=== PATIENT | female | born 1950 | race Caucasian/White ===

== ENCOUNTER 2017-01-13 04:53 | Inpatient (IN) | payer MEDICARE ==
[~2017-01-13] VITALS: Ht 175.3 cm; Wt 103.3 kg
[2017-01-13] VITALS (15 sets, daily range): BP systolic 105–184; BP diastolic 55–85; PULSE 77–156; RESP 18–31; TEMP 98–102; O2SAT 96–100
[~2017-01-13 04:53] MED LIST: ATEN1TAB74 PO; ATOR10 PO; CELL500T PO; COUM4TAB7 PO; DAPS100 PO; FURO1TAB93 PO; LORT5TAB PO; NOVONP2 SQ; NOVORP2 SQ; PRED10 PO; PROG1CAP PO; TELM40 PO; TRIME100 PO
[2017-01-13] MEDS ORDERED: VANCOMYCIN INJ 1,000 MG in SODIUM CHLOR 0.9% 250 ML INJ 250 ML IV STA (05:03)
[2017-01-13] MEDS ORDERED: CEFEPIME INJ 2,000 MG in SODIUM CHLORIDE 0.9% INJ 100 ML IV STA (05:03)
--- NOTE | 2017-01-13 05:08 | PD ---
HPI Chief Complaint: Fever Time Seen by Provider: 05:03 Travel History International Travel<30 days: No Contact w/Intl Traveler<30days: No Traveled to known affect area: No History of Present Illness HPI 66-year-old female patient with history of COPD, chronic leg edema, currently in rehabilitation Center for UTI and sepsis, presents to the ER today for general weakness, fevers, and increased shortness of breath over last day. She denies any vomiting, diarrhea, or any other symptoms. Modifying Factors: None Associated Signs & Symptoms: Fevers, weakness, shortness of breath Risk Factors: Recent history of urosepsis PFSH Past Medical History Arthritis: Yes Asthma: No Autoimmune Disease: No Blood Disorders: No Heart Rhythm Problems: Yes Cancer: No Cardiovascular Problems: Yes Chemotherapy: No Chest Pain: Yes COPD: No Endocrine: No Hypertension: Yes Musculoskeletal: Yes Neurologic: No Psychiatric: No Reproductive: Yes (endometrial bx) Respiratory: No Radiation Therapy: No Renal Failure: Yes Sleep Apnea: No Past Surgical History Abdominal Surgery: Yes (BILATERAL NEPHRECTOMY 01/31/05 WITH KIDNEY TRANSPLANT) Cardiac Surgery: No Ear Surgery: No Endocrine Surgery: No Eye Surgery: No Genitourinary Surgery: Yes (BLADDER REPAIR) Gynecologic Surgery: No Oral Surgery: No Thoracic Surgery: No Other Surgery: Yes (MULTIPLE AV GRAFT PLACEMENTS) Social History Alcohol Use: No Tobacco Use: No Substance Use: No Allergies-Medications (Allergen,Severity, Reaction): Coded Allergies: Sulfa (Sulfonamide Antibiotics) (Unverified Allergy, Severe, 01/13/17) diatrizoate meglumine (Unverified Allergy, Severe, 01/13/17) gadobenic acid (Unverified Allergy, Severe, 01/13/17) gadodiamide (Unverified Allergy, Severe, 01/13/17) gadoteridol (Unverified Allergy, Severe, 01/13/17) iodixanol (Unverified Allergy, Severe, 01/13/17) iohexol (Unverified Allergy, Severe, PT NEEDS TO BE PREMEDICATED, 01/13/17) penicillin G (Unverified Allergy, Severe, 01/13/17) Reported Meds & Prescriptions Reported Meds & Active Scripts Active Review of Systems Except as stated in HPI: all other systems reviewed are Neg Physical Exam Narrative GENERAL: Well-developed obese elderly white female patient currently in mild distress. Awake and oriented 3. SKIN: Focused skin assessment warm/dry. HEAD: Atraumatic. Normocephalic. EYES: Pupils equal and round. No scleral icterus. No injection or drainage. ENT: No nasal bleeding or discharge. Mucous membranes pink and moist. NECK: Trachea midline. No JVD. CARDIOVASCULAR: Regular rate and rhythm. No murmur appreciated. RESPIRATORY: Mild accessory muscle use. Clear to auscultation. Breath sounds equal bilaterally. GASTROINTESTINAL: Abdomen soft, mild lower abdominal tenderness without guarding or rebound, nondistended. Hepatic and splenic margins not palpable. MUSCULOSKELETAL: No obvious deformities. No clubbing. No cyanosis. Bilateral chronic venous stasis with bilateral pitting edema the legs and lower leg erythema bilaterally, mildly tender palpation. NEUROLOGICAL: Awake and alert. No obvious cranial nerve deficits. Motor grossly within normal limits. Normal speech. PSYCHIATRIC: Appropriate mood and affect; insight and judgment normal. Data Data Last Documented VS Vital Signs Date Time Temp Pulse Resp B/P (MAP) Pulse Ox O2 Delivery O2 Flow Rate FiO2 01/13/17 05:08 22 01/13/17 05:08 100 Nasal Cannula 2.00 01/13/17 05:06 131 01/13/17 05:02 98.6 Orders Orders Complete Blood Count With Diff (01/13/17 05:03) Comprehensive Metabolic Panel (01/13/17 05:03) Lactic Acid Sepsis Protocol (01/13/17 05:03) Urinalysis - C+S If Indicated (01/13/17 05:03) Blood Culture (01/13/17 05:03) Chest, Single Ap (01/13/17 05:03) Blood Glucose (01/13/17 05:03) Ecg Monitoring (01/13/17 05:03) Iv Access Insert/Monitor (01/13/17 05:03) Oximetry (01/13/17 05:03) Oxygen Administration (01/13/17 05:03) Vancomycin Inj (Vancomycin Inj) (01/13/17 05:03) Cefepime Inj (Maxipime Inj) (01/13/17 05:03) Urine Culture (01/13/17 05:30) Labs Laboratory Tests Test 01/13/17 05:15 01/13/17 05:30 White Blood Count 9.0 TH/MM3 Red Blood Count 3.71 MIL/MM3 Hemoglobin 11.3 GM/DL Hematocrit 34.4 % Mean Corpuscular Volume 92.8 FL Mean Corpuscular Hemoglobin 30.6 PG Mean Corpuscular Hemoglobin Concent 33.0 % Red Cell Distribution Width 15.1 % Platelet Count 145 TH/MM3 Mean Platelet Volume 9.3 FL Neutrophils (%) (Auto) 82.3 % Lymphocytes (%) (Auto) 4.8 % Monocytes (%) (Auto) 11.7 % Eosinophils (%) (Auto) 0.8 % Basophils (%) (Auto) 0.4 % Neutrophils # (Auto) 7.4 TH/MM3 Lymphocytes # (Auto) 0.4 TH/MM3 Monocytes # (Auto) 1.1 TH/MM3 Eosinophils # (Auto) 0.1 TH/MM3 Basophils # (Auto) 0.0 TH/MM3 CBC Comment DIFF FINAL Differential Comment Blood Urea Nitrogen 31 MG/DL Creatinine 1.58 MG/DL Random Glucose 155 MG/DL Total Protein 5.6 GM/DL Albumin 2.3 GM/DL Calcium Level 7.9 MG/DL Alkaline Phosphatase 84 U/L Aspartate Amino Transf (AST/SGOT) 12 U/L Alanine Aminotransferase (ALT/SGPT) 12 U/L Total Bilirubin 0.5 MG/DL Sodium Level 137 MEQ/L Potassium Level 3.7 MEQ/L Chloride Level 95 MEQ/L Carbon Dioxide Level 33.4 MEQ/L Anion Gap 9 MEQ/L Estimat Glomerular Filtration Rate 33 ML/MIN Lactic Acid Level 1.4 mmol/L Urine Color YELLOW Urine Turbidity CLOUDY Urine pH 6.0 Urine Specific [place] 1.021 Urine Protein 100 mg/dL Urine Glucose (UA) NEG mg/dL Urine Ketones TRACE mg/dL Urine Occult Blood MOD Urine Nitrite NEG Urine Bilirubin NEG Urine Urobilinogen LESS THAN 2.0 MG/DL Urine Leukocyte Esterase LARGE Urine RBC 39 /hpf Urine WBC /hpf Urine WBC Clumps MANY Urine Squamous Epithelial Cells 2 /hpf Urine Bacteria MANY /hpf Microscopic Urinalysis Comment CATH-CULTURE IND MDM Medical Decision Making Medical Screen Exam Complete: Yes Emergency Medical Condition: Yes Medical Record Reviewed: Yes Interpretation(s) Last 24 hours Impressions Chest X-Ray 01/13/17 0503 Signed Impressions: Service Date/Time: Friday, January 13, 2017 05:26 - CONCLUSION: Mild linear opacity in the left lower lobe with the appearance favoring subsegmental atelectasis. Otherwise, no acute finding is identified. Jas Cruz MD Laboratory Tests Test 01/13/17 05:15 01/13/17 05:30 Red Blood Count 3.71 MIL/MM3 (4.00-5.30) Hemoglobin 11.3 GM/DL (11.6-15.3) Hematocrit 34.4 % (35.0-46.0) Platelet Count 145 TH/MM3 (150-450) Neutrophils (%) (Auto) 82.3 % (16.0-70.0) Lymphocytes (%) (Auto) 4.8 % (9.0-44.0) Monocytes (%) (Auto) 11.7 % (0.0-8.0) Lymphocytes # (Auto) 0.4 TH/MM3 (1.0-4.8) Monocytes # (Auto) 1.1 TH/MM3 (0-0.9) Blood Urea Nitrogen 31 MG/DL (7-18) Creatinine 1.58 MG/DL (0.50-1.00) Random Glucose 155 MG/DL (74-106) Total Protein 5.6 GM/DL (6.4-8.2) Albumin 2.3 GM/DL (3.4-5.0) Calcium Level 7.9 MG/DL (8.5-10.1) Aspartate Amino Transf (AST/SGOT) 12 U/L (15-37) Chloride Level 95 MEQ/L (98-107) Carbon Dioxide Level 33.4 MEQ/L (21.0-32.0) Estimat Glomerular Filtration Rate 33 ML/MIN (>89) Urine Turbidity CLOUDY (CLEAR) Urine Protein 100 mg/dL (NEG-TRACE) Urine Ketones TRACE mg/dL (NEG) Urine Occult Blood MOD (NEG) Urine Leukocyte Esterase LARGE (NEG) Urine RBC 39 /hpf (0-3) Urine WBC Clumps MANY (NONE) Urine Bacteria MANY /hpf (NONE) Differential Diagnosis Fevers, shortness of breath, general weakness: Sepsis versus dehydration versus COPD exacerbation versus pneumonia versus UTI Narrative Course Chest x-ray did not show obvious lobar pneumonia but this shows some left lower lobe atelectasis. Lab work shows significant UTI with elevated BUN/creatinine creatinine. There is concern for underlying dehydration as well as sepsis in this case considering the fever 101. IV antibiotics were initiated after cultures were drawn. My plan would be to admit her for further treatment. Case was discussed with Dr. clark for admission. Sepsis Criteria SIRS Criteria (2 or more): Temp > 100.9 or < 96.8, Heart rate over 90, RR > 20 or PaCO2 < 32 Diagnosis Primary Impression: Sepsis Additional Impression: UTI (urinary tract infection) Admitting Information Admitting Physician Requests: Admit Lewis Flores MD Jan 13, 2017 05:08
[2017-01-13 05:32] LABS: AUTOMATED NEUTROPHIL # 7.4 TH/MM3 (1.8-7.7); BASOPHIL % 0.4 % (0.0-2.0); EOSINOPHIL # 0.1 TH/MM3 (0-0.4); EOSINOPHIL % 0.8 % (0.0-4.0); HEMATOCRIT 34.4 % (35.0-46.0); HEMO FLAGS DIFF FINAL; LYMPH % 4.8 % (9.0-44.0); LYMPHOCYTE # 0.4 TH/MM3 (1.0-4.8); MEAN CELL VOLUME 92.8 FL (80.0-100.0); MEAN CORPUSCULAR HEMOGLOBIN 30.6 PG (27.0-34.0); MONO % 11.7 % (0.0-8.0); NEUT % 82.3 % (16.0-70.0); PLATELET COUNT 145 TH/MM3 (150-450); RED BLOOD COUNT 3.71 MIL/MM3 (4.00-5.30); RED CELL DISTRIBUTION WIDTH 15.1 % (11.6-17.2)
[2017-01-13 05:55] LABS: BACTERIA, URINE MANY /hpf; BLOOD, URINE MOD (NEG); COMMENT (UR) CATH-CULTURE IND; CULTURE IF INDICATED CATH CULTURE IND; GLUCOSE,URINE NEG (NEG); KETONE, URINE TRACE mg/dL (NEG); NITRITE,URINE NEG (NEG); SQUAMOUS EPITHELIAL CELL URINE 2 /hpf (0-5); URINE COLOR YELLOW (YELLW/STRAW)
--- NOTE | 2017-01-13 05:59 | RADRPT ---
EXAM DATE/TIME: 01/13/2017 05:26 [facility] COMPARISON: No previous studies available for comparison. INDICATIONS : Fever. MEDICAL HISTORY : Hypertension. Diabetes mellitus type II. Renal failure, chronic. SURGICAL HISTORY : Nephrectomy, left. Nephrectomy, right. Kidney transplant, Bowel resection ENCOUNTER: Initial ACUITY: 1 day PAIN SCORE: 0/10 LOCATION: Bilateral chest FINDINGS: Portable AP view of the chest demonstrates a normal-sized cardiac silhouette with calcification of th e aorta. There is mild linear opacity in the left lower lobe. No effusion, consolidation, or pneumoth orax is identified. The bones and soft tissues demonstrate no acute finding. Multiple clips overlie t he upper abdomen. CONCLUSION: Mild linear opacity in the left lower lobe with the appearance favoring subsegmental atelectasis. Oth erwise, no acute finding is identified. Jas Cruz MD on January 13, 2017 at 5:57 Board Certified Radiologist. This report was verified electronically.
[2017-01-13 06:18] LABS: ALT (GPT) 12 U/L (10-53); ANION GAP 9 MEQ/L (5-15); AST (GOT) 12 U/L (15-37); BICARBONATE 33.4 MEQ/L (21.0-32.0); BLOOD UREA NITROGEN 31 MG/DL (7-18); CHLORIDE 95 MEQ/L (98-107); GLOMERULAR FILTRATION RATE 33 ML/MIN (>89); POTASSIUM 3.7 MEQ/L (3.5-5.1); SODIUM (NA) 137 MEQ/L (136-145)
[2017-01-13 06:20] LABS: ALKALINE PHOSPHATASE 84 U/L (45-117); TOTAL BILIRUBIN ADULT 0.5 MG/DL (0.2-1.0)
[2017-01-13] MEDS ORDERED: SODIUM CHLOR 0.9% 1000 ML INJ 1,000 ML IV SCH (06:45)
[2017-01-13] MEDS ORDERED: Vancomycin Consult Pharmacy 1 EA OTHER SCH (06:45)
[2017-01-13] MEDS ORDERED: TACR1 PO (08:45)
[2017-01-13] MEDS ORDERED: FURO1TAB60 PO (08:45)
[2017-01-13] MEDS ORDERED: LANTUS2P SQ (08:45)
[2017-01-13] MEDS ORDERED: SODI325T PO (08:45)
[2017-01-13] MEDS ORDERED: TIMO0.5S30 EACH EYE (08:45)
[2017-01-13] MEDS ORDERED: IPRASOL INH (08:45)
[2017-01-13] MEDS ORDERED: HUMALOG SQ (08:45)
[2017-01-13] MEDS ORDERED: TYLE325T PO (08:45)
[2017-01-13] MEDS ORDERED: FAMO20TA2 PO (08:45)
[2017-01-13] MEDS ORDERED: APIX5TAB PO (08:45)
[2017-01-13] MEDS ORDERED: METO25TA6 PO (08:45)
[2017-01-13] MEDS ORDERED: PRED10 PO (08:45)
[2017-01-13] MEDS ORDERED: MYCO250 PO (08:45)
[2017-01-13] MEDS ORDERED: LEVO25TA4 PO (08:45)
[2017-01-13] MEDS ORDERED: METOPROLOL SUCCINATE 25 MG EXTENDED RELEASE TAB PO SCH (09:00)
[2017-01-13] MEDS ORDERED: DEXTROSE 50% IN WATER 50 ML VIAL(D50) IV PUSH PRN (10:00)
[2017-01-13] MEDS ORDERED: GLUCAGON 1 MG/ML VIAL OTHER PRN (10:00)
[2017-01-13] MEDS ORDERED: RESP: ALBUTEROL 2.5 MG/IPRATROPIUM 0.5 MG NEB (PRN) NEB (10:00)
[2017-01-13] MEDS: predniSONE 10 MG TAB PO SCH (10:13)
--- NOTE | 2017-01-13 10:13 | HHI.HP ---
HPI Service [facility] Primary Care Physician Selina Francis MD Admission Diagnosis sepsis/UTI Chief Complaint: Fever/chills, weakness Travel History International Travel<30 Days: No Contact w/Intl Traveler <30 Da: No Traveled to Known Affected Are: No History of Present Illness Ms. Rahman is a 66 y/o WF with chronic atrial fibrillation, diabetes mellitus, hx of renal failure secondary to polycystic kidney disease previously on HD for 6 years, then had bilateral nephrectomies and renal transplant on chronic immunosuppression. She was recently hospitalized at [facility] from 12/18/16 to for sepsis, E. coli bacteremia, acute pyelonephritis, and C. diff colitis. Pt was treated initially for sepsis and acute renal failure with IVF and antibiotics and did have initial clinical improvement and due to concern for developed volume overload due to her hx of CHF and valvular disease the IVF were stopped. She then had some worsening renal function felt to be related to septic acute tubular necrosis but this did improve with gentle IVF. She did develop diarrhea during this admission and was found to be positive for C. diff. Her initial blood and urine cultures were positive for E. coli, ESBL negative. She was also noted to emilio n A. fib RVR during that admission which improved with Cardizem gtt and she was converted to her oral metoprolol. Pt was discharged to [facility] on Cefdinir 300mg daily x 12 days ( completed on 01/06) and Flagyl 250mg QID x 14 days, completed on 01/09/17. Pt reports that on Friday (01/11/17), she started having fevers and shaking chills. She states that her fevers then were around 99 degrees. She denies any dysuria, urinary frequency, diarrhea, abdominal pain, cough or congestion. She states that she has had some nausea but denies any vomiting. Pt has had a poor appetite for several weeks. She does not feel that her abdomen is more distended than normal. She is passing gas and states that she had a small BM yesterday. She was [place] [facility] [place] for increased generalized weakness, fevers and some SOB. The pt does not feel that she is SOB. She is requiring 2L of supplemental O2 in [facility] ED. She is noted to be in A. fib RVR with HR in the 130-140's. CXR in the ED noted mild linear opacity in the left lower lobe with the appearance favoring subsegmental atelectasis, otherwise, no acute finding is identified. She denies any chest pain, palpitations, or dizziness. Pt was given IV Vancomycin and cefepime in the ED. Review of Systems Constitutional: COMPLAINS OF: Fever, Chills Eyes: DENIES: Vision loss Ears, nose, mouth, throat: DENIES: Hearing loss Respiratory: COMPLAINS OF: Shortness of breath, DENIES: Cough, Sputum production Cardiovascular: COMPLAINS OF: Lower Extremity Edema (chronic), DENIES: Chest pain, Palpitations Gastrointestinal: COMPLAINS OF: Nausea, Anorexia, DENIES: Abdominal pain, Constipation, Diarrhea, Vomiting Genitourinary: DENIES: Urinary frequency, Urgency, Dysuria Musculoskeletal: DENIES: Back pain, Neck pain Integumentary: DENIES: Rash Neurologic: DENIES: Headache, Localized weakness Psychiatric: DENIES: Confusion Past Family Social History Past Medical History Recent hx of sepsis/E. coli bacteremia/acute pyelonephritis/C. diff colitis in early 12/2016 Hx of renal transplant in 2004 secondary to polycystic kidney disease previously on HD for 6 years, then had bilateral nephrectomies and renal transplant on chronic immunosuppression CKD Anemia of chronic disease Chronic atrial fibrillation CHF Chronic edema of the LE Diabetes mellitus, type 2, complicated by neuropathy, nephropathy, retinopathy and peripheral angiopathy Moderate to severe tricuspid regurgitation Moderate to severe pulmonary HTN Glaucoma GERD HTN Hyperlipidemia Hypothyroidism RA 2D echo (12/19/16) - Estimated EF 55-60% - LA mildly dilated - RV mildly dilated - Mild mitral regurgitation - Moderate to severe tricuspid regurgitation - RVSP 73mmHg - Mild pulmonic regurg Past Surgical History Bilateral nephrectomies in 1999 AVF in multiple locations donor renal transplant in 2004 Cholecystectomy Colon surgery Exploratory Laparotomy for DAVID Ankle surgery Bladder surgery Urethrotomy Reported Medications Per the patient discharge summary from [facility] on 12/31/16 Timolol Opth Drops 0.5 % Soln 1 Drop EACH EYE BID Prograf (Tacrolimus) 1 Mg Cap 1 Mg PO DIRECTED 2mg in the AM 1mg in the PM Prednisone 10 Mg Tab 10 Mg PO DAILY Cellcept (Mycophenolate Mofetil) 250 Mg Cap 750 Mg PO BID Levothyroxine (Levothyroxine Sodium) 25 Mcg Tab 25 Mcg PO DAILY Lasix (Furosemide) 40 Mg Tab 40 Mg PO BID Eliquis (Apixaban) 5 Mg Tab 5 Mg PO BID Tylenol (Acetaminophen) 325 Mg Tab 325 Mg PO BID Sodium Bicarbonate 325 Mg Tab 325 Mg PO TIDPC Metoprolol Succinate ER 24 HR (Metoprolol Succinate) 25 Mg Tab 25 Mg PO BID Humalog Inj (Insulin Human Lispro) 1,000 Unit/10 Ml Vial 2-12 Units SQ ACHS Max dose at bedtime:( )units; sugars < 70,(0)units; sugars 150-199,(2)units; sugars 200-249,(4)units; sugars 250-299,(7)units; sugars 300-349,(10)units; sugars more than 349,(12)units. Lantus Inj (Insulin Glargine) 1,000 Unit/10 Ml Vial 15 Units SQ DAILY Famotidine 20 Mg Tab 20 Mg PO DAILY Duoneb (Ipratropium-Albuterol Neb) 0.5-2.5 Mg/3 Ml Neb 1 Nebule INH Q8HR NEB PRN Allergies: Coded Allergies: Sulfa (Sulfonamide Antibiotics) (Unverified Allergy, Severe, 01/13/17) diatrizoate meglumine (Unverified Allergy, Severe, 01/13/17) gadobenic acid (Unverified Allergy, Severe, 01/13/17) gadodiamide (Unverified Allergy, Severe, 01/13/17) gadoteridol (Unverified Allergy, Severe, 01/13/17) iodixanol (Unverified Allergy, Severe, 01/13/17) iohexol (Unverified Allergy, Severe, PT NEEDS TO BE PREMEDICATED, 01/13/17) penicillin G (Unverified Allergy, Severe, 01/13/17) Family History Father at age 76 from CVA Mother is 92 y/o with HTN and mitral valve disorder Social History Denies any alcohol, tobacco or illicit drug use She is , no children Her brother is her medical surrogate Physical Exam Vital Signs Vital Signs Date Time Temp Pulse Resp B/P (MAP) Pulse Ox O2 Delivery O2 Flow Rate FiO2 01/13/17 08:09 126 18 154/66 (95) 96 Nasal Cannula 2.00 01/13/17 05:08 22 01/13/17 05:08 100 Nasal Cannula 2.00 01/13/17 05:06 131 22 112/57 (75) 100 Nasal Cannula 2.00 01/13/17 05:02 98.6 131 22 98 Physical Exam GENERAL: This is a well-nourished, well-developed patient, in no apparent distress. HEENT: Atraumatic. Normocephalic. No temporal or scalp tenderness. No scleral icterus. Airway patent. NECK: Trachea midline, supple, nontender. CARDIO: Irregular, tachycardic RESP: CTA bilaterally. Appears dyspneic. No wheezes, rales, or rhonchi. ABD: +BS, semi-firm, non-tender, mildly distended. Ventral hernia, non- incarcerated EXT: Bilateral LE edema, venous stasis skin changes NEURO: Awake and alert. Motor and sensory grossly within normal limits. Normal speech. Laboratory Laboratory Tests Test 01/13/17 05:15 01/13/17 05:30 White Blood Count 9.0 Red Blood Count 3.71 Hemoglobin 11.3 Hematocrit 34.4 Mean Corpuscular Volume 92.8 Mean Corpuscular Hemoglobin 30.6 Mean Corpuscular Hemoglobin Concent 33.0 Red Cell Distribution Width 15.1 Platelet Count 145 Mean Platelet Volume 9.3 Neutrophils (%) (Auto) 82.3 Lymphocytes (%) (Auto) 4.8 Monocytes (%) (Auto) 11.7 Eosinophils (%) (Auto) 0.8 Basophils (%) (Auto) 0.4 Neutrophils # (Auto) 7.4 Lymphocytes # (Auto) 0.4 Monocytes # (Auto) 1.1 Eosinophils # (Auto) 0.1 Basophils # (Auto) 0.0 CBC Comment DIFF FINAL Differential Comment Blood Urea Nitrogen 31 Creatinine 1.58 Random Glucose 155 Total Protein 5.6 Albumin 2.3 Calcium Level 7.9 Alkaline Phosphatase 84 Aspartate Amino Transf (AST/SGOT) 12 Alanine Aminotransferase (ALT/SGPT) 12 Total Bilirubin 0.5 Sodium Level 137 Potassium Level 3.7 Chloride Level 95 Carbon Dioxide Level 33.4 Anion Gap 9 Estimat Glomerular Filtration Rate 33 Lactic Acid Level 1.4 Urine Color YELLOW Urine Turbidity CLOUDY Urine pH 6.0 Urine Specific [place] 1.021 Urine Protein 100 Urine Glucose (UA) NEG Urine Ketones TRACE Urine Occult Blood MOD Urine Nitrite NEG Urine Bilirubin NEG Urine Urobilinogen LESS THAN 2.0 Urine Leukocyte Esterase LARGE Urine RBC 39 Urine WBC Urine WBC Clumps MANY Urine Squamous Epithelial Cells 2 Urine Bacteria MANY Microscopic Urinalysis Comment CATH-CULTURE IND Date/Time Source Procedure Growth Status 01/13/17 05:15 Blood Peripheral Aerobic Blood Culture Pending Received 01/13/17 05:15 Blood Peripheral Anaerobic Blood Culture Pending Received 01/13/17 05:30 Urine Catheterized Urine Urine Culture Pending Received Result Diagram: 01/13/17 0515 01/13/17 0515 Imaging Last Impressions Chest X-Ray 01/13/17 0503 Signed Impressions: Service Date/Time: Friday, January 13, 2017 05:26 - CONCLUSION: Mild linear opacity in the left lower lobe with the appearance favoring subsegmental atelectasis. Otherwise, no acute finding is identified. Jas Cruz MD Septic Shock Reassessment Heart: Irregular Lungs: Clear Skin: Cold Caprini VTE Risk Assessment Caprini VTE Risk Assessment: Mod/High Risk (score >= 2) Caprini Risk Assessment Model Point Value = 1 Point Value = 2 Point Value = 3 Point Value = 5 Age 41-60 Minor surgery BMI > 25 kg/m2 Swollen legs Varicose veins or History of unexplained or recurrent spontaneous Oral contraceptives or hormone replacement Sepsis (< 1 month) Serious lung disease, including pneumonia (< 1 month) Abnormal pulmonary function Acute myocardial infarction Congestive heart failure (< 1 month) History of inflammatory bowel disease Medical patient at bed rest Age 61-74 Arthroscopic surgery Major open surgery (> 45 min) Laparoscopic surgery (> 45 min) Malignancy Confined to bed (> 72 hours) Immobilizing plaster cast Central venous access Age >= 75 History of VTE Family history of VTE Factor V Leiden Prothrombin [id number] Lupus anticoagulant Anticardiolipin antibodies Elevated serum homocysteine Heparin-induced thrombocytopenia Other congenital or acquired thrombophilia Stroke (< 1 month) Elective arthroplasty Hip, pelvis, or leg fracture Acute spinal cord injury (< 1 month) Prophylaxis Regimen Total Risk Factor Score Risk Level Prophylaxis Regimen 0-1 Low Early ambulation 2 Moderate Order ONE of the following: *Sequential Compression Device (SCD) *Heparin 5000 units SQ BID 3-4 Higher Order ONE of the following medications: *Heparin 5000 units SQ TID *Enoxaparin/Lovenox 40 mg SQ daily (WT < 150 kg, CrCl > 30 mL/min) *Enoxaparin/Lovenox 30 mg SQ daily (WT < 150 kg, CrCl > 10-29 mL/min) *Enoxaparin/Lovenox 30 mg SQ BID (WT < 150 kg, CrCl > 30 mL/min) AND/OR *Sequential Compression Device (SCD) 5 or more Highest Order ONE of the following medications: *Heparin 5000 units SQ TID (Preferred with Epidurals) *Enoxaparin/Lovenox 40 mg SQ daily (WT < 150 kg, CrCl > 30 mL/min) *Enoxaparin/Lovenox 30 mg SQ daily (WT < 150 kg, CrCl > 10-29 mL/min) *Enoxaparin/Lovenox 30 mg SQ BID (WT < 150 kg, CrCl > 30 mL/min) AND *Sequential Compression Device (SCD) Assessment and Plan Problem List: (1) Sepsis ICD Codes: A41.9 - Sepsis, unspecified organism Status: Acute Plan: - Pt is a 66 y/o female with chronic atrial fibrillation, diabetes mellitus, hx of renal failure secondary to polycystic kidney disease previously on HD for 6 years, then had bilateral nephrectomies and renal transplant on chronic immunosuppression. - She was recently hospitalized at [facility] from 12/18/16 to 12/31/16 for sepsis, E. coli bacteremia, acute pyelonephritis, and C. diff colitis. Pt was discharged to [facility] on Cefdinir 300mg daily x 12 days (completed on 01/06) and Flagyl 250mg QID x 14 days, completed on 01/09/17. - Pt presented [place] [facility] [place] for increased generalized weakness, fevers and some SOB. She states that on Friday (01/11/17), she started having fevers and shaking chills. She states that her fevers then were around 99 degrees but this reportedly increased to fever of 101 per the ED documentation. - She is requiring 2L of supplemental O2 in the ED. CXR in the ED noted mild linear opacity in the left lower lobe with the appearance favoring subsegmental atelectasis, otherwise, no acute finding is identified. - She is noted to be in A. fib RVR with HR in the 130-140's. - Blood and urine cultures taken in the ED - Pt was given IV Vancomycin and cefepime and one liter of NS in the ED, and will be continue the antibiotics and will monitor renal function closely to determine about continuing IVF. - Her renal function is noted to be Cr 1.58/BUN 31, GFR 33. In review of discharge summary from [facility] on the day of discharge her Cr was 1.7, BUN 68. - Monitor UOP and clinical status closely for any signs of volume overload. - Pt will be started on Cardizem gtt for the A. fib RVR - No reported diarrhea but if she develops any check stools for C. diff. - Check Profrag levels - She typically follow with Dr. Hector for nephrology but she states that while she was at rehab his office called and said they "don't want her to go back to the hospital" - Monitor labs - PT evaluation - Consult ID - [id number] - CXR in AM - IS - Duonebs PRN - Supportive care (2) UTI (urinary tract infection) ICD Codes: N39.0 - Urinary tract infection, site not specified Status: Acute Plan: - See above. - Pt recently treated for E. coli UTI and bacteremia - Await urine culture - Cont. Vanc and cefepime for now (3) Chronic atrial fibrillation with RVR ICD Codes: I48.2 - Chronic atrial fibrillation Status: Acute Plan: - Pt noted to be in A. fib RVR with HR in the 130-140's consistently - Start Cardizem gtt - When HR better controlled, will convert to oral Metoprolol - Telemetry (4) Acute on chronic renal insufficiency ICD Codes: N28.9 - Disorder of kidney and ureter, unspecified; N18.9 - Chronic kidney disease, unspecified Status: Acute Plan: - Her renal function is noted to be Cr 1.58/BUN 31, GFR 33 at admission. - In review of discharge summary from [facility] on the day of discharge her Cr was 1.7, BUN 68. 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 fib more controlled will convert back to Metoprolol - Clonidine PRN - Vasotec PRN (7) Hypothyroidism ICD Codes: E03.9 - Hypothyroidism, unspecified Plan: - Home med continued (8) Hx of kidney transplant ICD Codes: Z94.0 - Kidney transplant status Plan: - Pt with hx of renal failure secondary to polycystic kidney disease previously on HD for 6 years, then had bilateral nephrectomies and renal transplant on chronic immunosuppression. - Cont. home doses of Prograf, Cellcept and Prednisone - Check Prograf level (9) Hyperlipidemia ICD Codes: E78.5 - Hyperlipidemia, unspecified Plan: - Home meds continued Assessment and Plan Patient examined. Assessment and plan formulated with [facility] REAGAN I agree with the above. Recent prolong hospitalization at d/t sepsis, Ecoli bacteremia, pyelonephritis, CDif, and CHF. Pt readmitted with probable sepsis. Continue cefepime and vancomcyin Pt started on cardizem drip for Afib RVR HR currently 110 to 120 on telemery Physician Certification 2 Midnight Certification Type: Admission for Inpatient Services Order for Inpatient Services The services are ordered in accordance with Medicare regulations or non- Medicare payer requirements, as applicable. In the case of services not specified as inpatient-only, they are appropriately provided as inpatient services in accordance with the 2-midnight benchmark. Estimated LOS (days): 3 3 days is the estimated time the patient will need to remain in the hospital, assuming treatment plan goals are met and no additional complications. Post-Hospital Plan: Not yet determined Aurora Li Jan 13, 2017 10:13 Dharmesh Troy DO Jan 13, 2017 12:35
[2017-01-13] MEDS: ACETAMINOPHEN 325 MG TAB PO PRN (10:14)
[2017-01-13] MEDS: DILTIAZEM INJ 125 MG in SODIUM CHLORIDE 0.9% INJ 100 ML IV PRN ×2 (10:31→21:33)
[2017-01-13] MEDS: SODIUM CHLOR 0.9% 1000 ML INJ 1,000 ML IV SCH ×2 (10:59→21:33)
[2017-01-13] MEDS: SODIUM BICARBONATE 325 MG TAB PO SCH ×3 (10:59→17:20)
[2017-01-13] MEDS: TIMOLOL MALEATE 0.5% OPHT SOLN 5 ML BTL EACH EYE SCH ×2 (11:00→21:00)
[2017-01-13] MEDS: FAMOTIDINE 20 MG TAB PO SCH (11:35)
[2017-01-13] MEDS: APIXABAN 5 MG TABLET PO SCH ×2 (11:35→21:30)
[2017-01-13] MEDS: INSULIN ASPART SUPPLEMENTAL SCALE SQ SCH ×3 (11:36→21:00)
[2017-01-13] MEDS: DOCUSATE SODIUM 100 MG CAP PO SCH ×2 (13:00→21:29)
--- NOTE | 2017-01-13 13:18 | RADRPT ---
EXAM DATE/TIME: 01/13/2017 10:56 [facility] COMPARISON: No previous studies available for comparison. EXTERNAL COMPARISON : INDICATIONS : Distention and vomting. MEDICAL HISTORY : Hypertension. Diabetes mellitus type II. Renal failure, chronic. SURGICAL HISTORY : Nephrectomy, left. Nephrectomy, right. Kidney transplant, Bowel resection ENCOUNTER: Initial ACUITY: 1 day PAIN SCORE: 0/10 LOCATION: Bilateral abdomen. FINDINGS: Bowel gas pattern is unremarkable. Multiple surgical clips are seen in the abdomen. There is no shabbir e air. Portion most of the visualized unremarkable. CONCLUSION: History of multiple bowel surgeries, negative for free air or obstruction. Davin Gabriel MD FACR on January 13, 2017 at 13:15 Board Certified Radiologist. This report was verified electronically.
[2017-01-13] MEDS: MYCOPHENOLATE MOFETIL 250 MG CAP PO SCH ×2 (14:04→17:20)
[2017-01-13] MEDS: TACROLIMUS 1 MG CAP PO SCH ×2 (14:05→17:40)
[2017-01-13] MEDS: LEVOTHYROXINE SODIUM 25 MCG TAB PO SCH (14:05)
[2017-01-13] MEDS ORDERED: MISCELLANEOUS PHARMACY INFORMATION XX PRN (15:00)
[2017-01-13] MEDS ORDERED: ASP: Other exception documentation: ( ) PRN (15:00)
--- NOTE | 2017-01-13 15:07 | PD.CONS ---
History of Present Illness Service Infectious disease Consult Requested By Dr Mario Troy Reason for Consult Evaluate patient with possible sepsis Primary Care Physician Selina Francis MD Diagnoses: History of Present Illness Patient seen and examined. Records reviewed. Patient is a 66-year-old female, who is status post renal transplant, presented to the hospital complaining of an acute onset of fevers and chills. She was recently hospitalized at [facility], were she was diagnosed to have Escherichia coli ESBL UTI, and her hospitalization was complicated by development of C. difficile colitis. She also had worsening of her renal function which improved after treatment of the UTI, sepsis and fluid hydration. She was discharged to a rehabilitation facility, and reportedly finish her antibiotics on January 06, and the Flagyl on January 09. She developed an acute onset of fever and chills. She says she is voiding okay. She had some vomiting. Her diarrhea has improved. Denies any abdominal pain or any back pain. She denies any shortness of breath or any congestion or respiratory complaints. Since admission she has been febrile. She was in A. fib RVR on admission and the rate has improved. Her WBC is normal. Her urinalysis showed pyuria. Chest x-ray showed some atelectasis. Infectious disease consultation has been requested to evaluate the patient. Review of Systems Constitutional: COMPLAINS OF: Fever, Chills Eyes: DENIES: Eye pain Ears, nose, mouth, throat: DENIES: Oral lesions, Throat pain, Ear Pain, Sinus Pain, Odynophagia Respiratory: DENIES: Cough, Shortness of breath Cardiovascular: DENIES: Chest pain, Palpitations, Syncope Gastrointestinal: COMPLAINS OF: Nausea, Vomiting, DENIES: Abdominal pain, Diarrhea Genitourinary: DENIES: Urinary frequency, Dysuria Musculoskeletal: DENIES: Muscle aches Integumentary: DENIES: Rash Neurologic: DENIES: Headache Psychiatric: DENIES: Hallucinations Past Family Social History Allergies: Coded Allergies: Sulfa (Sulfonamide Antibiotics) (Unverified Allergy, Severe, 01/13/17) diatrizoate meglumine (Unverified Allergy, Severe, 01/13/17) gadobenic acid (Unverified Allergy, Severe, 01/13/17) gadodiamide (Unverified Allergy, Severe, 01/13/17) gadoteridol (Unverified Allergy, Severe, 01/13/17) iodixanol (Unverified Allergy, Severe, 01/13/17) iohexol (Unverified Allergy, Severe, PT NEEDS TO BE PREMEDICATED, 01/13/17) penicillin G (Unverified Allergy, Severe, 01/13/17) Past Medical History Recent hx of sepsis/E. coli bacteremia/acute pyelonephritis/C. diff colitis in early 12/2016 Hx of renal transplant in 2004 secondary to polycystic kidney disease previously on HD for 6 years, then had bilateral nephrectomies and renal transplant on chronic immunosuppression CKD Anemia of chronic disease Chronic atrial fibrillation CHF Chronic edema of the LE Diabetes mellitus, type 2, complicated by neuropathy, nephropathy, retinopathy and peripheral angiopathy Moderate to severe tricuspid regurgitation Moderate to severe pulmonary HTN Glaucoma GERD HTN Hyperlipidemia Hypothyroidism RA Past Surgical History Bilateral nephrectomies in 1999 AVF in multiple locations donor renal transplant in 2004 Cholecystectomy Colon surgery Exploratory Laparotomy for DAVID Ankle surgery Bladder surgery Urethrotomy Active Ordered Medications Tylenol Albuterol Eliquis Cefepime Cardizem Colace Pepcid Insulin Synthroid MOM CellCept Zofran Prednisone Sodium bicarbonate Prograf Vancomycin Family History Father at age 76 from CVA Mother is 92 y/o with HTN and mitral valve disorder Social History Denies any alcohol, tobacco or illicit drug use She is , no children Came from rehab facility Physical Exam Vital Signs Vital Signs Date Time Temp Pulse Resp B/P (MAP) Pulse Ox O2 Delivery O2 Flow Rate FiO2 01/13/17 14:00 80 01/13/17 12:01 154 18 168/64 (98) 98 Nasal Cannula 2.00 01/13/17 12:00 149 01/13/17 12:00 100.0 147 30 119/58 (78) 100 01/13/17 11:00 18 01/13/17 10:55 149 20 132/60 (84) 100 Nasal Cannula 3.00 01/13/17 10:31 155 175/72 01/13/17 10:00 102.0 156 18 184/85 (118) 97 Nasal Cannula 3.00 01/13/17 08:09 126 18 154/66 (95) 96 Nasal Cannula 2.00 01/13/17 05:08 22 01/13/17 05:08 100 Nasal Cannula 2.00 01/13/17 05:06 131 22 112/57 (75) 100 Nasal Cannula 2.00 01/13/17 05:02 98.6 131 22 98 Physical Exam GENERAL: Patient is a well-nourished, well-developed female, awake and alert , looks tachypneic, but denies SOB SKIN: Warm and dry. No generalized rash, no ecchymoses and no evidence of embolic lesions. HEAD: Atraumatic. Normocephalic. No temporal wasting, or tenderness. EYES: [place] conjunctiva. No petechia or hemorrhage. Pupils equal, round and reactive to light. Extraocular movements full and intact. No scleral icterus. No injection or drainage. EARS, NOSE AND THROAT: Nose without bleeding or purulent nasal discharge. No sinus tenderness. Mucous membranes pink and moist. No oral lesions noted. No exudate. No oral thrush. NECK: Trachea midline. Supple and not tender, no meningeal signs CARDIOVASCULAR: Regular rate and rhythm. No murmurs, rubs or gallops heard RESPIRATORY: Clear to auscultation. Breath sounds equal bilaterally. No rales , wheezing or rhonchi. Decreased BS at bases ABDOMEN: Soft, globular, non-tender, nondistended. Bowel sounds present and normoactive. No guarding. No rebound. Has an area of ecchymoses anterior abdominal wall. Healed incision C/W surgery EXTREMITIES: No clubbing, cyanosis. Has chronic indurated leathery texture skin changes in both LE c/w lymphedema. No calf tenderness. Well perfused and warm. NEUROLOGICAL: Awake and alert. Cranial nerves grossly intact. Motor grossly within normal limits. PSYCHIATRIC: Normal affect, calm and cooperative. LINE: No evidence of infection Laboratory Laboratory Tests Test 01/13/17 05:15 01/13/17 05:30 White Blood Count 9.0 Red Blood Count 3.71 Hemoglobin 11.3 Hematocrit 34.4 Mean Corpuscular Volume 92.8 Mean Corpuscular Hemoglobin 30.6 Mean Corpuscular Hemoglobin Concent 33.0 Red Cell Distribution Width 15.1 Platelet Count 145 Mean Platelet Volume 9.3 Neutrophils (%) (Auto) 82.3 Lymphocytes (%) (Auto) 4.8 Monocytes (%) (Auto) 11.7 Eosinophils (%) (Auto) 0.8 Basophils (%) (Auto) 0.4 Neutrophils # (Auto) 7.4 Lymphocytes # (Auto) 0.4 Monocytes # (Auto) 1.1 Eosinophils # (Auto) 0.1 Basophils # (Auto) 0.0 CBC Comment DIFF FINAL Differential Comment Blood Urea Nitrogen 31 Creatinine 1.58 Random Glucose 155 Total Protein 5.6 Albumin 2.3 Calcium Level 7.9 Alkaline Phosphatase 84 Aspartate Amino Transf (AST/SGOT) 12 Alanine Aminotransferase (ALT/SGPT) 12 Total Bilirubin 0.5 Sodium Level 137 Potassium Level 3.7 Chloride Level 95 Carbon Dioxide Level 33.4 Anion Gap 9 Estimat Glomerular Filtration Rate 33 Lactic Acid Level 1.4 Tacrolimus (Prograf) Level 4.5 Urine Color YELLOW Urine Turbidity CLOUDY Urine pH 6.0 Urine Specific Lindsay 1.021 Urine Protein 100 Urine Glucose (UA) NEG Urine Ketones TRACE Urine Occult Blood MOD Urine Nitrite NEG Urine Bilirubin NEG Urine Urobilinogen LESS THAN 2.0 Urine Leukocyte Esterase LARGE Urine RBC 39 Urine WBC Urine WBC Clumps MANY Urine Squamous Epithelial Cells 2 Urine Bacteria MANY Microscopic Urinalysis Comment CATH-CULTURE IND Date/Time Source Procedure Growth Status 01/13/17 05:15 Blood Peripheral Aerobic Blood Culture Pending Received 01/13/17 05:15 Blood Peripheral Anaerobic Blood Culture Pending Received 01/13/17 05:30 Urine Catheterized Urine Urine Culture Pending Received Result Diagram: 01/13/17 0515 01/13/17 0515 Imaging RADIOLOGY STUDIES/FILMS REVIEWED Chest X-Ray 01/13/17 0503 Signed Impressions: Service Date/Time: Friday, January 13, 2017 05:26 - CONCLUSION: Mild linear opacity in the left lower lobe with the appearance favoring subsegmental atelectasis. Otherwise, no acute finding is identified. Jas Cruz MD Abdomen X-Ray 01/13/17 0000 Signed Impressions: Service Date/Time: Friday, January 13, 2017 10:56 - CONCLUSION: History of multiple bowel surgeries, negative for free air or obstruction. Davin Gabriel MD FACR Assessment and Plan Assessment and Plan IMPRESSION Sepsis due to recurrent UTI Recent episode of UTI with E coli ESBL (+) Episode of C diff, seems stable, diarrhea has imrpoved - potential for recurrent audi since she will be getting systemic Abx S/P renal transplant - has renal insufficiency RECOMMENDATION Use Merem until C/S available Continue Vanco for now US of transplant kidney Follow C/S and adjust Abx Follow temps Monitor progress Will determine course of Abx once work-up is completer I will follow along with you Thank you for this consultation Discussed Condition With Explained plan to the patient Belem Gray MD Jan 13, 2017 15:07
--- NOTE | 2017-01-13 15:56 | EKG ---
Date Performed: 01/13/2017 Time Performed: 10:03:59 PTAGE: 66 years EKG: ATRIAL FIBRILLATION WITH RAPID VENTRICULAR RESPONSE ST DEVIATION AND MODERATE T-WAVE ABNORM ALITY, CONSIDER ANTEROLATERAL ISCHEMIA ST DEVIATION AND MODERATE T-WAVE ABNORMALITY, CONSIDER INFERIO R ISCHEMIA ABNORMAL ECG Compared to PREVIOUS TRACING , ventricular response to atrial fibrillation/flutter is faster. Early d iffused ST changes are new, consider ischemia. PREVIOUS TRACING 11/09/2007 07.41.14 DOCTOR: Eddie Amaral Interpretating Date/Time 01/13/2017 15:56:05
[2017-01-13] MEDS ORDERED: CHLORHEXIDINE GLUCONATE 2 % 1 PACK (2 CLOTHS)(extra cloths) TOPICAL PRN (16:15)
[2017-01-13] MEDS: CEFEPIME INJ 1,000 MG in SODIUM CHLORIDE 0.9% INJ 100 ML IV SCH (17:19)
[2017-01-13] MEDS: LACTOBACILLUS ACIDOPHILUS TAB PO SCH (17:20)
[2017-01-13] MEDS: MEROPENEM INJ 500 MG in SODIUM CHLORIDE 0.9% INJ 100 ML IV SCH (17:40)
--- NOTE | 2017-01-13 19:31 | RADRPT ---
EXAM DATE/TIME: 01/13/2017 16:01 [facility] COMPARISON: No previous studies available for comparison. INDICATIONS : Recurrent UTIs. MEDICAL HISTORY : Hypothyroidism. Gastroesophageal reflux disease. Hypertension. Numbness. Emphysema. Renal failure. Ar thritis. Diabetes. SURGICAL HISTORY : Cholecystectomy. Bilateral nephrectomy. Endometrial biopsy. Left ankle replacement. Multiple AV f istula surgeries. Left renal transplant. Bladder repair. ENCOUNTER: Initial ACUITY: 1 day PAIN SCORE: 7/10 LOCATION: Left lower quadrant MEASUREMENTS: TRANSPLANT KIDNEY: 14.2 x 6.5 x 8.8 cm LOCATION: Left lower quadrant. ARCUATE ARTERIES RESISTIVE INDEX: Upper - 0.7 Mid - 1.0 Lower - 1.0 MAIN RENAL ARTERY VELOCITY: (cm/sec): 71.7 MAIN RENAL VEIN: Patent EXTERNAL ILIAC ARTERY VELOCITY (cm/sec): 40.5 * NORMAL DOPPLER FINDINGS Arcuate arteries - RI = 0.6 - 0.8 Renal artery = under 200 cm/sec Renal vein = May be monophasic with continuous flow or demonstrate some pulsatility with cardiac cycl e FINDINGS: TRANSPLANT KIDNEY: Normal cortical thickness and echotexture. No hydronephrosis, stone, or mass. No peritransplant flu id collection. URINARY BLADDER: Within normal limits given the degree of distension. CONCLUSION: There are elevated resistive indices seen in the mid and lower transplanted kidney concerning medical renal disease or rejection. No hydronephrosis is seen. aJs Pace MD on January 13, 2017 at 19:27 Board Certified Radiologist. This report was verified electronically.
[2017-01-13] MEDS: VANCOMYCIN INJ 1,500 MG in SODIUM CHLORID 0.9% 500 ML INJ 500 ML IV SCH (21:32)
[2017-01-14] VITALS (12 sets, daily range): BP systolic 109–154; BP diastolic 53–70; PULSE 76–97; RESP 21–38; TEMP 96.4–98.8; O2SAT 93–100
[2017-01-14] MEDS: CHLORHEXIDINE GLUCONATE 2 % 1 PACK (2 CLOTHS)(taper/protocol) TOPICAL SCH (03:30)
[2017-01-14] MEDS: MEROPENEM INJ 500 MG in SODIUM CHLORIDE 0.9% INJ 100 ML IV SCH ×3 (04:29→23:13)
[2017-01-14] MEDS: CEFEPIME INJ 1,000 MG in SODIUM CHLORIDE 0.9% INJ 100 ML IV SCH (06:00)
[2017-01-14] MEDS: LEVOTHYROXINE SODIUM 25 MCG TAB PO SCH (06:00)
[2017-01-14] MEDS: ONDANSETRON HCL 4 MG/2 ML VIAL IV PRN (06:58)
[2017-01-14] MEDS: INSULIN ASPART SUPPLEMENTAL SCALE SQ SCH ×4 (06:58→23:24)
[2017-01-14 07:00] LABS: AUTOMATED NEUTROPHIL # 5.1 TH/MM3 (1.8-7.7); BASOPHIL % 0.1 % (0.0-2.0); EOSINOPHIL # 0.1 TH/MM3 (0-0.4); EOSINOPHIL % 1.3 % (0.0-4.0); HEMATOCRIT 29.1 % (35.0-46.0); HEMO FLAGS DIFF FINAL; LYMPH % 5.6 % (9.0-44.0); LYMPHOCYTE # 0.3 TH/MM3 (1.0-4.8); MEAN CELL VOLUME 92.9 FL (80.0-100.0); MEAN CORPUSCULAR HEMOGLOBIN 29.6 PG (27.0-34.0); MEAN CORPUSCULAR HGB CONC 31.9 % (32.0-36.0); MONO % 11.1 % (0.0-8.0); NEUT % 81.9 % (16.0-70.0); PLATELET COUNT 116 TH/MM3 (150-450); RED BLOOD COUNT 3.14 MIL/MM3 (4.00-5.30); WHITE BLOOD COUNT 6.2 TH/MM3 (4.0-11.0)
[2017-01-14 07:41] LABS: BICARBONATE 29.3 MEQ/L (21.0-32.0)
[2017-01-14 07:53] LABS: MAGNESIUM 1.5 MG/DL (1.5-2.5); POTASSIUM 3.6 MEQ/L (3.5-5.1)
--- NOTE | 2017-01-14 08:55 | RADRPT ---
EXAM DATE/TIME: 01/14/2017 08:30 [facility] COMPARISON: CHEST SINGLE AP, January 13, 2017, 5:26. INDICATIONS : Dyspnea. MEDICAL HISTORY : Congestive heart failure. Diabetes mellitus type II. Hypertension. A-Fib. SURGICAL HISTORY : Left kidney transplant. ENCOUNTER: Subsequent ACUITY: 2 days PAIN SCORE: 0/10 LOCATION: chest FINDINGS: A single view of the chest demonstrates the lungs to be symmetrically aerated without evidence of mas s, infiltrate or effusion. The cardiomediastinal contours are unremarkable. Osseous structures are intact. Mild oblique linear density in the left base retrocardiac region is consistent with subsegmen milena atelectasis.No significant change has occurred. No significant change has occurred. CONCLUSION: Stable chest. Kyree Johnston MD on January 14, 2017 at 8:52 Board Certified Radiologist. This report was verified electronically.
[2017-01-14] MEDS: APIXABAN 5 MG TABLET PO SCH ×2 (08:58→23:13)
[2017-01-14] MEDS: DOCUSATE SODIUM 100 MG CAP PO SCH ×2 (08:58→23:11)
[2017-01-14] MEDS: TACROLIMUS 1 MG CAP PO SCH ×2 (08:58→16:35)
[2017-01-14] MEDS: MYCOPHENOLATE MOFETIL 250 MG CAP PO SCH ×2 (08:58→23:12)
[2017-01-14] MEDS: predniSONE 10 MG TAB PO SCH (08:58)
[2017-01-14] MEDS: LACTOBACILLUS ACIDOPHILUS TAB PO SCH ×3 (08:58→16:35)
[2017-01-14] MEDS: TIMOLOL MALEATE 0.5% OPHT SOLN 5 ML BTL EACH EYE SCH ×2 (08:58→23:14)
[2017-01-14] MEDS: FAMOTIDINE 20 MG TAB PO SCH (08:58)
[2017-01-14] MEDS: SODIUM BICARBONATE 325 MG TAB PO SCH ×3 (09:03→18:24)
[2017-01-14] MEDS: DILTIAZEM HCL 30 MG TAB PO SCH ×3 (09:03→23:11)
--- NOTE | 2017-01-14 10:21 | HHI.IDPN ---
Subjective Subjective Remarks Patient is a 66-year-old female, who is status post renal transplant, presented to the hospital complaining of an acute onset of fevers and chills. She was recently hospitalized at [facility], were she was diagnosed to have Escherichia coli ESBL UTI, and her hospitalization was complicated by development of C. difficile colitis. She also had worsening of her renal function which improved after treatment of the UTI, sepsis and fluid hydration. She was discharged to a rehabilitation facility, and reportedly finish her antibiotics on January 06, and the Flagyl on January 09. She developed an acute onset of fever and chills. She says she is voiding okay. She had some vomiting. Her diarrhea has improved. Denies any abdominal pain or any back pain. She denies any shortness of breath or any congestion or respiratory complaints. Since admission she has been febrile. She was in A. fib RVR on admission and the rate has improved. Her WBC is normal. Her urinalysis showed pyuria. Chest x-ray showed some atelectasis. Notes reviewed Temps better BP good Monitor shows atrial flutter US no hydronephrosis BC with GNR UC pending Creatinine better Antibiotics Merem Vancomycin Lines PIV Past Medical History Recent hx of sepsis/E. coli bacteremia/acute pyelonephritis/C. diff colitis in early 12/2016 Hx of renal transplant in 2004 secondary to polycystic kidney disease previously on HD for 6 years, then had bilateral nephrectomies and renal transplant on chronic immunosuppression CKD Anemia of chronic disease Chronic atrial fibrillation CHF Chronic edema of the LE Diabetes mellitus, type 2, complicated by neuropathy, nephropathy, retinopathy and peripheral angiopathy Moderate to severe tricuspid regurgitation Moderate to severe pulmonary HTN Glaucoma GERD HTN Hyperlipidemia Hypothyroidism RA Past Surgical History Bilateral nephrectomies in 1999 AVF in multiple locations donor renal transplant in 2004 Cholecystectomy Colon surgery Exploratory Laparotomy for DAVID Ankle surgery Bladder surgery Urethrotomy Allergies: Coded Allergies: Sulfa (Sulfonamide Antibiotics) (Unverified Allergy, Severe, 01/13/17) diatrizoate meglumine (Unverified Allergy, Severe, 01/13/17) gadobenic acid (Unverified Allergy, Severe, 01/13/17) gadodiamide (Unverified Allergy, Severe, 01/13/17) gadoteridol (Unverified Allergy, Severe, 01/13/17) iodixanol (Unverified Allergy, Severe, 01/13/17) iohexol (Unverified Allergy, Severe, PT NEEDS TO BE PREMEDICATED, 01/13/17) penicillin G (Unverified Allergy, Severe, 01/13/17) Objective . Vital Signs Date Time Temp Pulse Resp B/P (MAP) Pulse Ox O2 Delivery O2 Flow Rate FiO2 01/14/17 06:00 79 01/14/17 04:00 98.1 78 21 132/62 (85) 100 01/14/17 04:00 78 01/14/17 02:00 77 01/14/17 00:00 76 01/14/17 00:00 98.1 76 28 109/53 (71) 100 01/13/17 22:00 79 01/13/17 21:33 78 123/69 01/13/17 20:00 98.0 79 31 115/60 (78) 100 01/13/17 20:00 79 01/13/17 19:24 100 Nasal Cannula 2.00 01/13/17 18:00 77 01/13/17 16:15 98 Nasal Cannula 2.00 01/13/17 16:00 98.5 80 24 105/55 (72) 100 01/13/17 16:00 80 01/13/17 14:00 80 01/13/17 12:01 154 18 168/64 (98) 98 Nasal Cannula 2.00 01/13/17 12:00 149 01/13/17 12:00 100.0 147 30 119/58 (78) 100 01/13/17 11:00 18 01/13/17 10:55 149 20 132/60 (84) 100 Nasal Cannula 3.00 01/13/17 10:31 155 175/72 . Laboratory Tests Test 01/13/17 05:15 01/14/17 05:15 White Blood Count 9.0 TH/MM3 6.2 TH/MM3 Red Blood Count 3.71 MIL/MM3 3.14 MIL/MM3 Hemoglobin 11.3 GM/DL 9.3 GM/DL Hematocrit 34.4 % 29.1 % Mean Corpuscular Volume 92.8 FL 92.9 FL Mean Corpuscular Hemoglobin 30.6 PG 29.6 PG Mean Corpuscular Hemoglobin Concent 33.0 % 31.9 % Red Cell Distribution Width 15.1 % 15.0 % Platelet Count 145 TH/MM3 116 TH/MM3 Mean Platelet Volume 9.3 FL 9.0 FL Neutrophils (%) (Auto) 82.3 % 81.9 % Lymphocytes (%) (Auto) 4.8 % 5.6 % Monocytes (%) (Auto) 11.7 % 11.1 % Eosinophils (%) (Auto) 0.8 % 1.3 % Basophils (%) (Auto) 0.4 % 0.1 % Neutrophils # (Auto) 7.4 TH/MM3 5.1 TH/MM3 Lymphocytes # (Auto) 0.4 TH/MM3 0.3 TH/MM3 Monocytes # (Auto) 1.1 TH/MM3 0.7 TH/MM3 Eosinophils # (Auto) 0.1 TH/MM3 0.1 TH/MM3 Basophils # (Auto) 0.0 TH/MM3 0.0 TH/MM3 CBC Comment DIFF FINAL DIFF FINAL Differential Comment Laboratory Tests Test 01/13/17 05:15 01/14/17 05:15 Blood Urea Nitrogen 31 MG/DL 38 MG/DL Creatinine 1.58 MG/DL 1.29 MG/DL Random Glucose 155 MG/DL 201 MG/DL Total Protein 5.6 GM/DL Albumin 2.3 GM/DL Calcium Level 7.9 MG/DL 7.5 MG/DL Alkaline Phosphatase 84 U/L Aspartate Amino Transf (AST/SGOT) 12 U/L Alanine Aminotransferase (ALT/SGPT) 12 U/L Total Bilirubin 0.5 MG/DL Sodium Level 137 MEQ/L 139 MEQ/L Potassium Level 3.7 MEQ/L 3.6 MEQ/L Chloride Level 95 MEQ/L 96 MEQ/L Carbon Dioxide Level 33.4 MEQ/L 29.3 MEQ/L Anion Gap 9 MEQ/L 14 MEQ/L Estimat Glomerular Filtration Rate 33 ML/MIN 41 ML/MIN Lactic Acid Level 1.4 mmol/L Magnesium Level 1.5 MG/DL Microbiology Date/Time Source Procedure Growth Status 01/13/17 05:15 Blood Peripheral Aerobic Blood Culture - Preliminary Gram Negative Nelson Resulted 01/13/17 05:15 Anaerobic Blood Culture - Preliminary Gram Negative Nelson Resulted 01/13/17 05:00 Blood Peripheral Aerobic Blood Culture - Preliminary Gram Negative Nelson Resulted 01/13/17 05:00 Anaerobic Blood Culture - Preliminary Gram Negative Nelson Resulted 01/13/17 05:30 Urine Catheterized Urine Urine Culture Pending Received Imaging Chest X-Ray 01/14/17 0000 Signed Impressions: Service Date/Time: Saturday, January 14, 2017 08:30 - CONCLUSION: Stable chest. Kyree Johnston MD Renal Ultrasound 01/13/17 0000 Signed Impressions: Service Date/Time: Friday, January 13, 2017 16:01 - CONCLUSION: There are elevated resistive indices seen in the mid and lower transplanted kidney concerning medical renal disease or rejection. No hydronephrosis is seen. Jas Pace MD Abdomen X-Ray 01/13/17 0000 Signed Impressions: Service Date/Time: Friday, January 13, 2017 10:56 - CONCLUSION: History of multiple bowel surgeries, negative for free air or obstruction. Davin Gabriel MD FACR Physical Exam GENERAL: awake and alert, looks comfortable SKIN: Warm and dry. No generalized rash, no ecchymoses and no evidence of embolic lesions. HEAD: Atraumatic. Normocephalic. No temporal wasting, or tenderness. EYES: [place] conjunctiva. No petechia or hemorrhage. Pupils equal, round and reactive to light. Extraocular movements full and intact. No scleral icterus. No injection or drainage. EARS, NOSE AND THROAT: Nose without bleeding or purulent nasal discharge. No sinus tenderness. Mucous membranes pink and moist. No oral lesions noted. NECK: Trachea midline. Supple and not tender, no meningeal signs CARDIOVASCULAR: Regular rate and rhythm. No murmurs, rubs or gallops heard RESPIRATORY: Clear to auscultation. Breath sounds equal bilaterally. No rales , wheezing or rhonchi. Decreased BS at bases ABDOMEN: Soft, globular, non-tender, nondistended. Bowel sounds present and normoactive. No guarding. No rebound. Has an area of ecchymoses anterior abdominal wall. Healed incision C/W surgery EXTREMITIES: No clubbing, cyanosis. Indurated leathery texture skin changes in both LE, (+) edema. No calf tenderness. Well perfused and warm. NEUROLOGICAL: Awake and alert. Cranial nerves grossly intact. Motor grossly within normal limits. PSYCHIATRIC: Normal affect, calm and cooperative. LINE: No evidence of infection Assessment & Plan Remarks IMPRESSION Gram Negative Sepsis due to recurrent UTI - S/P renal transplant - no hydro on US Recent episode of UTI with E coli ESBL (+) Episode of C diff, seems stable, diarrhea has imrpoved - potential for recurrent audi since she will be getting systemic Abx S/P renal transplant - has renal insufficiency, better RECOMMENDATION Continue Merem Stop Vanco Repeat 2 BC today Follow C/S and adjust Abx Follow temps Monitor progress Explained plan to the patient D/W Belem Hooker MD Jan 14, 2017 10:21
--- NOTE | 2017-01-14 17:42 | HHI.PR ---
Subjective Remarks Pt reports that the shaking chills have stopped No fevers so far today No BM today +Flatus Pt not eating or drinking much. She reports some oral sores and requesting nystatin s/s Objective Vitals Vital Signs Date Time Temp Pulse Resp B/P (MAP) Pulse Ox O2 Delivery O2 Flow Rate FiO2 01/14/17 14:53 99 Nasal Cannula 2.00 01/14/17 10:00 79 01/14/17 08:00 79 01/14/17 08:00 98.3 79 30 129/60 (83) 99 01/14/17 06:00 79 01/14/17 04:00 98.1 78 21 132/62 (85) 100 01/14/17 04:00 78 01/14/17 02:00 77 01/14/17 00:00 76 01/14/17 00:00 98.1 76 28 109/53 (71) 100 01/13/17 22:00 79 01/13/17 21:33 78 123/69 01/13/17 20:00 98.0 79 31 115/60 (78) 100 01/13/17 20:00 79 01/13/17 19:24 100 Nasal Cannula 2.00 01/13/17 18:00 77 01/14/17 01/14/17 01/15/17 15:00 23:00 07:00 Intake Total 27 ml Balance 27 ml IV Total 27 ml Result Diagram: 01/14/1715 01/14/1715 Other Results Laboratory Tests Test 01/13/17 05:15 01/13/17 05:30 01/13/17 12:00 01/14/17 05:15 White Blood Count 9.0 TH/MM3 6.2 TH/MM3 Red Blood Count 3.71 MIL/MM3 3.14 MIL/MM3 Hemoglobin 11.3 GM/DL 9.3 GM/DL Hematocrit 34.4 % 29.1 % Mean Corpuscular Volume 92.8 FL 92.9 FL Mean Corpuscular Hemoglobin 30.6 PG 29.6 PG Mean Corpuscular Hemoglobin Concent 33.0 % 31.9 % Red Cell Distribution Width 15.1 % 15.0 % Platelet Count 145 TH/MM3 116 TH/MM3 Mean Platelet Volume 9.3 FL 9.0 FL Neutrophils (%) (Auto) 82.3 % 81.9 % Lymphocytes (%) (Auto) 4.8 % 5.6 % Monocytes (%) (Auto) 11.7 % 11.1 % Eosinophils (%) (Auto) 0.8 % 1.3 % Basophils (%) (Auto) 0.4 % 0.1 % Neutrophils # (Auto) 7.4 TH/MM3 5.1 TH/MM3 Lymphocytes # (Auto) 0.4 TH/MM3 0.3 TH/MM3 Monocytes # (Auto) 1.1 TH/MM3 0.7 TH/MM3 Eosinophils # (Auto) 0.1 TH/MM3 0.1 TH/MM3 Basophils # (Auto) 0.0 TH/MM3 0.0 TH/MM3 CBC Comment DIFF FINAL DIFF FINAL Differential Comment Blood Urea Nitrogen 31 MG/DL 38 MG/DL Creatinine 1.58 MG/DL 1.29 MG/DL Random Glucose 155 MG/DL 201 MG/DL Total Protein 5.6 GM/DL Albumin 2.3 GM/DL Calcium Level 7.9 MG/DL 7.5 MG/DL Alkaline Phosphatase 84 U/L Aspartate Amino Transf (AST/SGOT) 12 U/L Alanine Aminotransferase (ALT/SGPT) 12 U/L Total Bilirubin 0.5 MG/DL Sodium Level 137 MEQ/L 139 MEQ/L Potassium Level 3.7 MEQ/L 3.6 MEQ/L Chloride Level 95 MEQ/L 96 MEQ/L Carbon Dioxide Level 33.4 MEQ/L 29.3 MEQ/L Anion Gap 9 MEQ/L 14 MEQ/L Estimat Glomerular Filtration Rate 33 ML/MIN 41 ML/MIN Lactic Acid Level 1.4 mmol/L Tacrolimus (Prograf) Level 4.5 NG/ML Urine Color YELLOW Urine Turbidity CLOUDY Urine pH 6.0 Urine Specific [place] 1.021 Urine Protein 100 mg/dL Urine Glucose (UA) NEG mg/dL Urine Ketones TRACE mg/dL Urine Occult Blood MOD Urine Nitrite NEG Urine Bilirubin NEG Urine Urobilinogen LESS THAN 2.0 MG/DL Urine Leukocyte Esterase LARGE Urine RBC 39 /hpf Urine WBC /hpf Urine WBC Clumps MANY Urine Squamous Epithelial Cells 2 /hpf Urine Bacteria MANY /hpf Microscopic Urinalysis Comment CATH-CULTURE IND Nasal Screen MRSA (PCR) MRSA NOT DETECTED Magnesium Level 1.5 MG/DL Imaging Last Impressions Chest X-Ray 01/14/17 0000 Signed Impressions: Service Date/Time: Saturday, January 14, 2017 08:30 - CONCLUSION: Stable chest. Kyree Johnston MD Renal Ultrasound 01/13/17 0000 Signed Impressions: Service Date/Time: Friday, January 13, 2017 16:01 - CONCLUSION: There are elevated resistive indices seen in the mid and lower transplanted kidney concerning medical renal disease or rejection. No hydronephrosis is seen. Jas Pace MD Abdomen X-Ray 01/13/17 0000 Signed Impressions: Service Date/Time: Friday, January 13, 2017 10:56 - CONCLUSION: History of multiple bowel surgeries, negative for free air or obstruction. Davin Gabriel MD FACR Last Impressions Chest X-Ray 01/13/17 0503 Signed Impressions: Service Date/Time: Friday, January 13, 2017 05:26 - CONCLUSION: Mild linear opacity in the left lower lobe with the appearance favoring subsegmental atelectasis. Otherwise, no acute finding is identified. Jas Cruz MD Objective Remarks General: NAD, AAOx3 Chest: CTA Cardiac: Irregular, rate controlled Abd: +BS, soft, mildly distended, nontender Ext: Bilateral LE edema with chronic leathery skin changes or bilateral LE A/P Problem List: (1) Sepsis ICD Codes: A41.9 - Sepsis, unspecified organism Status: Acute Plan: - Pt is a 66 y/o female with chronic atrial fibrillation, diabetes mellitus, hx of renal failure secondary to polycystic kidney disease previously on HD for 6 years, then had bilateral nephrectomies and renal transplant on chronic immunosuppression. - She was recently hospitalized at [facility] from 12/18/16 to 12/31/16 for sepsis, E. coli bacteremia, acute pyelonephritis, and C. diff colitis. Pt was discharged to [facility] on Cefdinir 300mg daily x 12 days (completed on 01/06) and Flagyl 250mg QID x 14 days, completed on 01/09/17. - Pt presented to the ED at [facility] on 01/13/17 for increased generalized weakness, fevers and some SOB. She states that on Friday (01/11/17), she started having fevers and shaking chills. She states that her fevers then were around 99 degrees but this reportedly increased to fever of 101 per the ED documentation. - She is requiring 2L of supplemental O2 in the ED. CXR in the ED noted mild linear opacity in the left lower lobe with the appearance favoring subsegmental atelectasis, otherwise, no acute finding is identified. - She is noted to be in A. fib RVR with HR in the 130-140's. - Blood (01/13) growing 4/4 gram negative braxton - Urine culture (01/13) with gram negative braxton - Pt was given IV Vancomycin and cefepime and one liter of NS in the ED, and these were continued - ID consulted - Antibiotics changed to Meropenem on 01/14 - Her renal function is noted to be Cr 1.58/BUN 31, GFR 33. In review of discharge summary from [facility] on the day of discharge her Cr was 1.7, BUN 68. Renal function improved to Cr 1.29 on 01/14 - Monitor UOP and clinical status closely for any signs of volume overload. - Pt was on Cardizem gtt for the A. fib RVR and became rate controlled and was converted to oral Cardizem. The patients home dose of metoprolol will be resumed and the oral Cardizem stopped this evening. - No reported diarrhea but if she develops any check stools for C. diff. - KUB was negative for free air or obstruction but did note some stool throughout the colon. Colace BID, MOM PRN - Lactinex - Monitor labs - PT evaluation - IS - Duonebs PRN - Supportive care - Pt stable for transfer out of ICU (2) UTI (urinary tract infection) ICD Codes: N39.0 - Urinary tract infection, site not specified Status: Acute Plan: - See above. - Pt recently treated for E. coli UTI and bacteremia (3) Chronic atrial fibrillation with RVR ICD Codes: I48.2 - Chronic atrial fibrillation Status: Acute Plan: - Pt noted to be in A. fib RVR with HR in the 130-140's consistently at admission - Improved with Cardizem gtt, rate controlled - Resume Metoprolol - Telemetry (4) Acute on chronic renal insufficiency ICD Codes: N28.9 - Disorder of kidney and ureter, unspecified; N18.9 - Chronic kidney disease, unspecified Status: Acute Plan: - Her renal function is noted to be Cr 1.58/BUN 31, GFR 33 at admission. - In review of discharge summary from [facility] on the day of discharge her Cr was 1.7, BUN 68. - Pt was given 1L of NS in the ED - Repeat labs on 01/14 with continued improvement in Cr to 1.29 - Renal US (01/13) --> There are elevated resistive indices seen in the mid and lower transplanted kidney concerning medical renal disease or rejection. No hydronephrosis is seen. (5) Diabetes mellitus type 2, insulin dependent ICD Codes: E11.9 - Type 2 diabetes mellitus without complications; Z79.4 - skilled nursing (current) use of insulin Plan: - NovoLog SSI - Accu checks (6) HTN (hypertension) ICD Codes: I10 - Essential (primary) hypertension Plan: - Resume metoprolol - Clonidine PRN - Vasotec PRN (7) Hypothyroidism ICD Codes: E03.9 - Hypothyroidism, unspecified Plan: - Home med continued (8) Hx of kidney transplant ICD Codes: Z94.0 - Kidney transplant status Plan: - Pt with hx of renal failure secondary to polycystic kidney disease previously on HD for 6 years, then had bilateral nephrectomies and renal transplant on chronic immunosuppression. - Cont. home doses of Prograf, Cellcept and Prednisone - Check Prograf level (9) Hyperlipidemia ICD Codes: E78.5 - Hyperlipidemia, unspecified Plan: - Home meds continued Assessment and Plan Patient examined. Assessment and plan formulated with Aurora Li PA-C. I agree with the above. Pt weaned off IV Cardizem & changed to PO cardizem Will change back to outpt PO metoprolol and stop PO cardizem. Aurora Li Jan 14, 2017 17:42 Dharmesh Troy DO Jan 15, 2017 13:50
[2017-01-14] MEDS: NYSTATIN SUSP 500,000 U/5 ML CUP SWISH-SWAL SCH ×2 (18:24→23:10)
[2017-01-14] MEDS: MAGNESIUM HYDROXIDE SUSP 30 ML CUP PO PRN (18:24)
[2017-01-14] MEDS: METOPROLOL TARTRATE 25 MG TAB PO SCH (23:10)
[2017-01-15] VITALS (7 sets, daily range): BP systolic 135–162; BP diastolic 63–87; PULSE 75–92; RESP 17–20; TEMP 95.4–97.3; O2SAT 96–100
[2017-01-15] MEDS: VANCOMYCIN INJ 1,500 MG in SODIUM CHLORID 0.9% 500 ML INJ 500 ML IV SCH (01:48)
[2017-01-15] MEDS: CHLORHEXIDINE GLUCONATE 2 % 1 PACK (2 CLOTHS)(taper/protocol) TOPICAL SCH (04:00)
[2017-01-15] MEDS: MEROPENEM INJ 500 MG in SODIUM CHLORIDE 0.9% INJ 100 ML IV SCH ×3 (05:02→20:43)
[2017-01-15] MEDS: LEVOTHYROXINE SODIUM 25 MCG TAB PO SCH (05:02)
[2017-01-15] MEDS: INSULIN ASPART SUPPLEMENTAL SCALE SQ SCH ×4 (05:13→20:33)
[2017-01-15 05:49] LABS: AUTOMATED NEUTROPHIL # 5.5 TH/MM3 (1.8-7.7); BASOPHIL % 0.1 % (0.0-2.0); EOSINOPHIL # 0.1 TH/MM3 (0-0.4); EOSINOPHIL % 1.9 % (0.0-4.0); HEMATOCRIT 31.2 % (35.0-46.0); HEMO FLAGS DIFF FINAL; LYMPH % 6.5 % (9.0-44.0); LYMPHOCYTE # 0.5 TH/MM3 (1.0-4.8); MEAN CELL VOLUME 92.9 FL (80.0-100.0); MEAN CORPUSCULAR HGB CONC 32.3 % (32.0-36.0); MONO % 11.9 % (0.0-8.0); NEUT % 79.6 % (16.0-70.0); PLATELET COUNT 132 TH/MM3 (150-450); RED BLOOD COUNT 3.36 MIL/MM3 (4.00-5.30); WHITE BLOOD COUNT 6.9 TH/MM3 (4.0-11.0)
[2017-01-15 06:16] LABS: BICARBONATE 30.4 MEQ/L (21.0-32.0); MAGNESIUM 1.8 MG/DL (1.5-2.5); POTASSIUM 3.6 MEQ/L (3.5-5.1)
[2017-01-15] MEDS: NYSTATIN SUSP 500,000 U/5 ML CUP SWISH-SWAL SCH ×4 (09:02→20:32)
[2017-01-15] MEDS: MYCOPHENOLATE MOFETIL 250 MG CAP PO SCH ×2 (09:03→20:32)
[2017-01-15] MEDS: DOCUSATE SODIUM 100 MG CAP PO SCH ×2 (09:04→20:32)
[2017-01-15] MEDS: METOPROLOL TARTRATE 25 MG TAB PO SCH ×2 (09:04→20:43)
[2017-01-15] MEDS: FAMOTIDINE 20 MG TAB PO SCH (09:05)
[2017-01-15] MEDS: SODIUM BICARBONATE 325 MG TAB PO SCH ×3 (09:05→17:25)
[2017-01-15] MEDS: predniSONE 10 MG TAB PO SCH (09:05)
[2017-01-15] MEDS: LACTOBACILLUS ACIDOPHILUS TAB PO SCH ×3 (09:05→23:09)
[2017-01-15] MEDS: APIXABAN 5 MG TABLET PO SCH ×2 (09:05→20:32)
[2017-01-15] MEDS: TACROLIMUS 1 MG CAP PO SCH ×2 (09:05→17:25)
[2017-01-15] MEDS: TIMOLOL MALEATE 0.5% OPHT SOLN 5 ML BTL EACH EYE SCH ×2 (09:06→20:42)
[2017-01-15] MEDS: MAGNESIUM HYDROXIDE SUSP 30 ML CUP PO PRN (09:26)
--- NOTE | 2017-01-15 13:13 | HHI.IDPN ---
Subjective Subjective Remarks Patient is a 66-year-old female, who is status post renal transplant, presented to the hospital complaining of an acute onset of fevers and chills. She was recently hospitalized at [facility], were she was diagnosed to have Escherichia coli ESBL UTI, and her hospitalization was complicated by development of C. difficile colitis. She also had worsening of her renal function which improved after treatment of the UTI, sepsis and fluid hydration. She was discharged to a rehabilitation facility, and reportedly finish her antibiotics on January 06, and the Flagyl on January 09. She developed an acute onset of fever and chills. She says she is voiding okay. She had some vomiting. Her diarrhea has improved. Denies any abdominal pain or any back pain. She denies any shortness of breath or any congestion or respiratory complaints. Since admission she has been febrile. She was in A. fib RVR on admission and the rate has improved. Her WBC is normal. Her urinalysis showed pyuria. Chest x-ray showed some atelectasis. Notes reviewed Temps better BP good US no hydronephrosis BC with E coli, no sensitivity yet UC with E coli, not ESBL+ Creatinine better Antibiotics Merem Vancomycin Lines PIV Past Medical History Recent hx of sepsis/E. coli bacteremia/acute pyelonephritis/C. diff colitis in early 12/2016 Hx of renal transplant in 2004 secondary to polycystic kidney disease previously on HD for 6 years, then had bilateral nephrectomies and renal transplant on chronic immunosuppression CKD Anemia of chronic disease Chronic atrial fibrillation CHF Chronic edema of the LE Diabetes mellitus, type 2, complicated by neuropathy, nephropathy, retinopathy and peripheral angiopathy Moderate to severe tricuspid regurgitation Moderate to severe pulmonary HTN Glaucoma GERD HTN Hyperlipidemia Hypothyroidism RA Past Surgical History Bilateral nephrectomies in 1999 AVF in multiple locations donor renal transplant in 2004 Cholecystectomy Colon surgery Exploratory Laparotomy for DAVID Ankle surgery Bladder surgery Urethrotomy Allergies: Coded Allergies: Sulfa (Sulfonamide Antibiotics) (Unverified Allergy, Severe, 01/13/17) diatrizoate meglumine (Unverified Allergy, Severe, 01/13/17) gadobenic acid (Unverified Allergy, Severe, 01/13/17) gadodiamide (Unverified Allergy, Severe, 01/13/17) gadoteridol (Unverified Allergy, Severe, 01/13/17) iodixanol (Unverified Allergy, Severe, 01/13/17) iohexol (Unverified Allergy, Severe, PT NEEDS TO BE PREMEDICATED, 01/13/17) penicillin G (Unverified Allergy, Severe, 01/13/17) Objective . Vital Signs Date Time Temp Pulse Resp B/P (MAP) Pulse Ox O2 Delivery O2 Flow Rate FiO2 01/15/17 08:00 97.3 77 17 140/64 (89) 100 01/15/17 04:00 97.3 79 20 135/63 (87) 100 01/15/17 00:00 97.2 76 20 138/85 (102) 100 01/14/17 20:00 96.4 97 21 154/70 (98) 93 01/14/17 19:34 Nasal Cannula 2.00 01/14/17 18:00 78 01/14/17 16:00 76 01/14/17 16:00 98.8 76 38 128/62 (84) 100 01/14/17 14:53 99 Nasal Cannula 2.00 01/14/17 14:00 80 . Laboratory Tests Test 01/14/17 05:15 01/15/17 04:32 White Blood Count 6.2 TH/MM3 6.9 TH/MM3 Red Blood Count 3.14 MIL/MM3 3.36 MIL/MM3 Hemoglobin 9.3 GM/DL 10.1 GM/DL Hematocrit 29.1 % 31.2 % Mean Corpuscular Volume 92.9 FL 92.9 FL Mean Corpuscular Hemoglobin 29.6 PG 30.0 PG Mean Corpuscular Hemoglobin Concent 31.9 % 32.3 % Red Cell Distribution Width 15.0 % 15.0 % Platelet Count 116 TH/MM3 132 TH/MM3 Mean Platelet Volume 9.0 FL 9.4 FL Neutrophils (%) (Auto) 81.9 % 79.6 % Lymphocytes (%) (Auto) 5.6 % 6.5 % Monocytes (%) (Auto) 11.1 % 11.9 % Eosinophils (%) (Auto) 1.3 % 1.9 % Basophils (%) (Auto) 0.1 % 0.1 % Neutrophils # (Auto) 5.1 TH/MM3 5.5 TH/MM3 Lymphocytes # (Auto) 0.3 TH/MM3 0.5 TH/MM3 Monocytes # (Auto) 0.7 TH/MM3 0.8 TH/MM3 Eosinophils # (Auto) 0.1 TH/MM3 0.1 TH/MM3 Basophils # (Auto) 0.0 TH/MM3 0.0 TH/MM3 CBC Comment DIFF FINAL DIFF FINAL Differential Comment Laboratory Tests Test 01/14/17 05:15 01/15/17 04:32 Blood Urea Nitrogen 38 MG/DL 42 MG/DL Creatinine 1.29 MG/DL 1.26 MG/DL Random Glucose 201 MG/DL 153 MG/DL Calcium Level 7.5 MG/DL 8.2 MG/DL Magnesium Level 1.5 MG/DL 1.8 MG/DL Sodium Level 139 MEQ/L 139 MEQ/L Potassium Level 3.6 MEQ/L 3.6 MEQ/L Chloride Level 96 MEQ/L 99 MEQ/L Carbon Dioxide Level 29.3 MEQ/L 30.4 MEQ/L Anion Gap 14 MEQ/L 10 MEQ/L Estimat Glomerular Filtration Rate 41 ML/MIN 42 ML/MIN Microbiology Date/Time Source Procedure Growth Status 01/14/17 14:45 Blood Peripheral Aerobic Blood Culture - Preliminary NO GROWTH IN 1 DAY Resulted 01/14/17 14:45 Blood Peripheral Anaerobic Blood Culture - Preliminary NO GROWTH IN 1 DAY Resulted 01/14/17 14:41 Blood Peripheral Aerobic Blood Culture - Preliminary NO GROWTH IN 1 DAY Resulted 01/14/17 14:41 Blood Peripheral Anaerobic Blood Culture - Preliminary NO GROWTH IN 1 DAY Resulted 01/13/17 05:15 Blood Peripheral Aerobic Blood Culture - Preliminary Gram Negative Nelson Resulted 01/13/17 05:15 Anaerobic Blood Culture - Preliminary Escherichia Coli Resulted 01/13/17 05:00 Blood Peripheral Aerobic Blood Culture - Preliminary Gram Negative Nelson Resulted 01/13/17 05:00 Anaerobic Blood Culture - Preliminary Escherichia Coli Resulted 01/13/17 05:30 Urine Catheterized Urine Urine Culture - Final Escherichia Coli Complete Imaging Chest X-Ray 01/14/17 0000 Signed Impressions: Service Date/Time: Saturday, January 14, 2017 08:30 - CONCLUSION: Stable chest. Kyree Johnston MD Renal Ultrasound 01/13/17 0000 Signed Impressions: Service Date/Time: Friday, January 13, 2017 16:01 - CONCLUSION: There are elevated resistive indices seen in the mid and lower transplanted kidney concerning medical renal disease or rejection. No hydronephrosis is seen. Jas Pace MD Abdomen X-Ray 01/13/17 0000 Signed Impressions: Service Date/Time: Friday, January 13, 2017 10:56 - CONCLUSION: History of multiple bowel surgeries, negative for free air or obstruction. Davin Gabriel MD FACR Physical Exam GENERAL: awake and alert, looks comfortable SKIN: Warm and dry. No generalized rash, no ecchymoses and no evidence of embolic lesions. HEAD: Atraumatic. Normocephalic. No temporal wasting, or tenderness. EYES: [place] conjunctiva. No petechia or hemorrhage. Pupils equal, round and reactive to light. Extraocular movements full and intact. No scleral icterus. No injection or drainage. EARS, NOSE AND THROAT: Nose without bleeding or purulent nasal discharge. No sinus tenderness. Mucous membranes pink and moist. No oral lesions noted. NECK: Trachea midline. Supple and not tender, no meningeal signs CARDIOVASCULAR: Regular rate and rhythm. No murmurs, rubs or gallops heard RESPIRATORY: Clear to auscultation. Breath sounds equal bilaterally. No rales , wheezing or rhonchi. Decreased BS at bases ABDOMEN: Soft, globular, non-tender, nondistended. Bowel sounds present and normoactive. No guarding. No rebound. Has an area of ecchymoses anterior abdominal wall. Healed incision C/W surgery EXTREMITIES: No clubbing, cyanosis. Indurated leathery texture skin changes in both LE, (+) edema. No calf tenderness. Well perfused and warm. NEUROLOGICAL: Awake and alert. Cranial nerves grossly intact. Motor grossly within normal limits. PSYCHIATRIC: Normal affect, calm and cooperative. LINE: No evidence of infection Assessment & Plan Remarks IMPRESSION E coli Sepsis due to recurrent UTI - S/P renal transplant - no hydro on US Recent episode of UTI with E coli ESBL (+) Episode of C diff, seems stable, diarrhea has imrpoved - potential for recurrent audi since she will be getting systemic Abx S/P renal transplant - has renal insufficiency, better RECOMMENDATION Continue Merem Stop Vanco Repeat UA and C/S Follow C/S and adjust Abx - prob D/C merem tomorrow and change to cefepime once sensitivity testing in availabl Monitor progress Belem Gray MD Jan 15, 2017 13:13
--- NOTE | 2017-01-15 14:03 | HHI.PR ---
Subjective Remarks No new complaints. Objective Vitals Vital Signs Date Time Temp Pulse Resp B/P (MAP) Pulse Ox O2 Delivery O2 Flow Rate FiO2 01/15/17 08:00 97.3 77 17 140/64 (89) 100 01/15/17 04:00 97.3 79 20 135/63 (87) 100 01/15/17 00:00 97.2 76 20 138/85 (102) 100 01/14/17 20:00 96.4 97 21 154/70 (98) 93 01/14/17 19:34 Nasal Cannula 2.00 01/14/17 18:00 78 01/14/17 16:00 76 01/14/17 16:00 98.8 76 38 128/62 (84) 100 01/14/17 14:53 99 Nasal Cannula 2.00 01/14/17 14:00 80 Result Diagram: 01/15/17 0432 01/15/17 0432 Imaging Last Impressions Chest X-Ray 01/14/17 0000 Signed Impressions: Service Date/Time: Saturday, January 14, 2017 08:30 - CONCLUSION: Stable chest. Kyree Johnston MD Renal Ultrasound 01/13/17 0000 Signed Impressions: Service Date/Time: Friday, January 13, 2017 16:01 - CONCLUSION: There are elevated resistive indices seen in the mid and lower transplanted kidney concerning medical renal disease or rejection. No hydronephrosis is seen. Jas Pace MD Abdomen X-Ray 01/13/17 0000 Signed Impressions: Service Date/Time: Friday, January 13, 2017 10:56 - CONCLUSION: History of multiple bowel surgeries, negative for free air or obstruction. Davin Gabriel MD FACR Last Impressions Chest X-Ray 01/13/17 0503 Signed Impressions: Service Date/Time: Friday, January 13, 2017 05:26 - CONCLUSION: Mild linear opacity in the left lower lobe with the appearance favoring subsegmental atelectasis. Otherwise, no acute finding is identified. Jas Cruz MD Objective Remarks General: NAD, AAOx3 Chest: CTA Cardiac: Irregular, rate controlled Abd: +BS, soft, mildly distended, nontender Ext: Bilateral LE edema with chronic leathery skin changes or bilateral LE A/P Problem List: (1) Sepsis ICD Codes: A41.9 - Sepsis, unspecified organism Status: Acute Plan: - comgmt with ID - Pt is a 66 y/o female with chronic atrial fibrillation, diabetes mellitus, hx of renal failure secondary to polycystic kidney disease previously on HD for 6 years, then had bilateral nephrectomies and renal transplant on chronic immunosuppression. - She was recently hospitalized at [facility] from 12/18/16 to 12/31/16 for sepsis, E. coli bacteremia, acute pyelonephritis, and C. diff colitis. Pt was discharged to [facility] on Cefdinir 300mg daily x 12 days (completed on 01/06) and Flagyl 250mg QID x 14 days, completed on 01/09/17. - Pt presented to the ED at [facility] on 01/13/17 for increased generalized weakness, fevers and some SOB. She states that on Friday (01/11/17), she started having fevers and shaking chills. She states that her fevers then were around 99 degrees but this reportedly increased to fever of 101 per the ED documentation. - upon admission, pt required 2L of supplemental O2 in the ED. CXR in the ED noted mild linear opacity in the left lower lobe with the appearance favoring subsegmental atelectasis, otherwise, no acute finding is identified. - Pt had A. fib RVR with HR in the 130-140's. - Blood (01/13) growing gram negative braxton, E Coli - Urine culture (01/13) E Coli - Repeat UA (01/15) pending - Pt was given IV Vancomycin and cefepime and one liter of NS in the ED, and these were continued - Meropenem (01/14 - present) - per ID, prob D/C meropenem tomorrow and change to cefepime once sensitivity testing in [place] availabl - No reported diarrhea but if she develops any check stools for C. diff. - KUB was negative for free air or obstruction but did note some stool throughout the colon. Colace BID, MOM PRN - Lactinex - Monitor labs - PT evaluation - IS - Duonebs PRN - Supportive care (2) UTI (urinary tract infection) ICD Codes: N39.0 - Urinary tract infection, site not specified Status: Acute Plan: - See above. - Pt recently treated for E. coli UTI and bacteremia (3) Chronic atrial fibrillation with RVR ICD Codes: I48.2 - Chronic atrial fibrillation Status: Acute Plan: - Pt noted to be in A. fib RVR with HR in the 130-140's consistently at admission - Improved with Cardizem gtt, rate controlled - Resumed Metoprolol - Telemetry (4) Acute on chronic renal insufficiency ICD Codes: N28.9 - Disorder of kidney and ureter, unspecified; N18.9 - Chronic kidney disease, unspecified Status: Acute Plan: - Her renal function is noted to be Cr 1.58/BUN 31, GFR 33 at admission. - In review of discharge summary from [facility] on the day of discharge her Cr was 1.7, BUN 68. - Pt was given 1L of NS in the ED - Repeat labs on 01/14 with continued improvement in Cr to 1.29 - Renal US (01/13) --> There are elevated resistive indices seen in the mid and lower transplanted kidney concerning medical renal disease or rejection. No hydronephrosis is seen. (5) Diabetes mellitus type 2, insulin dependent ICD Codes: E11.9 - Type 2 diabetes mellitus without complications; Z79.4 - custodial (current) use of insulin Plan: - NovoLog SSI - Accu checks (6) HTN (hypertension) ICD Codes: I10 - Essential (primary) hypertension Plan: - Resume metoprolol - Clonidine PRN - Vasotec PRN (7) Hypothyroidism ICD Codes: E03.9 - Hypothyroidism, unspecified Plan: - Home med continued (8) Hx of kidney transplant ICD Codes: Z94.0 - Kidney transplant status Plan: - Pt with hx of renal failure secondary to polycystic kidney disease previously on HD for 6 years, then had bilateral nephrectomies and renal transplant on chronic immunosuppression. - Cont. home doses of Prograf, Cellcept and Prednisone - Check Prograf level (9) Hyperlipidemia ICD Codes: E78.5 - Hyperlipidemia, unspecified Plan: - Home meds continued (10) Constipation ICD Codes: K59.00 - Constipation, unspecified Plan: - start colace - no response to MOM - trial of fleet enema Dharmesh Troy DO Jan 15, 2017 14:03
[2017-01-15] MEDS ORDERED: SOD PHOSPHATE/SOD BIPHOSPHATE (ADULT) ENEMA 133ML RECTAL PRN (14:30)
[2017-01-15] MEDS ORDERED: DOCUSATE SODIUM 100 MG CAP PO SCH (14:30)
[2017-01-15] MEDS ORDERED: PHARMACY ORDERED LAB ONE (22:45)
[2017-01-16] VITALS: BP 133/65; PULSE 72; RESP 18; TEMP 97.8; O2SAT 100
[2017-01-16] MEDS: CHLORHEXIDINE GLUCONATE 2 % 1 PACK (2 CLOTHS)(taper/protocol) TOPICAL SCH (03:25)
[2017-01-16 04:00] VITALS: BP 154/71; PULSE 74; RESP 18; O2SAT 100
[2017-01-16] MEDS: MEROPENEM INJ 500 MG in SODIUM CHLORIDE 0.9% INJ 100 ML IV SCH (04:57)
[2017-01-16] MEDS: LEVOTHYROXINE SODIUM 25 MCG TAB PO SCH (04:57)
[2017-01-16] MEDS: INSULIN ASPART SUPPLEMENTAL SCALE SQ SCH ×4 (06:07→21:45)
[2017-01-16] MEDS: ACETAMINOPHEN 325 MG TAB PO PRN ×2 (07:09→16:42)
[2017-01-16 08:00] VITALS: BP 146/67; PULSE 75; RESP 17; TEMP 96.2; O2SAT 92
[2017-01-16] MEDS: DOCUSATE SODIUM 100 MG CAP PO SCH ×2 (08:20→20:08)
[2017-01-16] MEDS: NYSTATIN SUSP 500,000 U/5 ML CUP SWISH-SWAL SCH ×4 (08:20→20:09)
[2017-01-16] MEDS: predniSONE 10 MG TAB PO SCH (08:20)
[2017-01-16] MEDS: TIMOLOL MALEATE 0.5% OPHT SOLN 5 ML BTL EACH EYE SCH ×2 (08:20→20:06)
[2017-01-16] MEDS: LACTOBACILLUS ACIDOPHILUS TAB PO SCH ×3 (08:21→16:34)
[2017-01-16] MEDS: METOPROLOL TARTRATE 25 MG TAB PO SCH ×2 (08:21→20:09)
[2017-01-16] MEDS: TACROLIMUS 1 MG CAP PO SCH ×2 (08:21→16:34)
[2017-01-16] MEDS: FAMOTIDINE 20 MG TAB PO SCH (08:21)
[2017-01-16] MEDS: SODIUM BICARBONATE 325 MG TAB PO SCH ×3 (08:21→16:41)
[2017-01-16] MEDS: APIXABAN 5 MG TABLET PO SCH ×2 (08:21→20:08)
[2017-01-16] MEDS: MYCOPHENOLATE MOFETIL 250 MG CAP PO SCH ×2 (08:22→20:07)
--- NOTE | 2017-01-16 10:04 | HHI.PR ---
Subjective Remarks Pt overall feeling better today. She is feeling like she is retaining some fluid Legs are weeping clear fluid from both legs Objective Vitals Vital Signs Date Time Temp Pulse Resp B/P (MAP) Pulse Ox O2 Delivery O2 Flow Rate FiO2 01/16/17 08:00 96.2 75 17 146/67 (93) 92 01/16/17 04:00 74 18 154/71 (98) 100 01/16/17 00:00 97.8 72 18 133/65 (87) 100 01/15/17 22:00 92 01/15/17 20:00 96.5 84 18 140/76 (97) 96 01/15/17 16:00 95.4 80 17 158/87 (110) 100 01/15/17 12:00 96.3 75 18 162/68 (99) 100 Result Diagram: 01/15/17 0432 01/15/17 0432 Other Results Laboratory Tests Test 01/15/17 04:32 White Blood Count 6.9 TH/MM3 Red Blood Count 3.36 MIL/MM3 Hemoglobin 10.1 GM/DL Hematocrit 31.2 % Mean Corpuscular Volume 92.9 FL Mean Corpuscular Hemoglobin 30.0 PG Mean Corpuscular Hemoglobin Concent 32.3 % Red Cell Distribution Width 15.0 % Platelet Count 132 TH/MM3 Mean Platelet Volume 9.4 FL Neutrophils (%) (Auto) 79.6 % Lymphocytes (%) (Auto) 6.5 % Monocytes (%) (Auto) 11.9 % Eosinophils (%) (Auto) 1.9 % Basophils (%) (Auto) 0.1 % Neutrophils # (Auto) 5.5 TH/MM3 Lymphocytes # (Auto) 0.5 TH/MM3 Monocytes # (Auto) 0.8 TH/MM3 Eosinophils # (Auto) 0.1 TH/MM3 Basophils # (Auto) 0.0 TH/MM3 CBC Comment DIFF FINAL Differential Comment Blood Urea Nitrogen 42 MG/DL Creatinine 1.26 MG/DL Random Glucose 153 MG/DL Calcium Level 8.2 MG/DL Magnesium Level 1.8 MG/DL Sodium Level 139 MEQ/L Potassium Level 3.6 MEQ/L Chloride Level 99 MEQ/L Carbon Dioxide Level 30.4 MEQ/L Anion Gap 10 MEQ/L Estimat Glomerular Filtration Rate 42 ML/MIN Imaging Last Impressions Chest X-Ray 01/14/17 0000 Signed Impressions: Service Date/Time: Saturday, January 14, 2017 08:30 - CONCLUSION: Stable chest. Kyree Johnston MD Renal Ultrasound 01/13/17 0000 Signed Impressions: Service Date/Time: Friday, January 13, 2017 16:01 - CONCLUSION: There are elevated resistive indices seen in the mid and lower transplanted kidney concerning medical renal disease or rejection. No hydronephrosis is seen. Jas Pace MD Abdomen X-Ray 01/13/17 0000 Signed Impressions: Service Date/Time: Friday, January 13, 2017 10:56 - CONCLUSION: History of multiple bowel surgeries, negative for free air or obstruction. Davin Gabriel MD FACR Last Impressions Chest X-Ray 01/13/17 0503 Signed Impressions: Service Date/Time: Friday, January 13, 2017 05:26 - CONCLUSION: Mild linear opacity in the left lower lobe with the appearance favoring subsegmental atelectasis. Otherwise, no acute finding is identified. Jas Cruz MD Objective Remarks General: NAD, AAOx3 Chest: CTA Cardiac: Irregular, rate controlled Abd: +BS, soft, mildly distended, nontender Ext: Bilateral LE edema with chronic leathery skin changes or bilateral LE, weeping from both legs A/P Problem List: (1) Sepsis ICD Codes: A41.9 - Sepsis, unspecified organism Status: Acute Plan: - comgmt with ID - Pt is a 66 y/o female with chronic atrial fibrillation, diabetes mellitus, hx of renal failure secondary to polycystic kidney disease previously on HD for 6 years, then had bilateral nephrectomies and renal transplant on chronic immunosuppression. - She was recently hospitalized at [facility] from 12/18/16 to 12/31/16 for sepsis, E. coli bacteremia, acute pyelonephritis, and C. diff colitis. Pt was discharged to [facility] on Cefdinir 300mg daily x 12 days (completed on 01/06) and Flagyl 250mg QID x 14 days, completed on 01/09/17. - Pt presented to the ED at [facility] on 01/13/17 for increased generalized weakness, fevers and some SOB. She states that on Friday (01/11/17), she started having fevers and shaking chills. She states that her fevers then were around 99 degrees but this reportedly increased to fever of 101 per the ED documentation. - upon admission, pt required 2L of supplemental O2 in the ED. CXR in the ED noted mild linear opacity in the left lower lobe with the appearance favoring subsegmental atelectasis, otherwise, no acute finding is identified. - Pt had A. fib RVR with HR in the 130-140's. - Blood (01/13) growing gram negative braxton, E Coli - Urine culture (01/13) E Coli - Repeat UA (01/15) pending - Pt was given IV Vancomycin and cefepime and one liter of NS in the ED, and these were continued - Meropenem (01/14 - present) - Await ID recommendations for continued antibiotics - KUB was negative for free air or obstruction but did note some stool throughout the colon. Colace BID, MOM PRN - Lactinex - Monitor labs - PT evaluation - IS - Duonebs PRN - Consult wound care nurse to evaluate bilateral LE - Supportive care (2) UTI (urinary tract infection) ICD Codes: N39.0 - Urinary tract infection, site not specified Status: Acute Plan: - See above. - Pt recently treated for E. coli UTI and bacteremia (3) Chronic atrial fibrillation with RVR ICD Codes: I48.2 - Chronic atrial fibrillation Status: Acute Plan: - Pt noted to be in A. fib RVR with HR in the 130-140's consistently at admission - Improved with Cardizem gtt, rate controlled - Resumed Metoprolol - Telemetry (4) Acute on chronic renal insufficiency ICD Codes: N28.9 - Disorder of kidney and ureter, unspecified; N18.9 - Chronic kidney disease, unspecified Status: Acute Plan: - Her renal function is noted to be Cr 1.58/BUN 31, GFR 33 at admission. - In review of discharge summary from [facility] on the day of discharge her Cr was 1.7, BUN 68. - Pt was given 1L of NS in the ED - Repeat labs on 01/14 with continued improvement in Cr to 1.26 - Renal US (01/13) --> There are elevated resistive indices seen in the mid and lower transplanted kidney concerning medical renal disease or rejection. No hydronephrosis is seen. 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 - Cont. home doses of Prograf, Cellcept and Prednisone - Check Prograf level (9) Hyperlipidemia ICD Codes: E78.5 - Hyperlipidemia, unspecified Plan: - Home meds continued (10) Constipation ICD Codes: K59.00 - Constipation, unspecified Plan: - start colace - no response to MOM - trial of fleet enema Assessment and Plan Patient examined. Assessment and plan formulated with Aurora Li PA-C. I agree with the above. pt with b/l LE and skin changes of venous stasis. Will resume lasix 40mg PO daily. Wound care nursing consulted. Will discuss KATLYN with ID and possible abx change to cefipime. Aurora Li Jan 16, 2017 10:04 Dharmesh Troy DO Jan 16, 2017 11:33
[2017-01-16] MEDS: POTASSIUM CHLORIDE 20 MEQ CONTROLLED RELEASE TAB PO SCH (11:43)
[2017-01-16] MEDS: FUROSEMIDE 40 MG TAB PO SCH (11:43)
[2017-01-16 12:00] VITALS: BP 145/66; PULSE 73; RESP 18; TEMP 95.7; O2SAT 97
[2017-01-16] MEDS ORDERED: CEFEPIME INJ 1,000 MG in SODIUM CHLORIDE 0.9% INJ 100 ML IV SCH (12:00)
--- NOTE | 2017-01-16 12:14 | HHI.IDPN ---
Subjective Subjective Remarks Patient is a 66-year-old female, who is status post renal transplant, presented to the hospital complaining of an acute onset of fevers and chills. She was recently hospitalized at [facility], were she was diagnosed to have Escherichia coli ESBL UTI, and her hospitalization was complicated by development of C. difficile colitis. She also had worsening of her renal function which improved after treatment of the UTI, sepsis and fluid hydration. She was discharged to a rehabilitation facility, and reportedly finish her antibiotics on January 06, and the Flagyl on January 09. She developed an acute onset of fever and chills. She says she is voiding okay. She had some vomiting. Her diarrhea has improved. Denies any abdominal pain or any back pain. She denies any shortness of breath or any congestion or respiratory complaints. Since admission she has been febrile. She was in A. fib RVR on admission and the rate has improved. Her WBC is normal. Her urinalysis showed pyuria. Chest x-ray showed some atelectasis. Notes reviewed Temps ok BP good No new complaint Voiding ok Having BM now, was constipated before Repeat UA not done yet C/S reviewed - different sensitivity in BC and UCm both with E coli US no hydronephrosis Creatinine better Antibiotics Merem Lines PIV Past Medical History Reviewed Allergies: Coded Allergies: Sulfa (Sulfonamide Antibiotics) (Unverified Allergy, Severe, 01/13/17) diatrizoate meglumine (Unverified Allergy, Severe, 01/13/17) gadobenic acid (Unverified Allergy, Severe, 01/13/17) gadodiamide (Unverified Allergy, Severe, 01/13/17) gadoteridol (Unverified Allergy, Severe, 01/13/17) iodixanol (Unverified Allergy, Severe, 01/13/17) iohexol (Unverified Allergy, Severe, PT NEEDS TO BE PREMEDICATED, 01/13/17) penicillin G (Unverified Allergy, Severe, 01/13/17) Objective . Vital Signs Date Time Temp Pulse Resp B/P (MAP) Pulse Ox O2 Delivery O2 Flow Rate FiO2 01/16/17 08:00 96.2 75 17 146/67 (93) 92 01/16/17 04:00 74 18 154/71 (98) 100 01/16/17 00:00 97.8 72 18 133/65 (87) 100 01/15/17 22:00 92 01/15/17 20:00 96.5 84 18 140/76 (97) 96 01/15/17 16:00 95.4 80 17 158/87 (110) 100 . Laboratory Tests Test 01/15/17 04:32 White Blood Count 6.9 TH/MM3 Red Blood Count 3.36 MIL/MM3 Hemoglobin 10.1 GM/DL Hematocrit 31.2 % Mean Corpuscular Volume 92.9 FL Mean Corpuscular Hemoglobin 30.0 PG Mean Corpuscular Hemoglobin Concent 32.3 % Red Cell Distribution Width 15.0 % Platelet Count 132 TH/MM3 Mean Platelet Volume 9.4 FL Neutrophils (%) (Auto) 79.6 % Lymphocytes (%) (Auto) 6.5 % Monocytes (%) (Auto) 11.9 % Eosinophils (%) (Auto) 1.9 % Basophils (%) (Auto) 0.1 % Neutrophils # (Auto) 5.5 TH/MM3 Lymphocytes # (Auto) 0.5 TH/MM3 Monocytes # (Auto) 0.8 TH/MM3 Eosinophils # (Auto) 0.1 TH/MM3 Basophils # (Auto) 0.0 TH/MM3 CBC Comment DIFF FINAL Differential Comment Laboratory Tests Test 01/15/17 04:32 Blood Urea Nitrogen 42 MG/DL Creatinine 1.26 MG/DL Random Glucose 153 MG/DL Calcium Level 8.2 MG/DL Magnesium Level 1.8 MG/DL Sodium Level 139 MEQ/L Potassium Level 3.6 MEQ/L Chloride Level 99 MEQ/L Carbon Dioxide Level 30.4 MEQ/L Anion Gap 10 MEQ/L Estimat Glomerular Filtration Rate 42 ML/MIN Microbiology Date/Time Source Procedure Growth Status 01/14/17 14:45 Blood Peripheral Aerobic Blood Culture - Preliminary NO GROWTH IN 2 DAYS Resulted 01/14/17 14:45 Blood Peripheral Anaerobic Blood Culture - Preliminary NO GROWTH IN 2 DAYS Resulted 01/14/17 14:41 Blood Peripheral Aerobic Blood Culture - Preliminary NO GROWTH IN 2 DAYS Resulted 01/14/17 14:41 Blood Peripheral Anaerobic Blood Culture - Preliminary NO GROWTH IN 2 DAYS Resulted Imaging Chest X-Ray 01/14/17 0000 Signed Impressions: Service Date/Time: Saturday, January 14, 2017 08:30 - CONCLUSION: Stable chest. Kyree Johnston MD Renal Ultrasound 01/13/17 0000 Signed Impressions: Service Date/Time: Friday, January 13, 2017 16:01 - CONCLUSION: There are elevated resistive indices seen in the mid and lower transplanted kidney concerning medical renal disease or rejection. No hydronephrosis is seen. Jas Pace MD Abdomen X-Ray 01/13/17 0000 Signed Impressions: Service Date/Time: Friday, January 13, 2017 10:56 - CONCLUSION: History of multiple bowel surgeries, negative for free air or obstruction. Davin Gabriel MD FACR Physical Exam GENERAL: awake and alert, NAD SKIN: Warm and dry. No generalized rash HEAD: Atraumatic. Normocephalic. No temporal wasting, or tenderness. EYES: Souris conjunctiva. No petechia or hemorrhage. No scleral icterus. No injection or drainage. EARS, NOSE AND THROAT: Nose without bleeding or purulent nasal discharge. No sinus tenderness. Mucous membranes pink and moist. No oral lesions noted. NECK: Trachea midline. Supple and not tender, no meningeal signs CARDIOVASCULAR: Regular rate and rhythm. No murmurs, rubs or gallops heard RESPIRATORY: Clear to auscultation. Breath sounds equal bilaterally. No rales , wheezing or rhonchi. Decreased BS at bases ABDOMEN: Soft, globular, non-tender, nondistended. Bowel sounds present and normoactive. No guarding. No rebound. Healed incision C/W surgery EXTREMITIES: No clubbing, cyanosis. Indurated leathery texture skin changes in both LE, (+) edema. No calf tenderness. Well perfused and warm. NEUROLOGICAL: Awake and alert. Cranial nerves grossly intact. Motor grossly within normal limits. PSYCHIATRIC: Normal affect, calm and cooperative. LINE: No evidence of infection Assessment & Plan Remarks IMPRESSION E coli Sepsis due to recurrent UTI - S/P renal transplant - no hydro on US Recent episode of UTI with E coli ESBL (+) Episode of C diff, seems stable, diarrhea has imrpoved - potential for recurrent audi since she will be getting systemic Abx S/P renal transplant - has renal insufficiency, better RECOMMENDATION Start Cipro Await repeat UA and C/S - will likely decide to Rx longer since she has had recurrent episodes (Prob 28 days) Repeat UA and C/S Follow C/S and adjust Abx Explained plan to patient D/W Dr Troy eBlem Gray MD Jan 16, 2017 12:14
[2017-01-16] MEDS: CIPROFLOXACIN 500 MG TAB PO SCH (13:20)
[2017-01-16 16:00] VITALS: BP 122/58; PULSE 74; RESP 16; TEMP 96.6; O2SAT 99
--- NOTE | 2017-01-16 16:47 | PD.WCN.NOT ---
Wound Consult Description: Received consult for wound management to bilateral LE from Aurora KUMAR Communicated with: STUART Hogan and Spoke with Ct KUMAR for Doctor Sydni Recommendation: 1.Please leave BLE open to air and place ultrasorb pad under BLE for drainage and change as needed. Elevate BLE to reduced edema. Apply shaving cream to bilateral legs and let sit for 10 minutes, rinse off daily. Apply Lac hydrin lotion BID 2.Please cleanse L thigh partial thickness wound with normal saline and apply single layer Xeroform gauze just over wound bed and cover with bordered gauze dressing. Apply skin prep to periwound before applying adhesives to skin. 3.Cleanse wound to L upper buttock with normal saline and apply single layer Xeroform gauze just over wound bed and cover with bordered gauze. Please apply skin prep to periwound before applying adhesives to the skin. Additional Information: Patient seen on for evaluation of bilateral LE. Patient BLE are open to air and on ultrasorb pads. Legs are weeping minimal clear fluid. No open wounds are noted to bilateral lower legs. BLE has hard non pitting edema with a cobblestone like appearance and dry peeling skin to anterior bilateral shins. Removed bordered gauze dressing in place to reveal L upper anterior thigh partial thickness wound that measures 4cm x 6cm x~<0.1cm. Patient states,"I had some tape holding my catheter and in place and it caused me to get a blister "Turned patient to R side to reveal small shallow wound to L upper buttock. Patient states,"The rehab I was at left me on a bedpan for an hour and I got a sore"Wound bed to L upper buttock is noted with ~50% pink tissue and ~50% pale yellow adipose tissue.Wound has scant sanguinous drainage that is without odor.Wound margins are well defined.Periwound presents with mild erythema. Wound measures ~1cm x ~1cm x ~0.2cm.Cleansed both L upper thigh and L upper buttock wound with normal saline and applied single layer Xeroform just over wound beds, and applied skin prep to periwound before applying bordered gauze Hafsa Prabhakar [facility] Jan 16, 2017 16:47
[2017-01-16 19:08] LABS: BACTERIA, URINE OCC /hpf; BLOOD, URINE NEG (NEG); COMMENT (UR) CULTURE INDICATED; CULTURE IF INDICATED CULTURE INDICATED; GLUCOSE,URINE TRACE mg/dL (NEG); GRANULAR CAST, URINE 1 /lpf; HYALINE CAST, URINE 3 /lpf (RARE); KETONE, URINE 10 mg/dL (NEG); NITRITE,URINE NEG (NEG); PH, URINE 5.5 (5.0-8.5); SQUAMOUS EPITHELIAL CELL URINE 2 /hpf (0-5); URINE COLOR YELLOW (YELLW/STRAW)
[2017-01-16 20:00] VITALS: BP 129/73; PULSE 104; RESP 17; TEMP 97.8; O2SAT 99
[2017-01-16] MEDS: LACTIC ACID (AMMONIUM LACTATE) 12% LOTION 225 GM BTL TOPICAL SCH (21:45)
[2017-01-17] VITALS: BP 121/70; PULSE 86; RESP 17; TEMP 97; O2SAT 99
[2017-01-17] MEDS: CIPROFLOXACIN 500 MG TAB PO SCH ×2 (02:02→14:17)
[2017-01-17] MEDS: CHLORHEXIDINE GLUCONATE 2 % 1 PACK (2 CLOTHS)(taper/protocol) TOPICAL SCH (02:02)
[2017-01-17] MEDS: LEVOTHYROXINE SODIUM 25 MCG TAB PO SCH (05:36)
[2017-01-17 05:37] LABS: AUTOMATED NEUTROPHIL # 5.6 TH/MM3 (1.8-7.7); BASOPHIL % 0.3 % (0.0-2.0); EOSINOPHIL # 0.2 TH/MM3 (0-0.4); EOSINOPHIL % 2.7 % (0.0-4.0); HEMATOCRIT 31.6 % (35.0-46.0); HEMO FLAGS DIFF FINAL; LYMPH % 7.5 % (9.0-44.0); LYMPHOCYTE # 0.5 TH/MM3 (1.0-4.8); MEAN CELL VOLUME 92.1 FL (80.0-100.0); MEAN CORPUSCULAR HGB CONC 32.5 % (32.0-36.0); MONO % 8.1 % (0.0-8.0); NEUT % 81.4 % (16.0-70.0); PLATELET COUNT 186 TH/MM3 (150-450); RED BLOOD COUNT 3.43 MIL/MM3 (4.00-5.30); RED CELL DISTRIBUTION WIDTH 14.8 % (11.6-17.2); WHITE BLOOD COUNT 6.8 TH/MM3 (4.0-11.0)
[2017-01-17] MEDS: ACETAMINOPHEN 325 MG TAB PO PRN (05:37)
[2017-01-17 05:45] LABS: BICARBONATE 27.6 MEQ/L (21.0-32.0)
[2017-01-17 06:02] LABS: POTASSIUM 4.9 MEQ/L (3.5-5.1)
[2017-01-17] MEDS: INSULIN ASPART SUPPLEMENTAL SCALE SQ SCH ×4 (06:07→21:22)
[2017-01-17 08:00] VITALS: BP 138/67; PULSE 74; RESP 16; TEMP 96.3; O2SAT 100
[2017-01-17] MEDS: TIMOLOL MALEATE 0.5% OPHT SOLN 5 ML BTL EACH EYE SCH ×2 (08:31→21:26)
[2017-01-17] MEDS: LACTIC ACID (AMMONIUM LACTATE) 12% LOTION 225 GM BTL TOPICAL SCH ×2 (08:31→21:26)
[2017-01-17] MEDS: MYCOPHENOLATE MOFETIL 250 MG CAP PO SCH ×2 (08:32→21:24)
[2017-01-17] MEDS: LACTOBACILLUS ACIDOPHILUS TAB PO SCH ×3 (08:32→16:58)
[2017-01-17] MEDS: NYSTATIN SUSP 500,000 U/5 ML CUP SWISH-SWAL SCH ×4 (08:32→21:25)
[2017-01-17] MEDS: FUROSEMIDE 40 MG TAB PO SCH (08:33)
[2017-01-17] MEDS: POTASSIUM CHLORIDE 20 MEQ CONTROLLED RELEASE TAB PO SCH (08:33)
[2017-01-17] MEDS: FAMOTIDINE 20 MG TAB PO SCH (08:33)
[2017-01-17] MEDS: SODIUM BICARBONATE 325 MG TAB PO SCH ×3 (08:33→16:59)
[2017-01-17] MEDS: predniSONE 10 MG TAB PO SCH (08:33)
[2017-01-17] MEDS: APIXABAN 5 MG TABLET PO SCH ×2 (08:33→21:25)
[2017-01-17] MEDS: METOPROLOL TARTRATE 25 MG TAB PO SCH ×2 (08:34→21:24)
[2017-01-17] MEDS: DOCUSATE SODIUM 100 MG CAP PO SCH ×2 (08:35→21:25)
[2017-01-17] MEDS: TACROLIMUS 1 MG CAP PO SCH ×2 (08:37→16:59)
[2017-01-17 12:00] VITALS: BP 149/66; PULSE 75; RESP 16; TEMP 95.8; O2SAT 99
--- NOTE | 2017-01-17 15:56 | HHI.PR ---
Subjective Remarks Patient concerned with elevation in creatinine today 1.92 from 1.26 yesterday Denies SOB or cough offers no other complaints at this time Objective Vitals Vital Signs Date Time Temp Pulse Resp B/P (MAP) Pulse Ox O2 Delivery O2 Flow Rate FiO2 01/17/17 12:00 95.8 75 16 149/66 (93) 99 01/17/17 08:00 96.3 74 16 138/67 (90) 100 01/17/17 00:00 97.0 86 17 121/70 (87) 99 01/16/17 20:00 97.8 104 17 129/73 (91) 99 01/16/17 16:00 96.6 74 16 122/58 (79) 99 Result Diagram: 01/17/17 0444 01/17/17 0444 Other Results Laboratory Tests Test 01/15/17 04:32 01/16/17 17:00 01/17/17 04:44 White Blood Count 6.9 TH/MM3 6.8 TH/MM3 Red Blood Count 3.36 MIL/MM3 3.43 MIL/MM3 Hemoglobin 10.1 GM/DL 10.3 GM/DL Hematocrit 31.2 % 31.6 % Mean Corpuscular Volume 92.9 FL 92.1 FL Mean Corpuscular Hemoglobin 30.0 PG 30.0 PG Mean Corpuscular Hemoglobin Concent 32.3 % 32.5 % Red Cell Distribution Width 15.0 % 14.8 % Platelet Count 132 TH/MM3 186 TH/MM3 Mean Platelet Volume 9.4 FL 8.8 FL Neutrophils (%) (Auto) 79.6 % 81.4 % Lymphocytes (%) (Auto) 6.5 % 7.5 % Monocytes (%) (Auto) 11.9 % 8.1 % Eosinophils (%) (Auto) 1.9 % 2.7 % Basophils (%) (Auto) 0.1 % 0.3 % Neutrophils # (Auto) 5.5 TH/MM3 5.6 TH/MM3 Lymphocytes # (Auto) 0.5 TH/MM3 0.5 TH/MM3 Monocytes # (Auto) 0.8 TH/MM3 0.6 TH/MM3 Eosinophils # (Auto) 0.1 TH/MM3 0.2 TH/MM3 Basophils # (Auto) 0.0 TH/MM3 0.0 TH/MM3 CBC Comment DIFF FINAL DIFF FINAL Differential Comment Blood Urea Nitrogen 42 MG/DL 49 MG/DL Creatinine 1.26 MG/DL 1.92 MG/DL Random Glucose 153 MG/DL 197 MG/DL Calcium Level 8.2 MG/DL 8.5 MG/DL Magnesium Level 1.8 MG/DL 2.0 MG/DL Sodium Level 139 MEQ/L 132 MEQ/L Potassium Level 3.6 MEQ/L 4.9 MEQ/L Chloride Level 99 MEQ/L 96 MEQ/L Carbon Dioxide Level 30.4 MEQ/L 27.6 MEQ/L Anion Gap 10 MEQ/L 8 MEQ/L Estimat Glomerular Filtration Rate 42 ML/MIN 26 ML/MIN Urine Color YELLOW Urine Turbidity HAZY Urine pH 5.5 Urine Specific [place] 1.017 Urine Protein TRACE mg/dL Urine Glucose (UA) TRACE mg/dL Urine Ketones 10 mg/dL Urine Occult Blood NEG Urine Nitrite NEG Urine Bilirubin NEG Urine Urobilinogen LESS THAN 2.0 MG/DL Urine Leukocyte Esterase MOD Urine RBC 1 /hpf Urine WBC 26 /hpf Urine Squamous Epithelial Cells 2 /hpf Urine Bacteria OCC /hpf Urine Hyaline Casts 3 /lpf Urine Granular Casts 1 /lpf Microscopic Urinalysis Comment CULTURE INDICATED Imaging Last Impressions Chest X-Ray 01/14/17 0000 Signed Impressions: Service Date/Time: Saturday, January 14, 2017 08:30 - CONCLUSION: Stable chest. Kyree Johnston MD Renal Ultrasound 01/13/17 0000 Signed Impressions: Service Date/Time: Friday, January 13, 2017 16:01 - CONCLUSION: There are elevated resistive indices seen in the mid and lower transplanted kidney concerning medical renal disease or rejection. No hydronephrosis is seen. Jas Pace MD Abdomen X-Ray 01/13/17 0000 Signed Impressions: Service Date/Time: Friday, January 13, 2017 10:56 - CONCLUSION: History of multiple bowel surgeries, negative for free air or obstruction. Davin Gabriel MD FACR Last Impressions Chest X-Ray 01/13/17 0503 Signed Impressions: Service Date/Time: Friday, January 13, 2017 05:26 - CONCLUSION: Mild linear opacity in the left lower lobe with the appearance favoring subsegmental atelectasis. Otherwise, no acute finding is identified. Jas Cruz MD Objective Remarks General: NAD, AAOx3 Chest: faint crackles left base Cardiac: Irregular, rate controlled Abd: +BS, soft, mildly distended, nontender Ext: Bilateral LE edema with chronic leathery skin changes or bilateral LE, weeping from both legs A/P Problem List: (1) Sepsis ICD Codes: A41.9 - Sepsis, unspecified organism Status: Acute Plan: - Pt is a 66 y/o female with chronic atrial fibrillation, diabetes mellitus, hx of renal failure secondary to polycystic kidney disease previously on HD for 6 years, then had bilateral nephrectomies and renal transplant on chronic immunosuppression. - She was recently hospitalized at [facility] from 12/18/16 to 12/31/16 for sepsis, E. coli bacteremia, acute pyelonephritis, and C. diff colitis. Pt was discharged to [facility] on Cefdinir 300mg daily x 12 days (completed on 01/06) and Flagyl 250mg QID x 14 days, completed on 01/09/17. - Pt presented to the ED at [facility] on 01/13/17 for increased generalized weakness, fevers and some SOB. She states that on Friday (01/11/17), she started having fevers and shaking chills. She states that her fevers then were around 99 degrees but this reportedly increased to fever of 101 per the ED documentation. - upon admission, pt required 2L of supplemental O2 in the ED. CXR in the ED noted mild linear opacity in the left lower lobe with the appearance favoring subsegmental atelectasis, otherwise, no acute finding is identified. - Pt had A. fib RVR with HR in the 130-140's. - Blood (01/13) growing gram negative braxton, E Coli - Urine culture (01/13) E Coli - Repeat UA (01/15) pending - Pt was given IV Vancomycin and cefepime and one liter of NS in the ED, and these were continued - Meropenem (01/14 - 01/16) - ID managing antibiotics started ciprofloxacin 500 mg Q12H IV 01/16/17 - KUB was negative for free air or obstruction but did note some stool throughout the colon. Colace BID, MOM PRN - Lactinex - Monitor labs - PT evaluation - IS - Duonebs PRN - Consult wound care nurse to evaluate bilateral LE - Supportive care (2) UTI (urinary tract infection) ICD Codes: N39.0 - Urinary tract infection, site not specified Status: Acute Plan: - See above. - Pt recently treated for E. coli UTI and bacteremia (3) Chronic atrial fibrillation with RVR ICD Codes: I48.2 - Chronic atrial fibrillation Status: Acute Plan: - Pt noted to be in A. fib RVR with HR in the 130-140's consistently at admission - Improved with Cardizem gtt, now rate controlled - continue Metoprolol - Telemetry (4) Acute on chronic renal insufficiency ICD Codes: N28.9 - Disorder of kidney and ureter, unspecified; N18.9 - Chronic kidney disease, unspecified Status: Acute Plan: - Her renal function is noted to be Cr 1.58/BUN 31, GFR 33 at admission. - In review of discharge summary from [facility] on the day of discharge her Cr was 1.7, BUN 68. - Pt was given 1L of NS in the ED - Repeat labs on 01/14 with continued improvement in Cr to 1.26 - Renal US (01/13) --> There are elevated resistive indices seen in the mid and lower transplanted kidney concerning medical renal disease or rejection. No hydronephrosis is seen. 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 Plan: - blood sugars running high 187- 250 in the past 24 hours - continue NovoLog medium dose SSI - Accu checks - add Levemir 7 Units BID (6) HTN (hypertension) ICD Codes: I10 - Essential (primary) hypertension Plan: - Resume metoprolol - Clonidine PRN - Vasotec PRN (7) Hypothyroidism ICD Codes: E03.9 - Hypothyroidism, unspecified Plan: - Home med continued (8) Hx of kidney transplant ICD Codes: Z94.0 - Kidney transplant status Plan: - Pt with hx of renal failure secondary to polycystic kidney disease previously on HD for 6 years, then had bilateral nephrectomies and renal transplant on chronic immunosuppression. - Cont. home doses of Prograf, Cellcept and Prednisone - Prograf level 4.5 - Renal US (01/13) --> There are elevated resistive indices seen in the mid and lower transplanted kidney concerning medical renal disease or rejection. No hydronephrosis is seen. - Lasix 40mg po daily today and potassium 20meq po daily started 01/16- placed on hold today - 01/17 creatinine increased to 1.92 - recheck labs in AM- monitor renal function closely (9) Hyperlipidemia ICD Codes: E78.5 - Hyperlipidemia, unspecified Plan: - Home meds continued (10) Constipation ICD Codes: K59.00 - Constipation, unspecified Status: Resolved Plan: - continue colace - no response to MOM - trial of fleet enema Assessment and Plan Patient examined. Assessment and plan formulated with Alyssa Arshad PA-C. I agree with the above. Pt's diuretic held d/t increasing creatinine, but pt had already received diuretic for today Repeat BMP in AM. May need to give IVFs. Pt started on BID levemir 7 units. Observe Alyssa Arshad Jan 17, 2017 15:56 Dharmesh Troy DO Jan 18, 2017 01:00
[2017-01-17 16:00] VITALS: BP 126/88; PULSE 72; RESP 18; TEMP 97.8; O2SAT 99
[2017-01-17 20:00] VITALS: BP 174/89; PULSE 74; RESP 19; TEMP 95.4; O2SAT 100
[2017-01-17] MEDS: INSULIN DETEMIR 100 UNITS/ML VIAL SQ SCH (21:24)
[2017-01-18] VITALS: BP 138/80; PULSE 71; RESP 17; TEMP 96.8; O2SAT 100
[2017-01-18] MEDS: CHLORHEXIDINE GLUCONATE 2 % 1 PACK (2 CLOTHS)(taper/protocol) TOPICAL SCH (00:34)
[2017-01-18] MEDS: CIPROFLOXACIN 500 MG TAB PO SCH ×2 (01:03→13:28)
[2017-01-18] MEDS: LEVOTHYROXINE SODIUM 25 MCG TAB PO SCH (05:52)
[2017-01-18] MEDS: ACETAMINOPHEN 325 MG TAB PO PRN (05:52)
[2017-01-18] MEDS: INSULIN ASPART SUPPLEMENTAL SCALE SQ SCH ×4 (05:53→22:43)
[2017-01-18 06:54] LABS: AUTOMATED NEUTROPHIL # 6.9 TH/MM3 (1.8-7.7); BASOPHIL % 0.2 % (0.0-2.0); EOSINOPHIL # 0.2 TH/MM3 (0-0.4); EOSINOPHIL % 2.4 % (0.0-4.0); HEMATOCRIT 33.2 % (35.0-46.0); LYMPH % 7.7 % (9.0-44.0); LYMPHOCYTE # 0.6 TH/MM3 (1.0-4.8); MEAN CELL VOLUME 92.6 FL (80.0-100.0); MEAN CORPUSCULAR HEMOGLOBIN 29.1 PG (27.0-34.0); MEAN CORPUSCULAR HGB CONC 31.5 % (32.0-36.0); MONO % 7.8 % (0.0-8.0); NEUT % 81.9 % (16.0-70.0); PLATELET COUNT 247 TH/MM3 (150-450); RED BLOOD COUNT 3.58 MIL/MM3 (4.00-5.30); RED CELL DISTRIBUTION WIDTH 14.7 % (11.6-17.2); WHITE BLOOD COUNT 8.4 TH/MM3 (4.0-11.0)
[2017-01-18 07:07] LABS: HEMO FLAGS AUTO DIFF
[2017-01-18 07:34] LABS: BICARBONATE 30.2 MEQ/L (21.0-32.0); MAGNESIUM 1.9 MG/DL (1.5-2.5); POTASSIUM 4.1 MEQ/L (3.5-5.1)
[2017-01-18 07:55] LABS: EOSINOPHILS 2 % (0-4); METAMYELOCYTES 1 % (0-1); MYELOCYTES 3 % (0-0); NEUTROPHIL # MANUAL DIFF 7.1 TH/MM3 (1.8-7.7); PLATELET ESTIMATE SMEAR NORMAL (NORMAL); PLATELET MORPHOLOGY NORMAL (NORMAL); POLYS (SEG NEUTROPHILS) 81 % (16-70); SCAN/DIFF FINAL DIFF MANUAL; WBC DIFF SAMPLE 100
[2017-01-18 08:00] VITALS: BP 101/53; PULSE 75; RESP 19; TEMP 95.4; O2SAT 95
[2017-01-18] MEDS: MYCOPHENOLATE MOFETIL 250 MG CAP PO SCH ×2 (09:05→22:41)
[2017-01-18] MEDS: SODIUM BICARBONATE 325 MG TAB PO SCH ×3 (09:05→18:39)
[2017-01-18] MEDS: METOPROLOL TARTRATE 25 MG TAB PO SCH ×2 (09:05→22:41)
[2017-01-18] MEDS: FAMOTIDINE 20 MG TAB PO SCH (09:06)
[2017-01-18] MEDS: TACROLIMUS 1 MG CAP PO SCH ×2 (09:06→18:39)
[2017-01-18] MEDS: NYSTATIN SUSP 500,000 U/5 ML CUP SWISH-SWAL SCH ×4 (09:06→22:41)
[2017-01-18] MEDS: APIXABAN 5 MG TABLET PO SCH ×2 (09:06→22:41)
[2017-01-18] MEDS: DOCUSATE SODIUM 100 MG CAP PO SCH ×2 (09:06→22:41)
[2017-01-18] MEDS: LACTOBACILLUS ACIDOPHILUS TAB PO SCH ×3 (09:06→18:39)
[2017-01-18] MEDS: predniSONE 10 MG TAB PO SCH (09:06)
[2017-01-18] MEDS: INSULIN DETEMIR 100 UNITS/ML VIAL SQ SCH ×2 (09:13→21:00)
[2017-01-18] MEDS ORDERED: SODIUM CHLORID 0.9% 500 ML INJ 500 ML IV SCH (11:15)
--- NOTE | 2017-01-18 11:38 | HHI.PR ---
Subjective Remarks Patient reports feeling slightly more SOB than yesterday- patient laying flat at time of interview oxygen saturation between 95-100% on 1 L oxygen via NC Denies cough offers no other complaints at this time Objective Vitals Vital Signs Date Time Temp Pulse Resp B/P (MAP) Pulse Ox O2 Delivery O2 Flow Rate FiO2 01/18/17 08:00 95.4 75 19 101/53 (69) 95 01/18/17 00:00 96.8 71 17 138/80 (99) 100 01/17/17 20:00 95.4 74 19 174/89 (117) 100 01/17/17 16:00 97.8 72 18 126/88 (101) 99 01/17/17 12:00 95.8 75 16 149/66 (93) 99 Result Diagram: 01/18/17 0525 01/18/17 0525 Other Results Laboratory Tests Test 01/16/17 17:00 01/17/17 04:44 01/18/17 05:25 Urine Color YELLOW Urine Turbidity HAZY Urine pH 5.5 Urine Specific [place] 1.017 Urine Protein TRACE mg/dL Urine Glucose (UA) TRACE mg/dL Urine Ketones 10 mg/dL Urine Occult Blood NEG Urine Nitrite NEG Urine Bilirubin NEG Urine Urobilinogen LESS THAN 2.0 MG/DL Urine Leukocyte Esterase MOD Urine RBC 1 /hpf Urine WBC 26 /hpf Urine Squamous Epithelial Cells 2 /hpf Urine Bacteria OCC /hpf Urine Hyaline Casts 3 /lpf Urine Granular Casts 1 /lpf Microscopic Urinalysis Comment CULTURE INDICATED White Blood Count 6.8 TH/MM3 8.4 TH/MM3 Red Blood Count 3.43 MIL/MM3 3.58 MIL/MM3 Hemoglobin 10.3 GM/DL 10.4 GM/DL Hematocrit 31.6 % 33.2 % Mean Corpuscular Volume 92.1 FL 92.6 FL Mean Corpuscular Hemoglobin 30.0 PG 29.1 PG Mean Corpuscular Hemoglobin Concent 32.5 % 31.5 % Red Cell Distribution Width 14.8 % 14.7 % Platelet Count 186 TH/MM3 247 TH/MM3 Mean Platelet Volume 8.8 FL 8.1 FL Neutrophils (%) (Auto) 81.4 % 81.9 % Lymphocytes (%) (Auto) 7.5 % 7.7 % Monocytes (%) (Auto) 8.1 % 7.8 % Eosinophils (%) (Auto) 2.7 % 2.4 % Basophils (%) (Auto) 0.3 % 0.2 % Neutrophils # (Auto) 5.6 TH/MM3 6.9 TH/MM3 Lymphocytes # (Auto) 0.5 TH/MM3 0.6 TH/MM3 Monocytes # (Auto) 0.6 TH/MM3 0.7 TH/MM3 Eosinophils # (Auto) 0.2 TH/MM3 0.2 TH/MM3 Basophils # (Auto) 0.0 TH/MM3 0.0 TH/MM3 CBC Comment DIFF FINAL AUTO DIFF Differential Comment FINAL DIFF MANUAL Blood Urea Nitrogen 49 MG/DL 53 MG/DL Creatinine 1.92 MG/DL 2.00 MG/DL Random Glucose 197 MG/DL 173 MG/DL Calcium Level 8.5 MG/DL 8.8 MG/DL Magnesium Level 2.0 MG/DL 1.9 MG/DL Sodium Level 132 MEQ/L 135 MEQ/L Potassium Level 4.9 MEQ/L 4.1 MEQ/L Chloride Level 96 MEQ/L 95 MEQ/L Carbon Dioxide Level 27.6 MEQ/L 30.2 MEQ/L Anion Gap 8 MEQ/L 10 MEQ/L Estimat Glomerular Filtration Rate 26 ML/MIN 25 ML/MIN Differential Total Cells Counted 100 Neutrophils % (Manual) 81 % Lymphocytes % 6 % Monocytes % 7 % Eosinophils % 2 % Neutrophils # (Manual) 7.1 TH/MM3 Metamyelocytes 1 % Myelocytes 3 % Platelet Estimate NORMAL Platelet Morphology Comment NORMAL Red Cell Morphology Comment NORMAL Imaging Last Impressions Chest X-Ray 01/14/17 0000 Signed Impressions: Service Date/Time: Saturday, January 14, 2017 08:30 - CONCLUSION: Stable chest. Kyree Johnston MD Renal Ultrasound 01/13/17 0000 Signed Impressions: Service Date/Time: Friday, January 13, 2017 16:01 - CONCLUSION: There are elevated resistive indices seen in the mid and lower transplanted kidney concerning medical renal disease or rejection. No hydronephrosis is seen. Jas Pace MD Abdomen X-Ray 01/13/17 0000 Signed Impressions: Service Date/Time: Friday, January 13, 2017 10:56 - CONCLUSION: History of multiple bowel surgeries, negative for free air or obstruction. Davin Gabriel MD FACR Last Impressions Chest X-Ray 01/13/17 0503 Signed Impressions: Service Date/Time: Friday, January 13, 2017 05:26 - CONCLUSION: Mild linear opacity in the left lower lobe with the appearance favoring subsegmental atelectasis. Otherwise, no acute finding is identified. Jas rCuz MD Objective Remarks General: NAD, AAOx3 Chest: CTA Cardiac: Irregular, rate controlled Abd: +BS, soft, mildly distended, nontender Ext: Bilateral LE edema with chronic leathery skin changes or bilateral LE, weeping from both legs A/P Problem List: (1) Sepsis ICD Codes: A41.9 - Sepsis, unspecified organism Status: Acute Plan: - Pt is a 66 y/o female with chronic atrial fibrillation, diabetes mellitus, hx of renal failure secondary to polycystic kidney disease previously on HD for 6 years, then had bilateral nephrectomies and renal transplant on chronic immunosuppression. - She was recently hospitalized at [facility] from 12/18/16 to 12/31/16 for sepsis, E. coli bacteremia, acute pyelonephritis, and C. diff colitis. Pt was discharged to [facility] on Cefdinir 300mg daily x 12 days (completed on 01/06) and Flagyl 250mg QID x 14 days, completed on 01/09/17. - [place] [facility] [place] for increased generalized weakness, fevers and some SOB. She states that on Friday (01/11/17), she started having fevers and shaking chills. She states that her fevers then were around 99 degrees but this reportedly increased to fever of 101 per the ED documentation. - upon admission, pt required 2L of supplemental O2 in the ED. CXR in the ED noted mild linear opacity in the left lower lobe with the appearance favoring subsegmental atelectasis, otherwise, no acute finding is identified. - Pt had A. fib RVR with HR in the 130-140's. - Blood (01/13) growing gram negative braxton, E Coli - Urine culture (01/13) E Coli - Repeat UA (01/15) pending - Pt was given IV Vancomycin and cefepime and one liter of NS in the ED, and these were continued - Meropenem (01/14 - 01/16) - ID managing antibiotics started ciprofloxacin 500 mg Q12H IV 01/16/17 - KUB was negative for free air or obstruction but did note some stool throughout the colon. Colace BID, MOM PRN - Lactinex - Monitor labs - PT evaluation - IS - Duonebs PRN - wound care bilateral LE and buttock - Supportive care (2) UTI (urinary tract infection) ICD Codes: N39.0 - Urinary tract infection, site not specified Status: Acute Plan: - See above. - Pt recently treated for E. coli UTI and bacteremia (3) Chronic atrial fibrillation with RVR ICD Codes: I48.2 - Chronic atrial fibrillation Status: Acute Plan: - Pt noted to be in A. fib RVR with HR in the 130-140's consistently at admission - Improved with Cardizem gtt, now rate controlled - continue Metoprolol - DC Telemetry (4) Acute on chronic renal insufficiency ICD Codes: N28.9 - Disorder of kidney and ureter, unspecified; N18.9 - Chronic kidney disease, unspecified Status: Acute Plan: - Her renal function is noted to be Cr 1.58/BUN 31, GFR 33 at admission. - In review of discharge summary from [facility] on the day of discharge her Cr was 1.7, BUN 68. - Pt was given 1L of NS in the ED - Repeat labs on 01/14 with continued improvement in Cr to 1.26 - Renal US (01/13) --> There are elevated resistive indices seen in the mid and lower transplanted kidney concerning medical renal disease or rejection. No hydronephrosis is seen. - Lasix 40mg po daily today and potassium 20meq po daily started 01/16- placed on hold today - 01/17 creatinine increased to 1.92 - 01/18 BUN 53 creatinine 2.00 estimated GFR 25 - accurate I&O ordered- 1200ml urine output through the night - start NS 100ml/H for a total of 500ml - recheck labs in AM- monitor renal function closely (5) Diabetes mellitus type 2, insulin dependent ICD Codes: E11.9 - Type 2 diabetes mellitus without complications; Z79.4 - shelter (current) use of insulin Plan: - blood sugars running high 202-279 in the past 24 hours - continue NovoLog medium dose SSI - Accu checks - increase Levemir to 10 Units BID (6) HTN (hypertension) ICD Codes: I10 - Essential (primary) hypertension Plan: - Resume metoprolol - Clonidine PRN - Vasotec PRN (7) Hypothyroidism ICD Codes: E03.9 - Hypothyroidism, unspecified Plan: - Home med continued (8) Hx of kidney transplant ICD Codes: Z94.0 - Kidney transplant status Plan: - Pt with hx of renal failure secondary to polycystic kidney disease previously on HD for 6 years, then had bilateral nephrectomies and renal transplant on chronic immunosuppression. - Cont. home doses of Prograf, Cellcept and Prednisone - Prograf level 4.5 - Renal US (01/13) --> There are elevated resistive indices seen in the mid and lower transplanted kidney concerning medical renal disease or rejection. No hydronephrosis is seen. - see above (9) Hyperlipidemia ICD Codes: E78.5 - Hyperlipidemia, unspecified Plan: - Home meds continued (10) Constipation ICD Codes: K59.00 - Constipation, unspecified Status: Resolved Plan: - continue colace - no response to MOM - trial of fleet enema (11) SOB (shortness of breath) ICD Codes: R06.02 - Shortness of breath Plan: Patient reports feeling slightly more SOB than yesterday oxygen saturation between 95-100% on 1 L oxygen via NC Denies cough CXR ordered Duonebs as needed Assessment and Plan Patient examined. Assessment and plan formulated with Aurora Li PA-C. I agree with the above. worsening renal fxn renal US --> no hydronephrosis Maribell hayden repeat BMP in AM Alyssa Arshad Jan 18, 2017 11:38 Dharmesh Troy DO Jan 18, 2017 22:07
[2017-01-18 12:00] VITALS: BP 134/85; PULSE 73; RESP 17; TEMP 95.7; O2SAT 98
--- NOTE | 2017-01-18 12:02 | HHI.IDPN ---
Subjective Subjective Remarks Patient is a 66-year-old female, who is status post renal transplant, presented to the hospital complaining of an acute onset of fevers and chills. She was recently hospitalized at [facility], were she was diagnosed to have Escherichia coli ESBL UTI, and her hospitalization was complicated by development of C. difficile colitis. She also had worsening of her renal function which improved after treatment of the UTI, sepsis and fluid hydration. She was discharged to a rehabilitation facility, and reportedly finish her antibiotics on January 06, and the Flagyl on January 09. She developed an acute onset of fever and chills. She says she is voiding okay. She had some vomiting. Her diarrhea has improved. Denies any abdominal pain or any back pain. She denies any shortness of breath or any congestion or respiratory complaints. Since admission she has been febrile. She was in A. fib RVR on admission and the rate has improved. Her WBC is normal. Her urinalysis showed pyuria. Chest x-ray showed some atelectasis. Notes reviewed Temps ok BP good Noted she is not voiding much Also has had SOB She sais she had bladder scan done several days ago - could not find results Repeat UA better, UC bnegative Creatinine has been increasing Antibiotics Cipro Lines PIV Past Medical History Reviewed Allergies: Coded Allergies: Sulfa (Sulfonamide Antibiotics) (Unverified Allergy, Severe, 01/13/17) diatrizoate meglumine (Unverified Allergy, Severe, 01/13/17) gadobenic acid (Unverified Allergy, Severe, 01/13/17) gadodiamide (Unverified Allergy, Severe, 01/13/17) gadoteridol (Unverified Allergy, Severe, 01/13/17) iodixanol (Unverified Allergy, Severe, 01/13/17) iohexol (Unverified Allergy, Severe, PT NEEDS TO BE PREMEDICATED, 01/13/17) penicillin G (Unverified Allergy, Severe, 01/13/17) Objective . Vital Signs Date Time Temp Pulse Resp B/P (MAP) Pulse Ox O2 Delivery O2 Flow Rate FiO2 01/18/17 08:00 95.4 75 19 101/53 (69) 95 01/18/17 00:00 96.8 71 17 138/80 (99) 100 01/17/17 20:00 95.4 74 19 174/89 (117) 100 01/17/17 16:00 97.8 72 18 126/88 (101) 99 01/17/17 12:00 95.8 75 16 149/66 (93) 99 . Laboratory Tests Test 01/17/17 04:44 01/18/17 05:25 White Blood Count 6.8 TH/MM3 8.4 TH/MM3 Red Blood Count 3.43 MIL/MM3 3.58 MIL/MM3 Hemoglobin 10.3 GM/DL 10.4 GM/DL Hematocrit 31.6 % 33.2 % Mean Corpuscular Volume 92.1 FL 92.6 FL Mean Corpuscular Hemoglobin 30.0 PG 29.1 PG Mean Corpuscular Hemoglobin Concent 32.5 % 31.5 % Red Cell Distribution Width 14.8 % 14.7 % Platelet Count 186 TH/MM3 247 TH/MM3 Mean Platelet Volume 8.8 FL 8.1 FL Neutrophils (%) (Auto) 81.4 % 81.9 % Lymphocytes (%) (Auto) 7.5 % 7.7 % Monocytes (%) (Auto) 8.1 % 7.8 % Eosinophils (%) (Auto) 2.7 % 2.4 % Basophils (%) (Auto) 0.3 % 0.2 % Neutrophils # (Auto) 5.6 TH/MM3 6.9 TH/MM3 Lymphocytes # (Auto) 0.5 TH/MM3 0.6 TH/MM3 Monocytes # (Auto) 0.6 TH/MM3 0.7 TH/MM3 Eosinophils # (Auto) 0.2 TH/MM3 0.2 TH/MM3 Basophils # (Auto) 0.0 TH/MM3 0.0 TH/MM3 CBC Comment DIFF FINAL AUTO DIFF Differential Comment FINAL DIFF MANUAL Differential Total Cells Counted 100 Neutrophils % (Manual) 81 % Lymphocytes % 6 % Monocytes % 7 % Eosinophils % 2 % Neutrophils # (Manual) 7.1 TH/MM3 Metamyelocytes 1 % Myelocytes 3 % Platelet Estimate NORMAL Platelet Morphology Comment NORMAL Red Cell Morphology Comment NORMAL Laboratory Tests Test 01/17/17 04:44 01/18/17 05:25 Blood Urea Nitrogen 49 MG/DL 53 MG/DL Creatinine 1.92 MG/DL 2.00 MG/DL Random Glucose 197 MG/DL 173 MG/DL Calcium Level 8.5 MG/DL 8.8 MG/DL Magnesium Level 2.0 MG/DL 1.9 MG/DL Sodium Level 132 MEQ/L 135 MEQ/L Potassium Level 4.9 MEQ/L 4.1 MEQ/L Chloride Level 96 MEQ/L 95 MEQ/L Carbon Dioxide Level 27.6 MEQ/L 30.2 MEQ/L Anion Gap 8 MEQ/L 10 MEQ/L Estimat Glomerular Filtration Rate 26 ML/MIN 25 ML/MIN Microbiology Date/Time Source Procedure Growth Status 01/16/17 17:00 Urine Clean Catch Urine Culture - Final NO GROWTH IN 48 HOURS. Complete Imaging Chest X-Ray 01/14/17 0000 Signed Impressions: Service Date/Time: Saturday, January 14, 2017 08:30 - CONCLUSION: Stable chest. Kyree Johnston MD Renal Ultrasound 01/13/17 0000 Signed Impressions: Service Date/Time: Friday, January 13, 2017 16:01 - CONCLUSION: There are elevated resistive indices seen in the mid and lower transplanted kidney concerning medical renal disease or rejection. No hydronephrosis is seen. Jas Pace MD Abdomen X-Ray 01/13/17 0000 Signed Impressions: Service Date/Time: Friday, January 13, 2017 10:56 - CONCLUSION: History of multiple bowel surgeries, negative for free air or obstruction. Davin Gabriel MD FACR Physical Exam GENERAL: awake and alert, NAD SKIN: Warm and dry. No generalized rash HEAD: Atraumatic. Normocephalic. No temporal wasting, or tenderness. EYES: [place] conjunctiva. No petechia or hemorrhage. No scleral icterus. No injection or drainage. EARS, NOSE AND THROAT: Nose without bleeding or purulent nasal discharge. No sinus tenderness. Mucous membranes pink and moist. No oral lesions noted. NECK: Trachea midline. Supple and not tender, no meningeal signs CARDIOVASCULAR: Regular rate and rhythm. No murmurs, rubs or gallops heard RESPIRATORY: Clear to auscultation. Breath sounds equal bilaterally. No rales , wheezing or rhonchi. Decreased BS at bases ABDOMEN: Soft, globular, non-tender, nondistended. Bowel sounds present and normoactive. No guarding. No rebound. Healed incision C/W surgery, No palpable bladder EXTREMITIES: No clubbing, cyanosis. Indurated leathery texture skin changes in both LE, (+) edema. No calf tenderness. NEUROLOGICAL: Awake and alert. Cranial nerves grossly intact. Motor grossly within normal limits. PSYCHIATRIC: Normal affect, calm and cooperative. LINE: No evidence of infection Assessment & Plan Remarks IMPRESSION E coli Sepsis due to recurrent UTI - S/P renal transplant - no hydro on US - repeat UA better Recent episode of UTI with E coli ESBL (+) Episode of C diff, seems stable, diarrhea has imrpoved - potential for recurrent audi since she will be getting systemic Abx S/P renal transplant Renal insufficiency, worsening again RECOMMENDATION Continue Cipro, adjust dose (For E coli) UA Bladder scan Repeat renal US Follow creatinine Explained plan to patient Belem Gray MD Jan 18, 2017 12:02
--- NOTE | 2017-01-18 13:10 | RADRPT ---
EXAM DATE/TIME: 01/18/2017 12:28 [facility] COMPARISON: CHEST SINGLE AP, January 14, 2017, 8:30. INDICATIONS : Short of breath. MEDICAL HISTORY : Hypothyroidism. Gastroesophageal reflux disease. Hypertension. Numbness. SURGICAL HISTORY : Cholecystectomy. Bilateral nephrectomy. Endometrial biopsy. Left ankle ENCOUNTER: Initial ACUITY: 1 day PAIN SCORE: 0/10 LOCATION: Bilateral upper chest TECH NOTE: TRACEE RUSH MR#[id number] :50 Exam date/desc:January 18, 2017CHEST SINGLE AP FINDINGS: Mild interstitial changes with cardiomegaly. Minimal probable changes left base. The portion of the bony skeleton visualized is unremarkable. CONCLUSION: Minimal increase in parenchymal opacity left base. Interstitial changes are stable. Davin Gabriel MD FACR on January 18, 2017 at 13:08 Board Certified Radiologist. This report was verified electronically.
[2017-01-18] MEDS: LACTIC ACID (AMMONIUM LACTATE) 12% LOTION 225 GM BTL TOPICAL SCH ×2 (13:30→21:00)
[2017-01-18] MEDS: TIMOLOL MALEATE 0.5% OPHT SOLN 5 ML BTL EACH EYE SCH ×2 (13:30→22:42)
[2017-01-18 16:00] VITALS: BP 153/103; PULSE 84; RESP 16; TEMP 95.4; O2SAT 94
--- NOTE | 2017-01-18 16:55 | RADRPT ---
EXAM DATE/TIME: 01/18/2017 15:28 [facility] COMPARISON: US KIDNEY / TRANSPLANT, January 13, 2017, 16:01. INDICATIONS : Increased BUN/Creatnine. MEDICAL HISTORY : Hypertension. Gastroesophageal reflux disease. Hypothyroidism. Neck pain. Gla sses. Numbness. Chest pain. Irregular heartbeat. Emphysema. Renal disease. Urinary tract infection. A rthritis. Diabetes. SURGICAL HISTORY : Cholecystectomy. Bilateral nephrectomy. Bladder repair. Kidney transplant. Left ankle replacement. Graft placements. ENCOUNTER: Subsequent ACUITY: 4-6 days PAIN SCORE: 6/10 LOCATION: Left lower quadrant MEASUREMENTS: TRANSPLANT KIDNEY: 14.6 x x 6.8 cm LOCATION: Left lower quadrant. ARCUATE ARTERIES RESISTIVE INDEX: Upper - 0.8 Mid - 0.7 Lower - 0.8 MAIN RENAL ARTERY VELOCITY: (cm/sec): 83.1 MAIN RENAL VEIN: Patent EXTERNAL ILIAC ARTERY VELOCITY (cm/sec): 91.1 * NORMAL DOPPLER FINDINGS Arcuate arteries - RI = 0.6 - 0.8 Renal artery = under 200 cm/sec Renal vein = May be monophasic with continuous flow or demonstrate some pulsatility with cardiac cycl e FINDINGS: TRANSPLANT KIDNEY: Normal cortical thickness and echotexture. No hydronephrosis, stone, or mass. No peritransplant fluid collection. URINARY BLADDER: Within normal limits given the degree of distension. CONCLUSION: There is no hydronephrosis and solitary evidence for rejection. Davin Gabriel MD FACR on January 18, 2017 at 16:52 Board Certified Radiologist. This report was verified electronically.
[2017-01-18 20:00] VITALS: BP 109/74; PULSE 75; RESP 20; TEMP 97.9; O2SAT 98
[2017-01-19] VITALS: BP 125/75; PULSE 76; RESP 20; TEMP 96.4; O2SAT 96
[2017-01-19] MEDS: CIPROFLOXACIN 500 MG TAB PO SCH ×2 (02:47→12:39)
[2017-01-19 05:35] LABS: BACTERIA, URINE RARE /hpf; BLOOD, URINE NEG (NEG); GLUCOSE,URINE NEG (NEG); KETONE, URINE NEG (NEG); NITRITE,URINE NEG (NEG); PH, URINE 5.5 (5.0-8.5); SQUAMOUS EPITHELIAL CELL URINE 1 /hpf (0-5); URINE COLOR YELLOW (YELLW/STRAW)
[2017-01-19] MEDS: LEVOTHYROXINE SODIUM 25 MCG TAB PO SCH (05:38)
[2017-01-19] MEDS: ACETAMINOPHEN 325 MG TAB PO PRN (05:39)
[2017-01-19] MEDS: INSULIN ASPART SUPPLEMENTAL SCALE SQ SCH ×4 (05:39→22:56)
[2017-01-19] MEDS: TIMOLOL MALEATE 0.5% OPHT SOLN 5 ML BTL EACH EYE SCH ×2 (07:55→22:54)
[2017-01-19] MEDS: MYCOPHENOLATE MOFETIL 250 MG CAP PO SCH ×2 (07:56→22:47)
[2017-01-19] MEDS: METOPROLOL TARTRATE 25 MG TAB PO SCH ×2 (07:57→22:47)
[2017-01-19] MEDS: FAMOTIDINE 20 MG TAB PO SCH (07:57)
[2017-01-19] MEDS: LACTOBACILLUS ACIDOPHILUS TAB PO SCH ×3 (07:57→16:55)
[2017-01-19] MEDS: TACROLIMUS 1 MG CAP PO SCH ×2 (07:58→16:55)
[2017-01-19] MEDS: DOCUSATE SODIUM 100 MG CAP PO SCH ×2 (07:58→21:00)
[2017-01-19] MEDS: APIXABAN 5 MG TABLET PO SCH ×2 (07:58→22:47)
[2017-01-19] MEDS: NYSTATIN SUSP 500,000 U/5 ML CUP SWISH-SWAL SCH ×4 (07:59→22:48)
[2017-01-19 08:00] VITALS: BP 148/110; PULSE 79; RESP 16; TEMP 96; O2SAT 97
[2017-01-19] MEDS: INSULIN DETEMIR 100 UNITS/ML VIAL SQ SCH ×2 (08:04→22:57)
[2017-01-19] MEDS: LACTIC ACID (AMMONIUM LACTATE) 12% LOTION 225 GM BTL TOPICAL SCH ×2 (08:05→22:54)
[2017-01-19] MEDS: predniSONE 10 MG TAB PO SCH (08:17)
[2017-01-19] MEDS: SODIUM BICARBONATE 325 MG TAB PO SCH ×3 (08:17→16:54)
[2017-01-19 08:44] LABS: BICARBONATE 28.6 MEQ/L (21.0-32.0); POTASSIUM 4.6 MEQ/L (3.5-5.1)
[2017-01-19 12:00] VITALS: BP 147/73; PULSE 74; RESP 19; TEMP 95.8; O2SAT 99
--- NOTE | 2017-01-19 12:23 | HHI.PR ---
Subjective Remarks No new complaints. Objective Vitals Vital Signs Date Time Temp Pulse Resp B/P (MAP) Pulse Ox O2 Delivery O2 Flow Rate FiO2 01/19/17 08:00 96.0 79 16 148/110 (123) 97 01/19/17 00:00 96.4 76 20 125/75 (92) 96 01/18/17 20:00 97.9 75 20 109/74 (86) 98 01/18/17 16:00 95.4 84 16 153/103 (120) 94 01/19/17 01/19/17 01/20/17 15:00 23:00 07:00 Output Total 300 ml Balance -300 ml Output Urine Total 300 ml # Voids 1 Result Diagram: 01/18/17 0525 01/19/17 0707 Imaging Last Impressions Chest X-Ray 01/14/17 0000 Signed Impressions: Service Date/Time: Saturday, January 14, 2017 08:30 - CONCLUSION: Stable chest. Kyree Johnston MD Renal Ultrasound 01/13/17 0000 Signed Impressions: Service Date/Time: Friday, January 13, 2017 16:01 - CONCLUSION: There are elevated resistive indices seen in the mid and lower transplanted kidney concerning medical renal disease or rejection. No hydronephrosis is seen. Jas Pace MD Abdomen X-Ray 01/13/17 0000 Signed Impressions: Service Date/Time: Friday, January 13, 2017 10:56 - CONCLUSION: History of multiple bowel surgeries, negative for free air or obstruction. Davin Gabriel MD FACR Last Impressions Chest X-Ray 01/13/17 0503 Signed Impressions: Service Date/Time: Friday, January 13, 2017 05:26 - CONCLUSION: Mild linear opacity in the left lower lobe with the appearance favoring subsegmental atelectasis. Otherwise, no acute finding is identified. Jas Cruz MD Objective Remarks General: NAD, AAOx3 Chest: CTA Cardiac: Irregular, rate controlled Abd: +BS, soft, mildly distended, nontender Ext: Bilateral LE edema with chronic leathery skin changes or bilateral LE A/P Problem List: (1) Sepsis ICD Codes: A41.9 - Sepsis, unspecified organism Status: Acute Plan: - comgmt with ID - Pt is a 66 y/o female with chronic atrial fibrillation, diabetes mellitus, hx of renal failure secondary to polycystic kidney disease previously on HD for 6 years, then had bilateral nephrectomies and renal transplant on chronic immunosuppression. - She was recently hospitalized at [facility] from 12/18/16 to 12/31/16 for sepsis, E. coli bacteremia, acute pyelonephritis, and C. diff colitis. Pt was discharged to [facility] on Cefdinir 300mg daily x 12 days (completed on 01/06) and Flagyl 250mg QID x 14 days, completed on 01/09/17. - Pt presented to the ED at [facility] on 01/13/17 for increased generalized weakness, fevers and some SOB. She states that on Friday (01/11/17), she started having fevers and shaking chills. She states that her fevers then were around 99 degrees but this reportedly increased to fever of 101 per the ED documentation. - upon admission, pt required 2L of supplemental O2 in the ED. CXR in the ED noted mild linear opacity in the left lower lobe with the appearance favoring subsegmental atelectasis, otherwise, no acute finding is identified. - Pt had A. fib RVR with HR in the 130-140's. - Blood (01/13) growing gram negative braxton, E Coli - Urine culture (01/13) E Coli - Repeat UA (01/15) --> NO growth - Pt was given IV Vancomycin and cefepime and one liter of NS in the ED, and these were continued - Meropenem (01/14 - 01/16) - ciprofloxacin (01/16 - present) - Lactinex - Monitor labs - PT evaluation - IS - Duonebs PRN - wound care bilateral LE and buttock - Supportive care (2) UTI (urinary tract infection) ICD Codes: N39.0 - Urinary tract infection, site not specified Status: Acute Plan: - See above. - Pt recently treated for E. coli UTI and bacteremia (3) Chronic atrial fibrillation with RVR ICD Codes: I48.2 - Chronic atrial fibrillation Status: Acute Plan: - Pt noted to be in A. fib RVR with HR in the 130-140's consistently at admission - Improved with Cardizem gtt, now rate controlled - continue Metoprolol (4) Acute on chronic renal insufficiency ICD Codes: N28.9 - Disorder of kidney and ureter, unspecified; N18.9 - Chronic kidney disease, unspecified Status: Acute Plan: - Her renal function is noted to be Cr 1.58/BUN 31, GFR 33 at admission. - In review of discharge summary from [facility] on the day of discharge her Cr was 1.7, BUN 68. - Pt was given 1L of NS in the ED - Repeat labs on 01/14 with continued improvement in Cr to 1.26 - Renal US (01/13) --> There are elevated resistive indices seen in the mid and lower transplanted kidney concerning medical renal disease or rejection. No hydronephrosis is seen. - Lasix 40mg po daily today and potassium 20meq po daily started 01/16- placed on hold today (01/18/17) - 01/17 creatinine increased to 1.92 - 01/18 BUN 53 creatinine 2.00 estimated GFR 25 - Cr 1.81 (01/19/17) - continue IVFs, gingerly - repeat BMP in AM (5) Diabetes mellitus type 2, insulin dependent ICD Codes: E11.9 - Type 2 diabetes mellitus without complications; Z79.4 - local [employer] (current) use of insulin Plan: - blood sugar improving - continue NovoLog medium dose SSI - Accu checks - Levemir to 10 Units BID (6) HTN (hypertension) ICD Codes: I10 - Essential (primary) hypertension Plan: - Resume metoprolol - Clonidine PRN - Vasotec PRN (7) Hypothyroidism ICD Codes: E03.9 - Hypothyroidism, unspecified Plan: - Home med continued (8) Hx of kidney transplant ICD Codes: Z94.0 - Kidney transplant status Plan: - Pt with hx of renal failure secondary to polycystic kidney disease previously on HD for 6 years, then had bilateral nephrectomies and renal transplant on chronic immunosuppression. - Cont. home doses of Prograf, Cellcept and Prednisone - Prograf level 4.5 - Renal US (01/13) --> There are elevated resistive indices seen in the mid and lower transplanted kidney concerning medical renal disease or rejection. No hydronephrosis is seen. - see above (9) Hyperlipidemia ICD Codes: E78.5 - Hyperlipidemia, unspecified Plan: - Home meds continued (10) Constipation ICD Codes: K59.00 - Constipation, unspecified Status: Resolved Plan: - continue colace - no response to MOM - trial of fleet enema (11) SOB (shortness of breath) ICD Codes: R06.02 - Shortness of breath Plan: Patient reports feeling slightly more SOB than yesterday oxygen saturation between 95-100% on 1 L oxygen via NC Denies cough CXR ordered Duonebs as needed Problem Qualifiers (1) HTN (hypertension): Qualified Codes: I10 - Essential (primary) hypertension Dharmesh Troy DO Jan 19, 2017 12:23
[2017-01-19] MEDS: 1/2 NS + KCL 20 MEQ INJ 1,000 ML IV SCH (12:38)
[2017-01-19 16:00] VITALS: BP 107/51; PULSE 80; RESP 17; TEMP 96.6; O2SAT 100
[2017-01-19 20:00] VITALS: BP 121/59; PULSE 77; RESP 22; TEMP 96.6; O2SAT 98
[2017-01-19] MEDS: ONDANSETRON HCL 4 MG/2 ML VIAL IV PRN (23:56)
[2017-01-20] VITALS: BP 119/59; PULSE 76; RESP 22; TEMP 96.7; O2SAT 98
[2017-01-20] MEDS: CIPROFLOXACIN 500 MG TAB PO SCH ×2 (03:30→19:27)
[2017-01-20 05:06] LABS: AUTOMATED NEUTROPHIL # 11.9 TH/MM3 (1.8-7.7); BASOPHIL % 0.2 % (0.0-2.0); EOSINOPHIL # 0.3 TH/MM3 (0-0.4); EOSINOPHIL % 2.1 % (0.0-4.0); HEMATOCRIT 32.9 % (35.0-46.0); LYMPH % 6.8 % (9.0-44.0); MEAN CELL VOLUME 92.5 FL (80.0-100.0); MEAN CORPUSCULAR HEMOGLOBIN 29.6 PG (27.0-34.0); MONO % 8.1 % (0.0-8.0); NEUT % 82.8 % (16.0-70.0); PLATELET COUNT 313 TH/MM3 (150-450); RED BLOOD COUNT 3.56 MIL/MM3 (4.00-5.30); WHITE BLOOD COUNT 14.4 TH/MM3 (4.0-11.0)
[2017-01-20 05:13] LABS: HEMO FLAGS AUTO DIFF
[2017-01-20 05:27] LABS: BICARBONATE 29.4 MEQ/L (21.0-32.0); MAGNESIUM 1.8 MG/DL (1.5-2.5); POTASSIUM 4.3 MEQ/L (3.5-5.1)
[2017-01-20] MEDS: INSULIN ASPART SUPPLEMENTAL SCALE SQ SCH ×4 (06:56→21:00)
[2017-01-20] MEDS: ACETAMINOPHEN 325 MG TAB PO PRN (07:01)
[2017-01-20] MEDS: LEVOTHYROXINE SODIUM 25 MCG TAB PO SCH (07:01)
[2017-01-20] MEDS: 1/2 NS + KCL 20 MEQ INJ 1,000 ML IV SCH (07:01)
[2017-01-20 08:00] VITALS: BP 110/49; PULSE 78; RESP 21; TEMP 96.3; O2SAT 96
[2017-01-20 08:12] LABS: BANDS 10 % (0-6); METAMYELOCYTES 2 % (0-1); POLYS (SEG NEUTROPHILS) 78 % (16-70); WBC DIFF SAMPLE 100
[2017-01-20 08:13] LABS: PLATELET ESTIMATE SMEAR NORMAL (NORMAL); PLATELET MORPHOLOGY NORMAL (NORMAL); SCAN/DIFF FINAL DIFF MANUAL
[2017-01-20] MEDS: LACTIC ACID (AMMONIUM LACTATE) 12% LOTION 225 GM BTL TOPICAL SCH ×2 (08:25→22:36)
[2017-01-20] MEDS: TIMOLOL MALEATE 0.5% OPHT SOLN 5 ML BTL EACH EYE SCH ×2 (08:25→22:35)
[2017-01-20] MEDS: FAMOTIDINE 20 MG TAB PO SCH (08:26)
[2017-01-20] MEDS: DOCUSATE SODIUM 100 MG CAP PO SCH ×2 (08:26→22:33)
[2017-01-20] MEDS: APIXABAN 5 MG TABLET PO SCH ×2 (08:26→22:33)
[2017-01-20] MEDS: NYSTATIN SUSP 500,000 U/5 ML CUP SWISH-SWAL SCH (08:26)
[2017-01-20] MEDS: MYCOPHENOLATE MOFETIL 250 MG CAP PO SCH ×2 (08:26→22:33)
[2017-01-20] MEDS: LACTOBACILLUS ACIDOPHILUS TAB PO SCH ×3 (08:26→19:21)
[2017-01-20] MEDS: predniSONE 10 MG TAB PO SCH (08:26)
[2017-01-20] MEDS: METOPROLOL TARTRATE 25 MG TAB PO SCH ×2 (08:27→21:00)
[2017-01-20] MEDS: SODIUM BICARBONATE 325 MG TAB PO SCH ×3 (08:27→19:21)
[2017-01-20] MEDS: TACROLIMUS 1 MG CAP PO SCH ×2 (08:27→19:21)
[2017-01-20] MEDS: INSULIN DETEMIR 100 UNITS/ML VIAL SQ SCH ×2 (08:39→22:30)
--- NOTE | 2017-01-20 10:15 | HHI.PR ---
Subjective Remarks Patient reports feeling, "about the same as yesterday." Patient is happy that creatinine has improved concerned with edema of extremities Objective Vitals Vital Signs Date Time Temp Pulse Resp B/P (MAP) Pulse Ox O2 Delivery O2 Flow Rate FiO2 01/20/17 08:00 96.3 78 21 110/49 (69) 96 01/20/17 00:00 96.7 76 22 119/59 (79) 98 01/19/17 20:00 96.6 77 22 121/59 (79) 98 01/19/17 16:00 96.6 80 17 107/51 (69) 100 01/19/17 12:00 95.8 74 19 147/73 (97) 99 Result Diagram: 01/20/17 0338 01/20/17 0338 Other Results Laboratory Tests Test 01/18/17 05:25 01/19/17 04:55 01/19/17 07:07 01/20/17 03:38 White Blood Count 8.4 TH/MM3 14.4 TH/MM3 Red Blood Count 3.58 MIL/MM3 3.56 MIL/MM3 Hemoglobin 10.4 GM/DL 10.6 GM/DL Hematocrit 33.2 % 32.9 % Mean Corpuscular Volume 92.6 FL 92.5 FL Mean Corpuscular Hemoglobin 29.1 PG 29.6 PG Mean Corpuscular Hemoglobin Concent 31.5 % 32.0 % Red Cell Distribution Width 14.7 % 15.0 % Platelet Count 247 TH/MM3 313 TH/MM3 Mean Platelet Volume 8.1 FL 8.0 FL Neutrophils (%) (Auto) 81.9 % 82.8 % Lymphocytes (%) (Auto) 7.7 % 6.8 % Monocytes (%) (Auto) 7.8 % 8.1 % Eosinophils (%) (Auto) 2.4 % 2.1 % Basophils (%) (Auto) 0.2 % 0.2 % Neutrophils # (Auto) 6.9 TH/MM3 11.9 TH/MM3 Lymphocytes # (Auto) 0.6 TH/MM3 1.0 TH/MM3 Monocytes # (Auto) 0.7 TH/MM3 1.2 TH/MM3 Eosinophils # (Auto) 0.2 TH/MM3 0.3 TH/MM3 Basophils # (Auto) 0.0 TH/MM3 0.0 TH/MM3 CBC Comment AUTO DIFF AUTO DIFF Differential Total Cells Counted 100 100 Neutrophils % (Manual) 81 % 78 % Lymphocytes % 6 % 4 % Monocytes % 7 % 6 % Eosinophils % 2 % Neutrophils # (Manual) 7.1 TH/MM3 13.0 TH/MM3 Metamyelocytes 1 % 2 % Myelocytes 3 % Differential Comment FINAL DIFF MANUAL FINAL DIFF MANUAL Platelet Estimate NORMAL NORMAL Platelet Morphology Comment NORMAL NORMAL Red Cell Morphology Comment NORMAL NORMAL Blood Urea Nitrogen 53 MG/DL 50 MG/DL 42 MG/DL Creatinine 2.00 MG/DL 1.81 MG/DL 1.33 MG/DL Random Glucose 173 MG/DL 151 MG/DL 157 MG/DL Calcium Level 8.8 MG/DL 8.6 MG/DL 8.8 MG/DL Magnesium Level 1.9 MG/DL 1.8 MG/DL Sodium Level 135 MEQ/L 138 MEQ/L 137 MEQ/L Potassium Level 4.1 MEQ/L 4.6 MEQ/L 4.3 MEQ/L Chloride Level 95 MEQ/L 99 MEQ/L 101 MEQ/L Carbon Dioxide Level 30.2 MEQ/L 28.6 MEQ/L 29.4 MEQ/L Anion Gap 10 MEQ/L 10 MEQ/L 7 MEQ/L Estimat Glomerular Filtration Rate 25 ML/MIN 28 ML/MIN 40 ML/MIN Urine Color YELLOW Urine Turbidity CLEAR Urine pH 5.5 Urine Specific [place] 1.009 Urine Protein NEG mg/dL Urine Glucose (UA) NEG mg/dL Urine Ketones NEG mg/dL Urine Occult Blood NEG Urine Nitrite NEG Urine Bilirubin NEG Urine Urobilinogen LESS THAN 2.0 MG/DL Urine Leukocyte Esterase TRACE Urine RBC LESS THAN 1 /hpf Urine WBC 1 /hpf Urine Squamous Epithelial Cells 1 /hpf Urine Bacteria RARE /hpf Band Neutrophils % 10 % Imaging Last Impressions Chest X-Ray 01/14/17 0000 Signed Impressions: Service Date/Time: Saturday, January 14, 2017 08:30 - CONCLUSION: Stable chest. Kyree Johnston MD Renal Ultrasound 01/13/17 0000 Signed Impressions: Service Date/Time: Friday, January 13, 2017 16:01 - CONCLUSION: There are elevated resistive indices seen in the mid and lower transplanted kidney concerning medical renal disease or rejection. No hydronephrosis is seen. Jas Pace MD Abdomen X-Ray 01/13/17 0000 Signed Impressions: Service Date/Time: Friday, January 13, 2017 10:56 - CONCLUSION: History of multiple bowel surgeries, negative for free air or obstruction. Davin Gabriel MD FACR Last Impressions Chest X-Ray 01/13/17 0503 Signed Impressions: Service Date/Time: Friday, January 13, 2017 05:26 - CONCLUSION: Mild linear opacity in the left lower lobe with the appearance favoring subsegmental atelectasis. Otherwise, no acute finding is identified. Jas Cruz MD Objective Remarks General: NAD, AAOx3 Eye: left eye with mildly injected conjunctiva no drainage noted Chest: faint crackles bilateral bases Cardiac: Irregular, rate controlled Abd: +BS, soft, mildly distended, nontender Ext: Bilateral upper and lower 2+ edema with chronic leathery skin changes or bilateral LE A/P Problem List: (1) Sepsis ICD Codes: A41.9 - Sepsis, unspecified organism Status: Acute Plan: - comgmt with ID - Pt is a 66 y/o female with chronic atrial fibrillation, diabetes mellitus, hx of renal failure secondary to polycystic kidney disease previously on HD for 6 years, then had bilateral nephrectomies and renal transplant on chronic immunosuppression. - She was recently hospitalized at [facility] from 12/18/16 to 12/31/16 for sepsis, E. coli bacteremia, acute pyelonephritis, and C. diff colitis. Pt was discharged to [facility] on Cefdinir 300mg daily x 12 days (completed on 01/06) and Flagyl 250mg QID x 14 days, completed on 01/09/17. - Pt presented to the ED at [facility] on 01/13/17 for increased generalized weakness, fevers and some SOB. She states that on Friday (01/11/17), she started having fevers and shaking chills. She states that her fevers then were around 99 degrees but this reportedly increased to fever of 101 per the ED documentation. - upon admission, pt required 2L of supplemental O2 in the ED. CXR in the ED noted mild linear opacity in the left lower lobe with the appearance favoring subsegmental atelectasis, otherwise, no acute finding is identified. - Pt had A. fib RVR with HR in the 130-140's. - Blood (01/13) growing gram negative braxton, E Coli - Urine culture (01/13) E Coli - Repeat UA (01/15) --> NO growth - Pt was given IV Vancomycin and cefepime and one liter of NS in the ED, and these were continued - Meropenem (01/14 - 01/16) - ciprofloxacin (01/16 - present) - Lactinex - Monitor labs - PT evaluation - IS - Duonebs PRN - wound care bilateral LE and buttock - Supportive care (2) UTI (urinary tract infection) ICD Codes: N39.0 - Urinary tract infection, site not specified Status: Acute Plan: - See above. - Pt recently treated for E. coli UTI and bacteremia (3) Chronic atrial fibrillation with RVR ICD Codes: I48.2 - Chronic atrial fibrillation Status: Acute Plan: - Pt noted to be in A. fib RVR with HR in the 130-140's consistently at admission - Improved with Cardizem gtt, now rate controlled - continue Metoprolol (4) Acute on chronic renal insufficiency ICD Codes: N28.9 - Disorder of kidney and ureter, unspecified; N18.9 - Chronic kidney disease, unspecified Status: Acute Plan: - Her renal function is noted to be Cr 1.58/BUN 31, GFR 33 at admission. - In review of discharge summary from [facility] on the day of discharge her Cr was 1.7, BUN 68. - Pt was given 1L of NS in the ED - Repeat labs on 01/14 with continued improvement in Cr to 1.26 - Renal US (01/13) --> There are elevated resistive indices seen in the mid and lower transplanted kidney concerning medical renal disease or rejection. No hydronephrosis is seen. - Lasix 40mg po daily today and potassium 20meq po daily started 01/16- placed on hold today (01/18/17) - 01/17 creatinine increased to 1.92 - 01/18 BUN 53 creatinine 2.00 estimated GFR 25 - 01/20 BUN 42 creatinine 1.33 estimated GFR 40 - DC IV fluids - do to edema will restart Lasix at 20 mg by mouth daily - repeat BMP in AM (5) Diabetes mellitus type 2, insulin dependent ICD Codes: E11.9 - Type 2 diabetes mellitus without complications; Z79.4 - jail (current) use of insulin Plan: - blood sugar improving - continue NovoLog medium dose SSI - Accu checks - Levemir to 10 Units BID (6) HTN (hypertension) ICD Codes: I10 - Essential (primary) hypertension Plan: - Resume metoprolol - Clonidine PRN - Vasotec PRN (7) Hypothyroidism ICD Codes: E03.9 - Hypothyroidism, unspecified Plan: - Home med continued (8) Hx of kidney transplant ICD Codes: Z94.0 - Kidney transplant status Plan: - Pt with hx of renal failure secondary to polycystic kidney disease previously on HD for 6 years, then had bilateral nephrectomies and renal transplant on chronic immunosuppression. - Cont. home doses of Prograf, Cellcept and Prednisone - Prograf level 4.5 - Renal US (01/13) --> There are elevated resistive indices seen in the mid and lower transplanted kidney concerning medical renal disease or rejection. No hydronephrosis is seen. - see above (9) Hyperlipidemia ICD Codes: E78.5 - Hyperlipidemia, unspecified Plan: - Home meds continued (10) Constipation ICD Codes: K59.00 - Constipation, unspecified Status: Resolved Plan: - continue colace - no response to MOM - trial of fleet enema (11) SOB (shortness of breath) ICD Codes: R06.02 - Shortness of breath Plan: Patient reports feeling slightly more SOB than yesterday oxygen saturation between 95-100% on 1 L oxygen via [place] Denies cough CXR ordered Duonebs as needed (12) Dry eye of left side ICD Codes: H04.122 - Dry eye syndrome of left lacrimal gland Plan: - small amount of clear drainage - clear eye drops started - continue to monitor Assessment and Plan Patient examined. Assessment and plan formulated with GERRY LEWIS PA-C. I agree with the above. PT WITH UTI/BACTEREMIA. Recent cdiff. rising wbc. monitor for recurrent cdiff. discussed with ID...start flagyl emperically. renal tx. on immunosuppressives. cr improving. resume home lasix 1/2 dose initially. pt has chronic LE swelling that she feels is baseline but more edema in hands. Problem Qualifiers (1) HTN (hypertension): Qualified Codes: I10 - Essential (primary) hypertension Alyssa Lewis Jan 20, 2017 10:15 Antwan Anand MD Jan 20, 2017 14:08
[2017-01-20] MEDS ORDERED: CARBOXYMETHYLCELL SOD 0.5% OPTH SOLN 15 ML BTL LEFT EYE PRN (11:00)
[2017-01-20] MEDS: NYSTAT/DIPHENHY/LIDO MOUTHWASH (Adult) 120ML SWISH-SWAL SCH ×3 (11:50→22:36)
[2017-01-20 12:00] VITALS: BP 111/55; PULSE 77; RESP 18; TEMP 95.8; O2SAT 100
--- NOTE | 2017-01-20 12:02 | HHI.IDPN ---
Subjective Subjective Remarks Patient is a 66-year-old female, who is status post renal transplant, presented to the hospital complaining of an acute onset of fevers and chills. She was recently hospitalized at [facility], were she was diagnosed to have Escherichia coli ESBL UTI, and her hospitalization was complicated by development of C. difficile colitis. She also had worsening of her renal function which improved after treatment of the UTI, sepsis and fluid hydration. She was discharged to a rehabilitation facility, and reportedly finish her antibiotics on January 06, and the Flagyl on January 09. She developed an acute onset of fever and chills. She says she is voiding okay. She had some vomiting. Her diarrhea has improved. Denies any abdominal pain or any back pain. She denies any shortness of breath or any congestion or respiratory complaints. Since admission she has been febrile. She was in A. fib RVR on admission and the rate has improved. Her WBC is normal. Her urinalysis showed pyuria. Chest x-ray showed some atelectasis. Notes reviewed Temps ok BP good Still SOB last CXR with increased opacity L Repeat UA better, UC negative Creatinine improving Antibiotics Cipro Lines PIV Past Medical History Reviewed Allergies: Coded Allergies: Sulfa (Sulfonamide Antibiotics) (Unverified Allergy, Severe, 01/13/17) diatrizoate meglumine (Unverified Allergy, Severe, 01/13/17) gadobenic acid (Unverified Allergy, Severe, 01/13/17) gadodiamide (Unverified Allergy, Severe, 01/13/17) gadoteridol (Unverified Allergy, Severe, 01/13/17) iodixanol (Unverified Allergy, Severe, 01/13/17) iohexol (Unverified Allergy, Severe, PT NEEDS TO BE PREMEDICATED, 01/13/17) penicillin G (Unverified Allergy, Severe, 01/13/17) Objective . Vital Signs Date Time Temp Pulse Resp B/P (MAP) Pulse Ox O2 Delivery O2 Flow Rate FiO2 01/20/17 08:00 96.3 78 21 110/49 (69) 96 01/20/17 00:00 96.7 76 22 119/59 (79) 98 01/19/17 20:00 96.6 77 22 121/59 (79) 98 01/19/17 16:00 96.6 80 17 107/51 (69) 100 . Laboratory Tests Test 01/20/17 03:38 White Blood Count 14.4 TH/MM3 Red Blood Count 3.56 MIL/MM3 Hemoglobin 10.6 GM/DL Hematocrit 32.9 % Mean Corpuscular Volume 92.5 FL Mean Corpuscular Hemoglobin 29.6 PG Mean Corpuscular Hemoglobin Concent 32.0 % Red Cell Distribution Width 15.0 % Platelet Count 313 TH/MM3 Mean Platelet Volume 8.0 FL Neutrophils (%) (Auto) 82.8 % Lymphocytes (%) (Auto) 6.8 % Monocytes (%) (Auto) 8.1 % Eosinophils (%) (Auto) 2.1 % Basophils (%) (Auto) 0.2 % Neutrophils # (Auto) 11.9 TH/MM3 Lymphocytes # (Auto) 1.0 TH/MM3 Monocytes # (Auto) 1.2 TH/MM3 Eosinophils # (Auto) 0.3 TH/MM3 Basophils # (Auto) 0.0 TH/MM3 CBC Comment AUTO DIFF Differential Total Cells Counted 100 Neutrophils % (Manual) 78 % Band Neutrophils % 10 % Lymphocytes % 4 % Monocytes % 6 % Neutrophils # (Manual) 13.0 TH/MM3 Metamyelocytes 2 % Differential Comment FINAL DIFF MANUAL Platelet Estimate NORMAL Platelet Morphology Comment NORMAL Red Cell Morphology Comment NORMAL Laboratory Tests Test 01/19/17 07:07 01/20/17 03:38 Blood Urea Nitrogen 50 MG/DL 42 MG/DL Creatinine 1.81 MG/DL 1.33 MG/DL Random Glucose 151 MG/DL 157 MG/DL Calcium Level 8.6 MG/DL 8.8 MG/DL Sodium Level 138 MEQ/L 137 MEQ/L Potassium Level 4.6 MEQ/L 4.3 MEQ/L Chloride Level 99 MEQ/L 101 MEQ/L Carbon Dioxide Level 28.6 MEQ/L 29.4 MEQ/L Anion Gap 10 MEQ/L 7 MEQ/L Estimat Glomerular Filtration Rate 28 ML/MIN 40 ML/MIN Magnesium Level 1.8 MG/DL Imaging Chest X-Ray 01/14/17 0000 Signed Impressions: Service Date/Time: Saturday, January 14, 2017 08:30 - CONCLUSION: Stable chest. Kyree Johnston MD Renal Ultrasound 01/13/17 0000 Signed Impressions: Service Date/Time: Friday, January 13, 2017 16:01 - CONCLUSION: There are elevated resistive indices seen in the mid and lower transplanted kidney concerning medical renal disease or rejection. No hydronephrosis is seen. Jas Pace MD Abdomen X-Ray 01/13/17 0000 Signed Impressions: Service Date/Time: Friday, January 13, 2017 10:56 - CONCLUSION: History of multiple bowel surgeries, negative for free air or obstruction. Davin Gabriel MD FACR Physical Exam GENERAL: awake and alert, NAD SKIN: Warm and dry. No generalized rash HEAD: Atraumatic. Normocephalic. No temporal wasting, or tenderness. EYES: [place] conjunctiva. No petechia or hemorrhage. No scleral icterus. No injection or drainage. EARS, NOSE AND THROAT: Nose without bleeding or purulent nasal discharge. No sinus tenderness. Mucous membranes pink and moist. No oral lesions noted. NECK: Trachea midline. Supple and not tender, no meningeal signs CARDIOVASCULAR: Regular rate and rhythm. No murmurs, rubs or gallops heard RESPIRATORY: Decreased BS at bases ABDOMEN: Soft, globular, non-tender, nondistended. Bowel sounds present and normoactive. No guarding. No rebound. Healed incision C/W surgery, No palpable bladder EXTREMITIES: No clubbing, cyanosis. Indurated leathery texture skin changes in both LE, (+) edema. No calf tenderness. NEUROLOGICAL: Awake and alert. Cranial nerves grossly intact. Motor grossly within normal limits. PSYCHIATRIC: Normal affect, calm and cooperative. LINE: No evidence of infection Assessment & Plan Remarks IMPRESSION E coli Sepsis due to recurrent UTI - S/P renal transplant - no hydro on US - repeat UA better Recent episode of UTI with E coli ESBL (+) Episode of C diff, seems stable, diarrhea has imrpoved - potential for recurrent audi since she will be getting systemic Abx S/P renal transplant Renal insufficiency Leukocytosis RECOMMENDATION Continue Cipro, adjust dose (For E coli) Follow creatinine Follow CBC Monitor progress Explained plan to patient D/W Belem Ely MD Jan 20, 2017 12:02
[2017-01-20] MEDS ORDERED: NAPHAZOLINE HCL 0.012% OPHT SOLN 15 ML BOTTLE LEFT EYE PRN (13:00)
[2017-01-20 16:00] VITALS: BP 156/90; PULSE 74; RESP 20; TEMP 98.4; O2SAT 95
[2017-01-20] MEDS: metroNIDAZOLE 500 MG TAB PO SCH ×2 (19:27→22:33)
[2017-01-20 20:00] VITALS: BP 109/56; PULSE 98; RESP 17; TEMP 97; O2SAT 100
[2017-01-20] MEDS: NAPHAZOLINE HCL 0.012% OPHT SOLN 15 ML BOTTLE LEFT EYE SCH (22:32)
[2017-01-21] VITALS: BP 117/61; PULSE 81; RESP 17; TEMP 97.4; O2SAT 100
[2017-01-21] MEDS: CIPROFLOXACIN 500 MG TAB PO SCH ×2 (01:01→13:27)
[2017-01-21] MEDS: metroNIDAZOLE 500 MG TAB PO SCH ×3 (05:16→20:50)
[2017-01-21] MEDS: LEVOTHYROXINE SODIUM 25 MCG TAB PO SCH (05:16)
[2017-01-21] MEDS: INSULIN ASPART SUPPLEMENTAL SCALE SQ SCH ×4 (05:18→20:58)
[2017-01-21 06:38] LABS: AUTOMATED NEUTROPHIL # 7.8 TH/MM3 (1.8-7.7); BASOPHIL % 0.2 % (0.0-2.0); EOSINOPHIL # 0.1 TH/MM3 (0-0.4); EOSINOPHIL % 0.8 % (0.0-4.0); HEMATOCRIT 33.1 % (35.0-46.0); LYMPH % 8.2 % (9.0-44.0); LYMPHOCYTE # 0.8 TH/MM3 (1.0-4.8); MEAN CORPUSCULAR HEMOGLOBIN 29.2 PG (27.0-34.0); MEAN CORPUSCULAR HGB CONC 31.4 % (32.0-36.0); MONO % 8.7 % (0.0-8.0); NEUT % 82.1 % (16.0-70.0); PLATELET COUNT 267 TH/MM3 (150-450); RED BLOOD COUNT 3.56 MIL/MM3 (4.00-5.30); RED CELL DISTRIBUTION WIDTH 15.1 % (11.6-17.2); WHITE BLOOD COUNT 9.5 TH/MM3 (4.0-11.0)
[2017-01-21 06:41] LABS: HEMO FLAGS AUTO DIFF
[2017-01-21 07:01] LABS: BICARBONATE 30.3 MEQ/L (21.0-32.0); POTASSIUM 4.6 MEQ/L (3.5-5.1)
[2017-01-21 08:00] VITALS: BP 101/67; PULSE 77; RESP 17; TEMP 96.4; O2SAT 97
[2017-01-21] MEDS: ACETAMINOPHEN 325 MG TAB PO PRN ×3 (08:49→22:01)
[2017-01-21 08:56] LABS: BANDS 6 % (0-6); METAMYELOCYTES 1 % (0-1); NEUTROPHIL # MANUAL DIFF 7.7 TH/MM3 (1.8-7.7); POLYS (SEG NEUTROPHILS) 74 % (16-70); WBC DIFF SAMPLE 100
[2017-01-21 08:57] LABS: PLATELET ESTIMATE SMEAR NORMAL (NORMAL); PLATELET MORPHOLOGY NORMAL (NORMAL); SCAN/DIFF FINAL DIFF MANUAL
[2017-01-21] MEDS: NYSTAT/DIPHENHY/LIDO MOUTHWASH (Adult) 120ML SWISH-SWAL SCH ×4 (09:00→20:54)
[2017-01-21] MEDS: INSULIN DETEMIR 100 UNITS/ML VIAL SQ SCH ×2 (09:00→21:00)
[2017-01-21] MEDS: NAPHAZOLINE HCL 0.012% OPHT SOLN 15 ML BOTTLE LEFT EYE SCH ×4 (09:00→20:49)
[2017-01-21] MEDS: SODIUM BICARBONATE 325 MG TAB PO SCH ×3 (09:01→18:17)
[2017-01-21] MEDS: MYCOPHENOLATE MOFETIL 250 MG CAP PO SCH (09:01)
[2017-01-21] MEDS: DOCUSATE SODIUM 100 MG CAP PO SCH ×2 (09:02→20:50)
[2017-01-21] MEDS: APIXABAN 5 MG TABLET PO SCH ×2 (09:02→20:51)
[2017-01-21] MEDS: LACTOBACILLUS ACIDOPHILUS TAB PO SCH ×3 (09:02→18:00)
[2017-01-21] MEDS: predniSONE 10 MG TAB PO SCH (09:03)
[2017-01-21] MEDS: TACROLIMUS 1 MG CAP PO SCH ×2 (09:03→18:17)
[2017-01-21] MEDS: FAMOTIDINE 20 MG TAB PO SCH (09:03)
[2017-01-21] MEDS: METOPROLOL TARTRATE 25 MG TAB PO SCH ×2 (09:03→20:58)
[2017-01-21] MEDS: LACTIC ACID (AMMONIUM LACTATE) 12% LOTION 225 GM BTL TOPICAL SCH ×2 (09:04→20:49)
[2017-01-21] MEDS: TIMOLOL MALEATE 0.5% OPHT SOLN 5 ML BTL EACH EYE SCH ×2 (09:04→20:49)
[2017-01-21] MEDS: FUROSEMIDE 20 MG TAB PO SCH (09:04)
[2017-01-21 12:00] VITALS: BP 100/51; PULSE 73; RESP 17; TEMP 96.4; O2SAT 100
[2017-01-21 13:57] VITALS: O2SAT 98
--- NOTE | 2017-01-21 13:57 | HHI.PR ---
Subjective Remarks Patient reports feeling better today denies diarrhea, SOB or cough offers no specific complaints Objective Vitals Vital Signs Date Time Temp Pulse Resp B/P (MAP) Pulse Ox O2 Delivery O2 Flow Rate FiO2 01/21/17 12:00 96.4 73 17 100/51 (67) 100 01/21/17 08:00 96.4 77 17 101/67 (78) 97 01/21/17 00:00 97.4 81 17 117/61 (79) 100 01/20/17 20:00 97.0 98 17 109/56 (73) 100 01/20/17 16:00 98.4 74 20 156/90 (112) 95 Result Diagram: 01/21/17 0508 01/21/17 0508 Other Results Laboratory Tests Test 01/19/17 04:55 01/19/17 07:07 01/20/17 03:38 01/21/17 05:08 Urine Color YELLOW Urine Turbidity CLEAR Urine pH 5.5 Urine Specific [place] 1.009 Urine Protein NEG mg/dL Urine Glucose (UA) NEG mg/dL Urine Ketones NEG mg/dL Urine Occult Blood NEG Urine Nitrite NEG Urine Bilirubin NEG Urine Urobilinogen LESS THAN 2.0 MG/DL Urine Leukocyte Esterase TRACE Urine RBC LESS THAN 1 /hpf Urine WBC 1 /hpf Urine Squamous Epithelial Cells 1 /hpf Urine Bacteria RARE /hpf Blood Urea Nitrogen 50 MG/DL 42 MG/DL 37 MG/DL Creatinine 1.81 MG/DL 1.33 MG/DL 1.39 MG/DL Random Glucose 151 MG/DL 157 MG/DL 182 MG/DL Calcium Level 8.6 MG/DL 8.8 MG/DL 8.9 MG/DL Sodium Level 138 MEQ/L 137 MEQ/L 138 MEQ/L Potassium Level 4.6 MEQ/L 4.3 MEQ/L 4.6 MEQ/L Chloride Level 99 MEQ/L 101 MEQ/L 100 MEQ/L Carbon Dioxide Level 28.6 MEQ/L 29.4 MEQ/L 30.3 MEQ/L Anion Gap 10 MEQ/L 7 MEQ/L 8 MEQ/L Estimat Glomerular Filtration Rate 28 ML/MIN 40 ML/MIN 38 ML/MIN White Blood Count 14.4 TH/MM3 9.5 TH/MM3 Red Blood Count 3.56 MIL/MM3 3.56 MIL/MM3 Hemoglobin 10.6 GM/DL 10.4 GM/DL Hematocrit 32.9 % 33.1 % Mean Corpuscular Volume 92.5 FL 93.0 FL Mean Corpuscular Hemoglobin 29.6 PG 29.2 PG Mean Corpuscular Hemoglobin Concent 32.0 % 31.4 % Red Cell Distribution Width 15.0 % 15.1 % Platelet Count 313 TH/MM3 267 TH/MM3 Mean Platelet Volume 8.0 FL 7.7 FL Neutrophils (%) (Auto) 82.8 % 82.1 % Lymphocytes (%) (Auto) 6.8 % 8.2 % Monocytes (%) (Auto) 8.1 % 8.7 % Eosinophils (%) (Auto) 2.1 % 0.8 % Basophils (%) (Auto) 0.2 % 0.2 % Neutrophils # (Auto) 11.9 TH/MM3 7.8 TH/MM3 Lymphocytes # (Auto) 1.0 TH/MM3 0.8 TH/MM3 Monocytes # (Auto) 1.2 TH/MM3 0.8 TH/MM3 Eosinophils # (Auto) 0.3 TH/MM3 0.1 TH/MM3 Basophils # (Auto) 0.0 TH/MM3 0.0 TH/MM3 CBC Comment AUTO DIFF AUTO DIFF Differential Total Cells Counted 100 100 Neutrophils % (Manual) 78 % 74 % Band Neutrophils % 10 % 6 % Lymphocytes % 4 % 10 % Monocytes % 6 % 9 % Neutrophils # (Manual) 13.0 TH/MM3 7.7 TH/MM3 Metamyelocytes 2 % 1 % Differential Comment FINAL DIFF MANUAL FINAL DIFF MANUAL Platelet Estimate NORMAL NORMAL Platelet Morphology Comment NORMAL NORMAL Red Cell Morphology Comment NORMAL NORMAL Magnesium Level 1.8 MG/DL Imaging Last Impressions Chest X-Ray 01/14/17 0000 Signed Impressions: Service Date/Time: Saturday, January 14, 2017 08:30 - CONCLUSION: Stable chest. Kyree Johnston MD Renal Ultrasound 01/13/17 0000 Signed Impressions: Service Date/Time: Friday, January 13, 2017 16:01 - CONCLUSION: There are elevated resistive indices seen in the mid and lower transplanted kidney concerning medical renal disease or rejection. No hydronephrosis is seen. Jas Pace MD Abdomen X-Ray 01/13/17 0000 Signed Impressions: Service Date/Time: Friday, January 13, 2017 10:56 - CONCLUSION: History of multiple bowel surgeries, negative for free air or obstruction. Davin Gabriel MD FACR Last Impressions Chest X-Ray 01/13/17 0505 Signed Impressions: Service Date/Time: Friday, January 13, 2017 05:26 - CONCLUSION: Mild linear opacity in the left lower lobe with the appearance favoring subsegmental atelectasis. Otherwise, no acute finding is identified. Jas Cruz MD Objective Remarks General: NAD, AAOx3 Eye: left eye with mildly injected conjunctiva (improved from yesterday) no drainage noted Chest: clear through out Cardiac: Irregular, rate controlled Abd: +BS, soft, mildly distended, nontender Ext: Bilateral upper and lower 2+ edema with chronic leathery skin changes or bilateral LE A/P Problem List: (1) Sepsis ICD Codes: A41.9 - Sepsis, unspecified organism Status: Acute Plan: - comgmt with ID - Pt is a 66 y/o female with chronic atrial fibrillation, diabetes mellitus, hx of renal failure secondary to polycystic kidney disease previously on HD for 6 years, then had bilateral nephrectomies and renal transplant on chronic immunosuppression. - She was recently hospitalized at [facility] from 12/18/16 to 12/31/16 for sepsis, E. coli bacteremia, acute pyelonephritis, and C. diff colitis. Pt was discharged to [facility] on Cefdinir 300mg daily x 12 days (completed on 01/06) and Flagyl 250mg QID x 14 days, completed on 01/09/17. - Pt presented to the ED at [facility] on 01/13/17 for increased generalized weakness, fevers and some SOB. She states that on Friday (01/11/17), she started having fevers and shaking chills. She states that her fevers then were around 99 degrees but this reportedly increased to fever of 101 per the ED documentation. - upon admission, pt required 2L of supplemental O2 in the ED. CXR in the ED noted mild linear opacity in the left lower lobe with the appearance favoring subsegmental atelectasis, otherwise, no acute finding is identified. - Pt had A. fib RVR with HR in the 130-140's. - Blood (01/13) growing gram negative braxton, E Coli - Urine culture (01/13) E Coli - Repeat UA (01/15) --> NO growth - Pt was given IV Vancomycin and cefepime and one liter of NS in the ED, and these were continued - Meropenem (01/14 - 01/16) - ciprofloxacin (01/16 - present) - Lactinex - Monitor labs - PT evaluation - IS - Duonebs PRN - wound care bilateral LE and buttock - Supportive care (2) UTI (urinary tract infection) ICD Codes: N39.0 - Urinary tract infection, site not specified Status: Acute Plan: - See above. - Pt recently treated for E. coli UTI and bacteremia (3) Chronic atrial fibrillation with RVR ICD Codes: I48.2 - Chronic atrial fibrillation Status: Acute Plan: - Pt noted to be in A. fib RVR with HR in the 130-140's consistently at admission - Improved with Cardizem gtt, now rate controlled - continue Metoprolol (4) Acute on chronic renal insufficiency ICD Codes: N28.9 - Disorder of kidney and ureter, unspecified; N18.9 - Chronic kidney disease, unspecified Status: Acute Plan: - Her renal function is noted to be Cr 1.58/BUN 31, GFR 33 at admission. - In review of discharge summary from [facility] on the day of discharge her Cr was 1.7, BUN 68. - Pt was given 1L of NS in the ED - Repeat labs on 01/14 with continued improvement in Cr to 1.26 - Renal US (01/13) --> There are elevated resistive indices seen in the mid and lower transplanted kidney concerning medical renal disease or rejection. No hydronephrosis is seen. 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 - Cont. home doses of Prograf, Cellcept and Prednisone - Prograf level 4.5 - Renal US (01/13) --> There are elevated resistive indices seen in the mid and lower transplanted kidney concerning medical renal disease or rejection. No hydronephrosis is seen. - see above (9) Hyperlipidemia ICD Codes: E78.5 - Hyperlipidemia, unspecified Plan: - Home meds continued (10) Constipation ICD Codes: K59.00 - Constipation, unspecified Status: Resolved Plan: - continue colace - no response to MOM - trial of fleet enema (11) SOB (shortness of breath) ICD Codes: R06.02 - Shortness of breath Plan: Patient reports feeling slightly more SOB than yesterday oxygen saturation between 95-100% on 1 L oxygen via NC Denies cough CXR ordered Duonebs as needed (12) Dry eye of left side ICD Codes: H04.122 - Dry eye syndrome of left lacrimal gland Plan: - small amount of clear drainage - clear eye drops started - continue to monitor Assessment and Plan Patient examined. Assessment and plan formulated with GERRY LEWIS PA-C. I agree with the above. PT WITH UTI/BACTEREMIA. Recent cdiff. rising wbc. better. discussed with ID. carter flagyl renal tx. on immunosuppressives. cr improved. resume home lasix 1/2 dose initially. pt has chronic LE swelling that she feels is baseline but more edema in hands. will consult renal given her fluctuating renal function and renal tx. Problem Qualifiers (1) HTN (hypertension): Qualified Codes: I10 - Essential (primary) hypertension Alyssa Lewis Jan 21, 2017 13:56 Antwan Anand MD Jan 21, 2017 14:03
[2017-01-21 16:00] VITALS: BP 114/61; PULSE 78; RESP 16; TEMP 96.4; O2SAT 96
--- NOTE | 2017-01-21 17:38 | HHI.IDPN ---
Subjective Subjective Remarks Patient is a 66-year-old female, who is status post renal transplant, presented to the hospital complaining of an acute onset of fevers and chills. She was recently hospitalized at [facility], were she was diagnosed to have Escherichia coli ESBL UTI, and her hospitalization was complicated by development of C. difficile colitis. She also had worsening of her renal function which improved after treatment of the UTI, sepsis and fluid hydration. She was discharged to a rehabilitation facility, and reportedly finish her antibiotics on January 06, and the Flagyl on January 09. She developed an acute onset of fever and chills. She says she is voiding okay. She had some vomiting. Her diarrhea has improved. Denies any abdominal pain or any back pain. She denies any shortness of breath or any congestion or respiratory complaints. Since admission she has been febrile. She was in A. fib RVR on admission and the rate has improved. Her WBC is normal. Her urinalysis showed pyuria. Chest x-ray showed some atelectasis. Notes reviewed Temps ok BP good Feels better Breathing better Repeat UA better, UC negative Creatinine improving Antibiotics Cipro Lines PIV Past Medical History Reviewed Allergies: Coded Allergies: Sulfa (Sulfonamide Antibiotics) (Unverified Allergy, Severe, 01/13/17) diatrizoate meglumine (Unverified Allergy, Severe, 01/13/17) gadobenic acid (Unverified Allergy, Severe, 01/13/17) gadodiamide (Unverified Allergy, Severe, 01/13/17) gadoteridol (Unverified Allergy, Severe, 01/13/17) iodixanol (Unverified Allergy, Severe, 01/13/17) iohexol (Unverified Allergy, Severe, PT NEEDS TO BE PREMEDICATED, 01/13/17) penicillin G (Unverified Allergy, Severe, 01/13/17) Objective . Vital Signs Date Time Temp Pulse Resp B/P (MAP) Pulse Ox O2 Delivery O2 Flow Rate FiO2 01/21/17 16:00 96.4 78 16 114/61 (78) 96 01/21/17 13:57 98 01/21/17 12:00 96.4 73 17 100/51 (67) 100 01/21/17 08:00 96.4 77 17 101/67 (78) 97 01/21/17 00:00 97.4 81 17 117/61 (79) 100 01/20/17 20:00 97.0 98 17 109/56 (73) 100 . Laboratory Tests Test 01/20/17 03:38 01/21/17 05:08 White Blood Count 14.4 TH/MM3 9.5 TH/MM3 Red Blood Count 3.56 MIL/MM3 3.56 MIL/MM3 Hemoglobin 10.6 GM/DL 10.4 GM/DL Hematocrit 32.9 % 33.1 % Mean Corpuscular Volume 92.5 FL 93.0 FL Mean Corpuscular Hemoglobin 29.6 PG 29.2 PG Mean Corpuscular Hemoglobin Concent 32.0 % 31.4 % Red Cell Distribution Width 15.0 % 15.1 % Platelet Count 313 TH/MM3 267 TH/MM3 Mean Platelet Volume 8.0 FL 7.7 FL Neutrophils (%) (Auto) 82.8 % 82.1 % Lymphocytes (%) (Auto) 6.8 % 8.2 % Monocytes (%) (Auto) 8.1 % 8.7 % Eosinophils (%) (Auto) 2.1 % 0.8 % Basophils (%) (Auto) 0.2 % 0.2 % Neutrophils # (Auto) 11.9 TH/MM3 7.8 TH/MM3 Lymphocytes # (Auto) 1.0 TH/MM3 0.8 TH/MM3 Monocytes # (Auto) 1.2 TH/MM3 0.8 TH/MM3 Eosinophils # (Auto) 0.3 TH/MM3 0.1 TH/MM3 Basophils # (Auto) 0.0 TH/MM3 0.0 TH/MM3 CBC Comment AUTO DIFF AUTO DIFF Differential Total Cells Counted 100 100 Neutrophils % (Manual) 78 % 74 % Band Neutrophils % 10 % 6 % Lymphocytes % 4 % 10 % Monocytes % 6 % 9 % Neutrophils # (Manual) 13.0 TH/MM3 7.7 TH/MM3 Metamyelocytes 2 % 1 % Differential Comment FINAL DIFF MANUAL FINAL DIFF MANUAL Platelet Estimate NORMAL NORMAL Platelet Morphology Comment NORMAL NORMAL Red Cell Morphology Comment NORMAL NORMAL Laboratory Tests Test 01/20/17 03:38 01/21/17 05:08 Blood Urea Nitrogen 42 MG/DL 37 MG/DL Creatinine 1.33 MG/DL 1.39 MG/DL Random Glucose 157 MG/DL 182 MG/DL Calcium Level 8.8 MG/DL 8.9 MG/DL Magnesium Level 1.8 MG/DL Sodium Level 137 MEQ/L 138 MEQ/L Potassium Level 4.3 MEQ/L 4.6 MEQ/L Chloride Level 101 MEQ/L 100 MEQ/L Carbon Dioxide Level 29.4 MEQ/L 30.3 MEQ/L Anion Gap 7 MEQ/L 8 MEQ/L Estimat Glomerular Filtration Rate 40 ML/MIN 38 ML/MIN Imaging Chest X-Ray 01/14/17 0000 Signed Impressions: Service Date/Time: Saturday, January 14, 2017 08:30 - CONCLUSION: Stable chest. Kyree Johnston MD Renal Ultrasound 01/13/17 0000 Signed Impressions: Service Date/Time: Friday, January 13, 2017 16:01 - CONCLUSION: There are elevated resistive indices seen in the mid and lower transplanted kidney concerning medical renal disease or rejection. No hydronephrosis is seen. Jas Pace MD Abdomen X-Ray 01/13/17 0000 Signed Impressions: Service Date/Time: Friday, January 13, 2017 10:56 - CONCLUSION: History of multiple bowel surgeries, negative for free air or obstruction. Davin Gabriel MD FACR Physical Exam GENERAL: awake and alert, NAD SKIN: Warm and dry. No generalized rash HEAD: Atraumatic. Normocephalic. No temporal wasting, or tenderness. EYES: [place] conjunctiva. No petechia or hemorrhage. No scleral icterus. No injection or drainage. EARS, NOSE AND THROAT: Nose without bleeding or purulent nasal discharge. No sinus tenderness. Mucous membranes pink and moist. No oral lesions noted. NECK: Trachea midline. Supple and not tender, no meningeal signs CARDIOVASCULAR: Regular rate and rhythm. No murmurs, rubs or gallops heard RESPIRATORY: Decreased BS at bases ABDOMEN: Soft, globular, non-tender, nondistended. Bowel sounds present and normoactive. No guarding. No rebound. Healed incision C/W surgery, No palpable bladder EXTREMITIES: No clubbing, cyanosis. Indurated leathery texture skin changes in both LE, (+) edema. No calf tenderness. NEUROLOGICAL: Awake and alert. Cranial nerves grossly intact. Motor grossly within normal limits. PSYCHIATRIC: Normal affect, calm and cooperative. LINE: No evidence of infection Assessment & Plan Remarks IMPRESSION E coli Sepsis due to recurrent UTI - S/P renal transplant - no hydro on US - repeat UA better Recent episode of UTI with E coli ESBL (+) Episode of C diff, seems stable, diarrhea has imrpoved - potential for recurrent audi since she will be getting systemic Abx S/P renal transplant Renal insufficiency, stable leukocytosis, improving RECOMMENDATION Continue Cipro, (For E coli) - end date ordered in [facility] doing well from ID standpoint D/W Dr Fernando Gray,Belem Haskins MD Jan 21, 2017 17:37
--- NOTE | 2017-01-21 18:52 | PD.CONS ---
HPI Service Nephrology Consult Requested By Dr. Hurley Reason for Consult Kidney transplant Primary Care Physician Selina Francis MD History of Present Illness Patient is a 66-year-old white female with history of kidney transplant since 2004 who had developed urinary tract infection, Escherichia coli sepsis in December was admitted in [facility] she follows with Dr. Nieves, she has been readmitted with the Escherichia coli UTI in the hospital, she takes tacrolimus 2 mg in the morning and 1 mg in the evening she is on prednisone 10 mg daily as she has underlying rheumatoid arthritis, she has antibiotics and ID is following the patient, patient is on diltiazem drip for atrial fibrillation Review of Systems Constitutional: COMPLAINS OF: Fatigue Eyes: COMPLAINS OF: Eye inflammation Respiratory: COMPLAINS OF: Shortness of breath Cardiovascular: COMPLAINS OF: Lower Extremity Edema Neurologic: COMPLAINS OF: Abnormal gait Psychiatric: COMPLAINS OF: Anxiety Past Family Social History Allergies: Coded Allergies: Sulfa (Sulfonamide Antibiotics) (Unverified Allergy, Severe, 01/13/17) diatrizoate meglumine (Unverified Allergy, Severe, 01/13/17) gadobenic acid (Unverified Allergy, Severe, 01/13/17) gadodiamide (Unverified Allergy, Severe, 01/13/17) gadoteridol (Unverified Allergy, Severe, 01/13/17) iodixanol (Unverified Allergy, Severe, 01/13/17) iohexol (Unverified Allergy, Severe, PT NEEDS TO BE PREMEDICATED, 01/13/17) penicillin G (Unverified Allergy, Severe, 01/13/17) Past Medical History Recent hx of sepsis/E. coli bacteremia/acute pyelonephritis/C. diff colitis in early 12/2016 Hx of renal transplant in 2004 secondary to polycystic kidney disease previously on HD for 6 years, then had bilateral nephrectomies and renal transplant on chronic immunosuppression CKD Polycystic kidney disease Anemia of chronic disease Chronic atrial fibrillation CHF Chronic edema of the LE Diabetes mellitus, type 2, complicated by neuropathy, nephropathy, retinopathy and peripheral angiopathy Moderate to severe tricuspid regurgitation Moderate to severe pulmonary HTN Glaucoma GERD HTN Hyperlipidemia Hypothyroidism RA Past Surgical History Bilateral nephrectomies in 1999 for polycystic kidney disease AVF in multiple locations donor renal transplant in 2004 Cholecystectomy Colon surgery Exploratory Laparotomy for DAVID Ankle surgery Bladder surgery Urethrotomy Reported Medications Reported Meds & Active Scripts Active Reported Timolol Opth Drops 0.5 % Soln 1 Drop EACH EYE BID Prograf (Tacrolimus) 1 Mg Cap 1 Mg PO DIRECTED 2mg in the AM 1mg in the PM Prednisone 10 Mg Tab 10 Mg PO DAILY Cellcept (Mycophenolate Mofetil) 250 Mg Cap 750 Mg PO BID Levothyroxine (Levothyroxine Sodium) 25 Mcg Tab 25 Mcg PO DAILY Lasix (Furosemide) 40 Mg Tab 40 Mg PO BID Eliquis (Apixaban) 5 Mg Tab 5 Mg PO BID Tylenol (Acetaminophen) 325 Mg Tab 325 Mg PO BID Sodium Bicarbonate 325 Mg Tab 325 Mg PO TIDPC Metoprolol Succinate ER 24 HR (Metoprolol Succinate) 25 Mg Tab 25 Mg PO BID Humalog Inj (Insulin Human Lispro) 1,000 Unit/10 Ml Vial 2-12 Units SQ ACHS Max dose at bedtime:( )units; sugars < 70,(0)units; sugars 150-199,(2)units; sugars 200-249,(4)units; sugars 250-299,(7)units; sugars 300-349,(10)units; sugars more than 349,(12)units. Lantus Inj (Insulin Glargine) 1,000 Unit/10 Ml Vial 15 Units SQ DAILY Famotidine 20 Mg Tab 20 Mg PO DAILY Duoneb (Ipratropium-Albuterol Neb) 0.5-2.5 Mg/3 Ml Neb 1 Nebule INH Q8HR NEB PRN Active Ordered Medications Current Medications Medications (Trade) Dose Ordered Sig/Liliana Route Start Time Stop Time Status Last Admin (Tylenol) 650 mg Q4H PRN PO 01/13/17 08:45 01/21/17 09:02 (Zofran Inj) 4 mg Q6H PRN IV 01/13/17 08:45 01/19/17 23:56 (Eliquis) 5 mg BID PO 01/13/17 11:00 01/21/17 09:02 (Pepcid) 20 mg DAILY PO 01/13/17 11:00 01/21/17 09:03 (Synthroid) 25 mcg DAILY@0600 PO 01/13/17 11:00 01/21/17 05:16 (Toprol Xl) 25 mg BID PO 01/13/17 09:00 Future Hold (Cellcept) 750 mg BID PO 01/13/17 11:00 01/21/17 09:01 (Deltasone) 10 mg DAILY PO 01/13/17 10:00 01/21/17 09:03 (Sodium Bicarbonate) 325 mg TIDPC PO 01/13/17 09:30 01/21/17 18:17 (Prograf) 2 mg DAILY PO 01/13/17 11:00 01/21/17 09:03 (Timoptic 0.5% Opth Soln) 1 drop BID EACH EYE 01/13/17 11:00 01/21/17 09:04 (Prograf) 1 mg DAILY@18 PO 01/13/17 18:00 01/21/17 18:17 (NovoLOG SUPPLEMENTAL SCALE) 1 ACHS SLIDING SCALE SQ 01/13/17 11:00 01/21/17 16:00 Diltiazem HCl 125 mg/Sodium Chloride 125 ml @ 5 mls/hr TITRATE PRN IV 01/13/17 09:45 01/13/17 21:33 (D50w (Vial) Inj) 50 ml UNSCH PRN IV PUSH 01/13/17 10:00 (Glucagon Inj) 1 mg UNSCH PRN OTHER 01/13/17 10:00 (Duoneb Neb) 1 ampule Q4HR NEB PRN NEB 01/13/17 10:00 (Colace) 100 mg BID PO 01/13/17 13:00 01/21/17 09:02 (Milk Of Magnesia Liq) 30 ml DAILY PRN PO 01/13/17 13:00 01/15/17 09:26 (Lactinex) 1 tab TID PO 01/13/17 18:00 01/21/17 18:00 Miscellaneous Information Patient in critical care unit? Ass... Q361D .XX 01/13/17 16:15 01/13/17 16:15 (Lopressor) 25 mg Q12HR PO 01/14/17 21:00 01/21/17 09:03 (Fleets Enema (Adult)) 133 ml DAILY PRN RECTAL 01/15/17 14:30 01/15/17 17:28 (KCl) 20 meq DAILY PO 01/16/17 10:00 Future Hold 01/16/17 11:43 (Lac-Hydrin 12% Lotion) 1 applic BID TOPICAL 01/16/17 21:00 01/21/17 09:04 (Levemir Inj) 10 units Q12HR SQ 01/18/17 21:00 01/21/17 09:00 (Magic Mouthwash Adult Liq) 10 ml QID SWISH-SWAL 01/20/17 13:00 01/21/17 18:00 (Lasix) 20 mg DAILY PO 01/20/17 12:15 01/21/17 09:04 (Flagyl) 500 mg Q8HR PO 01/20/17 14:00 01/21/17 13:27 (Clear Eyes Redness Relief 0.012% Opth Soln) 1 drop QID LEFT EYE 01/20/17 21:00 01/21/17 18:17 (Clear Eyes Redness Relief 0.012% Opth Soln) 1 drop Q2HR PRN LEFT EYE 01/21/17 14:00 (Cipro) 500 mg Q12H PO 01/22/17 02:00 02/12/17 01:59 UNV Family History Father at age 76 from CVA Mother is 92 y/o with HTN and mitral valve disorder Social History Denies smoking or alcohol use Physical Exam Vital Signs Vital Signs Date Time Temp Pulse Resp B/P (MAP) Pulse Ox O2 Delivery O2 Flow Rate FiO2 01/21/17 16:00 96.4 78 16 114/61 (78) 96 01/21/17 13:57 98 01/21/17 12:00 96.4 73 17 100/51 (67) 100 01/21/17 08:00 96.4 77 17 101/67 (78) 97 01/21/17 00:00 97.4 81 17 117/61 (79) 100 01/20/17 20:00 97.0 98 17 109/56 (73) 100 Physical Exam GENERAL: Well-nourished, well-developed patient. SKIN: Warm and dry. HEAD: Normocephalic. EYES: No scleral icterus. No injection or drainage. NECK: Supple, trachea midline. No JVD or lymphadenopathy. CARDIOVASCULAR: Irregularly irregular RESPIRATORY: Breath sounds equal bilaterally. No accessory muscle use. GASTROINTESTINAL: Abdomen soft, non-tender, nondistended. EXTREMITIES: No cyanosis, chronic lymph edema. NEUROLOGICAL: Awake, alert, and oriented x 3. Non-focal. Laboratory Laboratory Tests Test 01/21/17 05:08 White Blood Count 9.5 Red Blood Count 3.56 Hemoglobin 10.4 Hematocrit 33.1 Mean Corpuscular Volume 93.0 Mean Corpuscular Hemoglobin 29.2 Mean Corpuscular Hemoglobin Concent 31.4 Red Cell Distribution Width 15.1 Platelet Count 267 Mean Platelet Volume 7.7 Neutrophils (%) (Auto) 82.1 Lymphocytes (%) (Auto) 8.2 Monocytes (%) (Auto) 8.7 Eosinophils (%) (Auto) 0.8 Basophils (%) (Auto) 0.2 Neutrophils # (Auto) 7.8 Lymphocytes # (Auto) 0.8 Monocytes # (Auto) 0.8 Eosinophils # (Auto) 0.1 Basophils # (Auto) 0.0 CBC Comment AUTO DIFF Differential Total Cells Counted 100 Neutrophils % (Manual) 74 Band Neutrophils % 6 Lymphocytes % 10 Monocytes % 9 Neutrophils # (Manual) 7.7 Metamyelocytes 1 Differential Comment FINAL DIFF MANUAL Platelet Estimate NORMAL Platelet Morphology Comment NORMAL Red Cell Morphology Comment NORMAL Blood Urea Nitrogen 37 Creatinine 1.39 Random Glucose 182 Calcium Level 8.9 Sodium Level 138 Potassium Level 4.6 Chloride Level 100 Carbon Dioxide Level 30.3 Anion Gap 8 Estimat Glomerular Filtration Rate 38 Date/Time Source Procedure Growth Status 01/14/17 14:45 Blood Peripheral Aerobic Blood Culture - Final NO GROWTH IN 5 DAYS Complete 01/14/17 14:45 Blood Peripheral Anaerobic Blood Culture - Final NO GROWTH IN 5 DAYS Complete 01/16/17 17:00 Urine Clean Catch Urine Culture - Final NO GROWTH IN 48 HOURS. Complete Result Diagram: 01/21/17 0508 01/21/17 0508 Imaging Last Impressions Renal Ultrasound 01/18/17 0000 Signed Impressions: Service Date/Time: Wednesday, January 18, 2017 15:28 - CONCLUSION: There is no hydronephrosis and solitary evidence for rejection. Davin Gabriel MD FACR Chest X-Ray 01/18/17 0000 Signed Impressions: Service Date/Time: Wednesday, January 18, 2017 12:28 - CONCLUSION: Minimal increase in parenchymal opacity left base. Interstitial changes are stable. Davin Gabriel MD FACR Abdomen X-Ray 01/13/17 0000 Signed Impressions: Service Date/Time: Friday, January 13, 2017 10:56 - CONCLUSION: History of multiple bowel surgeries, negative for free air or obstruction. Davin Gabriel MD FACR Assessment and Plan Problem List: (1) Hx of kidney transplant ICD Codes: Z94.0 - Kidney transplant status Plan: Creatinine around 1.3, she is on diltiazem drip and is obstructive drug interaction with tacrolimus we should monitor the level She is on immunosuppression and I would like to reduce CellCept and hold it since she has not resolved sepsis Continue with prednisone and Prograf She has transplant in 2004 and attempt should be made reduce the dose of immunosuppression (2) UTI (urinary tract infection) ICD Codes: N39.0 - Urinary tract infection, site not specified Status: Acute Plan: On antibiotic (3) Sepsis ICD Codes: A41.9 - Sepsis, unspecified organism Status: Acute Plan: Continue to monitor (4) HTN (hypertension) ICD Codes: I10 - Essential (primary) hypertension Plan: Blood pressure stable (5) Chronic atrial fibrillation with RVR ICD Codes: I48.2 - Chronic atrial fibrillation Status: Acute Plan: On diltiazem Problem Qualifiers (1) Sepsis: Qualified Codes: A41.51 - Sepsis due to Escherichia coli [e. coli] (2) HTN (hypertension): Qualified Codes: I10 - Essential (primary) hypertension Bill Sandoval MD Jan 21, 2017 18:52
[2017-01-21 20:00] VITALS: BP 177/69; PULSE 77; RESP 18; TEMP 97.9; O2SAT 100
[2017-01-22] VITALS: BP 154/68; PULSE 71; RESP 18; TEMP 98; O2SAT 100
[2017-01-22] MEDS: CIPROFLOXACIN 500 MG TAB PO SCH ×2 (00:46→14:45)
[2017-01-22] MEDS: LEVOTHYROXINE SODIUM 25 MCG TAB PO SCH (04:50)
[2017-01-22] MEDS: ACETAMINOPHEN 325 MG TAB PO PRN ×2 (04:50→09:10)
[2017-01-22] MEDS: metroNIDAZOLE 500 MG TAB PO SCH ×3 (04:50→20:35)
[2017-01-22] MEDS: INSULIN ASPART SUPPLEMENTAL SCALE SQ SCH ×4 (06:02→22:02)
[2017-01-22 07:08] LABS: AUTOMATED NEUTROPHIL # 8.2 TH/MM3 (1.8-7.7); BASOPHIL % 0.3 % (0.0-2.0); EOSINOPHIL # 0.1 TH/MM3 (0-0.4); HEMATOCRIT 33.8 % (35.0-46.0); LYMPH % 8.8 % (9.0-44.0); LYMPHOCYTE # 0.9 TH/MM3 (1.0-4.8); MEAN CELL VOLUME 92.9 FL (80.0-100.0); MEAN CORPUSCULAR HEMOGLOBIN 29.6 PG (27.0-34.0); MEAN CORPUSCULAR HGB CONC 31.9 % (32.0-36.0); MONO % 9.1 % (0.0-8.0); NEUT % 80.8 % (16.0-70.0); PLATELET COUNT 253 TH/MM3 (150-450); RED BLOOD COUNT 3.64 MIL/MM3 (4.00-5.30); RED CELL DISTRIBUTION WIDTH 15.1 % (11.6-17.2); WHITE BLOOD COUNT 10.1 TH/MM3 (4.0-11.0)
[2017-01-22 07:12] LABS: HEMO FLAGS AUTO DIFF
[2017-01-22 07:27] LABS: BICARBONATE 30.7 MEQ/L (21.0-32.0); POTASSIUM 4.4 MEQ/L (3.5-5.1)
[2017-01-22 08:00] VITALS: BP 157/75; PULSE 81; RESP 19; TEMP 96.9; O2SAT 95
[2017-01-22] MEDS: NAPHAZOLINE HCL 0.012% OPHT SOLN 15 ML BOTTLE LEFT EYE SCH ×4 (09:00→20:45)
[2017-01-22] MEDS: DOCUSATE SODIUM 100 MG CAP PO SCH ×2 (09:00→20:36)
[2017-01-22] MEDS: APIXABAN 5 MG TABLET PO SCH ×2 (09:08→20:35)
[2017-01-22] MEDS: predniSONE 10 MG TAB PO SCH (09:09)
[2017-01-22] MEDS: METOPROLOL TARTRATE 25 MG TAB PO SCH ×2 (09:09→20:35)
[2017-01-22] MEDS: NAPHAZOLINE HCL 0.012% OPHT SOLN 15 ML BOTTLE LEFT EYE PRN ×2 (09:09→11:54)
[2017-01-22] MEDS: SODIUM BICARBONATE 325 MG TAB PO SCH ×3 (09:09→16:58)
[2017-01-22] MEDS: FAMOTIDINE 20 MG TAB PO SCH (09:09)
[2017-01-22] MEDS: TACROLIMUS 1 MG CAP PO SCH ×2 (09:09→16:58)
[2017-01-22] MEDS: FUROSEMIDE 20 MG TAB PO SCH (09:09)
[2017-01-22] MEDS: NYSTAT/DIPHENHY/LIDO MOUTHWASH (Adult) 120ML SWISH-SWAL SCH ×4 (09:10→20:45)
[2017-01-22] MEDS: LACTOBACILLUS ACIDOPHILUS TAB PO SCH ×3 (09:10→16:58)
[2017-01-22] MEDS: LACTIC ACID (AMMONIUM LACTATE) 12% LOTION 225 GM BTL TOPICAL SCH ×2 (09:13→20:45)
[2017-01-22] MEDS: TIMOLOL MALEATE 0.5% OPHT SOLN 5 ML BTL EACH EYE SCH ×2 (09:13→20:45)
[2017-01-22] MEDS: INSULIN DETEMIR 100 UNITS/ML VIAL SQ SCH ×2 (09:17→22:01)
[2017-01-22 09:42] LABS: SCAN/DIFF AUTO DIFF CONFIRMED
[2017-01-22] MEDS ORDERED: LORATADINE 10 MG TAB PO ONE (11:15)
--- NOTE | 2017-01-22 11:18 | HHI.PR ---
Subjective Remarks Pt still with the itching and irritation to the left eye She is urinating well Pt is not ambulating much due to generalized weakness. Objective Vitals Vital Signs Date Time Temp Pulse Resp B/P (MAP) Pulse Ox O2 Delivery O2 Flow Rate FiO2 01/22/17 08:00 96.9 81 19 157/75 (102) 95 01/22/17 00:00 98.0 71 18 154/68 (96) 100 01/21/17 20:00 97.9 77 18 177/69 (105) 100 01/21/17 16:00 96.4 78 16 114/61 (78) 96 01/21/17 13:57 98 01/21/17 12:00 96.4 73 17 100/51 (67) 100 01/22/17 01/22/17 01/23/17 15:00 23:00 07:00 Intake Total 120 ml Balance 120 ml Intake Oral 120 ml Result Diagram: 01/22/17 0610 01/22/17 0610 Other Results Laboratory Tests Test 01/21/17 05:08 01/22/17 06:10 White Blood Count 9.5 TH/MM3 10.1 TH/MM3 Red Blood Count 3.56 MIL/MM3 3.64 MIL/MM3 Hemoglobin 10.4 GM/DL 10.8 GM/DL Hematocrit 33.1 % 33.8 % Mean Corpuscular Volume 93.0 FL 92.9 FL Mean Corpuscular Hemoglobin 29.2 PG 29.6 PG Mean Corpuscular Hemoglobin Concent 31.4 % 31.9 % Red Cell Distribution Width 15.1 % 15.1 % Platelet Count 267 TH/MM3 253 TH/MM3 Mean Platelet Volume 7.7 FL 7.8 FL Neutrophils (%) (Auto) 82.1 % 80.8 % Lymphocytes (%) (Auto) 8.2 % 8.8 % Monocytes (%) (Auto) 8.7 % 9.1 % Eosinophils (%) (Auto) 0.8 % 1.0 % Basophils (%) (Auto) 0.2 % 0.3 % Neutrophils # (Auto) 7.8 TH/MM3 8.2 TH/MM3 Lymphocytes # (Auto) 0.8 TH/MM3 0.9 TH/MM3 Monocytes # (Auto) 0.8 TH/MM3 0.9 TH/MM3 Eosinophils # (Auto) 0.1 TH/MM3 0.1 TH/MM3 Basophils # (Auto) 0.0 TH/MM3 0.0 TH/MM3 CBC Comment AUTO DIFF AUTO DIFF Differential Total Cells Counted 100 Neutrophils % (Manual) 74 % Band Neutrophils % 6 % Lymphocytes % 10 % Monocytes % 9 % Neutrophils # (Manual) 7.7 TH/MM3 Metamyelocytes 1 % Differential Comment FINAL DIFF MANUAL AUTO DIFF CONFIRMED Platelet Estimate NORMAL Platelet Morphology Comment NORMAL Red Cell Morphology Comment NORMAL Blood Urea Nitrogen 37 MG/DL 34 MG/DL Creatinine 1.39 MG/DL 1.34 MG/DL Random Glucose 182 MG/DL 125 MG/DL Calcium Level 8.9 MG/DL 8.5 MG/DL Sodium Level 138 MEQ/L 139 MEQ/L Potassium Level 4.6 MEQ/L 4.4 MEQ/L Chloride Level 100 MEQ/L 102 MEQ/L Carbon Dioxide Level 30.3 MEQ/L 30.7 MEQ/L Anion Gap 8 MEQ/L 6 MEQ/L Estimat Glomerular Filtration Rate 38 ML/MIN 40 ML/MIN Imaging Last Impressions Chest X-Ray 01/14/17 0000 Signed Impressions: Service Date/Time: Saturday, January 14, 2017 08:30 - CONCLUSION: Stable chest. Kyree Johnston MD Renal Ultrasound 01/13/17 0000 Signed Impressions: Service Date/Time: Friday, January 13, 2017 16:01 - CONCLUSION: There are elevated resistive indices seen in the mid and lower transplanted kidney concerning medical renal disease or rejection. No hydronephrosis is seen. Jas Pace MD Abdomen X-Ray 01/13/17 0000 Signed Impressions: Service Date/Time: Friday, January 13, 2017 10:56 - CONCLUSION: History of multiple bowel surgeries, negative for free air or obstruction. Davin Gabriel MD FACR Last Impressions Chest X-Ray 01/13/17 0503 Signed Impressions: Service Date/Time: Friday, January 13, 2017 05:26 - CONCLUSION: Mild linear opacity in the left lower lobe with the appearance favoring subsegmental atelectasis. Otherwise, no acute finding is identified. Jas Cruz MD Objective Remarks General: NAD, AAOx3 Eye: left eye with mildly injected conjunctiva no drainage noted Chest: clear throughout Cardiac: Irregular, rate controlled Abd: +BS, soft, mildly distended, nontender Ext: Bilateral upper and lower 2+ edema with chronic leathery skin changes or bilateral LE A/P Problem List: (1) Sepsis ICD Codes: A41.9 - Sepsis, unspecified organism Status: Acute Plan: - comgmt with ID - Pt is a 66 y/o female with chronic atrial fibrillation, diabetes mellitus, hx of renal failure secondary to polycystic kidney disease previously on HD for 6 years, then had bilateral nephrectomies and renal transplant on chronic immunosuppression. - She was recently hospitalized at [facility] from 12/18/16 to 12/31/16 for sepsis, E. coli bacteremia, acute pyelonephritis, and C. diff colitis. Pt was discharged to [facility] on Cefdinir 300mg daily x 12 days (completed on 01/06) and Flagyl 250mg QID x 14 days, completed on 01/09/17. - Pt presented to the ED at [facility] on 01/13/17 for increased generalized weakness, fevers and some SOB. She states that on Friday (01/11/17), she started having fevers and shaking chills. She states that her fevers then were around 99 degrees but this reportedly increased to fever of 101 per the ED documentation. - upon admission, pt required 2L of supplemental O2 in the ED. CXR in the ED noted mild linear opacity in the left lower lobe with the appearance favoring subsegmental atelectasis, otherwise, no acute finding is identified. - Pt had A. fib RVR with HR in the 130-140's which the HR has improved. - Blood culture (01/13) growing E Coli - Urine culture (01/13) E Coli - Repeat UA (01/15) --> NO growth - Repeat blood cultures (01/14) with NGTD - Pt was given IV Vancomycin and cefepime and one liter of NS in the ED, and these were continued initially - Meropenem (01/14 - 01/16) - ciprofloxacin (01/16 - present) - Lactinex - Monitor labs - PT evaluation - IS - Duonebs PRN - wound care bilateral LE and buttock - Supportive care (2) UTI (urinary tract infection) ICD Codes: N39.0 - Urinary tract infection, site not specified Status: Acute Plan: - See above. - Pt recently treated for E. coli UTI and bacteremia (3) Chronic atrial fibrillation with RVR ICD Codes: I48.2 - Chronic atrial fibrillation Status: Acute Plan: - Pt noted to be in A. fib RVR with HR in the 130-140's consistently at admission - Improved with Cardizem gtt which has been stopped, now rate controlled - continue Metoprolol 25mg po BID (4) Acute on chronic renal insufficiency ICD Codes: N28.9 - Disorder of kidney and ureter, unspecified; N18.9 - Chronic kidney disease, unspecified Status: Acute Plan: - Her renal function is noted to be Cr 1.58/BUN 31, GFR 33 at admission. - In review of discharge summary from [facility] on the day of discharge her Cr was 1.7, BUN 68. - Pt was given 1L of NS in the ED - Repeat labs on 01/14 with continued improvement in Cr to 1.26 - Renal US (01/13) --> There are elevated resistive indices seen in the mid and lower transplanted kidney concerning medical renal disease or rejection. No hydronephrosis is seen. - Lasix 40mg po daily today and potassium 20meq po daily started 01/16- placed on hold today (01/18/17) - 01/17 creatinine increased to 1.92 - 01/18 BUN 53 creatinine 2.00 estimated GFR 25 - 01/20 BUN 42 creatinine 1.33 estimated GFR 40 - IV fluids d/c'd - Lasix resumed at a lower dose (20mg po daily) due to increased edema which is improving. - Monitor BMP - Appreciate consultation from Nephrology to assist as patient had has a renal transplant - Cellcept has been stopped - Tacrolimus dose decreased to 1mg po daily (5) Diabetes mellitus type 2, insulin dependent ICD Codes: E11.9 - Type 2 diabetes mellitus without complications; Z79.4 - watermaster (current) use of insulin Plan: - blood sugar improving - continue NovoLog medium dose SSI - Accu checks - Levemir to 10 Units BID (6) HTN (hypertension) ICD Codes: I10 - Essential (primary) hypertension Plan: - Resume metoprolol - Clonidine PRN - Vasotec PRN (7) Hypothyroidism ICD Codes: E03.9 - Hypothyroidism, unspecified Plan: - Home med continued (8) Hx of kidney transplant ICD Codes: Z94.0 - Kidney transplant status Plan: - Pt with hx of renal failure secondary to polycystic kidney disease previously on HD for 6 years, then had bilateral nephrectomies and renal transplant on chronic immunosuppression. - Cont. home doses of Prograf, Cellcept and Prednisone - Prograf level 4.5 - Renal US (01/13) --> There are elevated resistive indices seen in the mid and lower transplanted kidney concerning medical renal disease or rejection. No hydronephrosis is seen. - see above (9) Hyperlipidemia ICD Codes: E78.5 - Hyperlipidemia, unspecified Plan: - Home meds continued (10) Constipation ICD Codes: K59.00 - Constipation, unspecified Status: Resolved Plan: - continue colace - no response to MOM - trial of fleet enema (11) SOB (shortness of breath) ICD Codes: R06.02 - Shortness of breath Plan: Patient reports feeling slightly more SOB than yesterday oxygen saturation between 95-100% on 1 L oxygen via NC Denies cough CXR ordered Duonebs as needed (12) Dry eye of left side ICD Codes: H04.122 - Dry eye syndrome of left lacrimal gland Plan: - Possibly secondary to some allergic conjunctivitis - small amount of clear drainage - clear eye drops started - Start Claritin - continue to monitor Assessment and Plan Patient examined. Assessment and plan formulated with Aurora Li PA-C. I agree with the above. renal following and adjusting immunosuppressive meds monitor cr and adjust lasix as needed cont abx course will need snf. Problem Qualifiers (1) HTN (hypertension): Qualified Codes: I10 - Essential (primary) hypertension Aurora Li Jan 22, 2017 11:18 Antwan Anand MD Jan 22, 2017 11:21
[2017-01-22 12:00] VITALS: BP 147/68; PULSE 78; RESP 19; TEMP 96.9; O2SAT 95
--- NOTE | 2017-01-22 13:32 | HHI.NPPN ---
Subjective History of Present Illness Hx of Kidney transplant with recurrent Ecoli sepsis Objective Data Data 01/22/17 01/23/17 19:00 07:00 Intake Total 120 ml Balance 120 ml Intake Oral 120 ml Vital Signs Date Time Temp Pulse Resp B/P (MAP) Pulse Ox O2 Delivery O2 Flow Rate FiO2 01/22/17 12:00 96.9 78 19 147/68 (94) 95 01/22/17 08:00 96.9 81 19 157/75 (102) 95 01/22/17 00:00 98.0 71 18 154/68 (96) 100 01/21/17 20:00 97.9 77 18 177/69 (105) 100 01/21/17 16:00 96.4 78 16 114/61 (78) 96 01/21/17 13:57 98 -: 01/22/17 0610 01/22/17 0610 Physical Exam General Appearance: Well Developed Neck Neck Exam: Neck Supple Pulmonary Resp Exam: Clear Bilaterally, Breath Sounds Equal Cardiology CV Exam: Irregular, Arrhythmia Gastrointestinal/Abdomen GI Exam: Soft, Non-Tender, Bowel Sounds Present Extremeties Extremities Exam: No Edema Assessment/Plan Problem List: (1) Hx of kidney transplant ICD Codes: Z94.0 - Kidney transplant status Plan: Creatinine around 1.3, stable Tacrolimus level stable 5.8 follow BMP D/W Dr. Gray continue with Cipro she is off Mycophenolate (2) UTI (urinary tract infection) ICD Codes: N39.0 - Urinary tract infection, site not specified Status: Acute Plan: On antibiotic (3) Sepsis ICD Codes: A41.9 - Sepsis, unspecified organism Status: Acute Plan: Continue to monitor (4) HTN (hypertension) ICD Codes: I10 - Essential (primary) hypertension Plan: Blood pressure stable (5) Chronic atrial fibrillation with RVR ICD Codes: I48.2 - Chronic atrial fibrillation Status: Acute Plan: On diltiazem Problem Qualifiers (1) HTN (hypertension): Qualified Codes: I10 - Essential (primary) hypertension Bill Sandoval MD Jan 22, 2017 13:31
[2017-01-22 16:00] VITALS: BP 160/76; PULSE 80; RESP 19; TEMP 98; O2SAT 95
[2017-01-22 20:00] VITALS: BP 153/85; PULSE 85; RESP 18; TEMP 96.4; O2SAT 90
[2017-01-22 23:05] VITALS: BP 146/74; PULSE 83; RESP 20; TEMP 97.9; O2SAT 99
[2017-01-23] MEDS: CIPROFLOXACIN 500 MG TAB PO SCH ×2 (01:30→13:46)
[2017-01-23] MEDS: ACETAMINOPHEN 325 MG TAB PO PRN (01:30)
[2017-01-23] MEDS: LEVOTHYROXINE SODIUM 25 MCG TAB PO SCH (05:04)
[2017-01-23] MEDS: metroNIDAZOLE 500 MG TAB PO SCH ×3 (05:04→22:00)
[2017-01-23] MEDS: INSULIN ASPART SUPPLEMENTAL SCALE SQ SCH ×4 (06:07→21:00)
[2017-01-23 07:10] LABS: AUTOMATED NEUTROPHIL # 9.4 TH/MM3 (1.8-7.7); BASOPHIL % 0.2 % (0.0-2.0); EOSINOPHIL # 0.1 TH/MM3 (0-0.4); EOSINOPHIL % 1.3 % (0.0-4.0); HEMATOCRIT 36.3 % (35.0-46.0); LYMPH % 7.3 % (9.0-44.0); LYMPHOCYTE # 0.8 TH/MM3 (1.0-4.8); MEAN CELL VOLUME 94.2 FL (80.0-100.0); MEAN CORPUSCULAR HEMOGLOBIN 29.2 PG (27.0-34.0); MONO % 7.4 % (0.0-8.0); NEUT % 83.8 % (16.0-70.0); PLATELET COUNT 237 TH/MM3 (150-450); RED BLOOD COUNT 3.85 MIL/MM3 (4.00-5.30); RED CELL DISTRIBUTION WIDTH 15.2 % (11.6-17.2); WHITE BLOOD COUNT 11.2 TH/MM3 (4.0-11.0)
[2017-01-23 07:18] LABS: HEMO FLAGS AUTO DIFF
[2017-01-23 07:27] LABS: MAGNESIUM 1.7 MG/DL (1.5-2.5); POTASSIUM 4.2 MEQ/L (3.5-5.1)
[2017-01-23 08:00] VITALS: BP 173/79; PULSE 78; RESP 20; TEMP 97.7; O2SAT 96
[2017-01-23] MEDS: FAMOTIDINE 20 MG TAB PO SCH (08:46)
[2017-01-23] MEDS: LORATADINE 10 MG TAB PO SCH (08:46)
[2017-01-23] MEDS: LACTOBACILLUS ACIDOPHILUS TAB PO SCH ×3 (08:46→16:09)
[2017-01-23] MEDS: APIXABAN 5 MG TABLET PO SCH ×2 (08:46→20:22)
[2017-01-23] MEDS: FUROSEMIDE 20 MG TAB PO SCH (08:46)
[2017-01-23] MEDS: predniSONE 10 MG TAB PO SCH (08:46)
[2017-01-23] MEDS: METOPROLOL TARTRATE 25 MG TAB PO SCH ×2 (08:47→20:22)
[2017-01-23] MEDS: TIMOLOL MALEATE 0.5% OPHT SOLN 5 ML BTL EACH EYE SCH ×2 (08:47→20:24)
[2017-01-23] MEDS: SODIUM BICARBONATE 325 MG TAB PO SCH ×3 (08:47→16:11)
[2017-01-23] MEDS: NAPHAZOLINE HCL 0.012% OPHT SOLN 15 ML BOTTLE LEFT EYE SCH ×4 (08:47→20:24)
[2017-01-23] MEDS: DOCUSATE SODIUM 100 MG CAP PO SCH ×2 (08:47→20:23)
[2017-01-23] MEDS: TACROLIMUS 1 MG CAP PO SCH ×2 (08:47→16:09)
[2017-01-23] MEDS: LACTIC ACID (AMMONIUM LACTATE) 12% LOTION 225 GM BTL TOPICAL SCH ×2 (08:48→20:24)
[2017-01-23] MEDS: INSULIN DETEMIR 100 UNITS/ML VIAL SQ SCH ×2 (08:57→21:00)
[2017-01-23] MEDS: NYSTAT/DIPHENHY/LIDO MOUTHWASH (Adult) 120ML SWISH-SWAL SCH ×4 (08:58→20:24)
[2017-01-23 09:52] LABS: BANDS 2 % (0-6); MYELOCYTES 1 % (0-0); NEUTROPHIL # MANUAL DIFF 9.4 TH/MM3 (1.8-7.7); PLATELET ESTIMATE SMEAR NORMAL (NORMAL); PLATELET MORPHOLOGY NORMAL (NORMAL); POLYS (SEG NEUTROPHILS) 81 % (16-70); SCAN/DIFF FINAL DIFF MANUAL; WBC DIFF SAMPLE 100
[2017-01-23 10:00] VITALS: BP 137/62; PULSE 84; RESP 22; TEMP 96; O2SAT 95
--- NOTE | 2017-01-23 11:09 | HHI.PR ---
Subjective Remarks Pt reports that she had three soft BMs yesterday and two so far this morning. No abd pain, N/V, fevers/chills Pt had out 1200mL of UOP yesterday and 250mL out overnight. Objective Vitals Vital Signs Date Time Temp Pulse Resp B/P (MAP) Pulse Ox O2 Delivery O2 Flow Rate FiO2 01/23/17 10:00 96.0 84 22 137/62 (87) 95 01/23/17 08:00 97.7 78 20 173/79 (110) 96 01/23/17 03:00 18 01/22/17 23:05 97.9 83 20 146/74 (98) 99 01/22/17 20:00 96.4 85 18 153/85 (107) 90 01/22/17 16:00 98.0 80 19 160/76 (104) 95 01/22/17 12:00 96.9 78 19 147/68 (94) 95 Result Diagram: 01/23/17 0543 01/23/17 0543 Other Results Laboratory Tests Test 01/22/17 06:10 01/23/17 05:43 White Blood Count 10.1 TH/MM3 11.2 TH/MM3 Red Blood Count 3.64 MIL/MM3 3.85 MIL/MM3 Hemoglobin 10.8 GM/DL 11.3 GM/DL Hematocrit 33.8 % 36.3 % Mean Corpuscular Volume 92.9 FL 94.2 FL Mean Corpuscular Hemoglobin 29.6 PG 29.2 PG Mean Corpuscular Hemoglobin Concent 31.9 % 31.0 % Red Cell Distribution Width 15.1 % 15.2 % Platelet Count 253 TH/MM3 237 TH/MM3 Mean Platelet Volume 7.8 FL 7.7 FL Neutrophils (%) (Auto) 80.8 % 83.8 % Lymphocytes (%) (Auto) 8.8 % 7.3 % Monocytes (%) (Auto) 9.1 % 7.4 % Eosinophils (%) (Auto) 1.0 % 1.3 % Basophils (%) (Auto) 0.3 % 0.2 % Neutrophils # (Auto) 8.2 TH/MM3 9.4 TH/MM3 Lymphocytes # (Auto) 0.9 TH/MM3 0.8 TH/MM3 Monocytes # (Auto) 0.9 TH/MM3 0.8 TH/MM3 Eosinophils # (Auto) 0.1 TH/MM3 0.1 TH/MM3 Basophils # (Auto) 0.0 TH/MM3 0.0 TH/MM3 CBC Comment AUTO DIFF AUTO DIFF Differential Comment AUTO DIFF CONFIRMED FINAL DIFF MANUAL Blood Urea Nitrogen 34 MG/DL 29 MG/DL Creatinine 1.34 MG/DL 1.32 MG/DL Random Glucose 125 MG/DL 132 MG/DL Calcium Level 8.5 MG/DL 8.6 MG/DL Sodium Level 139 MEQ/L 141 MEQ/L Potassium Level 4.4 MEQ/L 4.2 MEQ/L Chloride Level 102 MEQ/L 103 MEQ/L Carbon Dioxide Level 30.7 MEQ/L 28.0 MEQ/L Anion Gap 6 MEQ/L 10 MEQ/L Estimat Glomerular Filtration Rate 40 ML/MIN 40 ML/MIN Tacrolimus (Prograf) Level 5.8 NG/ML Differential Total Cells Counted 100 Neutrophils % (Manual) 81 % Band Neutrophils % 2 % Lymphocytes % 9 % Monocytes % 7 % Neutrophils # (Manual) 9.4 TH/MM3 Myelocytes 1 % Platelet Estimate NORMAL Platelet Morphology Comment NORMAL Red Cell Morphology Comment NORMAL Magnesium Level 1.7 MG/DL Imaging Last Impressions Chest X-Ray 01/14/17 0000 Signed Impressions: Service Date/Time: Saturday, January 14, 2017 08:30 - CONCLUSION: Stable chest. Kyree Johnston MD Renal Ultrasound 01/13/17 0000 Signed Impressions: Service Date/Time: Friday, January 13, 2017 16:01 - CONCLUSION: There are elevated resistive indices seen in the mid and lower transplanted kidney concerning medical renal disease or rejection. No hydronephrosis is seen. Jas Pace MD Abdomen X-Ray 01/13/17 0000 Signed Impressions: Service Date/Time: Friday, January 13, 2017 10:56 - CONCLUSION: History of multiple bowel surgeries, negative for free air or obstruction. Davin Gabriel MD FACR Last Impressions Chest X-Ray 01/13/17 0503 Signed Impressions: Service Date/Time: Friday, January 13, 2017 05:26 - CONCLUSION: Mild linear opacity in the left lower lobe with the appearance favoring subsegmental atelectasis. Otherwise, no acute finding is identified. Jas Cruz MD Objective Remarks General: NAD, AAOx3 Eye: left eye with mildly injected conjunctiva no drainage noted Chest: clear throughout Cardiac: Irregular, rate controlled Abd: +BS, soft, mildly distended, nontender Ext: Bilateral upper and lower 2+ edema with chronic leathery skin changes or bilateral LE A/P Problem List: (1) Sepsis ICD Codes: A41.9 - Sepsis, unspecified organism Status: Acute Plan: - comgmt with ID - Pt is a 66 y/o female with chronic atrial fibrillation, diabetes mellitus, hx of renal failure secondary to polycystic kidney disease previously on HD for 6 years, then had bilateral nephrectomies and renal transplant on chronic immunosuppression. - She was recently hospitalized at [facility] from 12/18/16 to 12/31/16 for sepsis, E. coli bacteremia, acute pyelonephritis, and C. diff colitis. Pt was discharged to [facility] on Cefdinir 300mg daily x 12 days (completed on 01/06) and Flagyl 250mg QID x 14 days, completed on 01/09/17. - Pt presented to the ED at [facility] on 01/13/17 for increased generalized weakness, fevers and some SOB. She states that on Friday (01/11/17), she started having fevers and shaking chills. She states that her fevers then were around 99 degrees but this reportedly increased to fever of 101 per the ED documentation. - upon admission, pt required 2L of supplemental O2 in the ED. CXR in the ED noted mild linear opacity in the left lower lobe with the appearance favoring subsegmental atelectasis, otherwise, no acute finding is identified. - Pt had A. fib RVR with HR in the 130-140's which the HR has improved. - Blood culture (01/13) growing E Coli - Urine culture (01/13) E Coli - Repeat UA (01/15) --> NO growth - Repeat blood cultures (01/14) with NGTD - Pt was given IV Vancomycin and cefepime and one liter of NS in the ED, and these were continued initially - Meropenem (01/14 - 01/16) - ciprofloxacin (01/16 - present) - Lactinex - Monitor labs - PT evaluation - IS - Duonebs PRN - wound care bilateral LE and buttock - Supportive care (2) UTI (urinary tract infection) ICD Codes: N39.0 - Urinary tract infection, site not specified Status: Acute Plan: - See above. - Pt recently treated for E. coli UTI and bacteremia (3) Chronic atrial fibrillation with RVR ICD Codes: I48.2 - Chronic atrial fibrillation Status: Acute Plan: - Pt noted to be in A. fib RVR with HR in the 130-140's consistently at admission - Improved with Cardizem gtt which has been stopped, now rate controlled - continue Metoprolol 25mg po BID (4) Acute on chronic renal insufficiency ICD Codes: N28.9 - Disorder of kidney and ureter, unspecified; N18.9 - Chronic kidney disease, unspecified Status: Acute Plan: - Her renal function is noted to be Cr 1.58/BUN 31, GFR 33 at admission. - In review of discharge summary from [facility] on the day of discharge her Cr was 1.7, BUN 68. - Pt was given 1L of NS in the ED - Repeat labs on 01/14 with continued improvement in Cr to 1.26 - Renal US (01/13) --> There are elevated resistive indices seen in the mid and lower transplanted kidney concerning medical renal disease or rejection. No hydronephrosis is seen. - Lasix 40mg po daily today and potassium 20meq po daily started 01/16- placed on hold today (01/18/17) - 01/17 creatinine increased to 1.92 - 01/18 BUN 53 creatinine 2.00 estimated GFR 25 - 01/20 BUN 42 creatinine 1.33 estimated GFR 40 - IV fluids d/c'd - Lasix resumed at a lower dose (20mg po daily) due to increased edema which is improving. 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 - Cont. home doses of Prograf, Cellcept and Prednisone - Prograf level 4.5 - Renal US (01/13) --> There are elevated resistive indices seen in the mid and lower transplanted kidney concerning medical renal disease or rejection. No hydronephrosis is seen. - see above (9) Hyperlipidemia ICD Codes: E78.5 - Hyperlipidemia, unspecified Plan: - Home meds continued (10) Constipation ICD Codes: K59.00 - Constipation, unspecified Status: Resolved Plan: - Pt having some soft stools yesterday and today - Hold Colace - If continues then check stool for C. diff. (11) SOB (shortness of breath) ICD Codes: R06.02 - Shortness of breath Plan: - Patient reports that her SOB is only with exertion which is baseline for her. - Pt uses the oxygen when ambulating otherwise she is on RA - Denies cough - CXR ( 01/18) --> Minimal increase in parenchymal opacity left base. Interstitial changes are stable. (12) Dry eye of left side ICD Codes: H04.122 - Dry eye syndrome of left lacrimal gland Plan: - Possibly secondary to some allergic conjunctivitis - small amount of clear drainage - clear eye drops started - Cont. Claritin - continue to monitor Assessment and Plan Patient examined. Assessment and plan formulated with Aurora Li PA-C. I agree with the above. hx renal tx recurrent uti/sepsis with ecoli immunosupp. lowered per renal c.diff if diarrhea d/c to snf once ok with Renal and GFR stable. Problem Qualifiers (1) HTN (hypertension): Qualified Codes: I10 - Essential (primary) hypertension Aurora Li Jan 23, 2017 11:09 Antwan Anand MD Jan 23, 2017 13:21
[2017-01-23 13:30] VITALS: BP 152/70; RESP 18; TEMP 97.9; O2SAT 95
--- NOTE | 2017-01-23 16:09 | HHI.NPPN ---
Subjective History of Present Illness Hx of Kidney transplant with recurrent Ecoli sepsis Objective Data Data 01/23/17 01/24/17 19:00 07:00 Intake Total 552 ml Balance 552 ml Intake Oral 552 ml # Voids 2 # Bowel Movements 1 Vital Signs Date Time Temp Pulse Resp B/P (MAP) Pulse Ox O2 Delivery O2 Flow Rate FiO2 01/23/17 13:30 97.9 18 152/70 (97) 95 01/23/17 10:00 96.0 84 22 137/62 (87) 95 01/23/17 08:00 97.7 78 20 173/79 (110) 96 01/23/17 03:00 18 01/22/17 23:05 97.9 83 20 146/74 (98) 99 01/22/17 20:00 96.4 85 18 153/85 (107) 90 -: 01/23/17 0543 01/23/17 0543 Physical Exam General Appearance: Well Developed Neck Neck Exam: Neck Supple Pulmonary Resp Exam: Clear Bilaterally, Breath Sounds Equal Cardiology CV Exam: Irregular Gastrointestinal/Abdomen GI Exam: Soft, Non-Tender, Bowel Sounds Present Extremeties Extremities Exam: No Edema Assessment/Plan Problem List: (1) Hx of kidney transplant ICD Codes: Z94.0 - Kidney transplant status Plan: Creatinine around 1.3, stable Tacrolimus level stable 5.8 continue with Cipro she is off Mycophenolate maintained on 2 drugs Prednisone and Prograf (2) UTI (urinary tract infection) ICD Codes: N39.0 - Urinary tract infection, site not specified Status: Acute Plan: On antibiotic (3) Sepsis ICD Codes: A41.9 - Sepsis, unspecified organism Status: Acute Plan: Continue to monitor (4) HTN (hypertension) ICD Codes: I10 - Essential (primary) hypertension Plan: Blood pressure stable (5) Chronic atrial fibrillation with RVR ICD Codes: I48.2 - Chronic atrial fibrillation Status: Acute Plan: On diltiazem Problem Qualifiers (1) HTN (hypertension): Qualified Codes: I10 - Essential (primary) hypertension Bill Sandoval MD Jan 23, 2017 16:08
[2017-01-23 20:00] VITALS: BP 156/72; PULSE 92; RESP 16; TEMP 96.6; O2SAT 95
[2017-01-24] VITALS: BP 156/70; PULSE 80; RESP 18; TEMP 98.3; O2SAT 99
[2017-01-24] MEDS: ACETAMINOPHEN 325 MG TAB PO PRN (00:59)
[2017-01-24] MEDS: CIPROFLOXACIN 500 MG TAB PO SCH ×2 (00:59→12:01)
[2017-01-24] MEDS: LEVOTHYROXINE SODIUM 25 MCG TAB PO SCH (06:07)
[2017-01-24] MEDS: metroNIDAZOLE 500 MG TAB PO SCH ×2 (06:07→12:01)
[2017-01-24] MEDS: INSULIN ASPART SUPPLEMENTAL SCALE SQ SCH ×2 (06:09→12:05)
[2017-01-24 07:48] LABS: BICARBONATE 29.9 MEQ/L (21.0-32.0); MAGNESIUM 1.7 MG/DL (1.5-2.5); POTASSIUM 3.7 MEQ/L (3.5-5.1)
[2017-01-24 08:00] VITALS: BP 177/81; PULSE 80; RESP 18; TEMP 96; O2SAT 95
[2017-01-24] MEDS ORDERED: MAGICADU2 SWISH-SWAL (08:16)
[2017-01-24] MEDS ORDERED: CLAR10TA7 PO (08:16)
[2017-01-24] MEDS ORDERED: NAPH LEFT EYE ×2 (08:16)
[2017-01-24] MEDS ORDERED: CIPR-9 PO (08:16)
[2017-01-24] MEDS ORDERED: LACT PO (08:16)
[2017-01-24] MEDS ORDERED: FURO20TA PO (08:16)
[2017-01-24] MEDS ORDERED: TACR1 PO ×2 (08:16)
--- NOTE | 2017-01-24 08:33 | HHI.DS ---
Discharge Summary Admission Date Jan 13, 2017 at 06:36 Discharge Date: Jan 24, 2017 Admitting Diagnosis sepsis/UTI (1) Sepsis Diagnosis: Principal ICD Codes: A41.9 - Sepsis, unspecified organism Status: Acute (2) UTI (urinary tract infection) Diagnosis: Secondary ICD Codes: N39.0 - Urinary tract infection, site not specified Status: Acute (3) Chronic atrial fibrillation with RVR Diagnosis: Secondary ICD Codes: I48.2 - Chronic atrial fibrillation Status: Acute (4) Acute on chronic renal insufficiency Diagnosis: Secondary ICD Codes: N28.9 - Disorder of kidney and ureter, unspecified; N18.9 - Chronic kidney disease, unspecified Status: Acute (5) Diabetes mellitus type 2, insulin dependent Diagnosis: Secondary ICD Codes: E11.9 - Type 2 diabetes mellitus without complications; 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 of insulin (6) HTN (hypertension) Diagnosis: Secondary ICD Codes: I10 - Essential (primary) hypertension (7) Hypothyroidism Diagnosis: Secondary ICD Codes: E03.9 - Hypothyroidism, unspecified (8) Hx of kidney transplant Diagnosis: Secondary ICD Codes: Z94.0 - Kidney transplant status (9) Hyperlipidemia Diagnosis: Secondary ICD Codes: E78.5 - Hyperlipidemia, unspecified (10) Constipation Diagnosis: Secondary ICD Codes: K59.00 - Constipation, unspecified Status: Resolved (11) SOB (shortness of breath) Diagnosis: Secondary ICD Codes: R06.02 - Shortness of breath (12) Dry eye of left side Diagnosis: Secondary ICD Codes: H04.122 - Dry eye syndrome of left lacrimal gland Consultants Dr. Belem Gray - ID Dr. Bill Sandoval - Nephrology Brief History Ms. Rahman is a 66 y/o WF with chronic atrial fibrillation, diabetes mellitus, hx of renal failure secondary to polycystic kidney disease previously on HD for 6 years, then had bilateral nephrectomies and renal transplant on chronic immunosuppression. She was recently hospitalized at [facility] from 12/18/16 to for sepsis, E. coli bacteremia, acute pyelonephritis, and C. diff colitis. Pt was treated initially for sepsis and acute renal failure with IVF and antibiotics and did have initial clinical improvement and due to concern for developed volume overload due to her hx of CHF and valvular disease the IVF were stopped. She then had some worsening renal function felt to be related to septic acute tubular necrosis but this did improve with gentle IVF. She did develop diarrhea during this admission and was found to be positive for C. diff. Her initial blood and urine cultures were positive for E. coli, ESBL negative. She was also noted to emilio n A. fib RVR during that admission which improved with Cardizem gtt and she was converted to her oral metoprolol. Pt was discharged to [facility] on Cefdinir 300mg daily x 12 days ( completed on 01/06) and Flagyl 250mg QID x 14 days, completed on 01/09/17. Pt reports that on Friday (01/11/17), she started having fevers and shaking chills. She states that her fevers then were around 99 degrees. She denies any dysuria, urinary frequency, diarrhea, abdominal pain, cough or congestion. She states that she has had some nausea but denies any vomiting. Pt has had a poor appetite for several weeks. She does not feel that her abdomen is more distended than normal. She is passing gas and states that she had a small BM yesterday. She was brought [place] the [place] [facility] [place] for increased generalized weakness, fevers and some SOB. The pt does not feel that she is SOB. She is requiring 2L of supplemental O2 in [facility] ED. She is noted to be in A. fib RVR with HR in the 130-140's. CXR in the ED noted mild linear opacity in the left lower lobe with the appearance favoring subsegmental atelectasis, otherwise, no acute finding is identified. She denies any chest pain, palpitations, or dizziness. Pt was given IV Vancomycin and cefepime in the ED. CBC/BMP: 01/23/17 0543 01/24/17 0628 Significant Findings Laboratory Tests Test 01/22/17 06:10 01/23/17 05:43 01/24/17 06:28 Red Blood Count 3.64 MIL/MM3 (4.00-5.30) 3.85 MIL/MM3 (4.00-5.30) Hemoglobin 10.8 GM/DL (11.6-15.3) 11.3 GM/DL (11.6-15.3) Hematocrit 33.8 % (35.0-46.0) Mean Corpuscular Hemoglobin Concent 31.9 % (32.0-36.0) 31.0 % (32.0-36.0) Neutrophils (%) (Auto) 80.8 % (16.0-70.0) 83.8 % (16.0-70.0) Lymphocytes (%) (Auto) 8.8 % (9.0-44.0) 7.3 % (9.0-44.0) Monocytes (%) (Auto) 9.1 % (0.0-8.0) Neutrophils # (Auto) 8.2 TH/MM3 (1.8-7.7) 9.4 TH/MM3 (1.8-7.7) Lymphocytes # (Auto) 0.9 TH/MM3 (1.0-4.8) 0.8 TH/MM3 (1.0-4.8) Blood Urea Nitrogen 34 MG/DL (7-18) 29 MG/DL (7-18) 23 MG/DL (7-18) Creatinine 1.34 MG/DL (0.50-1.00) 1.32 MG/DL (0.50-1.00) 1.18 MG/DL (0.50-1.00) Random Glucose 125 MG/DL (74-106) 132 MG/DL (74-106) 131 MG/DL (74-106) Estimat Glomerular Filtration Rate 40 ML/MIN (>89) 40 ML/MIN (>89) 46 ML/MIN (>89) White Blood Count 11.2 TH/MM3 (4.0-11.0) Neutrophils % (Manual) 81 % (16-70) Neutrophils # (Manual) 9.4 TH/MM3 (1.8-7.7) Myelocytes 1 % (0-0) Imaging Last Impressions Renal Ultrasound 01/18/17 Signed Impressions: Service Date/Time: Wednesday, January 18, 2017 15:28 - CONCLUSION: There is no hydronephrosis and solitary evidence for rejection. Davin Gabriel MD FACR Chest X-Ray 01/18/17 Signed Impressions: Service Date/Time: Wednesday, January 18, 2017 12:28 - CONCLUSION: Minimal increase in parenchymal opacity left base. Interstitial changes are stable. Davin Gabriel MD FACR Abdomen X-Ray 01/13/17 Signed Impressions: Service Date/Time: Friday, January 13, 2017 10:56 - CONCLUSION: History of multiple bowel surgeries, negative for free air or obstruction. Davin Gabriel MD FACR PE at Discharge General: NAD, AAOx3 Eye: left eye with mildly injected conjunctiva no drainage noted Chest: clear throughout Cardiac: Irregular, rate controlled Abd: +BS, soft, mildly distended, nontender Ext: Bilateral upper and lower 2+ edema with chronic leathery skin changes or bilateral LE Hospital Course Sepsis/UTI (urinary tract infection) Pt is a 66 y/o female with chronic atrial fibrillation, diabetes mellitus, hx of renal failure secondary to polycystic kidney disease previously on HD for 6 years, then had bilateral nephrectomies and renal transplant on chronic immunosuppression. She was recently hospitalized at [facility] from 12/18/16 to for sepsis, E. coli bacteremia, acute pyelonephritis, and C. diff colitis. Pt was discharged to [facility] on Cefdinir 300mg daily x 12 days (completed on 01/06) and Flagyl 250mg QID x 14 days, completed on 01/09/17. Pt presented [place] the ED [place] [facility] [place] 01/13[place] for increased generalized weakness, fevers and some SOB. She states that on Friday (01/11/17), she started having fevers and shaking chills. She states that her fevers then were around 99 degrees but this reportedly increased to fever of 101 per the ED documentation. Upon admission, pt required 2L of supplemental O2 in the ED. CXR in the ED noted mild linear opacity in the left lower lobe with the appearance favoring subsegmental atelectasis, otherwise, no acute finding is identified. Pt had A. fib RVR with HR in the 130-140's which the HR has improved. Blood culture (01/13 ) growing E Coli. Urine culture (01/13) E Coli. Repeat UA (01/15) --> NO growth. Repeat blood cultures (01/14) with NGTD Pt was given IV Vancomycin and cefepime and one liter of NS in the ED, and these were continued initially. She was started on Meropenem (01/14 - 01/16). ID was consulted. Based on culture results the antibiotics were changed to Ciprofloxacin (01/16 - present). Pt will continue on Cipro 500mg po BID until per ID recommendation. She will be continued on Lactinex as well. She had some constipation during the admission which improved with Colace and PRN laxative. She did have some soft formed stools the two days prior to discharge but no diarrhea. Chronic atrial fibrillation with RVR Pt noted to be in A. fib RVR with HR in the 130-140's consistently at admission. Thie improved with Cardizem gtt which has been stopped, now rate controlled. She has been rate controlled on her home dose of Metoprolol 25mg po BID. Acute on chronic renal insufficiency Her renal function was noted to be Cr 1.58/BUN 31, GFR 33 at admission. In review of discharge summary from [facility] on the day of discharge her Cr was 1.7, BUN 68. Pt was given 1L of NS in the ED. Repeat labs on 01/14 with continued improvement in Cr to 1.26. Renal US (01/13) --> There are elevated resistive indices seen in the mid and lower transplanted kidney concerning medical renal disease or rejection. No hydronephrosis is seen. Her Lasix 40mg po daily and potassium 20meq po daily started 01/16- placed on hold on 01/18/17 due to creatinine increasing to 1.92 on 01/17. On 01/18 labs worsened to BUN 53 creatinine 2.00 estimated GFR 25. She was given IVF. Repeat labs on 01/20 improved to BUN 42/ creatinine 1.33, estimated GFR 40. IV fluids d/c'd. Lasix resumed at a lower dose (20mg po daily) due to increased edema which has been improving. Nephrology was consulted to assist as patient had has a renal transplant. Cellcept was stopped by Nephrology in light of her recurrent sepsis. Tacrolimus and Prednisone continued. Renal function is stable currently. Labs on the day of discharge with Cr 1.18/BUN 23, GFR 46. Pt will need to followup with her Tugboat Operator, Dr. Maloney, to decide when to resume her Cellcept. Prograf level 5.8 on 01/22. Diabetes mellitus type 2, insulin dependent Pt was given NovoLog medium dose SSI and Levemir 10 Units BID during admission with stable BS on this dosing. She will be resumed on her home regimen upon discharge. Pt is planned for discharge to SNF She will need to followup with her PCP, Dr. Francis, 1 week after discharge from SNF She will need to followup with Dr. Maloney, in 1-2 weeks. Pt Condition on Discharge: Stable Discharge Disposition: Discharge to SNF Discharge Instructions DIET: Follow Instructions for: Diabetic Diet Activities you can perform: Regular-No Restrictions Follow up Referrals: Nephrology - [address] Maloney PCP Follow-up - [address] Francis New Medications: Ciprofloxacin (Cipro) 500 Mg Tab 500 MG PO Q12H for urosepsis, #38 TAB End date is 02/12/17 Furosemide (Furosemide) 20 Mg Tab 20 MG PO DAILY for edema, #31 TAB Lactobacillus Acidophilus (Acidophilus/l-Sporogenes) 35 Million Cell-25 Million Cell Tab 1 TAB PO TID for gut nelsy, #90 TAB Loratadine (Claritin) 10 Mg Tablet 10 MG PO DAILY for Allergies, #14 TAB Naphazoline HCl (Clear Eyes Redness Relief Drop) 0.012 %-0.25 % Drops 1 DROP LEFT EYE Q2HR PRN for EYE REDNESS for 30 Days, ML Naphazoline HCl (Clear Eyes Redness Relief Drop) 0.012 %-0.25 % Drops 1 DROP LEFT EYE QID for eye redness for 7 Days, ML Ofouwycl-Dczqifezrmsjkik-Mvvvvpczr Liq (Magic Mouthwash Adult Liq) 120 Ml Susp 10 ML SWISH-SWAL QID for oral ulcer for 14 Days, ML Tacrolimus (Prograf) 1 Mg Cap 2 MG PO DAILY for organ rejection prevention, #31 CAP Tacrolimus (Prograf) 1 Mg Cap 1 MG PO DAILY@18 for organ rejection prevention, #31 CAP Continued Medications: Acetaminophen (Tylenol) 325 Mg Tab 325 MG PO BID, #1 TAB 0 Refills Apixaban (Eliquis) 5 Mg Tab 5 MG PO BID for Blood Clot Prevention, #60 TAB 0 Refills Famotidine (Famotidine) 20 Mg Tab 20 MG PO DAILY, #60 TAB 0 Refills Insulin Glargine Inj (Lantus Inj) 1,000 Unit/10 Ml Vial 15 UNITS SQ DAILY for Blood Sugar Management, VIAL 0 Refills Insulin Lispro (Human) Inj (Humalog Inj) 1,000 Unit/10 Ml Vial 2-12 UNITS SQ ACHS for Blood Sugar Management, #1 VIAL 0 Refills Max dose at bedtime:( )units; sugars < 70,(0)units; sugars 150-199,(2)units; sugars 200-249,(4)units; sugars 250-299,(7)units; sugars 300-349,(10)units; sugars more than 349,(12)units. Ipratropium-Albuterol Neb (Duoneb) 0.5-2.5 Mg/3 Ml Neb 1 NEBULE INH Q8HR NEB PRN for SOB/WHEEZING, #90 NEBULE 0 Refills Levothyroxine (Levothyroxine) 25 Mcg Tab 25 MCG PO DAILY for Thyroid, #30 TAB 0 Refills Metoprolol Succinate ER 24 HR (Metoprolol Succinate ER 24 HR) 25 Mg Tab 25 MG PO BID, #30 TAB 0 Refills Prednisone (Prednisone) 10 Mg Tab 10 MG PO DAILY, TAB 0 Refills Sodium Bicarbonate (Sodium Bicarbonate) 325 Mg Tab 325 MG PO TIDPC, #90 TAB 0 Refills Timolol Opth Drops (Timolol Opth Drops) 0.5 % Soln 1 DROP EACH EYE BID for Glaucoma, #1 BOTTLE 0 Refills Discontinued Medications: Furosemide (Lasix) 40 Mg Tab 40 MG PO BID, #60 TAB 0 Refills Mycophenolate (Cellcept) 250 Mg Cap 750 MG PO BID for Immunosuppression, #180 CAP 0 Refills Tacrolimus (Prograf) 1 Mg Cap 1 MG PO DIRECTED for Prevent Transplant Reject, #60 CAP 0 Refills 2mg in the AM 1mg in the PM Aurora Li Jan 24, 2017 08:33 Antwan Anand MD Jan 24, 2017 12:13
[2017-01-24] MEDS: DOCUSATE SODIUM 100 MG CAP PO SCH (09:00)
[2017-01-24] MEDS: INSULIN DETEMIR 100 UNITS/ML VIAL SQ SCH (09:00)
[2017-01-24] MEDS: TACROLIMUS 1 MG CAP PO SCH (09:35)
[2017-01-24] MEDS: NYSTAT/DIPHENHY/LIDO MOUTHWASH (Adult) 120ML SWISH-SWAL SCH ×2 (09:35→12:01)
[2017-01-24] MEDS: predniSONE 10 MG TAB PO SCH (09:35)
[2017-01-24] MEDS: APIXABAN 5 MG TABLET PO SCH (09:35)
[2017-01-24] MEDS: LACTOBACILLUS ACIDOPHILUS TAB PO SCH ×2 (09:35→12:01)
[2017-01-24] MEDS: METOPROLOL TARTRATE 25 MG TAB PO SCH (09:36)
[2017-01-24] MEDS: LORATADINE 10 MG TAB PO SCH (09:36)
[2017-01-24] MEDS: SODIUM BICARBONATE 325 MG TAB PO SCH ×2 (09:36→12:02)
[2017-01-24] MEDS: FAMOTIDINE 20 MG TAB PO SCH (09:36)
[2017-01-24] MEDS: FUROSEMIDE 20 MG TAB PO SCH (09:36)
[2017-01-24] MEDS: TIMOLOL MALEATE 0.5% OPHT SOLN 5 ML BTL EACH EYE SCH (09:37)
[2017-01-24] MEDS: NAPHAZOLINE HCL 0.012% OPHT SOLN 15 ML BOTTLE LEFT EYE SCH ×2 (09:37→12:05)
[2017-01-24] MEDS: LACTIC ACID (AMMONIUM LACTATE) 12% LOTION 225 GM BTL TOPICAL SCH (09:37)
--- NOTE | 2017-01-24 10:52 | HHI.DCPOC ---
Discharge Care Plan Diagnosis: (1) Acute on chronic renal insufficiency (2) Sepsis (3) UTI (urinary tract infection) (4) Diabetes mellitus type 2, insulin dependent (5) HTN (hypertension) (6) Hypothyroidism (7) Chronic atrial fibrillation with RVR (8) Hx of kidney transplant Goals to Promote Your Health * To prevent worsening of your condition and complications * To maintain your health at the optimal level Directions to Meet Your Goals Take your medications as prescribed Follow your dietary instruction Follow activity as directed Keep your appointments as scheduled Take your immunizations and boosters as scheduled If your symptoms worsen call your PCP, if no PCP go to Urgent Care Center or Emergency Room Smoking is Dangerous to Your Health. Avoid second hand smoke Call the 24-hour hour crisis hotline for domestic abuse at Antwan Anand MD Jan 24, 2017 10:52
[2017-01-24 12:00] VITALS: BP 169/92; PULSE 69; RESP 19; TEMP 97.2; O2SAT 94
--- NOTE | 2017-01-24 12:34 | HHI.NPPN ---
Subjective History of Present Illness Hx of Kidney transplant with recurrent Ecoli sepsis Objective Data Data Vital Signs Date Time Temp Pulse Resp B/P (MAP) Pulse Ox O2 Delivery O2 Flow Rate FiO2 01/24/17 12:00 97.2 69 19 169/92 (117) 94 01/24/17 08:00 96.0 80 18 177/81 (113) 95 01/24/17 02:00 20 01/24/17 00:00 98.3 80 18 156/70 (98) 99 01/23/17 20:00 96.6 92 16 156/72 (100) 95 01/23/17 13:30 97.9 18 152/70 (97) 95 -: 01/23/17 0543 01/24/17 0628 Physical Exam General Appearance: Well Developed Neck Neck Exam: Neck Supple Pulmonary Resp Exam: Clear Bilaterally, Breath Sounds Equal Cardiology CV Exam: Irregular, Arrhythmia Gastrointestinal/Abdomen GI Exam: Soft, Non-Tender, Bowel Sounds Present Extremeties Extremities Exam: No Edema Assessment/Plan Problem List: (1) Hx of kidney transplant ICD Codes: Z94.0 - Kidney transplant status Plan: Creatinine around 1.18 improved continue with Cipro she is off Mycophenolate maintained on 2 drugs Prednisone and Prograf nephrology to follow as needed (2) UTI (urinary tract infection) ICD Codes: N39.0 - Urinary tract infection, site not specified Status: Acute Plan: On antibiotic (3) Sepsis ICD Codes: A41.9 - Sepsis, unspecified organism Status: Acute Plan: Continue to monitor (4) HTN (hypertension) ICD Codes: I10 - Essential (primary) hypertension Plan: Blood pressure stable (5) Chronic atrial fibrillation with RVR ICD Codes: I48.2 - Chronic atrial fibrillation Status: Acute Plan: On diltiazem Problem Qualifiers (1) Sepsis: Qualified Codes: A41.51 - Sepsis due to Escherichia coli [e. coli] (2) HTN (hypertension): Qualified Codes: I10 - Essential (primary) hypertension Bill Sandoval MD Jan 24, 2017 12:34
== END 2017-01-24 15:20 | DRG 872 ==
LOC: NEPC 04:53 → NEDA 06:36 → HIME 11:50 → N07B 01-14 19:49
PROVIDERS: ADMIT Hospitalist; ATTEND Hospitalist
DX: A41.9 Sepsis, unspecified organism (principal); N17.9 Acute kidney failure, unspecified; E11.22 Type 2 diabetes mellitus with diabetic chronic kidney disease; I27.2 Other secondary pulmonary hypertension; I13.0 Hypertensive heart and chronic kidney disease with heart failure and stage 1 through stage 4 chronic kidney disease, or unspecified chronic kidney disease; I50.9 Heart failure, unspecified; Z94.0 Kidney transplant status; N39.0 Urinary tract infection, site not specified; I48.2 Chronic atrial fibrillation; J44.9 Chronic obstructive pulmonary disease, unspecified; D63.8 Anemia in other chronic diseases classified elsewhere; K21.9 Gastro-esophageal reflux disease without esophagitis; E78.5 Hyperlipidemia, unspecified; H40.9 Unspecified glaucoma; I08.1 Rheumatic disorders of both mitral and tricuspid valves; E03.9 Hypothyroidism, unspecified; M06.9 Rheumatoid arthritis, unspecified; Z90.5 Acquired absence of kidney; Z79.52 Long term (current) use of systemic steroids; Z79.4 Long term (current) use of insulin; K59.00 Constipation, unspecified; H04.122 Dry eye syndrome of left lacrimal gland; B96.20 Unspecified Escherichia coli [E. coli] as the cause of diseases classified elsewhere; N18.9 Chronic kidney disease, unspecified
CPT/HCPCS: 71010; 74000; 76776; 76937; 80048; 80053; 80197; 81001; 82948; 83605; 83735; 85007; 85025; 85027; 87040; 87077; 87086; 87186; 87205; 87641; 93005; 94150; 96365; 96368; J0692; J1815; J2185; J2405; J3370; J7030; J7040; J7050; J7507; J7512; J7517

== ENCOUNTER 2017-02-06 03:42 | Inpatient (IN) | payer MEDICARE ==
[2017-02-06] VITALS (21 sets, daily range): BP systolic 107–129; BP diastolic 53–78; PULSE 69–148; RESP 24–44; TEMP 98.2–100; O2SAT 93–100
[~2017-02-06 03:42] MED LIST changes: +APIX5TAB PO; -ATEN1TAB74 PO; -ATOR10 PO; -CELL500T PO; +CIPR-9 PO; +CLAR10TA7 PO; -COUM4TAB7 PO; -DAPS100 PO; +FAMO20TA2 PO; -FURO1TAB93 PO; +FURO20TA PO; +HUMALOG SQ; +IPRASOL INH; +LACT PO; +LANTUS2P SQ; +LEVO25TA4 PO; -LORT5TAB PO; +MAGICADU2 SWISH-SWAL; +METO25TA6 PO; +NAPH LEFT EYE; -NOVONP2 SQ; -NOVORP2 SQ; -PROG1CAP PO; +SODI325T PO; +TACR1 PO; -TELM40 PO; +TIMO0.5S30 EACH EYE; -TRIME100 PO; +TYLE325T PO
[2017-02-06] MEDS ORDERED: FUROSEMIDE 20 MG/2 ML VIAL IV PUSH ONE (04:00)
[2017-02-06] MEDS ORDERED: SODIUM CHLORIDE 0.9% FLUSH 10 ML FLUSH IVF PRN (04:00)
--- NOTE | 2017-02-06 04:05 | PD ---
HPI Chief Complaint: Respiratory Symptoms Time Seen by Provider: 03:47 Travel History International Travel<30 days: No Contact w/Intl Traveler<30days: No Traveled to known affect area: No History of Present Illness HPI Patient is a 66-year-old female with history of A. fib, diabetes, renal failure secondary to polycystic kidney disease, CHF, chronic edema to lower extremities , hypertension, hyperlipidemia, hypothyroidism, presents to emergency room complaints of shortness of breath. Patient is on chronic 2L NC oxygen at all times, reports that she woke up from sleep with shortness of breath. NH reported that patient's pulse ox was 78-82% on 2LNC, NH did administer 40mg of oral lasix prior to leaving [place]. Reports that patient had increased work of breathing, reports that she appeared cyanotic and tachypnea. Patient was placed on nonrebreather on route to ER, pulse ox 100% on non-rebreather. Patient reports dyspnea at this time, denies any chest pain. Patient reports that she cannot provide any more information this time due to her shortness of breath. Patient presents to emergency room with a DNR CODE STATUS, this was reviewed with patient who absolutely would like her wishes honored. PFSH Past Medical History Arthritis: Yes Asthma: No Autoimmune Disease: No Blood Disorders: No Anxiety: No Depression: No Heart Rhythm Problems: Yes Cancer: No Cardiovascular Problems: Yes Chemotherapy: No Chest Pain: Yes COPD: No Cerebrovascular Accident: No Diabetes: Yes Endocrine: No Gastrointestinal Disorders: No GERD: Yes Genitourinary: Yes Hiatal Hernia: No Hypertension: Yes Musculoskeletal: Yes Neurologic: No Psychiatric: No Reproductive: Yes (endometrial bx) Respiratory: Yes Immunizations Current: Yes Migraines: No Radiation Therapy: No Renal Failure: Yes (Bilat. nephrectomy, L Kidney transplant) Seizures: No Sleep Apnea: No Thyroid Disease: Yes (Hypothyroid) Ulcer: No Past Surgical History Abdominal Surgery: Yes (BILATERAL NEPHRECTOMY 01/31/05 WITH KIDNEY TRANSPLANT) AICD: No Arteriovenous Shunt: No Cardiac Surgery: No Ear Surgery: No Endocrine Surgery: No Eye Surgery: No Genitourinary Surgery: Yes (BLADDER REPAIR) Gynecologic Surgery: No Insulin Pump: No Joint Replacement: Yes (L ankle ) Neurologic Surgery: No Oral Surgery: No Pacemaker: No Thoracic Surgery: No Other Surgery: Yes (MULTIPLE AV GRAFT PLACEMENTS) Social History Alcohol Use: No Tobacco Use: No Substance Use: No Allergies-Medications (Allergen,Severity, Reaction): Coded Allergies: Sulfa (Sulfonamide Antibiotics) (Unverified Allergy, Severe, 02/06/17) diatrizoate meglumine (Unverified Allergy, Severe, 02/06/17) gadobenic acid (Unverified Allergy, Severe, 02/06/17) gadodiamide (Unverified Allergy, Severe, 02/06/17) gadoteridol (Unverified Allergy, Severe, 02/06/17) iodixanol (Unverified Allergy, Severe, 02/06/17) iohexol (Unverified Allergy, Severe, PT NEEDS TO BE PREMEDICATED, 02/06/17) penicillin G (Unverified Allergy, Severe, 02/06/17) Reported Meds & Prescriptions Reported Meds & Active Scripts Active Prograf (Tacrolimus) 1 Mg Cap 1 Mg PO DAILY@18 Prograf (Tacrolimus) 1 Mg Cap 2 Mg PO DAILY Acidophilus/l-Sporogenes (Lactobacillus Acidophilus) 35 Million Cell-25 Million Cell Tab 1 Tab PO TID Magic Mouthwash Adult Liq (Multi-Ingredient Mouthwash/Gargle) 120 Ml Susp 10 Ml SWISH-SWAL QID 14 Days Clear Eyes Redness Relief Drop (Naphazoline HCl) 0.012 %-0.25 % Drops 1 Drop LEFT EYE Q2HR PRN 30 Days Furosemide 20 Mg Tab 20 Mg PO DAILY Cipro (Ciprofloxacin HCl) 500 Mg Tab 500 Mg PO Q12H End date is 02/12/17 Claritin (Loratadine) 10 Mg Tablet 10 Mg PO DAILY Reported Timolol Opth Drops 0.5 % Soln 1 Drop EACH EYE BID Prednisone 10 Mg Tab 10 Mg PO DAILY Levothyroxine (Levothyroxine Sodium) 25 Mcg Tab 25 Mcg PO DAILY Eliquis (Apixaban) 5 Mg Tab 5 Mg PO BID Tylenol (Acetaminophen) 325 Mg Tab 325 Mg PO BID Sodium Bicarbonate 325 Mg Tab 325 Mg PO TIDPC Metoprolol Succinate ER 24 HR (Metoprolol Succinate) 25 Mg Tab 25 Mg PO BID Humalog Inj (Insulin Human Lispro) 1,000 Unit/10 Ml Vial 2-12 Units SQ ACHS Max dose at bedtime:( )units; sugars < 70,(0)units; sugars 150-199,(2)units; sugars 200-249,(4)units; sugars 250-299,(7)units; sugars 300-349,(10)units; sugars more than 349,(12)units. Lantus Inj (Insulin Glargine) 1,000 Unit/10 Ml Vial 15 Units SQ DAILY Famotidine 20 Mg Tab 20 Mg PO DAILY Duoneb (Ipratropium-Albuterol Neb) 0.5-2.5 Mg/3 Ml Neb 1 Nebule INH Q8HR NEB PRN Review of Systems General / Constitutional: No: Fever Eyes: No: Visual changes HENT: No: Headaches Cardiovascular: No: Chest Pain or Discomfort Respiratory: Positive: Shortness of Breath Gastrointestinal: No: Abdominal Pain Genitourinary: No: Dysuria Musculoskeletal: No: Pain Skin: No Rash Neurologic: No: Weakness Psychiatric: No: Depression Endocrine: No: Polydipsia Hematologic/Lymphatic: No: Easy Bruising Physical Exam Narrative GENERAL: severe distress SKIN: Focused skin assessment warm/dry. HEAD: Atraumatic. Normocephalic. EYES: Pupils equal and round. No scleral icterus. No injection or drainage. ENT: No nasal bleeding or discharge. Mucous membranes pink and moist. NECK: Trachea midline. No JVD. CARDIOVASCULAR: Tachcardic with an irregular irregular rhythm. No murmur appreciated. RESPIRATORY: Increased accessory muscle use, rhonchi at lung bases GASTROINTESTINAL: Abdomen soft, non-tender, nondistended. Hepatic and splenic margins not palpable. MUSCULOSKELETAL: No obvious deformities. No clubbing. No cyanosis. +3 pedal edema. NEUROLOGICAL: Awake and alert. No obvious cranial nerve deficits. Motor grossly within normal limits. . PSYCHIATRIC: Anxious mood and affect Data Data Last Documented VS Vital Signs Date Time Temp Pulse Resp B/P (MAP) Pulse Ox O2 Delivery O2 Flow Rate FiO2 02/06/17 05:19 148 32 120/61 (80) 100 Nasal Cannula 5.00 02/06/17 04:01 50 02/06/17 03:45 100.0 Orders Orders Furosemide Inj (Lasix Inj) (02/06/17 09:00) Complete Blood Count With Diff (02/06/17 03:48) Comprehensive Metabolic Panel (02/06/17 03:48) B-Type Natriuretic Peptide (02/06/17 03:48) Act Partial Throm Time (Ptt) (02/06/17 03:48) Prothrombin Time / Inr (Pt) (02/06/17 03:48) Magnesium (Mg) (02/06/17 03:48) Ckmb (Isoenzyme) Profile (02/06/17 03:48) Troponin I (02/06/17 03:48) Arterial Blood Gas (Abg) (02/06/17 03:48) Urinalysis - C+S If Indicated (02/06/17 03:48) Blood Culture (02/06/17 03:48) Iv Access Insert/Monitor (02/06/17 03:48) Electrocardiogram (02/06/17 03:48) Ecg Monitoring (02/06/17 03:48) Oximetry (02/06/17 03:48) Oxygen Administration (02/06/17 03:48) Chest, Single Ap (02/06/17 03:48) Cath For Specimen (02/06/17 03:48) Sodium Chloride 0.9% Flush (Ns Flush) (02/06/17 04:00) Resp Bipap / Cpap Non Invas Vt (02/06/17 03:48) Lactic Acid Sepsis Protocol (02/06/17 03:48) Furosemide Inj (Lasix Inj) (02/06/17 04:00) Ondansetron Inj (Zofran Inj) (02/06/17 04:15) Aztreonam Inj (Azactam Inj) (02/06/17 05:15) Levofloxacin (Levaquin) (02/06/17 05:15) Diltiazem Inj (Cardizem Inj) (02/06/17 05:15) Admit To Inpatient (02/06/17 ) Vital Signs (Adult) Q4H (02/06/17 05:10) Activity Oob With Assistance (02/06/17 05:10) Counseling Program Leader / Telemetry .CONTINUOUS (02/06/17 05:10) Intake + Output JOSHUA.QSHIFT (02/06/17 05:10) Diet Heart Healthy (02/06/17 Breakfast) Sodium Chloride 0.9% Flush (Ns Flush) (02/06/17 05:15) Sodium Chloride 0.9% Flush (Ns Flush) (02/06/17 09:00) Basic Metabolic Panel (Bmp) (02/07/17 06:00) Complete Blood Count With Diff (02/07/17 06:00) Creatine Kinase (Cpk) (02/06/17 09:15) Creatine Kinase (Cpk) (02/06/17 15:15) Troponin I (02/06/17 09:15) Troponin I (02/06/17 15:15) Electrocardiogram (02/06/17 09:15) Electrocardiogram (02/06/17 15:15) Resp Oxygen Jeferson C Titrat 1-4 L (02/06/17 ) Pt Request For Service (02/06/17 05:10) Case Management Consult (02/06/17 05:10) Naloxone Inj (Narcan Inj) (02/06/17 05:15) Inpatient Certification (02/06/17 ) Urinary Catheter Insert/Apply (02/06/17 05:13) Furosemide Inj (Lasix Inj) (02/06/17 09:00) Code Status (02/06/17 05:17) Labs Laboratory Tests Test 02/06/17 03:50 02/06/17 04:50 White Blood Count 14.2 TH/MM3 Red Blood Count 4.29 MIL/MM3 Hemoglobin 12.6 GM/DL Hematocrit 39.8 % Mean Corpuscular Volume 92.7 FL Mean Corpuscular Hemoglobin 29.4 PG Mean Corpuscular Hemoglobin Concent 31.7 % Red Cell Distribution Width 15.2 % Platelet Count 286 TH/MM3 Mean Platelet Volume 7.6 FL Neutrophils (%) (Auto) 88.2 % Lymphocytes (%) (Auto) 5.0 % Monocytes (%) (Auto) 3.9 % Eosinophils (%) (Auto) 2.4 % Basophils (%) (Auto) 0.5 % Neutrophils # (Auto) 12.5 TH/MM3 Lymphocytes # (Auto) 0.7 TH/MM3 Monocytes # (Auto) 0.6 TH/MM3 Eosinophils # (Auto) 0.3 TH/MM3 Basophils # (Auto) 0.1 TH/MM3 CBC Comment DIFF FINAL Differential Comment Prothrombin Time 11.3 SEC Prothromb Time International Ratio 1.0 RATIO Activated Partial Thromboplast Time 25.4 SEC Blood Urea Nitrogen 20 MG/DL Creatinine 1.04 MG/DL Random Glucose 127 MG/DL Total Protein 6.6 GM/DL Albumin 3.0 GM/DL Calcium Level 8.9 MG/DL Magnesium Level 1.7 MG/DL Alkaline Phosphatase 110 U/L Aspartate Amino Transf (AST/SGOT) 15 U/L Alanine Aminotransferase (ALT/SGPT) 22 U/L Total Bilirubin 0.5 MG/DL Sodium Level 141 MEQ/L Potassium Level 4.4 MEQ/L Chloride Level 105 MEQ/L Carbon Dioxide Level 30.1 MEQ/L Anion Gap 6 MEQ/L Estimat Glomerular Filtration Rate 53 ML/MIN Lactic Acid Level 2.0 mmol/L Total Creatine Kinase 22 U/L Troponin I LESS THAN 0.02 NG/ML B-Type Natriuretic Peptide 138 PG/ML Urine Color YELLOW Urine Turbidity CLEAR Urine pH 6.5 Urine Specific [place] 1.011 Urine Protein NEG mg/dL Urine Glucose (UA) NEG mg/dL Urine Ketones NEG mg/dL Urine Occult Blood NEG Urine Nitrite NEG Urine Bilirubin NEG Urine Urobilinogen LESS THAN 2.0 MG/DL Urine Leukocyte Esterase NEG Urine WBC 1 /hpf Urine Squamous Epithelial Cells <1 /hpf Urine Bacteria RARE /hpf Microscopic Urinalysis Comment CULT NOT INDICATED MDM Medical Decision Making Medical Screen Exam Complete: Yes Emergency Medical Condition: Yes Medical Record Reviewed: Yes Interpretation(s) EKG at 0353: A. fib with RVR at 150 bpm, qt/qtc: 206/291, nonspecific changes Vital Signs Date Time Temp Pulse Resp B/P (MAP) Pulse Ox O2 Delivery O2 Flow Rate FiO2 02/06/17 04:01 44 100 BiPAP 50 02/06/17 03:52 96 BiPAP 50 02/06/17 03:45 98 100 02/06/17 03:45 100.0 127 40 120/76 (91) 93 Differential Diagnosis Differential includes sepsis, CHF exacerbation, electrolyte abnormality, ACS, arrhythmia, A. fib Narrative Course Patient is a 66-year-old female who presents to emergency room complaints of shortness of breath. Patient initially had a pulse ox of 78-82% on 2 L nasal cannula oxygen at [facility], reports that she woke up from sleep with acute onset shortness of breath and appeared cyanotic. Patient was brought to the emergency room by EMS on nonrebreather, with an nonrebreather and a pulse ox of 100%. Discussed need for intubation of patient, currently refuses intubation and request that we honor her DNR/DNI code status. Patient was placed on a telesales agent upon arrival to ER. IV Lasix 60mg ordered. Patient was placed on a BIPAP and ABG obtained. CBC, BMP, blood cultures as well as lactic acid ordered. Xray of chest ordered. Will continue to monitor on telesales agent Laboratory Tests Test 02/06/17 03:50 02/06/17 04:50 White Blood Count 14.2 TH/MM3 (4.0-11.0) Red Blood Count 4.29 MIL/MM3 (4.00-5.30) Hemoglobin 12.6 GM/DL (11.6-15.3) Hematocrit 39.8 % (35.0-46.0) Mean Corpuscular Volume 92.7 FL (80.0-100.0) Mean Corpuscular Hemoglobin 29.4 PG (27.0-34.0) Mean Corpuscular Hemoglobin Concent 31.7 % (32.0-36.0) Red Cell Distribution Width 15.2 % (11.6-17.2) Platelet Count 286 TH/MM3 (150-450) Mean Platelet Volume 7.6 FL (7.0-11.0) Neutrophils (%) (Auto) 88.2 % (16.0-70.0) Lymphocytes (%) (Auto) 5.0 % (9.0-44.0) Monocytes (%) (Auto) 3.9 % (0.0-8.0) Eosinophils (%) (Auto) 2.4 % (0.0-4.0) Basophils (%) (Auto) 0.5 % (0.0-2.0) Neutrophils # (Auto) 12.5 TH/MM3 (1.8-7.7) Lymphocytes # (Auto) 0.7 TH/MM3 (1.0-4.8) Monocytes # (Auto) 0.6 TH/MM3 (0-0.9) Eosinophils # (Auto) 0.3 TH/MM3 (0-0.4) Basophils # (Auto) 0.1 TH/MM3 (0-0.2) CBC Comment DIFF FINAL Differential Comment Prothrombin Time 11.3 SEC (9.8-11.6) Prothromb Time International Ratio 1.0 RATIO Activated Partial Thromboplast Time 25.4 SEC (24.3-30.1) Blood Urea Nitrogen 20 MG/DL (7-18) Creatinine 1.04 MG/DL (0.50-1.00) Random Glucose 127 MG/DL (74-106) Total Protein 6.6 GM/DL (6.4-8.2) Albumin 3.0 GM/DL (3.4-5.0) Calcium Level 8.9 MG/DL (8.5-10.1) Magnesium Level 1.7 MG/DL (1.5-2.5) Alkaline Phosphatase 110 U/L (45-117) Aspartate Amino Transf (AST/SGOT) 15 U/L (15-37) Alanine Aminotransferase (ALT/SGPT) 22 U/L (10-53) Total Bilirubin 0.5 MG/DL (0.2-1.0) Sodium Level 141 MEQ/L (136-145) Potassium Level 4.4 MEQ/L (3.5-5.1) Chloride Level 105 MEQ/L (98-107) Carbon Dioxide Level 30.1 MEQ/L (21.0-32.0) Anion Gap 6 MEQ/L (5-15) Estimat Glomerular Filtration Rate 53 ML/MIN (>89) Lactic Acid Level 2.0 mmol/L (0.4-2.0) Total Creatine Kinase 22 U/L (26-192) Troponin I LESS THAN 0.02 NG/ML B-Type Natriuretic Peptide 138 PG/ML (0-100) Last Impressions Chest X-Ray 02/06/17 0348 Signed Impressions: Service Date/Time: January 04:13 - CONCLUSION: Cardiomegaly with bilateral pulmonary infiltrates and tiny left effusion. Reynaldo Lira Jr., MD Patient not tolerated bipap at this time and requesting it be removed. Patient placed on 4 L NC. Xray of chest with b/l pulmonary infiltrates. she has been pancultured. she has an allergy to pcn, will administer Levaquin as well as aztreonam Critical Care Narrative Aggregate critical care time was 30 minutes. Time to perform other separately billable procedures was not included in the critical care time. My time did not include minutes spent treating any other patients simultaneously or on activities that did not directly contribute to the patient's treatment. The services I provided to this patient were to treat and/or prevent clinically significant deterioration that could result in: , decompensation, deterioration I provided critical care services requiring my management, as noted below: Chart data review, documentation time, medication orders and management, vital sign assessments/reviewing monitor data, ordering and reviewing lab tests, ordering and interpreting/reviewing x-rays and diagnostic studies, care of the patient and discussion of the patient with the admitting physicians. Diagnosis Primary Impression: Hypoxia Additional Impressions: Pneumonia Qualified Codes: J18.9 - Pneumonia, unspecified organism A-fib Admitting Information Admitting Physician Requests: Admit Aurora Royal DO Feb 06, 2017 04:05
[2017-02-06] MEDS ORDERED: ONDANSETRON HCL 4 MG/2 ML VIAL IV PUSH ONE (04:15)
[2017-02-06 04:17] LABS: AUTOMATED NEUTROPHIL # 12.5 TH/MM3 (1.8-7.7); BASOPHIL # 0.1 TH/MM3 (0-0.2); BASOPHIL % 0.5 % (0.0-2.0); EOSINOPHIL # 0.3 TH/MM3 (0-0.4); EOSINOPHIL % 2.4 % (0.0-4.0); HEMATOCRIT 39.8 % (35.0-46.0); HEMO FLAGS DIFF FINAL; LYMPHOCYTE # 0.7 TH/MM3 (1.0-4.8); MEAN CELL VOLUME 92.7 FL (80.0-100.0); MEAN CORPUSCULAR HEMOGLOBIN 29.4 PG (27.0-34.0); MEAN CORPUSCULAR HGB CONC 31.7 % (32.0-36.0); MONO % 3.9 % (0.0-8.0); NEUT % 88.2 % (16.0-70.0); PLATELET COUNT 286 TH/MM3 (150-450); RED BLOOD COUNT 4.29 MIL/MM3 (4.00-5.30); RED CELL DISTRIBUTION WIDTH 15.2 % (11.6-17.2); WHITE BLOOD COUNT 14.2 TH/MM3 (4.0-11.0)
[2017-02-06 04:27] LABS: APTT (PATIENT) 25.4 SEC (24.3-30.1); PROTHROMBIN TIME - PATIENT 11.3 SEC (9.8-11.6)
[2017-02-06 04:28] LABS: ALT (GPT) 22 U/L (10-53); ANION GAP 6 MEQ/L (5-15); AST (GOT) 15 U/L (15-37); BICARBONATE 30.1 MEQ/L (21.0-32.0); BLOOD UREA NITROGEN 20 MG/DL (7-18); CHLORIDE 105 MEQ/L (98-107); GLOMERULAR FILTRATION RATE 53 ML/MIN (>89); MAGNESIUM 1.7 MG/DL (1.5-2.5); POTASSIUM 4.4 MEQ/L (3.5-5.1); SODIUM (NA) 141 MEQ/L (136-145)
[2017-02-06 04:33] LABS: ALKALINE PHOSPHATASE 110 U/L (45-117); TOTAL BILIRUBIN ADULT 0.5 MG/DL (0.2-1.0)
[2017-02-06 04:34] LABS: CREATINE KINASE 22 U/L (26-192)
--- NOTE | 2017-02-06 04:57 | RADRPT ---
EXAM DATE/TIME: 02/06/2017 04:13 [facility] COMPARISON: CHEST SINGLE AP, January 18, 2017, 12:28. INDICATIONS : Shortness of breath. MEDICAL HISTORY : Hypothyroidism. Gastroesophageal reflux disease. Hypertension. SURGICAL HISTORY : Cholecystectomy. Bilateral nephrectomy. Endometrial biopsy. ENCOUNTER: Initial ACUITY: 1 day PAIN SCORE: 0/10 LOCATION: Bilateral chest FINDINGS: A single portable frontal view of the chest shows mild cardiomegaly. The retrocardiac lucency consist ent with hiatal hernia. Patchy parenchymal opacities involving both lung bases as well as the lateral right midlung. Tiny left effusion. CONCLUSION: Cardiomegaly with bilateral pulmonary infiltrates and tiny left effusion. Reynaldo Lira Jr., MD on February 06, 2017 at 4:54 Board Certified Radiologist. This report was verified electronically.
[2017-02-06] MEDS ORDERED: LEVOFLOXACIN 750 MG TAB PO ONE (05:15)
[2017-02-06] MEDS ORDERED: AZTREONAM INJ 2,000 MG in SODIUM CHLORIDE 0.9% INJ 100 ML IV ONE (05:15)
[2017-02-06] MEDS ORDERED: DILTIAZEM HCL 25 MG/5 ML VIAL IV PUSH ONE ×2 (05:15→07:15)
[2017-02-06] MEDS ORDERED: NALOXONE HCL 0.4 MG/ML AMP IV PUSH PRN (05:15)
[2017-02-06] MEDS ORDERED: SODIUM CHLORIDE 0.9% FLUSH 10 ML FLUSH IV FLUSH PRN (05:15)
[2017-02-06 05:20] LABS: BACTERIA, URINE RARE /hpf; BLOOD, URINE NEG (NEG); COMMENT (UR) CULT NOT INDICATED; CULTURE IF INDICATED CULT NOT INDICATED; GLUCOSE,URINE NEG (NEG); KETONE, URINE NEG (NEG); NITRITE,URINE NEG (NEG); PH, URINE 6.5 (5.0-8.5); SQUAMOUS EPITHELIAL CELL URINE <1 /hpf (0-5); URINE COLOR YELLOW (YELLW/STRAW)
--- NOTE | 2017-02-06 05:36 | HHI.HP ---
HPI Service [facility] Primary Care Physician Unknown Admission Diagnosis Pneumonia and CHF . Diagnoses: (1) Congestive heart failure (2) Pneumonia (3) Diabetes mellitus type 2, insulin dependent Chief Complaint: Shortness of breath Travel History International Travel<30 Days: No Contact w/Intl Traveler <30 Da: No Traveled to Known Affected Are: No History of Present Illness Written by Charline Nolasco, acting as scribe for Dr. Pimentel on 02/06/17 at 05:34. The patient reports that she woke up at 0215 and couldn't breath. Symptoms severe. She was given Lasix p.o. and didn't improve so the [facility] physician instructed that she should be sent to the hospital. She was recently weaned off of supplemental oxygen. She complains of orthopnea. She is residing at [facility] and [facility] first couple of weeks of December [facility] end of December, beginning of January. Denies cough, fever, nausea, vomiting, coffee or red colored vomit, black or red stool. She reports taking Lasix 20 mg once daily. Recently dosage decreased on Tacrolimus and CellCept d/c'd recently The patient required bipap on ER arrival and is now somewhat tachypneic on 5 liters supplemental oxygen via nasal cannula - oxygen saturation is 100%. Review of Systems Except as stated in HPI: all other systems reviewed are Neg Past Family Social History Past Medical History Hypertension Diabetes Mellitus Atrial fibrillation CHF Polycystic kidney disease - s/p kidney transplant Hypothyroidism Denies CAD, COPD/Emphysema, hepatitis, liver problems, CVA, seizures, or cancer . Past Surgical History Cholecystectomy Kidney transplant AV fistulas and repairs - multples Metal braxton right foot . Reported Medications Reported Meds & Active Scripts Active Prograf (Tacrolimus) 1 Mg Cap 1 Mg PO DAILY@18 Prograf (Tacrolimus) 1 Mg Cap 2 Mg PO DAILY Acidophilus/l-Sporogenes (Lactobacillus Acidophilus) 35 Million Cell-25 Million Cell Tab 1 Tab PO TID Magic Mouthwash Adult Liq (Multi-Ingredient Mouthwash/Gargle) 120 Ml Susp 10 Ml SWISH-SWAL QID 14 Days Clear Eyes Redness Relief Drop (Naphazoline HCl) 0.012 %-0.25 % Drops 1 Drop LEFT EYE Q2HR PRN 30 Days Furosemide 20 Mg Tab 20 Mg PO DAILY Cipro (Ciprofloxacin HCl) 500 Mg Tab 500 Mg PO Q12H End date is 02/12/17 Claritin (Loratadine) 10 Mg Tablet 10 Mg PO DAILY Reported Timolol Opth Drops 0.5 % Soln 1 Drop EACH EYE BID Prednisone 10 Mg Tab 10 Mg PO DAILY Levothyroxine (Levothyroxine Sodium) 25 Mcg Tab 25 Mcg PO DAILY Eliquis (Apixaban) 5 Mg Tab 5 Mg PO BID Tylenol (Acetaminophen) 325 Mg Tab 325 Mg PO BID Sodium Bicarbonate 325 Mg Tab 325 Mg PO TIDPC Metoprolol Succinate ER 24 HR (Metoprolol Succinate) 25 Mg Tab 25 Mg PO BID Humalog Inj (Insulin Human Lispro) 1,000 Unit/10 Ml Vial 2-12 Units SQ ACHS Max dose at bedtime:( )units; sugars < 70,(0)units; sugars 150-199,(2)units; sugars 200-249,(4)units; sugars 250-299,(7)units; sugars 300-349,(10)units; sugars more than 349,(12)units. Lantus Inj (Insulin Glargine) 1,000 Unit/10 Ml Vial 15 Units SQ DAILY Famotidine 20 Mg Tab 20 Mg PO DAILY Duoneb (Ipratropium-Albuterol Neb) 0.5-2.5 Mg/3 Ml Neb 1 Nebule INH Q8HR NEB PRN . Allergies: Coded Allergies: Sulfa (Sulfonamide Antibiotics) (Unverified Allergy, Severe, 02/06/17) diatrizoate meglumine (Unverified Allergy, Severe, 02/06/17) gadobenic acid (Unverified Allergy, Severe, 02/06/17) gadodiamide (Unverified Allergy, Severe, 02/06/17) gadoteridol (Unverified Allergy, Severe, 02/06/17) iodixanol (Unverified Allergy, Severe, 02/06/17) iohexol (Unverified Allergy, Severe, PT NEEDS TO BE PREMEDICATED, 02/06/17) penicillin G (Unverified Allergy, Severe, 02/06/17) Active Ordered Medications Current Medications Furosemide (Lasix Inj) 60 mg DAILY IV PUSH ; Start 02/06/17 at 09:00; Stop 02/06 at 09:00; Status DC Sodium Chloride (NS Flush) 2 ml UNSCH PRN IVF FLUSH AFTER USING IV ACCESS; Start 02/06/17 at 04:00; Stop 02/06/17 at 05:16; Status DC Furosemide (Lasix Inj) 60 mg ONCE ONCE IV PUSH Last administered on 02/06/17 04:05; Start 02/06/17 at 04:00; Stop 02/06/17 at 04:01; Status DC Ondansetron HCl (Zofran Inj) 8 mg ONCE ONCE IV PUSH Last administered on 04:13; Start 02/06/17 at 04:15; Stop 02/06/17 at 04:16; Status DC Aztreonam 2000 mg/ Sodium Chloride 100 ml @ 200 mls/hr NOW ONCE IV ; Start at 05:15; Stop 02/06/17 at 05:44 Levofloxacin (Levaquin) 750 mg ONCE ONCE PO Last administered on 02/06/17 05: 16; Start 02/06/17 at 05:15; Stop 02/06/17 at 05:16; Status DC Diltiazem HCl (Cardizem Inj) 26 mg BOLUS ONCE IV PUSH Last administered on 05:20; Start 02/06/17 at 05:15; Stop 02/06/17 at 05:16; Status DC Sodium Chloride (NS Flush) 2 ml UNSCH PRN IV FLUSH FLUSH AFTER USING IV ACCESS ; Start 02/06/17 at 05:15 Sodium Chloride (NS Flush) 2 ml BID IV FLUSH ; Start 02/06/17 at 09:00 Naloxone HCl (Narcan Inj) 0.4 mg UNSCH PRN IV PUSH SEE LABEL COMMENTS; Start at 05:15 Furosemide (Lasix Inj) 40 mg BID@09,18 IV PUSH ; Start 02/06/17 at 09:00 . Family History Father with CVA . Social History Tobacco: denies Alcohol: denies Illicit Drugs: denies . Physical Exam Vital Signs Vital Signs Date Time Temp Pulse Resp B/P (MAP) Pulse Ox O2 Delivery O2 Flow Rate FiO2 02/06/17 05:19 148 32 120/61 (80) 100 Nasal Cannula 5.00 02/06/17 05:06 98 Nasal Cannula 4.00 02/06/17 04:01 44 100 BiPAP 50 02/06/17 03:52 96 BiPAP 50 02/06/17 03:45 98 100 02/06/17 03:45 100.0 127 40 120/76 (91) 93 Physical Exam GENERAL: This is an obese elderly female patient who is tachypneic. SKIN: No rashes, ecchymoses or lesions. Cool and dry. Bilateral lower extremities with skin changes c/w lymphedema covered with bandages. HEAD: Atraumatic. Normocephalic. EYES: No scleral icterus. No injection or drainage. ENT: Nose without bleeding, purulent drainage. Airway patent. NECK: Trachea midline. No JVD. CARDIOVASCULAR: Regular rate and rhythm without murmurs, gallops, or rubs. RESPIRATORY: Breath sounds diminished; equal bilaterally. No wheezes, rales, or rhonchi. Tachypneic and using accessory muscles to breath. GASTROINTESTINAL: Abdomen soft, non-tender, nondistended. No guarding. MUSCULOSKELETAL: Extremities without clubbing, cyanosis. NEUROLOGICAL: Awake and alert. Motor and sensory grossly within normal limits. Normal speech. . Laboratory Laboratory Tests Test 02/06/17 03:50 02/06/17 04:50 White Blood Count 14.2 Red Blood Count 4.29 Hemoglobin 12.6 Hematocrit 39.8 Mean Corpuscular Volume 92.7 Mean Corpuscular Hemoglobin 29.4 Mean Corpuscular Hemoglobin Concent 31.7 Red Cell Distribution Width 15.2 Platelet Count 286 Mean Platelet Volume 7.6 Neutrophils (%) (Auto) 88.2 Lymphocytes (%) (Auto) 5.0 Monocytes (%) (Auto) 3.9 Eosinophils (%) (Auto) 2.4 Basophils (%) (Auto) 0.5 Neutrophils # (Auto) 12.5 Lymphocytes # (Auto) 0.7 Monocytes # (Auto) 0.6 Eosinophils # (Auto) 0.3 Basophils # (Auto) 0.1 CBC Comment DIFF FINAL Differential Comment Prothrombin Time 11.3 Prothromb Time International Ratio 1.0 Activated Partial Thromboplast Time 25.4 Blood Urea Nitrogen 20 Creatinine 1.04 Random Glucose 127 Total Protein 6.6 Albumin 3.0 Calcium Level 8.9 Magnesium Level 1.7 Alkaline Phosphatase 110 Aspartate Amino Transf (AST/SGOT) 15 Alanine Aminotransferase (ALT/SGPT) 22 Total Bilirubin 0.5 Sodium Level 141 Potassium Level 4.4 Chloride Level 105 Carbon Dioxide Level 30.1 Anion Gap 6 Estimat Glomerular Filtration Rate 53 Lactic Acid Level 2.0 Total Creatine Kinase 22 Troponin I LESS THAN 0.02 B-Type Natriuretic Peptide 138 Urine Color YELLOW Urine Turbidity CLEAR Urine pH 6.5 Urine Specific [place] 1.011 Urine Protein NEG Urine Glucose (UA) NEG Urine Ketones NEG Urine Occult Blood NEG Urine Nitrite NEG Urine Bilirubin NEG Urine Urobilinogen LESS THAN 2.0 Urine Leukocyte Esterase NEG Urine WBC 1 Urine Squamous Epithelial Cells <1 Urine Bacteria RARE Microscopic Urinalysis Comment CULT NOT INDICATED Date/Time Source Procedure Growth Status 02/06/17 03:55 Blood Peripheral Aerobic Blood Culture Pending Received 02/06/17 03:55 Blood Peripheral Anaerobic Blood Culture Pending Received Result Diagram: 02/06/17 0350 02/06/17 0350 Imaging Last Impressions Chest X-Ray 02/06/17 0348 Signed Impressions: Service Date/Time: , February 06, 2017 04:13 - CONCLUSION: Cardiomegaly with bilateral pulmonary infiltrates and tiny left effusion. Reynaldo Lira Jr., MD . Caprini VTE Risk Assessment Caprini VTE Risk Assessment: Mod/High Risk (score >= 2) Caprini Risk Assessment Model Point Value = 1 Point Value = 2 Point Value = 3 Point Value = 5 Age 41-60 Minor surgery BMI > 25 kg/m2 Swollen legs Varicose veins or History of unexplained or recurrent spontaneous Oral contraceptives or hormone replacement Sepsis (< 1 month) Serious lung disease, including pneumonia (< 1 month) Abnormal pulmonary function Acute myocardial infarction Congestive heart failure (< 1 month) History of inflammatory bowel disease Medical patient at bed rest Age 61-74 Arthroscopic surgery Major open surgery (> 45 min) Laparoscopic surgery (> 45 min) Malignancy Confined to bed (> 72 hours) Immobilizing plaster cast Central venous access Age >= 75 History of VTE Family history of VTE Factor V Leiden Prothrombin [id number] Lupus anticoagulant Anticardiolipin antibodies Elevated serum homocysteine Heparin-induced thrombocytopenia Other congenital or acquired thrombophilia Stroke (< 1 month) Elective arthroplasty Hip, pelvis, or leg fracture Acute spinal cord injury (< 1 month) Prophylaxis Regimen Total Risk Factor Score Risk Level Prophylaxis Regimen 0-1 Low Early ambulation 2 Moderate Order ONE of the following: *Sequential Compression Device (SCD) *Heparin 5000 units SQ BID 3-4 Higher Order ONE of the following medications: *Heparin 5000 units SQ TID *Enoxaparin/Lovenox 40 mg SQ daily (WT < 150 kg, CrCl > 30 mL/min) *Enoxaparin/Lovenox 30 mg SQ daily (WT < 150 kg, CrCl > 10-29 mL/min) *Enoxaparin/Lovenox 30 mg SQ BID (WT < 150 kg, CrCl > 30 mL/min) AND/OR *Sequential Compression Device (SCD) 5 or more Highest Order ONE of the following medications: *Heparin 5000 units SQ TID (Preferred with Epidurals) *Enoxaparin/Lovenox 40 mg SQ daily (WT < 150 kg, CrCl > 30 mL/min) *Enoxaparin/Lovenox 30 mg SQ daily (WT < 150 kg, CrCl > 10-29 mL/min) *Enoxaparin/Lovenox 30 mg SQ BID (WT < 150 kg, CrCl > 30 mL/min) AND *Sequential Compression Device (SCD) Assessment and Plan Problem List: (1) Congestive heart failure ICD Code: I50.9 - Heart failure, unspecified (2) Pneumonia ICD Code: J18.9 - Pneumonia, unspecified organism Status: Acute (3) Diabetes mellitus type 2, insulin dependent ICD Code: E11.9 - Type 2 diabetes mellitus without complications; 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 insulin Assessment and Plan 66-year-old female [facility] for acute onset shortness of breath: Acute CHF exacerbation - BNP 138 - CXR shows cardiomegaly with bilateral pulmonary infiltrates and tiny left effusion - Lasix 40 mg IV BID - monitor serial EKGs and cardiac enzymes to r/o ACS - Strictly monitor intake and output - Heart healthy diet - Continuous cardiac telemetry to monitor for cardiac arrhythmias Pneumonia, bilateral - CXR shows cardiomegaly with bilateral pulmonary infiltrates and tiny left effusion - Cefepime 1 g IV every 12 hours - consult infectious disease - patient on immunosuppressants for kidney transplant - Atrovent nebulizers every 6 hours scheduled and every 2 hours as needed for wheezing Type 2 Diabetes Mellitus - Continue home dose of Lantus daily - Accu-Cheks before meals and at bedtime with low-dose NovoLog sliding scale coverage - Hypoglycemia protocol - Monitor trends and blood glucose readings and adjust treatments as indicated DVT prophylaxis - Resume Eliquis was 5 mg twice a day p.o. This note was transcribed by miah [Charline Nolasco]. I, Dr. Mir Pimentel personally performed the history, physical exam, and medical decision making; and confirmed the accuracy of the information in the transcribed note. Authenticated by Dr. Mir Pimentel on 02/06/17 at 05:34. . Code Status DNR/DNI confirmed with patient Discussed Condition With Patient, ER physician, and BUNDLE TIER AND LABELER . Physician Certification 2 Midnight Certification Type: Admission for Inpatient Services Order for Inpatient Services The services are ordered in accordance with Medicare regulations or non- Medicare payer requirements, as applicable. In the case of services not specified as inpatient-only, they are appropriately provided as inpatient services in accordance with the 2-midnight benchmark. Estimated LOS (days): 3 days is the estimated time the patient will need to remain in the hospital, assuming treatment plan goals are met and no additional complications. Post-Hospital Plan: SNF Problem Qualifiers (1) Pneumonia: Qualified Codes: J18.9 - Pneumonia, unspecified organism Charline Nolasco Feb 06, 2017 05:36 Mir Pimentel MD Feb 06, 2017 10:04
[2017-02-06] MEDS ORDERED: GLUCAGON 1 MG/ML VIAL OTHER PRN (06:00)
[2017-02-06] MEDS ORDERED: RESP: IPRATROPIUM 0.5 MG/2.5 ML NEB NEB PRN (06:00)
[2017-02-06] MEDS ORDERED: DEXTROSE 50% IN WATER 50 ML VIAL(D50) IV PUSH PRN (06:00)
[2017-02-06 06:03] LABS: BLOOD GAS BASE EXCESS 1.5 mmol/L (-2-2); BLOOD GAS CARBOXYHEMOGLOBIN 1.3 % (0-4); BLOOD GAS HCO3 26 mmol/L (22-26); BLOOD GAS METHEMOGLOBIN 0.5 % (0-2); BLOOD GAS O2 HGB SATURATION 98 % (90-100); BLOOD GAS OXYGEN CONTENT 16.9 Vol % (12.0-20.0); BLOOD GAS PCO2 40 mmHg (38-42); BLOOD GAS PO2 162 mmHG (61-120); BLOOD GAS TOTAL HGB 12.1 G/DL (12.0-16.0); TEMP CORR TO 98.6
[2017-02-06 06:04] LABS: CRITICAL VALUE NO; DRAW SITE RT RADIAL; FIO2 100 %; NUMBER OF ARTERIAL PUNCTURES 1; OXYGEN DEVICE NPPV; STAT YES; ULNAR PULSE PRESENT; VENT SETTINGS IPAP 15/EPAP 5
[2017-02-06] MEDS: LEVOTHYROXINE SODIUM 25 MCG TAB PO SCH (06:31)
[2017-02-06] MEDS: INSULIN ASPART SUPPLEMENTAL SCALE SQ SCH ×4 (07:32→21:00)
[2017-02-06] MEDS: DILTIAZEM INJ 125 MG in SODIUM CHLORIDE 0.9% INJ 100 ML IV PRN (08:02)
[2017-02-06] MEDS: RESP: IPRATROPIUM 0.5 MG/2.5 ML NEB NEB SCH ×3 (08:12→19:25)
[2017-02-06] MEDS: CEFEPIME INJ 1,000 MG in SODIUM CHLORIDE 0.9% INJ 100 ML IV SCH ×2 (09:00→21:00)
[2017-02-06] MEDS ORDERED: FUROSEMIDE 40 MG/4 ML VIAL IV PUSH SCH (09:00)
--- NOTE | 2017-02-06 09:50 | PD.ID.CON ---
History of Present Illness Service ID Consult Requested By Dr Pimentel Reason for Consult infiltrates, ?PNA Primary Care Physician Unknown Diagnoses: History of Present Illness 66 yo female with h/o polycystic kidney disease - s/p kidney transplant, on Tacrolimus presented from assisted this am with waking up from sleep with shortness of breath. Patient is on chronic 2L NC oxygen 09/12 ER sats were in upper 70s Patient was placed on nonrebreather on route to ER, pulse ox 100% on non- rebreather. Her CXR showed cardiomegaly with bilateral pulmonary infiltrates and tiny left effusion. She has no fever , but she presented with moderate leukocytosis (14K) She denies any expectoration, or dry cough Her SOB improved after diuresis She had recently 2 episodes of UTI since begining of Dec and one episode of C.diff She resides in rehab and unable to walk only with walker and assistance She has no diarrhea or abd pain Her baseline creatinine < 1 Review of Systems Respiratory: COMPLAINS OF: Shortness of breath Cardiovascular: COMPLAINS OF: Dyspnea on Exertion, Lower Extremity Edema Neurologic: COMPLAINS OF: Abnormal gait, Poor Balance Except as stated in HPI: all other systems reviewed are Neg Past Family Social History Allergies: Coded Allergies: Sulfa (Sulfonamide Antibiotics) (Unverified Allergy, Severe, 02/06/17) diatrizoate meglumine (Unverified Allergy, Severe, 02/06/17) gadobenic acid (Unverified Allergy, Severe, 02/06/17) gadodiamide (Unverified Allergy, Severe, 02/06/17) gadoteridol (Unverified Allergy, Severe, 02/06/17) iodixanol (Unverified Allergy, Severe, 02/06/17) iohexol (Unverified Allergy, Severe, PT NEEDS TO BE PREMEDICATED, 02/06/17) penicillin G (Unverified Allergy, Severe, 02/06/17) Past Medical History Hypertension Diabetes Mellitus Atrial fibrillation CHF Polycystic kidney disease - s/p kidney transplant Hypothyroidism Past Surgical History Cholecystectomy b/l nephrectomies Kidney transplant AV fistulas and repairs - multples Metal braxton right foot . Active Ordered Medications Medications where reviewed in EMR Antibiotics Include: azactam x 1 cefepime 1 q 12 Family History CVA - father Social History No Tobacco. No ETOH. No Illicit Drugs. Physical Exam Vital Signs Vital Signs Date Time Temp Pulse Resp B/P (MAP) Pulse Ox O2 Delivery O2 Flow Rate FiO2 02/06/17 09:09 02/06/17 08:21 112 29 117/58 (77) 100 Nasal Cannula 3.00 02/06/17 08:05 114 36 107/55 (72) 100 Nasal Cannula 3.00 02/06/17 08:02 114 107/55 02/06/17 07:52 99 35 02/06/17 07:29 96 Nasal Cannula 3.50 02/06/17 07:17 145 24 109/56 (73) 100 Nasal Cannula 3.00 02/06/17 06:45 100 35 02/06/17 06:20 114 32 109/65 (80) 94 Nasal Cannula 5.00 02/06/17 05:35 99 28 110/53 (72) 100 Nasal Cannula 5.00 02/06/17 05:19 148 32 120/61 (80) 100 Nasal Cannula 5.00 02/06/17 05:06 98 Nasal Cannula 4.00 02/06/17 04:01 44 100 BiPAP 50 02/06/17 03:52 96 BiPAP 50 02/06/17 03:45 98 100 02/06/17 03:45 100.0 127 40 120/76 (91) 93 Physical Exam CONSTITUTIONAL/GENERAL: This is an obese elederly patient, in no apparent distress. TUBES/LINES/DRAINS: SKIN: No jaundice, rashes, or lesions. Ecchymoses on abd wall a/w insulibne injection. Skin temperature appropriate. Not diaphoretic. HEAD: Atraumatic. Normocephalic. EYES: Pupils equal and round and reactive. Extraocular motions intact. No scleral icterus. No injection or drainage. Fundi not examined. ENT: Hearing grossly normal. Nose without bleeding or purulent drainage. Oral mucosae moist without visible erythema, exudates, masses, or lesions. NECK: Trachea midline. Supple, nontender. CARDIOVASCULAR: Regular rate and rhythm without murmurs, gallops, or rubs. No JVD. Peripheral pulses symmetric. RESPIRATORY/CHEST: Symmetric, unlabored respirations. Clear to auscultation. Breath sounds equal bilaterally. No wheezes, rales, or rhonchi. GASTROINTESTINAL: Abdomen soft, non-tender, markedly obese nondistended. No hepato-splenomegaly, or palpable masses. No guarding. Bowel sounds present. GENITOURINARY: Without palpable bladder distension. Montalvo catheter in place with clear light yellow urine MUSCULOSKELETAL: Extremities without clubbing, cyanosis, + pitting chronic appearing 2+edema. No joint tenderness or effusion noted. No calf tenderness. No mottling or clubbing. LYMPHATICS: No palpable cervical or supraclavicular adenopathy. NEUROLOGICAL: Awake and alert. Motor and sensory grossly within normal limits. Follows commands. Clear speech. Moves all extremities. PSYCHIATRIC: No obvious anxiety/depression. no apparent hallucinations or other psychotic thought process. Laboratory Laboratory Tests Test 02/06/17 03:46 02/06/17 03:50 02/06/17 04:50 Blood Gas Puncture Site RT RADIAL Blood Gas Patient Temperature 98.6 Blood Gas HCO3 26 Blood Gas Base Excess 1.5 Blood Gas Oxygen Saturation 98 Arterial Blood pH 7.42 Arterial Blood Partial Pressure CO2 40 Arterial Blood Partial Pressure O2 162 Arterial Blood Oxygen Content 16.9 Arterial Blood Carboxyhemoglobin 1.3 Arterial Blood Methemoglobin 0.5 Blood Gas Hemoglobin 12.1 Oxygen Delivery Device NPPV Blood Gas Ventilator Setting IPAP 15/EPAP 5 Blood Gas Inspired Oxygen 100 White Blood Count 14.2 Red Blood Count 4.29 Hemoglobin 12.6 Hematocrit 39.8 Mean Corpuscular Volume 92.7 Mean Corpuscular Hemoglobin 29.4 Mean Corpuscular Hemoglobin Concent 31.7 Red Cell Distribution Width 15.2 Platelet Count 286 Mean Platelet Volume 7.6 Neutrophils (%) (Auto) 88.2 Lymphocytes (%) (Auto) 5.0 Monocytes (%) (Auto) 3.9 Eosinophils (%) (Auto) 2.4 Basophils (%) (Auto) 0.5 Neutrophils # (Auto) 12.5 Lymphocytes # (Auto) 0.7 Monocytes # (Auto) 0.6 Eosinophils # (Auto) 0.3 Basophils # (Auto) 0.1 CBC Comment DIFF FINAL Differential Comment Prothrombin Time 11.3 Prothromb Time International Ratio 1.0 Activated Partial Thromboplast Time 25.4 Blood Urea Nitrogen 20 Creatinine 1.04 Random Glucose 127 Total Protein 6.6 Albumin 3.0 Calcium Level 8.9 Magnesium Level 1.7 Alkaline Phosphatase 110 Aspartate Amino Transf (AST/SGOT) 15 Alanine Aminotransferase (ALT/SGPT) 22 Total Bilirubin 0.5 Sodium Level 141 Potassium Level 4.4 Chloride Level 105 Carbon Dioxide Level 30.1 Anion Gap 6 Estimat Glomerular Filtration Rate 53 Lactic Acid Level 2.0 Total Creatine Kinase 22 Troponin I LESS THAN 0.02 B-Type Natriuretic Peptide 138 Urine Color YELLOW Urine Turbidity CLEAR Urine pH 6.5 Urine Specific [place] 1.011 Urine Protein NEG Urine Glucose (UA) NEG Urine Ketones NEG Urine Occult Blood NEG Urine Nitrite NEG Urine Bilirubin NEG Urine Urobilinogen LESS THAN 2.0 Urine Leukocyte Esterase NEG Urine WBC 1 Urine Squamous Epithelial Cells <1 Urine Bacteria RARE Microscopic Urinalysis Comment CULT NOT INDICATED Date/Time Source Procedure Growth Status 02/06/17 03:55 Blood Peripheral Aerobic Blood Culture Pending Received 02/06/17 03:55 Blood Peripheral Anaerobic Blood Culture Pending Received Result Diagram: 02/06/17 0350 02/06/17 0350 Imaging Last Impressions Chest X-Ray 02/06/17 0348 Signed Impressions: Service Date/Time: , February 06, 2017 04:13 - CONCLUSION: Cardiomegaly with bilateral pulmonary infiltrates and tiny left effusion. Reynaldo Lira Jr., MD Assessment and Plan Assessment and Plan ESRD sp renal allograft,immunosuppressed Pulmonary infiltrates ? CHF [id number] vs atypoical PNA Leukocytosis Recent C.diff start azithro obtain sputum if feasible repeat CXR fu blood clx chk pneumococcal, leg, flu AG fu 2 D echo might stop abx if P w/u not c/w infx consult snuff drier (pt previously has fu with Dr Elliott, but have not seen him > 1 year Gertrudis Li MD Feb 06, 2017 09:50
[2017-02-06] MEDS: NYSTAT/DIPHENHY/LIDO MOUTHWASH (Adult) 120ML SWISH-SWAL SCH ×4 (10:22→21:32)
[2017-02-06] MEDS: TIMOLOL MALEATE 0.5% OPHT SOLN 5 ML BTL EACH EYE SCH ×2 (10:22→21:32)
[2017-02-06] MEDS: APIXABAN 5 MG TABLET PO SCH ×2 (10:23→21:31)
[2017-02-06] MEDS: METOPROLOL SUCCINATE 25 MG EXTENDED RELEASE TAB PO SCH ×2 (10:23→21:31)
[2017-02-06] MEDS: SODIUM BICARBONATE 325 MG TAB PO SCH ×3 (10:23→17:20)
[2017-02-06] MEDS: TACROLIMUS 1 MG CAP PO SCH (10:23)
[2017-02-06] MEDS: FAMOTIDINE 20 MG TAB PO SCH (10:23)
[2017-02-06] MEDS: INSULIN DETEMIR 100 UNITS/ML VIAL SQ SCH (10:24)
[2017-02-06] MEDS: FUROSEMIDE 40 MG/4 ML VIAL IV PUSH SCH ×2 (10:24→17:20)
[2017-02-06] MEDS: SODIUM CHLORIDE 0.9% FLUSH 10 ML FLUSH IV FLUSH SCH ×2 (10:24→21:32)
[2017-02-06] MEDS: AZITHROMYCIN INJ 500 MG in SODIUM CHLOR 0.9% 250 ML INJ 250 ML IV SCH (13:03)
--- NOTE | 2017-02-06 13:53 | EKG ---
Date Performed: 02/06/2017 Time Performed: 10:53:02 PTAGE: 66 years EKG: ATRIAL FLUTTER NONSPECIFIC T-WAVE ABNORMALITY ABNORMAL RHYTHM ECG PREVIOUS TRACING : 02/06/2017 03.53 Compared to the previous tracing, previously Afib with RVR, now aflutter with controlled ventricular response DOCTOR: Mark Bustamante Interpretating Date/Time 02/06/2017 13:51:30
[2017-02-06 14:03] LABS: CREATINE KINASE 18 U/L (26-192)
--- NOTE | 2017-02-06 14:15 | PD.CONS ---
HPI Service Nephrology Consult Requested By Dr. Cabral Reason for Consult Kidney transplant Primary Care Physician Unknown History of Present Illness Patient is a 66-year-old white female with history of kidney transplant 2004 who has a recent admission for urinary tract infection she was discharged she stated she was a at rehabilitation and the received her physical therapy and she got short of breath, she was admitted with atrial flutter and congestive heart failure has been placed on Lasix 40 mg IV every 12 she still has some shortness of breath present. Review of Systems Constitutional: COMPLAINS OF: Fatigue Respiratory: COMPLAINS OF: Shortness of breath Cardiovascular: COMPLAINS OF: Dyspnea on Exertion, Lower Extremity Edema Musculoskeletal: COMPLAINS OF: Joint pain, Muscle aches Psychiatric: COMPLAINS OF: Anxiety Past Family Social History Allergies: Coded Allergies: Sulfa (Sulfonamide Antibiotics) (Unverified Allergy, Severe, 02/06/17) diatrizoate meglumine (Unverified Allergy, Severe, 02/06/17) gadobenic acid (Unverified Allergy, Severe, 02/06/17) gadodiamide (Unverified Allergy, Severe, 02/06/17) gadoteridol (Unverified Allergy, Severe, 02/06/17) iodixanol (Unverified Allergy, Severe, 02/06/17) iohexol (Unverified Allergy, Severe, PT NEEDS TO BE PREMEDICATED, 02/06/17) penicillin G (Unverified Allergy, Severe, 02/06/17) Past Medical History Recent hx of sepsis/E. coli bacteremia/acute pyelonephritis/C. diff colitis in early 12/2016 Diabetes Kidney transplant Congestive heart failure Peripheral edema Rheumatoid arthritis Recurrent UTIs Atrial fibrillation Past Surgical History Cholecystectomy Kidney transplant AV fistulas and repairs - Metal braxton right foot Reported Medications Reported Meds & Active Scripts Active Prograf (Tacrolimus) 1 Mg Cap 1 Mg PO DAILY@18 Prograf (Tacrolimus) 1 Mg Cap 2 Mg PO DAILY Acidophilus/l-Sporogenes (Lactobacillus Acidophilus) 35 Million Cell-25 Million Cell Tab 1 Tab PO TID Magic Mouthwash Adult Liq (Multi-Ingredient Mouthwash/Gargle) 120 Ml Susp 10 Ml SWISH-SWAL QID 14 Days Clear Eyes Redness Relief Drop (Naphazoline HCl) 0.012 %-0.25 % Drops 1 Drop LEFT EYE Q2HR PRN 30 Days Furosemide 20 Mg Tab 20 Mg PO DAILY Cipro (Ciprofloxacin HCl) 500 Mg Tab 500 Mg PO Q12H End date is 02/12/17 Claritin (Loratadine) 10 Mg Tablet 10 Mg PO DAILY Reported Timolol Opth Drops 0.5 % Soln 1 Drop EACH EYE BID Prednisone 10 Mg Tab 10 Mg PO DAILY Levothyroxine (Levothyroxine Sodium) 25 Mcg Tab 25 Mcg PO DAILY Eliquis (Apixaban) 5 Mg Tab 5 Mg PO BID Tylenol (Acetaminophen) 325 Mg Tab 325 Mg PO BID Sodium Bicarbonate 325 Mg Tab 325 Mg PO TIDPC Metoprolol Succinate ER 24 HR (Metoprolol Succinate) 25 Mg Tab 25 Mg PO BID Humalog Inj (Insulin Human Lispro) 1,000 Unit/10 Ml Vial 2-12 Units SQ ACHS Max dose at bedtime:( )units; sugars < 70,(0)units; sugars 150-199,(2)units; sugars 200-249,(4)units; sugars 250-299,(7)units; sugars 300-349,(10)units; sugars more than 349,(12)units. Lantus Inj (Insulin Glargine) 1,000 Unit/10 Ml Vial 15 Units SQ DAILY Famotidine 20 Mg Tab 20 Mg PO DAILY Duoneb (Ipratropium-Albuterol Neb) 0.5-2.5 Mg/3 Ml Neb 1 Nebule INH Q8HR NEB PRN Active Ordered Medications Current Medications Medications (Trade) Dose Ordered Sig/Liliana Route Start Time Stop Time Status Last Admin (NS Flush) 2 ml UNSCH PRN IV FLUSH 02/06/17 05:15 (NS Flush) 2 ml BID IV FLUSH 02/06/17 09:00 02/06/17 10:24 (Narcan Inj) 0.4 mg UNSCH PRN IV PUSH 02/06/17 05:15 (Lasix Inj) 40 mg BID@,18 IV PUSH 02/06/17 09:00 02/06/17 10:24 (D50w (Vial) Inj) 50 ml UNSCH PRN IV PUSH 02/06/17 06:00 (Glucagon Inj) 1 mg UNSCH PRN OTHER 02/06/17 06:00 (NovoLOG SUPPLEMENTAL SCALE) 1 ACHS SLIDING SCALE SQ 02/06/17 08:00 02/06/17 12:00 (Eliquis) 5 mg BID PO 02/06/17 09:00 02/06/17 10:23 (Pepcid) 20 mg DAILY PO 02/06/17 09:00 02/06/17 10:23 (Levemir Inj) 15 units DAILY SQ 02/06/17 09:00 02/06/17 10:24 (Synthroid) 25 mcg DAILY@0600 PO 02/06/17 06:00 02/06/17 06:31 (Toprol Xl) 25 mg BID PO 02/06/17 09:00 02/06/17 10:23 (Magic Mouthwash Adult Liq) 10 ml QID SWISH-SWAL 02/06/17 09:00 02/06/17 13:03 (Sodium Bicarbonate) 325 mg TIDPC PO 02/06/17 09:30 02/06/17 13:03 (Prograf) 1 mg DAILY@18 PO 02/06/17 18:00 (Prograf) 2 mg DAILY PO 02/06/17 09:00 02/06/17 10:23 (Timoptic 0.5% Opth Soln) 1 drop BID EACH EYE 02/06/17 09:00 02/06/17 10:22 (Atrovent Neb) 0.5 mg Q6HR NEB NEB 02/06/17 10:00 02/06/17 08:12 (Atrovent Neb) 0.5 mg Q2HR NEB PRN NEB 02/06/17 06:00 Cefepime HCl 1000 mg/Sodium Chloride 100 ml @ 200 mls/hr Q12H IV 02/06/17 09:00 02/06/17 09:00 Diltiazem HCl 125 mg/Sodium Chloride 125 ml @ 5 mls/hr TITRATE PRN IV 02/06/17 08:00 02/06/17 08:02 Azithromycin 500 mg/Sodium Chloride 250 ml @ 250 mls/hr Q24H IV 02/06/17 13:00 02/06/17 13:03 (Mag-Ox) 400 mg DAILY PO 02/07/17 09:00 UNV (Drisdol) 50,000 units Q7D PO 02/06/17 14:15 UNV (Deltasone) 10 mg DAILY PO 02/06/17 14:15 UNV (Tylenol) 1,000 mg BID PRN PO 02/06/17 14:15 UNV Family History Noncontributory Social History Denies smoking or alcohol use Physical Exam Vital Signs Vital Signs Date Time Temp Pulse Resp B/P (MAP) Pulse Ox O2 Delivery O2 Flow Rate FiO2 02/06/17 09:09 02/06/17 09:05 113 02/06/17 09:05 99.1 113 36 121/56 (77) 98 02/06/17 08:21 112 29 117/58 (77) 100 Nasal Cannula 3.00 02/06/17 08:05 114 36 107/55 (72) 100 Nasal Cannula 3.00 02/06/17 08:02 114 107/55 02/06/17 07:52 99 35 02/06/17 07:29 96 Nasal Cannula 3.50 02/06/17 07:17 145 24 109/56 (73) 100 Nasal Cannula 3.00 02/06/17 06:45 100 35 02/06/17 06:20 114 32 109/65 (80) 94 Nasal Cannula 5.00 02/06/17 05:35 99 28 110/53 (72) 100 Nasal Cannula 5.00 02/06/17 05:19 148 32 120/61 (80) 100 Nasal Cannula 5.00 02/06/17 05:06 98 Nasal Cannula 4.00 02/06/17 04:01 44 100 BiPAP 50 02/06/17 03:52 96 BiPAP 50 02/06/17 03:45 98 100 02/06/17 03:45 100.0 127 40 120/76 (91) 93 Physical Exam GENERAL: Well-nourished, well-developed patient. SKIN: Warm and dry. HEAD: Normocephalic. EYES: No scleral icterus. No injection or drainage. NECK: Supple, trachea midline. No JVD or lymphadenopathy. CARDIOVASCULAR: Regular rate and rhythm without murmurs, gallops, or rubs. RESPIRATORY: Breath sounds bibasilar Rales GASTROINTESTINAL: Abdomen soft, non-tender, nondistended. EXTREMITIES: No cyanosis, 2+ edema. NEUROLOGICAL: Awake, alert, and oriented x 3. Non-focal. Laboratory Laboratory Tests Test 02/06/17 03:46 02/06/17 03:50 02/06/17 04:50 02/06/17 09:00 Blood Gas Puncture Site RT RADIAL Blood Gas Patient Temperature 98.6 Blood Gas HCO3 26 Blood Gas Base Excess 1.5 Blood Gas Oxygen Saturation 98 Arterial Blood pH 7.42 Arterial Blood Partial Pressure CO2 40 Arterial Blood Partial Pressure O2 162 Arterial Blood Oxygen Content 16.9 Arterial Blood Carboxyhemoglobin 1.3 Arterial Blood Methemoglobin 0.5 Blood Gas Hemoglobin 12.1 Oxygen Delivery Device NPPV Blood Gas Ventilator Setting IPAP 15/EPAP 5 Blood Gas Inspired Oxygen 100 White Blood Count 14.2 Red Blood Count 4.29 Hemoglobin 12.6 Hematocrit 39.8 Mean Corpuscular Volume 92.7 Mean Corpuscular Hemoglobin 29.4 Mean Corpuscular Hemoglobin Concent 31.7 Red Cell Distribution Width 15.2 Platelet Count 286 Mean Platelet Volume 7.6 Neutrophils (%) (Auto) 88.2 Lymphocytes (%) (Auto) 5.0 Monocytes (%) (Auto) 3.9 Eosinophils (%) (Auto) 2.4 Basophils (%) (Auto) 0.5 Neutrophils # (Auto) 12.5 Lymphocytes # (Auto) 0.7 Monocytes # (Auto) 0.6 Eosinophils # (Auto) 0.3 Basophils # (Auto) 0.1 CBC Comment DIFF FINAL Differential Comment Prothrombin Time 11.3 Prothromb Time International Ratio 1.0 Activated Partial Thromboplast Time 25.4 Blood Urea Nitrogen 20 Creatinine 1.04 Random Glucose 127 Total Protein 6.6 Albumin 3.0 Calcium Level 8.9 Magnesium Level 1.7 Alkaline Phosphatase 110 Aspartate Amino Transf (AST/SGOT) 15 Alanine Aminotransferase (ALT/SGPT) 22 Total Bilirubin 0.5 Sodium Level 141 Potassium Level 4.4 Chloride Level 105 Carbon Dioxide Level 30.1 Anion Gap 6 Estimat Glomerular Filtration Rate 53 Lactic Acid Level 2.0 Total Creatine Kinase 22 Troponin I LESS THAN 0.02 B-Type Natriuretic Peptide 138 Urine Color YELLOW Urine Turbidity CLEAR Urine pH 6.5 Urine Specific [place] 1.011 Urine Protein NEG Urine Glucose (UA) NEG Urine Ketones NEG Urine Occult Blood NEG Urine Nitrite NEG Urine Bilirubin NEG Urine Urobilinogen LESS THAN 2.0 Urine Leukocyte Esterase NEG Urine WBC 1 Urine Squamous Epithelial Cells <1 Urine Bacteria RARE Microscopic Urinalysis Comment CULT NOT INDICATED Nasal Screen MRSA (PCR) MRSA NOT DETECTED Test 02/06/17 13:07 Total Creatine Kinase 18 Troponin I LESS THAN 0.02 Date/Time Source Procedure Growth Status 02/06/17 03:55 Blood Peripheral Aerobic Blood Culture Pending Received 02/06/17 03:55 Blood Peripheral Anaerobic Blood Culture Pending Received Result Diagram: 02/06/17 0350 02/06/17 0350 Imaging Last Impressions Chest X-Ray 02/06/17 0348 Signed Impressions: Service Date/Time: January 04:13 - CONCLUSION: Cardiomegaly with bilateral pulmonary infiltrates and tiny left effusion. Reynaldo Lira Jr., MD Assessment and Plan Problem List: (1) Hx of kidney transplant ICD Codes: Z94.0 - Kidney transplant status Plan: Patient creatinine is stable on prednisone 10 mg and tacrolimus 2 in the morning and 1 in the evening I will resume prednisone 10 mg daily She is on Lasix 40 mg IV every 12 we'll continue to monitor her output Avoid nephrotoxic agents Follow tacrolimus level (2) Congestive heart failure ICD Codes: I50.9 - Heart failure, unspecified Plan: Patient is given Lasix with good response he is on oxygen (3) Diabetes mellitus type 2, insulin dependent ICD Codes: E11.9 - Type 2 diabetes mellitus without complications; Z79.4 - jail (current) use of insulin Plan: Monitor blood glucose (4) A-fib ICD Codes: I48.91 - Unspecified atrial fibrillation Status: Acute Plan: She has chronic problem (5) Pneumonia ICD Codes: J18.9 - Pneumonia, unspecified organism Status: Acute Plan: Possible pneumonia and is being treated received Zithromax and Levaquin Problem Qualifiers (1) Pneumonia: Qualified Codes: J15.0 - Pneumonia due to Klebsiella pneumoniae Bill Sandoval MD Feb 06, 2017 14:15
[2017-02-06] MEDS ORDERED: ERGOCALCIFEROL (VIT D2) 50,000 UNIT CAP PO SCH (15:00)
--- NOTE | 2017-02-06 15:13 | MB ---
cc: EVAN CANNON MD DATE OF CONSULTATION: 02/06/2017 HISTORY: This is a 66 from woman who is admitted to hospital for acute shortness of breath. She has a history of end-stage renal disease with successful transplantation in 2004. She has had a history of chronic atrial fibrillation since 2005. She was hospitalized at the first of December with urinary tract infection and C-Difficile. Following her hospitalization she was sent to rehab center but redeveloped fever and was readmitted to [facility]. Antibiotics were given and she recovered from this successfully she has been at the rehab center for approximately a week and awoke last night with acute shortness of breath, no chest pain is present. She denies any cough or sputum production and no palpitations have been present. She has chronic lymphedema and is relatively sedentary. She has been on chronic Eliquis therapy for thromboembolic protection from her atrial fibrillation. On admission 100% oxygen with a pO2 of 167. The chest x-ray reveals no strong evidence for congestive failure and her B-type natriuretic peptide when measured was 134. She has had apart from atrial fibrillation. No other history of heart problems. PAST MEDICAL HISTORY: Past medical history is otherwise been significant for hypertension and type 2 diabetes as well as polycystic kidney disease leading to her transplant. ALLERGIES PENICILLIN SULFA IODINE CONTRAST DYE. MEDICATIONS medications at home have included Lasix 20 mg daily. Cipro 500 mg q. 12. Prednisone 10 mg daily. Levothyroxine 25 mcg daily. Sodium bicarb 325 mg t.i.d. Metoprolol succinate 25 mg twice daily Humalog Insulin Lantus DuoNeb's treatment. PHYSICAL EXAMINATION: IN GENERAL: On physical exam she is awake, alert. She appears in no acute distress. VITAL SIGNS: Her heart rates approximately 72 and regular blood pressure is 120/56, respiratory rate is 29. NECK: There is no neck vein distension. LUNGS: Her lungs are essentially clear. CARDIOVASCULAR SYSTEM: Exam reveals a regular rate and rhythm. There is no murmur. No gallop is noted. ABDOMEN: Abdomen is soft. There is no tenderness, organomegaly. EXTREMITIES: The extremities revealed +2-3 pedal edema with wraps from her lymphedema clinic. ASSESSMENT/PLAN: The patient has no evidence to suggest heart failure and in fact her BNP actually is quite low with her sudden change of shortness of breath, in spite of being on Eliquis therapy, we will order a VQ scan to rule out the possibility of pulmonary emboli, especially in view of her sedentary lifestyle and lymphedema. Her heart rate is under good control and does appear to be an atrial flutter with controlled ventricular response by EKG and certainly would continue her Eliquis as before. MD VAN Bejarano/charis /2:42 PM /3:00 PM
--- NOTE | 2017-02-06 17:09 | EKG ---
Date Performed: 02/06/2017 Time Performed: 03:53:30 PTAGE: 66 years EKG: ATRIAL FIBRILLATION WITH RAPID VENTRICULAR RESPONSE NONSPECIFIC ST & T-WAVE ABNORMALITY ABN ORMAL ECG PREVIOUS TRACING : 01/13/2017 10.03 Compared to prior tracing no significant change DOCTOR: Mark Bustamante Interpretating Date/Time 02/06/2017 17:09:08
[2017-02-06] MEDS: predniSONE 10 MG TAB PO SCH (17:20)
[2017-02-06] MEDS: ACETAMINOPHEN 500 MG CPLT PO PRN (17:21)
--- NOTE | 2017-02-06 17:26 | ECHRPT ---
Indication: CHF CONCLUSIONS Normal left ventricular size. Wall thickness is normal. The left ventricular systolic function is normal with an estimated ejection fraction in the range of 55-60%. The right ventricular systoilc function is mildly decreased. The right atrial size is mildly dilated. Mitral annular calcification is present. Mild mitral valve regurgitation. There is severe tricuspid regurgitation. There is estimated severe pulmonary hypertension present ( 91 mmHg). BP: / HR: Rhythm: MEASUREMENTS (Male / Female) Normal Values Technical Quality:Fair 2D ECHO LV Diastolic Diameter PLAX 4.2 cm 4.2 - 5.9 / 3.9 - 5.3 cm LV Systolic Diameter PLAX 3.1 cm IVS Diastolic Thickness 1.0 cm 0.6 - 1.0 / 0.6 - 0.9 cm LVPW Diastolic Thickness 0.7 cm 0.6 - 1.0 / 0.6 - 0.9 cm LV Relative Wall Thickness 0.4 RV Internal Dim ED PLAX 2.8 cm LA Systolic Diameter LX 4.7 cm 3.0 - 4.0 / 2.7 - 3.8 cm M-MODE Aortic Root Diameter MM 2.7 cm AV Cusp Separation MM 1.6 cm DOPPLER MV Peak Velocity 142.0 cm/s MV Peak Gradient 8.1 mmHg MV Mean Velocity 66.8 cm/s MV Mean Gradient 2.0 mmHg Mitral E Point Velocity 107.0 cm/s Mitral A Point Velocity 38.4 cm/s Mitral E to A Ratio 2.8 TR Peak Velocity 478.0 cm/s TR Peak Gradient 91.4 mmHg FINDINGS LEFT VENTRICLE Normal left ventricular size. Wall thickness is normal. The left ventricular systolic function is normal with an estimated ejection fraction in the range of 55-60%. RIGHT VENTRICLE The right ventricular systoilc function is mildly decreased. LEFT ATRIUM The left atrial size is normal. RIGHT ATRIUM The right atrial size is mildly dilated. ATRIAL SEPTUM Normal atrial septal thickness without atrial level shunting by limited color doppler interrogation. AORTA The aortic root and proximal ascending aorta are normal in size on limited imaging. MITRAL VALVE Mitral annular calcification is present. Mild mitral valve regurgitation. AORTIC VALVE Trileaflet aortic valve. No aortic valve stenosis or regurgitation. TRICUSPID VALVE There is severe tricuspid regurgitation. There is estimated severe pulmonary hypertension present ( 91 mmHg). PULMONARY VALVE The pulmonary valve is not well visualized. VESSELS The inferior vena cava is normal in size. PERICARDIUM No pericardial effusion. Sixto Elliott MD, FACC (Electronically Signed) Final Date:06 February 2017 17:25
[2017-02-06] MEDS ORDERED: TACROLIMUS 1 MG CAP PO SCH (18:00)
[2017-02-06 21:54] LABS: CREATINE KINASE 18 U/L (26-192)
[2017-02-07] VITALS (11 sets, daily range): BP systolic 111–130; BP diastolic 57–65; PULSE 66–73; RESP 21–35; TEMP 97.7–98.4; O2SAT 97–100
[2017-02-07] MEDS: RESP: IPRATROPIUM 0.5 MG/2.5 ML NEB NEB SCH ×4 (03:05→19:35)
[2017-02-07] MEDS: ACETAMINOPHEN 500 MG CPLT PO PRN (03:14)
[2017-02-07] MEDS: LEVOTHYROXINE SODIUM 25 MCG TAB PO SCH (05:29)
[2017-02-07 05:35] LABS: AUTOMATED NEUTROPHIL # 7.9 TH/MM3 (1.8-7.7); BASOPHIL % 0.3 % (0.0-2.0); EOSINOPHIL # 0.1 TH/MM3 (0-0.4); EOSINOPHIL % 1.1 % (0.0-4.0); HEMATOCRIT 33.3 % (35.0-46.0); HEMO FLAGS DIFF FINAL; LYMPH % 6.7 % (9.0-44.0); LYMPHOCYTE # 0.6 TH/MM3 (1.0-4.8); MEAN CELL VOLUME 93.8 FL (80.0-100.0); MEAN CORPUSCULAR HEMOGLOBIN 29.5 PG (27.0-34.0); MEAN CORPUSCULAR HGB CONC 31.4 % (32.0-36.0); MONO % 5.9 % (0.0-8.0); PLATELET COUNT 170 TH/MM3 (150-450); RED BLOOD COUNT 3.55 MIL/MM3 (4.00-5.30); RED CELL DISTRIBUTION WIDTH 14.9 % (11.6-17.2); WHITE BLOOD COUNT 9.2 TH/MM3 (4.0-11.0)
[2017-02-07 05:57] LABS: BICARBONATE 30.5 MEQ/L (21.0-32.0); MAGNESIUM 1.7 MG/DL (1.5-2.5); POTASSIUM 4.4 MEQ/L (3.5-5.1)
[2017-02-07] MEDS: INSULIN ASPART SUPPLEMENTAL SCALE SQ SCH ×4 (08:00→21:00)
[2017-02-07] MEDS: FUROSEMIDE 40 MG/4 ML VIAL IV PUSH SCH (08:22)
[2017-02-07] MEDS: TIMOLOL MALEATE 0.5% OPHT SOLN 5 ML BTL EACH EYE SCH ×2 (08:22→22:06)
[2017-02-07] MEDS: SODIUM CHLORIDE 0.9% FLUSH 10 ML FLUSH IV FLUSH SCH ×2 (08:22→21:00)
[2017-02-07] MEDS: CEFEPIME INJ 1,000 MG in SODIUM CHLORIDE 0.9% INJ 100 ML IV SCH ×2 (08:22→22:06)
[2017-02-07] MEDS: APIXABAN 5 MG TABLET PO SCH ×2 (08:23→22:04)
[2017-02-07] MEDS: TACROLIMUS 1 MG CAP PO SCH ×2 (08:23→22:04)
[2017-02-07] MEDS: METOPROLOL SUCCINATE 25 MG EXTENDED RELEASE TAB PO SCH ×2 (08:23→22:05)
[2017-02-07] MEDS: predniSONE 10 MG TAB PO SCH (08:23)
[2017-02-07] MEDS: FAMOTIDINE 20 MG TAB PO SCH (08:23)
[2017-02-07] MEDS: INSULIN DETEMIR 100 UNITS/ML VIAL SQ SCH (08:24)
[2017-02-07] MEDS: SODIUM BICARBONATE 325 MG TAB PO SCH ×3 (08:24→17:38)
[2017-02-07] MEDS: NYSTAT/DIPHENHY/LIDO MOUTHWASH (Adult) 120ML SWISH-SWAL SCH ×4 (08:31→21:00)
[2017-02-07] MEDS: DILTIAZEM INJ 125 MG in SODIUM CHLORIDE 0.9% INJ 100 ML IV PRN (08:31)
--- NOTE | 2017-02-07 10:34 | RADRPT ---
EXAM DATE/TIME: 02/07/2017 10:03 [facility] COMPARISON: CHEST SINGLE AP, February 06, 2017, 4:13. INDICATIONS : Short of breath. MEDICAL HISTORY : Congestive heart failure. Gastroesophageal reflux disease. Hypertension. atrial fibrillation SURGICAL HISTORY : Cholecystectomy. bilateral nephrectomies, endometrial biopsy ENCOUNTER: Initial ACUITY: 1 day PAIN SCORE: 0/10 LOCATION: Bilateral chest FINDINGS: The areas of faint pulmonary infiltrate and/or atelectasis parenchymal opacities are essentially stab le most prominent in the retrocardiac region is a prominence of bronchovascular markings without cons olidation. Blunted left costophrenic angle persists suggesting small effusion. CONCLUSION: Stable chest. Kyree Johnston MD on February 07, 2017 at 10:31 Board Certified Radiologist. This report was verified electronically.
[2017-02-07] MEDS: AZITHROMYCIN INJ 500 MG in SODIUM CHLOR 0.9% 250 ML INJ 250 ML IV SCH (12:29)
[2017-02-07] MEDS: MAGNESIUM OXIDE 400 MG TAB PO SCH (12:30)
--- NOTE | 2017-02-07 12:39 | HHI.NPPN ---
Subjective History of Present Illness 66 year old female with chf, A fib, s/p kidney transplant 2004 with increasing SOB Additional Remarks Echo Sever Pulmonary hypertension and TR EF 55% Objective Data Data 02/07/17 02/08/17 19:00 07:00 Intake Total 116 ml Balance 116 ml IV Total 116 ml Vital Signs Date Time Temp Pulse Resp B/P (MAP) Pulse Ox O2 Delivery O2 Flow Rate FiO2 02/07/17 08:31 70 130/65 02/07/17 07:46 97 Nasal Cannula 3.00 02/07/17 06:00 66 02/07/17 04:00 67 02/07/17 04:00 98.3 66 23 130/61 (84) 100 02/07/17 02:00 67 02/07/17 00:00 98.4 67 22 119/57 (77) 100 02/07/17 00:00 67 02/06/17 22:00 70 02/06/17 20:00 98.2 69 24 129/65 (86) 100 02/06/17 20:00 69 02/06/17 19:25 99 Nasal Cannula 2.00 02/06/17 18:21 23 02/06/17 18:00 72 02/06/17 16:00 98.4 75 25 116/57 (76) 100 02/06/17 16:00 75 02/06/17 14:00 72 -: 02/07/17 0341 02/07/17 0341 Assessment/Plan Problem List: (1) Hx of kidney transplant ICD Codes: Z94.0 - Kidney transplant status Plan: Patient creatinine is Higher post diuresis, she is on prednisone 10 mg and tacrolimus 2 in the morning and 1 in the evening I will decrease Lasix Pulmonary Hypertension 91 mm Hg severe need a CT scan to follow on this ? Pulmonary Fibrosis tacrolimus level lower end increase to 2 mg q 12 (2) Congestive heart failure ICD Codes: I50.9 - Heart failure, unspecified Plan: Patient is given Lasix with good response he is on oxygen (3) Diabetes mellitus type 2, insulin dependent ICD Codes: E11.9 - Type 2 diabetes mellitus without complications; Z79.4 - parts counterman (current) use of insulin Plan: Monitor blood glucose (4) A-fib ICD Codes: I48.91 - Unspecified atrial fibrillation Status: Acute Plan: She has chronic problem (5) Pneumonia ICD Codes: J18.9 - Pneumonia, unspecified organism Status: Acute Plan: Possible pneumonia and is being treated received Zithromax and Levaquin Problem Qualifiers (1) Pneumonia: Qualified Codes: J15.0 - Pneumonia due to Klebsiella pneumoniae Bill Sandoval MD Feb 07, 2017 12:39
--- NOTE | 2017-02-07 13:22 | HHI.PR ---
Subjective Remarks The patient reports that she woke up at 0215 and couldn't breath. Symptoms severe. She was given Lasix p.o. and didn't improve so the SNF physician instructed that she should be sent to the hospital. She was recently weaned off of supplemental oxygen. She complains of orthopnea. She is residing at [facility]. [facility] first couple of weeks of [place] [facility] [place], beginning of January. Denies cough, fever, nausea, vomiting, coffee or red colored vomit, black or red stool. She reports taking Lasix 20 mg once daily. Recently dosage decreased on Tacrolimus and CellCept d/c'd recently The patient required bipap on ER arrival and is now somewhat tachypneic on 5 liters supplemental oxygen via nasal cannula - oxygen saturation is 100%. 02-07 PATIENT REMAINS ON CARDIZEM DRIP TO HAVE CT OF CHEST TODAY DW RN AND PT AND ID SEEMS TO BE BREATHING BETTER THAN YESTERDAY EVENING HAS BEEN LIVING AT A SNF PRIOR TO ADMISSION HX OF PULMONARY HYPERTENSION SEVERE BL LE LYMPHEDEMA Objective Vitals Vital Signs Date Time Temp Pulse Resp B/P (MAP) Pulse Ox O2 Delivery O2 Flow Rate FiO2 02/07/17 08:31 70 130/65 02/07/17 07:46 97 Nasal Cannula 3.00 02/07/17 06:00 66 02/07/17 04:00 67 02/07/17 04:00 98.3 66 23 130/61 (84) 100 02/07/17 02:00 67 02/07/17 00:00 98.4 67 22 119/57 (77) 100 02/07/17 00:00 67 02/06/17 22:00 70 02/06/17 20:00 98.2 69 24 129/65 (86) 100 02/06/17 20:00 69 02/06/17 19:25 99 Nasal Cannula 2.00 02/06/17 18:21 23 02/06/17 18:00 72 02/06/17 16:00 98.4 75 25 116/57 (76) 100 02/06/17 16:00 75 02/06/17 14:00 72 I/O 02/06/17 02/06/17 02/06/17 02/07/17 02/07/17 02/07/17 07:00 15:00 23:00 07:00 15:00 23:00 Intake Total 100 ml 355 ml 480 ml 450 ml 116 ml Output Total 575 ml 1200 ml 425 ml Balance -475 ml 355 ml -720 ml 25 ml 116 ml Intake Oral 480 ml 450 ml IV Total 100 ml 355 ml 116 ml Output Urine Total 575 ml 1200 ml 425 ml Result Diagram: 02/07/17 0341 02/07/17 0341 Other Results Laboratory Tests Test 02/06/17 03:46 02/06/17 03:50 02/06/17 04:50 02/06/17 09:00 Blood Gas Puncture Site RT RADIAL Blood Gas Patient Temperature 98.6 Blood Gas HCO3 26 mmol/L Blood Gas Base Excess 1.5 mmol/L Blood Gas Oxygen Saturation 98 % Arterial Blood pH 7.42 Arterial Blood Partial Pressure CO2 40 mmHg Arterial Blood Partial Pressure O2 162 mmHG Arterial Blood Oxygen Content 16.9 Vol % Arterial Blood Carboxyhemoglobin 1.3 % Arterial Blood Methemoglobin 0.5 % Blood Gas Hemoglobin 12.1 G/DL Oxygen Delivery Device NPPV Blood Gas Ventilator Setting IPAP 15/EPAP 5 Blood Gas Inspired Oxygen 100 % White Blood Count 14.2 TH/MM3 Red Blood Count 4.29 MIL/MM3 Hemoglobin 12.6 GM/DL Hematocrit 39.8 % Mean Corpuscular Volume 92.7 FL Mean Corpuscular Hemoglobin 29.4 PG Mean Corpuscular Hemoglobin Concent 31.7 % Red Cell Distribution Width 15.2 % Platelet Count 286 TH/MM3 Mean Platelet Volume 7.6 FL Neutrophils (%) (Auto) 88.2 % Lymphocytes (%) (Auto) 5.0 % Monocytes (%) (Auto) 3.9 % Eosinophils (%) (Auto) 2.4 % Basophils (%) (Auto) 0.5 % Neutrophils # (Auto) 12.5 TH/MM3 Lymphocytes # (Auto) 0.7 TH/MM3 Monocytes # (Auto) 0.6 TH/MM3 Eosinophils # (Auto) 0.3 TH/MM3 Basophils # (Auto) 0.1 TH/MM3 CBC Comment DIFF FINAL Differential Comment Prothrombin Time 11.3 SEC Prothromb Time International Ratio 1.0 RATIO Activated Partial Thromboplast Time 25.4 SEC Blood Urea Nitrogen 20 MG/DL Creatinine 1.04 MG/DL Random Glucose 127 MG/DL Total Protein 6.6 GM/DL Albumin 3.0 GM/DL Calcium Level 8.9 MG/DL Magnesium Level 1.7 MG/DL Alkaline Phosphatase 110 U/L Aspartate Amino Transf (AST/SGOT) 15 U/L Alanine Aminotransferase (ALT/SGPT) 22 U/L Total Bilirubin 0.5 MG/DL Sodium Level 141 MEQ/L Potassium Level 4.4 MEQ/L Chloride Level 105 MEQ/L Carbon Dioxide Level 30.1 MEQ/L Anion Gap 6 MEQ/L Estimat Glomerular Filtration Rate 53 ML/MIN Lactic Acid Level 2.0 mmol/L Total Creatine Kinase 22 U/L Troponin I LESS THAN 0.02 NG/ML B-Type Natriuretic Peptide 138 PG/ML Urine Color YELLOW Urine Turbidity CLEAR Urine pH 6.5 Urine Specific Slater 1.011 Urine Protein NEG mg/dL Urine Glucose (UA) NEG mg/dL Urine Ketones NEG mg/dL Urine Occult Blood NEG Urine Nitrite NEG Urine Bilirubin NEG Urine Urobilinogen LESS THAN 2.0 MG/DL Urine Leukocyte Esterase NEG Urine WBC 1 /hpf Urine Squamous Epithelial Cells <1 /hpf Urine Bacteria RARE /hpf Microscopic Urinalysis Comment CULT NOT INDICATED Nasal Screen MRSA (PCR) MRSA NOT DETECTED Test 02/06/17 13:07 02/06/17 20:56 02/07/17 03:41 Total Creatine Kinase 18 U/L 18 U/L Troponin I LESS THAN 0.02 NG/ML LESS THAN 0.02 NG/ML White Blood Count 9.2 TH/MM3 Red Blood Count 3.55 MIL/MM3 Hemoglobin 10.5 GM/DL Hematocrit 33.3 % Mean Corpuscular Volume 93.8 FL Mean Corpuscular Hemoglobin 29.5 PG Mean Corpuscular Hemoglobin Concent 31.4 % Red Cell Distribution Width 14.9 % Platelet Count 170 TH/MM3 Mean Platelet Volume 7.9 FL Neutrophils (%) (Auto) 86.0 % Lymphocytes (%) (Auto) 6.7 % Monocytes (%) (Auto) 5.9 % Eosinophils (%) (Auto) 1.1 % Basophils (%) (Auto) 0.3 % Neutrophils # (Auto) 7.9 TH/MM3 Lymphocytes # (Auto) 0.6 TH/MM3 Monocytes # (Auto) 0.5 TH/MM3 Eosinophils # (Auto) 0.1 TH/MM3 Basophils # (Auto) 0.0 TH/MM3 CBC Comment DIFF FINAL Differential Comment Blood Urea Nitrogen 23 MG/DL Creatinine 1.12 MG/DL Random Glucose 168 MG/DL Calcium Level 8.6 MG/DL Phosphorus Level 3.8 MG/DL Magnesium Level 1.7 MG/DL Sodium Level 138 MEQ/L Potassium Level 4.4 MEQ/L Chloride Level 101 MEQ/L Carbon Dioxide Level 30.5 MEQ/L Anion Gap 7 MEQ/L Estimat Glomerular Filtration Rate 49 ML/MIN Tacrolimus (Prograf) Level 3.9 NG/ML Imaging Last Impressions Chest X-Ray 02/07/17 0000 Signed Impressions: Service Date/Time: Tuesday, February 07, 2017 10:03 - CONCLUSION: Stable chest. Kyree Johnston MD Objective Remarks GENERAL: This is an obese elderly female patient who is tachypneic. SKIN: No rashes, ecchymoses or lesions. Cool and dry. Bilateral lower extremities with CHRONIC skin changes c/w lymphedema HEAD: Atraumatic. Normocephalic. EYES: No scleral icterus. No injection or drainage. PERRLA EOMI ENT: Nose without bleeding, purulent drainage. Airway patent.TONGUE MIDLINE NECK: Trachea midline. No JVD. NECK SUPPLE CARDIOVASCULAR: IRRegular rate and rhythm without murmurs, gallops, or rubs. S1 , S2 NO S3 OR S4 NO HEAVE RESPIRATORY: Breath sounds diminished; equal bilaterally. No wheezes, rales, or rhonchi. Tachypneic and using accessory muscles to breath IMPROVING ON OXYGEN GASTROINTESTINAL: Abdomen soft, non-tender, nondistended. No guarding. OBESE MUSCULOSKELETAL: Extremities without clubbing, cyanosis. CHRONIC BL LE LYMPHEDEMA NEUROLOGICAL: Awake and alert. Motor and sensory grossly within normal limits. Normal speech. INSIGHT AND JUDGEMENT ARE GOOD MOOD AND BEHAVIOR ARE APPROPRIATE Medications and IVs Current Medications Furosemide (Lasix Inj) 60 mg DAILY IV PUSH ; Start 02/06/17 at 09:00; Stop 02/06 at 09:00; Status DC Sodium Chloride (NS Flush) 2 ml UNSCH PRN IVF FLUSH AFTER USING IV ACCESS; Start 02/06/17 at 04:00; Stop 02/06/17 at 05:16; Status DC Furosemide (Lasix Inj) 60 mg ONCE ONCE IV PUSH Last administered on 02/06/17t 04:05; Start 02/06/17 at 04:00; Stop 02/06/17 at 04:01; Status DC Ondansetron HCl (Zofran Inj) 8 mg ONCE ONCE IV PUSH Last administered on 04:13; Start 02/06/17 at 04:15; Stop 02/06/17 at 04:16; Status DC Aztreonam 2000 mg/ Sodium Chloride 100 ml @ 200 mls/hr NOW ONCE IV Last administered on 02/06/17 05:43; Start 02/06/17 at 05:15; Stop 02/06/17 at 05:44 ; Status DC Levofloxacin (Levaquin) 750 mg ONCE ONCE PO Last administered on 02/06/17 05: 16; Start 02/06/17 at 05:15; Stop 02/06/17 at 05:16; Status DC Diltiazem HCl (Cardizem Inj) 26 mg BOLUS ONCE IV PUSH Last administered on 05:20; Start 02/06/17 at 05:15; Stop 02/06/17 at 05:16; Status DC Sodium Chloride (NS Flush) 2 ml UNSCH PRN IV FLUSH FLUSH AFTER USING IV ACCESS Last administered on 02/07/17 08:22; Start 02/06/17 at 05:15 Sodium Chloride (NS Flush) 2 ml BID IV FLUSH Last administered on 02/07/17 08: 22; Start 02/06/17 at 09:00 Naloxone HCl (Narcan Inj) 0.4 mg UNSCH PRN IV PUSH SEE LABEL COMMENTS; Start at 05:15 Furosemide (Lasix Inj) 40 mg BID@09,18 IV PUSH Last administered on 02/07/17 08:22; Start 02/06/17 at 09:00; Stop 02/07/17 at 12:41; Status DC Dextrose (D50w (Vial) Inj) 50 ml UNSCH PRN IV PUSH HYPOGLYCEMIA-SEE COMMENTS; Start 02/06/17 at 06:00 Glucagon (Glucagon Inj) 1 mg UNSCH PRN OTHER HYPOGLYCEMIA-SEE COMMENTS; Start 02/06/17 at 06:00 Insulin Aspart (NovoLOG SUPPLEMENTAL SCALE) 1 ACHS SLIDING SCALE SQ Last administered on 02/07/17 12:29; Start 02/06/17 at 08:00 Apixaban (Eliquis) 5 mg BID PO Last administered on 02/07/17 08:23; Start at 09:00 Famotidine (Pepcid) 20 mg DAILY PO Last administered on 02/07/17 08:23; Start 02/06/17 at 09:00 Insulin Detemir (Levemir Inj) 15 units DAILY SQ Last administered on 02/07/17 08:24; Start 02/06/17 at 09:00 Levothyroxine Sodium (Synthroid) 25 mcg DAILY@0600 PO Last administered on 02/07 05:29; Start 02/06/17 at 06:00 Metoprolol Succinate (Toprol Xl) 25 mg BID PO Last administered on 02/07/17 08 :23; Start 02/06/17 at 09:00 Multi-Ingredient Mouthwash/Gargle (Magic Mouthwash Adult Liq) 10 ml QID SWISH- SWAL Last administered on 02/07/17 12:29; Start 02/06/17 at 09:00 Sodium Bicarbonate (Sodium Bicarbonate) 325 mg TIDPC PO Last administered on 12:30; Start 02/06/17 at 09:30 Tacrolimus (Prograf) 1 mg DAILY@18 PO Last administered on 02/06/17 17:20; Start 02/06/17 at 18:00; Status Future Hold Tacrolimus (Prograf) 2 mg DAILY PO Last administered on 02/07/17 08:23; Start 02/06/17 at 09:00; Stop 02/07/17 at 12:41; Status DC Timolol Maleate (Timoptic 0.5% Opt Soln) 1 drop BID EACH EYE Last administered on 02/07/17 08:22; Start 02/06/17 at 09:00 Ipratropium Ola (Atrovent Neb) 0.5 mg Q6HR NEB NEB Last administered on 07:44; Start 02/06/17 at 10:00 Ipratropium Ola (Atrovent Neb) 0.5 mg Q2HR NEB PRN NEB wheezing; Start at 06:00 Cefepime HCl 1000 mg/Sodium Chloride 100 ml @ 200 mls/hr Q12H IV Last administered on 02/07/17 08:22; Start 02/06/17 at 09:00 Diltiazem HCl (Cardizem Inj) 15 mg ONCE ONCE IV PUSH Last administered on 02/06 07:25; Start 02/06/17 at 07:15; Stop 02/06/17 at 07:16; Status DC Diltiazem HCl 125 mg/Sodium Chloride 125 ml @ 5 mls/hr TITRATE PRN IV Tachycardia Last administered on 02/07/17 08:31; Start 02/06/17 at 08:00 Azithromycin 500 mg/Sodium Chloride 250 ml @ 250 mls/hr Q24H IV Last administered on 02/07/17 12:29; Start 02/06/17 at 13:00 Magnesium Oxide (Mag-Ox) 400 mg DAILY@1200 PO Last administered on 02/07/17 12 :30; Start 02/07/17 at 12:00 Ergocalciferol (Drisdol) 50,000 units Q7D PO Last administered on 02/06/17 17: 20; Start 02/06/17 at 15:00 Prednisone (Deltasone) 10 mg DAILY PO Last administered on 02/07/17 08:23; Start 02/06/17 at 15:00 Acetaminophen (Tylenol) 1,000 mg Q12H PRN PO Arthritis/pain Last administered on 02/07/17 03:14; Start 02/06/17 at 15:00 Furosemide (Lasix Inj) 40 mg DAILY IV PUSH ; Start 02/08/17 at 09:00; Status UNV Tacrolimus (Prograf) 2 mg BID NEB PO ; Start 02/07/17 at 20:00; Status UNV A/P Problem List: (1) Congestive heart failure ICD Code: I50.9 - Heart failure, unspecified (2) Pneumonia ICD Code: J18.9 - Pneumonia, unspecified organism Status: Acute (3) Diabetes mellitus type 2, insulin dependent ICD Code: E11.9 - Type 2 diabetes mellitus without complications; Z79.4 - group home (current) use of insulin (4) Hyperlipidemia ICD Code: E78.5 - Hyperlipidemia, unspecified (5) HTN (hypertension) ICD Code: I10 - Essential (primary) hypertension (6) Chronic atrial fibrillation with RVR ICD Code: I48.2 - Chronic atrial fibrillation Status: Acute (7) Hx of kidney transplant ICD Code: Z94.0 - Kidney transplant status (8) A-fib ICD Code: I48.91 - Unspecified atrial fibrillation Status: Acute (9) Hypoxia ICD Code: R09.02 - Hypoxemia Status: Acute (10) SOB (shortness of breath) ICD Code: R06.02 - Shortness of breath Assessment and Plan 66-year-old female transferred from local care home facility for acute onset shortness of breath: Acute CHF exacerbation--DOUBT CHF EXACERBATION HAS SEVERE PULMONARY HYPERTENSION- HAD BEEN OFF OXYGEN AT THE SNF - BNP 138 - CXR shows cardiomegaly with bilateral pulmonary infiltrates and tiny left effusion - monitor serial EKGs and cardiac enzymes to r/o ACS - Strictly monitor intake and output - Heart healthy diet - Continuous cardiac telemetry to monitor for cardiac arrhythmias Pneumonia, bilateral - CXR shows cardiomegaly with bilateral pulmonary infiltrates and tiny left effusion - Cefepime 1 g IV every 12 hours - consult infectious disease - patient on immunosuppressants for kidney transplant - Atrovent nebulizers every 6 hours scheduled and every 2 hours as needed for wheezing Type 2 Diabetes Mellitus - Continue home dose of Lantus daily - Accu-Cheks before meals and at bedtime with low-dose NovoLog sliding scale coverage - Hypoglycemia protocol - Monitor trends and blood glucose readings and adjust treatments as indicated DVT prophylaxis - Resume Eliquis was 5 mg twice a day p.o. PULMONARY HYPERTENSION ECHO HX RENAL TRANSPLANT ON CHRONIC IMMUNOSUPPRESSION CARDIAC, RENAL AND ID CONSULTS Problem Qualifiers (1) Pneumonia: Qualified Codes: J15.0 - Pneumonia due to Klebsiella pneumoniae Davin Vera DO Feb 07, 2017 13:22
--- NOTE | 2017-02-07 14:19 | PD.CARD.PN ---
Subjective Subjective Remarks Breathing a little better. Objective Vital Signs / I&O Vital Signs Date Time Temp Pulse Resp B/P (MAP) Pulse Ox O2 Delivery O2 Flow Rate FiO2 02/07/17 12:00 72 02/07/17 12:00 98.4 72 21 111/58 (75) 100 02/07/17 10:00 73 02/07/17 08:31 70 130/65 02/07/17 08:00 98.1 70 35 130/65 (86) 99 02/07/17 08:00 70 02/07/17 07:46 97 Nasal Cannula 3.00 02/07/17 06:00 66 02/07/17 04:00 67 02/07/17 04:00 98.3 66 23 130/61 (84) 100 02/07/17 02:00 67 02/07/17 00:00 98.4 67 22 119/57 (77) 100 02/07/17 00:00 67 02/06/17 22:00 70 02/06/17 20:00 98.2 69 24 129/65 (86) 100 02/06/17 20:00 69 02/06/17 19:25 99 Nasal Cannula 2.00 02/06/17 18:21 23 02/06/17 18:00 72 02/06/17 16:00 98.4 75 25 116/57 (76) 100 02/06/17 16:00 75 I/O 02/06/17 02/06/17 02/06/17 02/07/17 02/07/17 02/07/17 07:00 15:00 23:00 07:00 15:00 23:00 Intake Total 100 ml 355 ml 480 ml 450 ml 116 ml Output Total 575 ml 1200 ml 425 ml Balance -475 ml 355 ml -720 ml 25 ml 116 ml Intake Oral 480 ml 450 ml IV Total 100 ml 355 ml 116 ml Output Urine Total 575 ml 1200 ml 425 ml Physical Exam Lungs clear RRR Laboratory Laboratory Tests Test 02/06/17 20:56 02/07/17 03:41 Total Creatine Kinase 18 U/L Troponin I LESS THAN 0.02 NG/ML White Blood Count 9.2 TH/MM3 Red Blood Count 3.55 MIL/MM3 Hemoglobin 10.5 GM/DL Hematocrit 33.3 % Mean Corpuscular Volume 93.8 FL Mean Corpuscular Hemoglobin 29.5 PG Mean Corpuscular Hemoglobin Concent 31.4 % Red Cell Distribution Width 14.9 % Platelet Count 170 TH/MM3 Mean Platelet Volume 7.9 FL Neutrophils (%) (Auto) 86.0 % Lymphocytes (%) (Auto) 6.7 % Monocytes (%) (Auto) 5.9 % Eosinophils (%) (Auto) 1.1 % Basophils (%) (Auto) 0.3 % Neutrophils # (Auto) 7.9 TH/MM3 Lymphocytes # (Auto) 0.6 TH/MM3 Monocytes # (Auto) 0.5 TH/MM3 Eosinophils # (Auto) 0.1 TH/MM3 Basophils # (Auto) 0.0 TH/MM3 CBC Comment DIFF FINAL Differential Comment Blood Urea Nitrogen 23 MG/DL Creatinine 1.12 MG/DL Random Glucose 168 MG/DL Calcium Level 8.6 MG/DL Phosphorus Level 3.8 MG/DL Magnesium Level 1.7 MG/DL Sodium Level 138 MEQ/L Potassium Level 4.4 MEQ/L Chloride Level 101 MEQ/L Carbon Dioxide Level 30.5 MEQ/L Anion Gap 7 MEQ/L Estimat Glomerular Filtration Rate 49 ML/MIN Tacrolimus (Prograf) Level 3.9 NG/ML Assessment and Plan Assessment and Plan Stable Await V/Q scan Junior Monte MD Feb 07, 2017 14:19
--- NOTE | 2017-02-07 16:16 | HHI.PR ---
Addendum to Inpatient Note Additional Information pt seen today full note to follow Gertrudis Li MD Feb 07, 2017 16:16
--- NOTE | 2017-02-07 16:52 | EKG ---
Date Performed: 02/06/2017 Time Performed: 14:31:43 PTAGE: 66 years EKG: Atrial Flutter Since PREVIOUS TRACING , no significant change noted PREVIOUS TRACIN02/06/2017 10.53 DOCTOR: Scarlet Raygoza Interpretating Date/Time 02/07/2017 16:50:51
--- NOTE | 2017-02-07 19:05 | HHI.IDPN ---
Subjective Subjective Remarks remains afebrile breathing stable 2 D echo with n;l EF, but severe pulm HTN unable to expectorate Antibiotics azithro cefepime Allergies: Coded Allergies: Sulfa (Sulfonamide Antibiotics) (Unverified Allergy, Severe, 02/06/17) diatrizoate meglumine (Unverified Allergy, Severe, 02/06/17) gadobenic acid (Unverified Allergy, Severe, 02/06/17) gadodiamide (Unverified Allergy, Severe, 02/06/17) gadoteridol (Unverified Allergy, Severe, 02/06/17) iodixanol (Unverified Allergy, Severe, 02/06/17) iohexol (Unverified Allergy, Severe, PT NEEDS TO BE PREMEDICATED, 02/06/17) penicillin G (Unverified Allergy, Severe, 02/06/17) Objective . Vital Signs Date Time Temp Pulse Resp B/P (MAP) Pulse Ox O2 Delivery O2 Flow Rate FiO2 02/07/17 16:00 97.7 68 26 125/64 (84) 100 02/07/17 16:00 68 02/07/17 12:00 72 02/07/17 12:00 98.4 72 21 111/58 (75) 100 02/07/17 10:00 73 02/07/17 08:31 70 130/65 02/07/17 08:00 98.1 70 35 130/65 (86) 99 02/07/17 08:00 70 02/07/17 07:46 97 Nasal Cannula 3.00 02/07/17 06:00 66 02/07/17 04:00 67 02/07/17 04:00 98.3 66 23 130/61 (84) 100 02/07/17 02:00 67 02/07/17 00:00 98.4 67 22 119/57 (77) 100 02/07/17 00:00 67 02/06/17 22:00 70 02/06/17 20:00 98.2 69 24 129/65 (86) 100 02/06/17 20:00 69 02/06/17 19:25 99 Nasal Cannula 2.00 02/07/17 02/07/17 02/08/17 15:00 23:00 07:00 Intake Total 116 ml 758 ml Output Total 1175 ml Balance 116 ml -417 ml Intake Oral 708 ml IV Total 116 ml 50 ml Output Urine Total 1175 ml # Bowel Movements 1 . Laboratory Tests Test 02/06/17 03:50 02/07/17 03:41 White Blood Count 14.2 TH/MM3 9.2 TH/MM3 Red Blood Count 4.29 MIL/MM3 3.55 MIL/MM3 Hemoglobin 12.6 GM/DL 10.5 GM/DL Hematocrit 39.8 % 33.3 % Mean Corpuscular Volume 92.7 FL 93.8 FL Mean Corpuscular Hemoglobin 29.4 PG 29.5 PG Mean Corpuscular Hemoglobin Concent 31.7 % 31.4 % Red Cell Distribution Width 15.2 % 14.9 % Platelet Count 286 TH/MM3 170 TH/MM3 Mean Platelet Volume 7.6 FL 7.9 FL Neutrophils (%) (Auto) 88.2 % 86.0 % Lymphocytes (%) (Auto) 5.0 % 6.7 % Monocytes (%) (Auto) 3.9 % 5.9 % Eosinophils (%) (Auto) 2.4 % 1.1 % Basophils (%) (Auto) 0.5 % 0.3 % Neutrophils # (Auto) 12.5 TH/MM3 7.9 TH/MM3 Lymphocytes # (Auto) 0.7 TH/MM3 0.6 TH/MM3 Monocytes # (Auto) 0.6 TH/MM3 0.5 TH/MM3 Eosinophils # (Auto) 0.3 TH/MM3 0.1 TH/MM3 Basophils # (Auto) 0.1 TH/MM3 0.0 TH/MM3 CBC Comment DIFF FINAL DIFF FINAL Differential Comment Laboratory Tests Test 02/06/17 03:50 02/06/17 13:07 02/06/17 20:56 02/07/17 03:41 Blood Urea Nitrogen 20 MG/DL 23 MG/DL Creatinine 1.04 MG/DL 1.12 MG/DL Random Glucose 127 MG/DL 168 MG/DL Total Protein 6.6 GM/DL Albumin 3.0 GM/DL Calcium Level 8.9 MG/DL 8.6 MG/DL Magnesium Level 1.7 MG/DL 1.7 MG/DL Alkaline Phosphatase 110 U/L Aspartate Amino Transf (AST/SGOT) 15 U/L Alanine Aminotransferase (ALT/SGPT) 22 U/L Total Bilirubin 0.5 MG/DL Sodium Level 141 MEQ/L 138 MEQ/L Potassium Level 4.4 MEQ/L 4.4 MEQ/L Chloride Level 105 MEQ/L 101 MEQ/L Carbon Dioxide Level 30.1 MEQ/L 30.5 MEQ/L Anion Gap 6 MEQ/L 7 MEQ/L Estimat Glomerular Filtration Rate 53 ML/MIN 49 ML/MIN Lactic Acid Level 2.0 mmol/L Total Creatine Kinase 22 U/L 18 U/L 18 U/L Troponin I LESS THAN 0.02 NG/ML LESS THAN 0.02 NG/ML LESS THAN 0.02 NG/ML B-Type Natriuretic Peptide 138 PG/ML Phosphorus Level 3.8 MG/DL Microbiology Date/Time Source Procedure Growth Status 02/06/17 03:55 Blood Peripheral Aerobic Blood Culture - Preliminary NO GROWTH IN 1 DAY Resulted 02/06/17 03:55 Blood Peripheral Anaerobic Blood Culture - Preliminary NO GROWTH IN 1 DAY Resulted 02/06/17 03:50 Blood Peripheral Aerobic Blood Culture - Preliminary NO GROWTH IN 1 DAY Resulted 02/06/17 03:50 Blood Peripheral Anaerobic Blood Culture - Preliminary NO GROWTH IN 1 DAY Resulted 02/06/17 04:50 Urine Random Urine Legionella Antigen - Final PRESUMPTIVE NEGATIVE FOR LEGIONELLA P... Complete 02/06/17 04:50 Urine Random Urine Streptococcus pneumoniae Antigen (M - Final PRESUMPTIVE NEGATIVE FOR STREPTOCOCCU... Complete Imaging Last Impressions Chest X-Ray 02/07/17 0000 Signed Impressions: Service Date/Time: Tuesday, February 07, 2017 10:03 - CONCLUSION: Stable chest. Kyree Johnston MD Physical Exam CONSTITUTIONAL/GENERAL: This is an obese elederly patient, in no apparent distress. TUBES/LINES/DRAINS: SKIN: No jaundice, rashes, or lesions. CARDIOVASCULAR: Regular rate and rhythm without murmurs, gallops, or rubs. RESPIRATORY/CHEST: Symmetric, unlabored respirations. Clear to auscultation. Breath sounds equal bilaterally. N GASTROINTESTINAL: Abdomen soft, non-tender, markedly obese nondistended. No hepato-splenomegaly, or palpable masses. No guarding. Bowel sounds present. GENITOURINARY: Without palpable bladder distension. Montalvo catheter in place with clear light yellow urine MUSCULOSKELETAL: Extremities without clubbing, cyanosis, + pitting chronic appearing 2+edema. No joint tenderness or effusion noted. No calf tenderness. No mottling or clubbing. NEUROLOGICAL: Awake and alert. Motor and sensory grossly within normal limits. Follows commands. Clear speech. Moves all extremities. PSYCHIATRIC: No obvious anxiety/depression. no apparent hallucinations or other psychotic thought process. Assessment & Plan Remarks ESRD sp renal allograft,immunosuppressed Pulmonary infiltrates - pt evaluated by tax collection coordinator, no CHF ? atypoical PNA pneumococcal, leg, flu AG negative Leukocytosis improved Recent C.diff cont zithro, cefepime obtain sputum if feasible monitor for diarrhea - chk crypto Gertrudis Golden Dr, MD Feb 07, 2017 19:05
[2017-02-08] VITALS (8 sets, daily range): BP systolic 131–151; BP diastolic 62–73; PULSE 63–96; RESP 18–22; TEMP 98–98.5; O2SAT 96–100
[2017-02-08] MEDS: RESP: IPRATROPIUM 0.5 MG/2.5 ML NEB NEB SCH ×4 (03:47→21:46)
[2017-02-08 05:17] LABS: AUTOMATED NEUTROPHIL # 7.7 TH/MM3 (1.8-7.7); BASOPHIL % 0.1 % (0.0-2.0); EOSINOPHIL # 0.4 TH/MM3 (0-0.4); EOSINOPHIL % 4.1 % (0.0-4.0); HEMATOCRIT 29.8 % (35.0-46.0); HEMO FLAGS DIFF FINAL; LYMPH % 6.8 % (9.0-44.0); LYMPHOCYTE # 0.6 TH/MM3 (1.0-4.8); MEAN CORPUSCULAR HEMOGLOBIN 29.9 PG (27.0-34.0); MEAN CORPUSCULAR HGB CONC 32.5 % (32.0-36.0); MONO % 7.4 % (0.0-8.0); NEUT % 81.6 % (16.0-70.0); PLATELET COUNT 155 TH/MM3 (150-450); RED BLOOD COUNT 3.23 MIL/MM3 (4.00-5.30); RED CELL DISTRIBUTION WIDTH 14.7 % (11.6-17.2); WHITE BLOOD COUNT 9.5 TH/MM3 (4.0-11.0)
[2017-02-08 05:19] LABS: ANION GAP 5 MEQ/L (5-15); AST (GOT) 10 U/L (15-37); BICARBONATE 32.3 MEQ/L (21.0-32.0); BLOOD UREA NITROGEN 30 MG/DL (7-18); CHLORIDE 101 MEQ/L (98-107); GLOMERULAR FILTRATION RATE 51 ML/MIN (>89); MAGNESIUM 1.8 MG/DL (1.5-2.5); SODIUM (NA) 138 MEQ/L (136-145)
[2017-02-08 05:40] LABS: ALKALINE PHOSPHATASE 77 U/L (45-117); ALT (GPT) 14 U/L (10-53); FREE T4 1.27 NG/DL (0.76-1.46); TOTAL BILIRUBIN ADULT 0.4 MG/DL (0.2-1.0)
[2017-02-08] MEDS: ACETAMINOPHEN 500 MG CPLT PO PRN ×2 (06:19→22:00)
[2017-02-08] MEDS: LEVOTHYROXINE SODIUM 25 MCG TAB PO SCH (06:19)
--- NOTE | 2017-02-08 07:57 | RADRPT ---
EXAM DATE/TIME: 02/07/2017 20:56 [facility] COMPARISON: CHEST SINGLE AP, February 07, 2017, 10:03. INDICATIONS : Evaluate for pneumonia. RADIATION DOSE: 12.65 CTDIvol (mGy) MEDICAL HISTORY : Cardiovascular disease. Hypertension. Diabetes mellitus type 2. SURGICAL HISTORY : Cholecystectomy. Kidney transplant ENCOUNTER: Initial ACUITY: 1 day PAIN SCALE: 3/10 LOCATION: Chest TECHNIQUE: Volumetric scanning of the chest was performed. Using automated exposure control and adjustment of t he mA and/or kV according to patient size, radiation dose was kept as low as reasonably achievable to obtain optimal diagnostic quality images. DICOM format image data is available electronically for r eview and comparison. Follow-up recommendations for detected pulmonary nodules are based at a minimum on nodule size and pa tient risk factors according to Fleischner Society Guidelines. FINDINGS: Tiny bilateral pleural effusions are noted. Posterior bibasilar patchy densities are noted consisten t with atelectasis and/or pneumonia. Clinical correlation is recommended. No pulmonary nodule or mass is noted. No pu lmonary edema is noted. The heart is enlarged. Coronary artery calcifications are noted. No mediastinal, h ilar or axillary lymphadenopathy is noted. Degenerative changes and scoliosis of the thoracic spine are noted. There is a low density lesion within the right lobe of the liver measuring 13 mm which is nonspecific. CONCLUSION: 1. Posterior bibasilar patchiness consistent with atelectasis and/or pneumonia. Clinical correlatio n is recommended. 2. Tiny bilateral pleural effusions. 3. Cardiomegaly and coronary artery calcifications. 4. Degenerative changes and scoliosis of the thoracic spine. 5. 13 mm low density lesion within the right lobe of the liver which is nonspecific. Ugo Sandoval MD on February 07, 2017 at 22:44 Board Certified Radiologist. This report was verified electronically.
[2017-02-08] MEDS: INSULIN ASPART SUPPLEMENTAL SCALE SQ SCH ×4 (08:00→20:45)
[2017-02-08] MEDS: DILTIAZEM INJ 125 MG in SODIUM CHLORIDE 0.9% INJ 100 ML IV PRN (08:21)
[2017-02-08] MEDS: predniSONE 10 MG TAB PO SCH (08:40)
[2017-02-08] MEDS: APIXABAN 5 MG TABLET PO SCH ×2 (08:40→20:36)
[2017-02-08] MEDS: TACROLIMUS 1 MG CAP PO SCH ×2 (08:40→20:45)
[2017-02-08] MEDS: SODIUM BICARBONATE 325 MG TAB PO SCH ×2 (08:40→17:01)
[2017-02-08] MEDS: METOPROLOL SUCCINATE 25 MG EXTENDED RELEASE TAB PO SCH (08:40)
[2017-02-08] MEDS: FAMOTIDINE 20 MG TAB PO SCH (08:40)
[2017-02-08] MEDS: CEFEPIME INJ 1,000 MG in SODIUM CHLORIDE 0.9% INJ 100 ML IV SCH ×2 (08:41→20:37)
[2017-02-08] MEDS ORDERED: FUROSEMIDE 40 MG/4 ML VIAL IV PUSH SCH (09:00)
[2017-02-08] MEDS: INSULIN DETEMIR 100 UNITS/ML VIAL SQ SCH (09:00)
[2017-02-08] MEDS: TIMOLOL MALEATE 0.5% OPHT SOLN 5 ML BTL EACH EYE SCH ×2 (09:00→20:36)
[2017-02-08] MEDS: SODIUM CHLORIDE 0.9% FLUSH 10 ML FLUSH IV FLUSH SCH ×2 (09:00→20:35)
[2017-02-08] MEDS: NYSTAT/DIPHENHY/LIDO MOUTHWASH (Adult) 120ML SWISH-SWAL SCH ×4 (09:00→20:38)
--- NOTE | 2017-02-08 10:21 | HHI.PR ---
Subjective Remarks The patient reports that she woke up at 0215 and couldn't breath. Symptoms severe. She was given Lasix p.o. and didn't improve so the SNF physician instructed that she should be sent to the hospital. She was recently weaned off of supplemental oxygen. She complains of orthopnea. She is residing at [facility] first couple of weeks of December [facility] end of December, beginning of January. Denies cough, fever, nausea, vomiting, coffee or red colored vomit, black or red stool. She reports taking Lasix 20 mg once daily. Recently dosage decreased on Tacrolimus and CellCept d/c'd recently The patient required bipap on ER arrival and is now somewhat tachypneic on 5 liters supplemental oxygen via nasal cannula - oxygen saturation is 100%. 02-07 PATIENT REMAINS ON CARDIZEM DRIP TO HAVE CT OF CHEST TODAY DW RN AND PT AND ID SEEMS TO BE BREATHING BETTER THAN YESTERDAY EVENING HAS BEEN LIVING AT A SNF PRIOR TO ADMISSION HX OF PULMONARY HYPERTENSION SEVERE BL LE LYMPHEDEMA 02-08 TRY TO WEAN OFF CARDIZEM WILL INCREASE METOPROLOL TO 50MG PO BID DW RN AND PT COMPLAINS OF SORE THROAT AND COUGH INCENTIVE SPIROMETRY Objective Vitals Vital Signs Date Time Temp Pulse Resp B/P (MAP) Pulse Ox O2 Delivery O2 Flow Rate FiO2 02/08/17 09:28 100 Nasal Cannula 2.00 02/08/17 08:21 72 128/60 02/08/17 08:00 98.0 64 18 139/73 (95) 100 02/08/17 08:00 64 02/08/17 07:19 16 02/08/17 04:00 98.4 63 18 131/63 (85) 100 02/08/17 04:00 63 02/08/17 00:00 72 02/08/17 00:00 98.0 72 20 134/62 (86) 100 02/07/17 20:00 71 02/07/17 20:00 98.1 71 22 124/62 (82) 100 02/07/17 19:35 100 Nasal Cannula 2.00 02/07/17 16:00 97.7 68 26 125/64 (84) 100 02/07/17 16:00 68 02/07/17 12:00 72 02/07/17 12:00 98.4 72 21 111/58 (75) 100 I/O 02/07/17 02/07/17 02/07/17 02/08/17 02/08/17 02/08/17 07:00 15:00 23:00 07:00 15:00 23:00 Intake Total 450 ml 116 ml 858 ml 120 ml Output Total 425 ml 1175 ml 400 ml Balance 25 ml 116 ml -317 ml -280 ml Intake Oral 450 ml 708 ml 120 ml IV Total 116 ml 150 ml Output Urine Total 425 ml 1175 ml 400 ml # Bowel Movements 1 0 Result Diagram: 02/08/17 0425 02/08/17 0425 Other Results Laboratory Tests Test 02/06/17 03:46 02/06/17 03:50 02/06/17 04:50 02/06/17 09:00 Blood Gas Puncture Site RT RADIAL Blood Gas Patient Temperature 98.6 Blood Gas HCO3 26 mmol/L Blood Gas Base Excess 1.5 mmol/L Blood Gas Oxygen Saturation 98 % Arterial Blood pH 7.42 Arterial Blood Partial Pressure CO2 40 mmHg Arterial Blood Partial Pressure O2 162 mmHG Arterial Blood Oxygen Content 16.9 Vol % Arterial Blood Carboxyhemoglobin 1.3 % Arterial Blood Methemoglobin 0.5 % Blood Gas Hemoglobin 12.1 G/DL Oxygen Delivery Device NPPV Blood Gas Ventilator Setting IPAP 15/EPAP 5 Blood Gas Inspired Oxygen 100 % White Blood Count 14.2 TH/MM3 Red Blood Count 4.29 MIL/MM3 Hemoglobin 12.6 GM/DL Hematocrit 39.8 % Mean Corpuscular Volume 92.7 FL Mean Corpuscular Hemoglobin 29.4 PG Mean Corpuscular Hemoglobin Concent 31.7 % Red Cell Distribution Width 15.2 % Platelet Count 286 TH/MM3 Mean Platelet Volume 7.6 FL Neutrophils (%) (Auto) 88.2 % Lymphocytes (%) (Auto) 5.0 % Monocytes (%) (Auto) 3.9 % Eosinophils (%) (Auto) 2.4 % Basophils (%) (Auto) 0.5 % Neutrophils # (Auto) 12.5 TH/MM3 Lymphocytes # (Auto) 0.7 TH/MM3 Monocytes # (Auto) 0.6 TH/MM3 Eosinophils # (Auto) 0.3 TH/MM3 Basophils # (Auto) 0.1 TH/MM3 CBC Comment DIFF FINAL Differential Comment Prothrombin Time 11.3 SEC Prothromb Time International Ratio 1.0 RATIO Activated Partial Thromboplast Time 25.4 SEC Blood Urea Nitrogen 20 MG/DL Creatinine 1.04 MG/DL Random Glucose 127 MG/DL Total Protein 6.6 GM/DL Albumin 3.0 GM/DL Calcium Level 8.9 MG/DL Magnesium Level 1.7 MG/DL Alkaline Phosphatase 110 U/L Aspartate Amino Transf (AST/SGOT) 15 U/L Alanine Aminotransferase (ALT/SGPT) 22 U/L Total Bilirubin 0.5 MG/DL Sodium Level 141 MEQ/L Potassium Level 4.4 MEQ/L Chloride Level 105 MEQ/L Carbon Dioxide Level 30.1 MEQ/L Anion Gap 6 MEQ/L Estimat Glomerular Filtration Rate 53 ML/MIN Lactic Acid Level 2.0 mmol/L Total Creatine Kinase 22 U/L Troponin I LESS THAN 0.02 NG/ML B-Type Natriuretic Peptide 138 PG/ML Urine Color YELLOW Urine Turbidity CLEAR Urine pH 6.5 Urine Specific Elroy 1.011 Urine Protein NEG mg/dL Urine Glucose (UA) NEG mg/dL Urine Ketones NEG mg/dL Urine Occult Blood NEG Urine Nitrite NEG Urine Bilirubin NEG Urine Urobilinogen LESS THAN 2.0 MG/DL Urine Leukocyte Esterase NEG Urine WBC 1 /hpf Urine Squamous Epithelial Cells <1 /hpf Urine Bacteria RARE /hpf Microscopic Urinalysis Comment CULT NOT INDICATED Nasal Screen MRSA (PCR) MRSA NOT DETECTED Test 02/06/17 13:07 02/06/17 20:56 02/07/17 03:41 02/08/17 04:25 Total Creatine Kinase 18 U/L 18 U/L Troponin I LESS THAN 0.02 NG/ML LESS THAN 0.02 NG/ML White Blood Count 9.2 TH/MM3 9.5 TH/MM3 Red Blood Count 3.55 MIL/MM3 3.23 MIL/MM3 Hemoglobin 10.5 GM/DL 9.7 GM/DL Hematocrit 33.3 % 29.8 % Mean Corpuscular Volume 93.8 FL 92.0 FL Mean Corpuscular Hemoglobin 29.5 PG 29.9 PG Mean Corpuscular Hemoglobin Concent 31.4 % 32.5 % Red Cell Distribution Width 14.9 % 14.7 % Platelet Count 170 TH/MM3 155 TH/MM3 Mean Platelet Volume 7.9 FL 8.1 FL Neutrophils (%) (Auto) 86.0 % 81.6 % Lymphocytes (%) (Auto) 6.7 % 6.8 % Monocytes (%) (Auto) 5.9 % 7.4 % Eosinophils (%) (Auto) 1.1 % 4.1 % Basophils (%) (Auto) 0.3 % 0.1 % Neutrophils # (Auto) 7.9 TH/MM3 7.7 TH/MM3 Lymphocytes # (Auto) 0.6 TH/MM3 0.6 TH/MM3 Monocytes # (Auto) 0.5 TH/MM3 0.7 TH/MM3 Eosinophils # (Auto) 0.1 TH/MM3 0.4 TH/MM3 Basophils # (Auto) 0.0 TH/MM3 0.0 TH/MM3 CBC Comment DIFF FINAL DIFF FINAL Differential Comment Blood Urea Nitrogen 23 MG/DL 30 MG/DL Creatinine 1.12 MG/DL 1.07 MG/DL Random Glucose 168 MG/DL 113 MG/DL Calcium Level 8.6 MG/DL 8.5 MG/DL Phosphorus Level 3.8 MG/DL 3.2 MG/DL Magnesium Level 1.7 MG/DL 1.8 MG/DL Sodium Level 138 MEQ/L 138 MEQ/L Potassium Level 4.4 MEQ/L 4.0 MEQ/L Chloride Level 101 MEQ/L 101 MEQ/L Carbon Dioxide Level 30.5 MEQ/L 32.3 MEQ/L Anion Gap 7 MEQ/L 5 MEQ/L Estimat Glomerular Filtration Rate 49 ML/MIN 51 ML/MIN Tacrolimus (Prograf) Level 3.9 NG/ML Total Protein 5.4 GM/DL Albumin 2.4 GM/DL Alkaline Phosphatase 77 U/L Aspartate Amino Transf (AST/SGOT) 10 U/L Alanine Aminotransferase (ALT/SGPT) 14 U/L Total Bilirubin 0.4 MG/DL Free Thyroxine 1.27 NG/DL Thyroid Stimulating Hormone 3rd Gen 3.150 uIU/ML Imaging Last Impressions Chest X-Ray 02/07/17 0000 Signed Impressions: Service Date/Time: Tuesday, February 07, 2017 10:03 - CONCLUSION: Stable chest. Kyree Johnston MD Objective Remarks GENERAL: This is an obese elderly female patient who is tachypneic. SKIN: No rashes, ecchymoses or lesions. Cool and dry. Bilateral lower extremities with CHRONIC skin changes c/w lymphedema HEAD: Atraumatic. Normocephalic. EYES: No scleral icterus. No injection or drainage. PERRLA EOMI ENT: Nose without bleeding, purulent drainage. Airway patent.TONGUE MIDLINE NECK: Trachea midline. No JVD. NECK SUPPLE CARDIOVASCULAR: IRRegular rate and rhythm without murmurs, gallops, or rubs. S1 , S2 NO S3 OR S4 NO HEAVE RESPIRATORY: Breath sounds diminished; equal bilaterally. No wheezes, rales, or rhonchi. Tachypneic and using accessory muscles to breath IMPROVING ON OXYGEN GASTROINTESTINAL: Abdomen soft, non-tender, nondistended. No guarding. OBESE MUSCULOSKELETAL: Extremities without clubbing, cyanosis. CHRONIC BL LE LYMPHEDEMA NEUROLOGICAL: Awake and alert. Motor and sensory grossly within normal limits. Normal speech. INSIGHT AND JUDGEMENT ARE GOOD MOOD AND BEHAVIOR ARE APPROPRIATE Medications and IVs Current Medications Furosemide (Lasix Inj) 60 mg DAILY IV PUSH ; Start 02/06/17 at 09:00; Stop 02/06 at 09:00; Status DC Sodium Chloride (NS Flush) 2 ml UNSCH PRN IVF FLUSH AFTER USING IV ACCESS; Start 02/06/17 at 04:00; Stop 02/06/17 at 05:16; Status DC Furosemide (Lasix Inj) 60 mg ONCE ONCE IV PUSH Last administered on 02/06/17 04:05; Start 02/06/17 at 04:00; Stop 02/06/17 at 04:01; Status DC Ondansetron HCl (Zofran Inj) 8 mg ONCE ONCE IV PUSH Last administered on 04:13; Start 02/06/17 at 04:15; Stop 02/06/17 at 04:16; Status DC Aztreonam 2000 mg/ Sodium Chloride 100 ml @ 200 mls/hr NOW ONCE IV Last administered on 02/06/17 05:43; Start 02/06/17 at 05:15; Stop 02/06/17 at 05:44 ; Status DC Levofloxacin (Levaquin) 750 mg ONCE ONCE PO Last administered on 02/06/17 05: 16; Start 02/06/17 at 05:15; Stop 02/06/17 at 05:16; Status DC Diltiazem HCl (Cardizem Inj) 26 mg BOLUS ONCE IV PUSH Last administered on 05:20; Start 02/06/17 at 05:15; Stop 02/06/17 at 05:16; Status DC Sodium Chloride (NS Flush) 2 ml UNSCH PRN IV FLUSH FLUSH AFTER USING IV ACCESS Last administered on 02/07/17 08:22; Start 02/06/17 at 05:15 Sodium Chloride (NS Flush) 2 ml BID IV FLUSH Last administered on 02/07/17 21: 00; Start 02/06/17 at 09:00 Naloxone HCl (Narcan Inj) 0.4 mg UNSCH PRN IV PUSH SEE LABEL COMMENTS; Start at 05:15 Furosemide (Lasix Inj) 40 mg BID@,18 IV PUSH Last administered on 02/07/17 08:22; Start 02/06/17 at 09:00; Stop 02/07/17 at 12:41; Status DC Dextrose (D50w (Vial) Inj) 50 ml UNSCH PRN IV PUSH HYPOGLYCEMIA-SEE COMMENTS; Start 02/06/17 at 06:00 Glucagon (Glucagon Inj) 1 mg UNSCH PRN OTHER HYPOGLYCEMIA-SEE COMMENTS; Start 02/06/17 at 06:00 Insulin Aspart (NovoLOG SUPPLEMENTAL SCALE) 1 ACHS SLIDING SCALE SQ Last administered on 02/07/17 21:00; Start 02/06/17 at 08:00 Apixaban (Eliquis) 5 mg BID PO Last administered on 02/08/17 08:40; Start at 09:00 Famotidine (Pepcid) 20 mg DAILY PO Last administered on 02/08/17 08:40; Start 02/06/17 at 09:00 Insulin Detemir (Levemir Inj) 15 units DAILY SQ Last administered on 02/07/17 08:24; Start 02/06/17 at 09:00 Levothyroxine Sodium (Synthroid) 25 mcg DAILY@0600 PO Last administered on 02/08 06:19; Start 02/06/17 at 06:00 Metoprolol Succinate (Toprol Xl) 25 mg BID PO Last administered on 02/08/17 08 :40; Start 02/06/17 at 09:00; Stop 02/08/17 at 10:16; Status DC Multi-Ingredient Mouthwash/Gargle (Magic Mouthwash Adult Liq) 10 ml QID SWISH- SWAL Last administered on 02/07/17 21:00; Start 02/06/17 at 09:00 Sodium Bicarbonate (Sodium Bicarbonate) 325 mg TIDPC PO Last administered on 08:40; Start 02/06/17 at 09:30 Tacrolimus (Prograf) 1 mg DAILY@18 PO Last administered on 02/06/17 17:20; Start 02/06/17 at 18:00; Status Future Hold Tacrolimus (Prograf) 2 mg DAILY PO Last administered on 02/07/17 08:23; Start 02/06/17 at 09:00; Stop 02/07/17 at 12:41; Status DC Timolol Maleate (Timoptic 0.5% Opt Soln) 1 drop BID EACH EYE Last administered on 02/07/17 22:06; Start 02/06/17 at 09:00 Ipratropium [place] (Atrovent Neb) 0.5 mg Q6HR NEB NEB Last administered on 09:28; Start 02/06/17 at 10:00 Ipratropium Weed (Atrovent Neb) 0.5 mg Q2HR NEB PRN NEB wheezing; Start at 06:00 Cefepime HCl 1000 mg/Sodium Chloride 100 ml @ 200 mls/hr Q12H IV Last administered on 02/08/17 08:41; Start 02/06/17 at 09:00 Diltiazem HCl (Cardizem Inj) 15 mg ONCE ONCE IV PUSH Last administered on 02/06 07:25; Start 02/06/17 at 07:15; Stop 02/06/17 at 07:16; Status DC Diltiazem HCl 125 mg/Sodium Chloride 125 ml @ 5 mls/hr TITRATE PRN IV Tachycardia Last administered on 02/08/17 08:21; Start 02/06/17 at 08:00 Azithromycin 500 mg/Sodium Chloride 250 ml @ 250 mls/hr Q24H IV Last administered on 02/07/17 12:29; Start 02/06/17 at 13:00 Magnesium Oxide (Mag-Ox) 400 mg DAILY@1200 PO Last administered on 02/07/17 12 :30; Start 02/07/17 at 12:00 Ergocalciferol (Drisdol) 50,000 units Q7D PO Last administered on 02/06/17 17: 20; Start 02/06/17 at 15:00 Prednisone (Deltasone) 10 mg DAILY PO Last administered on 02/08/17 08:40; Start 02/06/17 at 15:00 Acetaminophen (Tylenol) 1,000 mg Q12H PRN PO Arthritis/pain Last administered on 02/08/17 06:19; Start 02/06/17 at 15:00 Furosemide (Lasix Inj) 40 mg DAILY IV PUSH Last administered on 02/08/17 08:42 ; Start 02/08/17 at 09:00 Tacrolimus (Prograf) 2 mg BID@0800,1999 PO Last administered on 02/08/17 08:40 ; Start 02/07/17 at 20:00 Metoprolol Succinate (Toprol Xl) 50 mg BID PO ; Start 02/08/17 at 21:00; Status UNV Guaifenesin (Mucinex Er) 600 mg BID PO ; Start 02/08/17 at 21:00; Status UNV A/P Problem List: (1) Congestive heart failure ICD Code: I50.9 - Heart failure, unspecified (2) Pneumonia ICD Code: J18.9 - Pneumonia, unspecified organism Status: Acute (3) Diabetes mellitus type 2, insulin dependent ICD Code: E11.9 - Type 2 diabetes mellitus without complications; 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 (4) Hyperlipidemia ICD Code: E78.5 - Hyperlipidemia, unspecified (5) HTN (hypertension) ICD Code: I10 - Essential (primary) hypertension (6) Chronic atrial fibrillation with RVR ICD Code: I48.2 - Chronic atrial fibrillation Status: Acute (7) Hx of kidney transplant ICD Code: Z94.0 - Kidney transplant status (8) A-fib ICD Code: I48.91 - Unspecified atrial fibrillation Status: Acute (9) Hypoxia ICD Code: R09.02 - Hypoxemia Status: Acute (10) SOB (shortness of breath) ICD Code: R06.02 - Shortness of breath Assessment and Plan 66-year-old female transferred from local long-term facility for acute onset shortness of breath: Acute CHF exacerbation--DOUBT CHF EXACERBATION HAS SEVERE PULMONARY HYPERTENSION- HAD BEEN OFF OXYGEN AT THE SNF - BNP 138 - CXR shows cardiomegaly with bilateral pulmonary infiltrates and tiny left effusion - monitor serial EKGs and cardiac enzymes to r/o ACS - Strictly monitor intake and output - Heart healthy diet - Continuous cardiac telemetry to monitor for cardiac arrhythmias INCREASE METOPROLOL TO 50MG PO BID WEAN OFF CARDIZEM Pneumonia, bilateral - CXR shows cardiomegaly with bilateral pulmonary infiltrates and tiny left effusion - Cefepime 1 g IV every 12 hours - consult infectious disease - patient on immunosuppressants for kidney transplant - Atrovent nebulizers every 6 hours scheduled and every 2 hours as needed for wheezing Type 2 Diabetes Mellitus - Continue home dose of Lantus daily - Accu-Cheks before meals and at bedtime with low-dose NovoLog sliding scale coverage - Hypoglycemia protocol - Monitor trends and blood glucose readings and adjust treatments as indicated DVT prophylaxis - Resume Eliquis was 5 mg twice a day p.o. PULMONARY HYPERTENSION ECHO HX RENAL TRANSPLANT ON CHRONIC IMMUNOSUPPRESSION CARDIAC, RENAL AND ID CONSULTS Problem Qualifiers (1) Pneumonia: Qualified Codes: J15.0 - Pneumonia due to Klebsiella pneumoniae Davin Vera DO Feb 08, 2017 10:21
[2017-02-08] MEDS ORDERED: METOPROLOL SUCCINATE 25 MG EXTENDED RELEASE TAB PO ONE (10:45)
--- NOTE | 2017-02-08 11:25 | HHI.NPPN ---
Subjective History of Present Illness 66 year old female with CHF, A fib, s/p kidney transplant 2004 , was admitted with increasing SOB. Additional Remarks Patient is alert, has mild SOB, with nasal cannula, no chest pain. Review of Systems General Constitutional: Fatigue Respiratory Lungs: SOB, Cough Cardiovascular Cardiac: Edema, RIOS Objective Data Data Vital Signs Date Time Temp Pulse Resp B/P (MAP) Pulse Ox O2 Delivery O2 Flow Rate FiO2 02/08/17 09:28 100 Nasal Cannula 2.00 02/08/17 08:21 72 128/60 02/08/17 08:00 98.0 64 18 139/73 (95) 100 02/08/17 08:00 64 02/08/17 07:19 16 02/08/17 04:00 98.4 63 18 131/63 (85) 100 02/08/17 04:00 63 02/08/17 00:00 72 02/08/17 00:00 98.0 72 20 134/62 (86) 100 02/07/17 20:00 71 02/07/17 20:00 98.1 71 22 124/62 (82) 100 02/07/17 19:35 100 Nasal Cannula 2.00 02/07/17 16:00 97.7 68 26 125/64 (84) 100 02/07/17 16:00 68 02/07/17 12:00 72 02/07/17 12:00 98.4 72 21 111/58 (75) 100 -: 02/08/17 0425 02/08/17 0425 Microbiology 02/08/17 Influenza Types A,B Antigen (KATLYN) - Final, Complete NEGATIVE FOR FLU A AND B ANTIGEN.... 02/07/17 Gram Stain - Final, Resulted 02/07/17 Sputum Culture, Resulted Pending Physical Exam General Appearance: No Acute Distress, Comfortable Eyes Eye Exam: Pupils Equal Throat Throat Exam: Oral Mucosa Index & Moist Pulmonary Resp Exam: Breath Sounds Equal, No Distress, Decreased Bases Cardiology CV Exam: Regular, Normal Sinus Rhythm Gastrointestinal/Abdomen GI Exam: Soft, Non-Tender, Bowel Sounds Present Extremeties Extremities Exam: Moderate Edema, Pitting Edema Neurologic Neuro Exam: Alert, Awake, Oriented Psychiatric Psych Exam: Appropriate Responses Assessment/Plan Problem List: (1) Hx of kidney transplant ICD Codes: Z94.0 - Kidney transplant status Plan: Patient creatinine is stable, 1.0-1.1 Has been on diuresis, she is on prednisone 10 mg and was on tacrolimus 2 in the morning and 1 in the evening Pulmonary Hypertension 91 mm Hg severe need a CT scan to follow on this ? Pulmonary Fibrosis tacrolimus level lower end increased to 2 mg q 12. Follow the urine out put and BMP. 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
--- NOTE | 2017-02-08 11:31 | PD.CARD.PN ---
Subjective Subjective Remarks Still a little sob but much better; VQ pending Objective Medications Administered Medications Medications (Trade) Dose Ordered Sig/Liliana Route PRN Reason Start Time Stop Time Status Last Admin Dose Admin Sodium Chloride (NS Flush) 2 ml UNSCH PRN IV FLUSH FLUSH AFTER USING IV ACCESS 02/06/17 05:15 02/07/17 08:22 Sodium Chloride (NS Flush) 2 ml BID IV FLUSH 02/06/17 09:00 02/08/17 09:00 Insulin Aspart (NovoLOG SUPPLEMENTAL SCALE) 1 ACHS SLIDING SCALE SQ 02/06/17 08:00 02/07/17 21:00 Apixaban (Eliquis) 5 mg BID PO 02/06/17 09:00 02/08/17 08:40 Famotidine (Pepcid) 20 mg DAILY PO 02/06/17 09:00 02/08/17 08:40 Insulin Detemir (Levemir Inj) 15 units DAILY SQ 02/06/17 09:00 02/08/17 09:00 Levothyroxine Sodium (Synthroid) 25 mcg DAILY@0600 PO 02/06/17 06:00 02/08/17 06:19 Multi-Ingredient Mouthwash/Gargle (Magic Mouthwash Adult Liq) 10 ml QID SWISH-SWAL 02/06/17 09:00 02/08/17 09:00 Sodium Bicarbonate (Sodium Bicarbonate) 325 mg TIDPC PO 02/06/17 09:30 02/08/17 08:40 Tacrolimus (Prograf) 1 mg DAILY@18 PO 02/06/17 18:00 Future Hold 02/06/17 17:20 Timolol Maleate (Timoptic 0.5% Opth Soln) 1 drop BID EACH EYE 02/06/17 09:00 02/08/17 09:00 Ipratropium [place] (Atrovent Neb) 0.5 mg Q6HR NEB NEB 02/06/17 10:00 02/08/17 09:28 Cefepime HCl 1000 mg/Sodium Chloride 100 ml @ 200 mls/hr Q12H IV 02/06/17 09:00 02/08/17 08:41 Diltiazem HCl 125 mg/Sodium Chloride 125 ml @ 5 mls/hr TITRATE PRN IV Tachycardia 02/06/17 08:00 02/08/17 08:21 Azithromycin 500 mg/Sodium Chloride 250 ml @ 250 mls/hr Q24H IV 02/06/17 13:00 02/07/17 12:29 Magnesium Oxide (Mag-Ox) 400 mg DAILY@1200 PO 02/07/17 12:00 02/07/17 12:30 Ergocalciferol (Drisdol) 50,000 units Q7D PO 02/06/17 15:00 02/06/17 17:20 Prednisone (Deltasone) 10 mg DAILY PO 02/06/17 15:00 02/08/17 08:40 Acetaminophen (Tylenol) 1,000 mg Q12H PRN PO Arthritis/pain 02/06/17 15:00 02/08/17 06:19 Furosemide (Lasix Inj) 40 mg DAILY IV PUSH 02/08/17 09:00 02/08/17 08:42 Tacrolimus (Prograf) 2 mg BID@0800,2000 PO 02/07/17 20:00 02/08/17 08:40 Vital Signs / I&O Vital Signs Date Time Temp Pulse Resp B/P (MAP) Pulse Ox O2 Delivery O2 Flow Rate FiO2 02/08/17 09:28 100 Nasal Cannula 2.00 02/08/17 08:21 72 128/60 02/08/17 08:00 98.0 64 18 139/73 (95) 100 02/08/17 08:00 64 02/08/17 07:19 16 02/08/17 04:00 98.4 63 18 131/63 (85) 100 02/08/17 04:00 63 02/08/17 00:00 72 02/08/17 00:00 98.0 72 20 134/62 (86) 100 02/07/17 20:00 71 02/07/17 20:00 98.1 71 22 124/62 (82) 100 02/07/17 19:35 100 Nasal Cannula 2.00 02/07/17 16:00 97.7 68 26 125/64 (84) 100 02/07/17 16:00 68 02/07/17 12:00 72 02/07/17 12:00 98.4 72 21 111/58 (75) 100 I/O 02/07/17 02/07/17 02/07/17 02/08/17 02/08/17 02/08/17 07:00 15:00 23:00 07:00 15:00 23:00 Intake Total 450 ml 116 ml 858 ml 120 ml Output Total 425 ml 1175 ml 400 ml Balance 25 ml 116 ml -317 ml -280 ml Intake Oral 450 ml 708 ml 120 ml IV Total 116 ml 150 ml Output Urine Total 425 ml 1175 ml 400 ml # Bowel Movements 1 0 Physical Exam GENERAL: This is a well-nourished, well-developed patient, in no apparent distress. CARDIOVASCULAR: Regular rate and rhythm without murmurs, gallops, or rubs. RESPIRATORY: Clear to auscultation. Breath sounds equal bilaterally. No wheezes , rales, or rhonchi. GASTROINTESTINAL: Abdomen soft, non-tender, nondistended. Normal active bowel sounds MUSCULOSKELETAL: chronic lymphedema 2+ NEURO: Alert & Oriented x4 to person, place, time, situation. Moves all ext x4 Laboratory Laboratory Tests Test 02/08/17 04:25 White Blood Count 9.5 TH/MM3 Red Blood Count 3.23 MIL/MM3 Hemoglobin 9.7 GM/DL Hematocrit 29.8 % Mean Corpuscular Volume 92.0 FL Mean Corpuscular Hemoglobin 29.9 PG Mean Corpuscular Hemoglobin Concent 32.5 % Red Cell Distribution Width 14.7 % Platelet Count 155 TH/MM3 Mean Platelet Volume 8.1 FL Neutrophils (%) (Auto) 81.6 % Lymphocytes (%) (Auto) 6.8 % Monocytes (%) (Auto) 7.4 % Eosinophils (%) (Auto) 4.1 % Basophils (%) (Auto) 0.1 % Neutrophils # (Auto) 7.7 TH/MM3 Lymphocytes # (Auto) 0.6 TH/MM3 Monocytes # (Auto) 0.7 TH/MM3 Eosinophils # (Auto) 0.4 TH/MM3 Basophils # (Auto) 0.0 TH/MM3 CBC Comment DIFF FINAL Differential Comment Blood Urea Nitrogen 30 MG/DL Creatinine 1.07 MG/DL Random Glucose 113 MG/DL Total Protein 5.4 GM/DL Albumin 2.4 GM/DL Calcium Level 8.5 MG/DL Phosphorus Level 3.2 MG/DL Magnesium Level 1.8 MG/DL Alkaline Phosphatase 77 U/L Aspartate Amino Transf (AST/SGOT) 10 U/L Alanine Aminotransferase (ALT/SGPT) 14 U/L Total Bilirubin 0.4 MG/DL Sodium Level 138 MEQ/L Potassium Level 4.0 MEQ/L Chloride Level 101 MEQ/L Carbon Dioxide Level 32.3 MEQ/L Anion Gap 5 MEQ/L Estimat Glomerular Filtration Rate 51 ML/MIN Free Thyroxine 1.27 NG/DL Thyroid Stimulating Hormone 3rd Gen 3.150 uIU/ML Imaging Last Impressions Chest X-Ray 02/07/17 0000 Signed Impressions: Service Date/Time: Tuesday, February 07, 2017 10:03 - CONCLUSION: Stable chest. Kyree Johnston MD Assessment and Plan Problem List: (1) Chronic atrial fibrillation with RVR ICD Codes: I48.2 - Chronic atrial fibrillation Status: Acute Plan: currently rate controlled of dilt ggt; on eliquis (2) Congestive heart failure ICD Codes: I50.9 - Heart failure, unspecified (3) SOB (shortness of breath) ICD Codes: R06.02 - Shortness of breath Plan: may be multifactorial, will increase lasix to bid. (4) Pulmonary hypertension ICD Codes: I27.2 - Other secondary pulmonary hypertension Plan: still likely some chf component, but may be contributing to her sx. Eddie Amaral MD Feb 08, 2017 11:31
[2017-02-08] MEDS: MAGNESIUM OXIDE 400 MG TAB PO SCH (11:51)
[2017-02-08] MEDS: AZITHROMYCIN INJ 500 MG in SODIUM CHLOR 0.9% 250 ML INJ 250 ML IV SCH (11:51)
--- NOTE | 2017-02-08 15:39 | HHI.PR ---
Addendum to Inpatient Note Additional Information Attempted to see the pt - she is off the floor for VQ scan dw Gertrudis Carty MD Feb 08, 2017 15:39
--- NOTE | 2017-02-08 16:33 | RADRPT ---
EXAM DATE/TIME: 02/08/2017 14:44 [place] COMPARISON: CT THORAX W/O CONTRAST, February 07, 2017, 20:56. CHEST SINGLE AP, February 07, 2017, 10:03. INDICATIONS : Hypoxia. Abnormal chest CT demonstrating small effusions and consolidation in both lung bases. DOSE: 1.2 mCi Tc99m DTPA 8.8 mCi Tc99m MAA MEDICAL HISTORY : Renal insufficiency. Congestive heart failure. A-Fib. SURGICAL HISTORY : Nephrectomy, left. Nephrectomy, right. ENCOUNTER: Initial ACUITY: 2 days PAIN SCALE: 0/10 LOCATION: Bilateral chest TECHNIQUE: Following five minutes of tidal breathing of DTPA aerosol, planar images of the lungs were performed in eight projections. The patient was then injected with MAA, and eight-view perfusion scan was perf ormed. FINDINGS: There is a pattern of aerosol delivery to the periphery of both lungs. There is mild central depositi on of the radiopharmaceutical. There are patchy ventilatory defects involving both upper lobes. seen. The perfusion lung scan demonstrates a highly inhomogeneous pattern of uptake in both lungs. There ar e matched perfusion defects in the upper lobes. CONCLUSION: Intermediate probability of pulmonary embolism. Michael Mustafa MD on February 08, 2017 at 16:29 Board Certified Radiologist. This report was verified electronically.
[2017-02-08] MEDS: FUROSEMIDE 40 MG/4 ML VIAL IV PUSH SCH (20:35)
[2017-02-08] MEDS: guaiFENesin E.R. 600 MG TAB PO SCH (20:36)
[2017-02-08] MEDS: METOPROLOL SUCCINATE 50 MG EXTENDED RELEASE TAB PO SCH (20:37)
[2017-02-09] VITALS (7 sets, daily range): BP systolic 134–176; BP diastolic 62–102; PULSE 68–96; RESP 16–30; TEMP 97.5–98.3; O2SAT 91–100
[2017-02-09] MEDS: RESP: IPRATROPIUM 0.5 MG/2.5 ML NEB NEB SCH ×4 (04:00→22:00)
[2017-02-09] MEDS: LEVOTHYROXINE SODIUM 25 MCG TAB PO SCH (05:36)
[2017-02-09] MEDS: INSULIN ASPART SUPPLEMENTAL SCALE SQ SCH ×4 (08:00→20:37)
[2017-02-09] MEDS: guaiFENesin E.R. 600 MG TAB PO SCH ×2 (08:47→20:31)
[2017-02-09] MEDS: APIXABAN 5 MG TABLET PO SCH ×2 (08:47→20:32)
[2017-02-09] MEDS: CEFEPIME INJ 1,000 MG in SODIUM CHLORIDE 0.9% INJ 100 ML IV SCH (08:47)
[2017-02-09] MEDS: FUROSEMIDE 40 MG/4 ML VIAL IV PUSH SCH ×2 (08:47→20:32)
[2017-02-09] MEDS: predniSONE 10 MG TAB PO SCH (08:47)
[2017-02-09] MEDS: FAMOTIDINE 20 MG TAB PO SCH (08:48)
[2017-02-09] MEDS: SODIUM BICARBONATE 325 MG TAB PO SCH ×3 (08:48→17:37)
[2017-02-09] MEDS: TIMOLOL MALEATE 0.5% OPHT SOLN 5 ML BTL EACH EYE SCH ×2 (08:48→20:33)
[2017-02-09] MEDS: SODIUM CHLORIDE 0.9% FLUSH 10 ML FLUSH IV FLUSH SCH ×2 (08:48→20:33)
[2017-02-09] MEDS: METOPROLOL SUCCINATE 50 MG EXTENDED RELEASE TAB PO SCH ×2 (08:48→20:31)
[2017-02-09] MEDS: TACROLIMUS 1 MG CAP PO SCH ×2 (08:51→20:37)
[2017-02-09] MEDS: NYSTAT/DIPHENHY/LIDO MOUTHWASH (Adult) 120ML SWISH-SWAL SCH ×4 (08:51→20:33)
[2017-02-09] MEDS: INSULIN DETEMIR 100 UNITS/ML VIAL SQ SCH (09:00)
--- NOTE | 2017-02-09 09:04 | PD.CARD.PN ---
Subjective Subjective Remarks Pt still has cough, VQ intermediate for PE Objective Medications Administered Medications Medications (Trade) Dose Ordered Sig/Liliana Route PRN Reason Start Time Stop Time Status Last Admin Dose Admin Sodium Chloride (NS Flush) 2 ml UNSCH PRN IV FLUSH FLUSH AFTER USING IV ACCESS 02/06/17 05:15 02/07/17 08:22 Sodium Chloride (NS Flush) 2 ml BID IV FLUSH 02/06/17 09:00 02/09/17 08:48 Insulin Aspart (NovoLOG SUPPLEMENTAL SCALE) 1 ACHS SLIDING SCALE SQ 02/06/17 08:00 02/08/17 20:45 Apixaban (Eliquis) 5 mg BID PO 02/06/17 09:00 02/09/17 08:47 Famotidine (Pepcid) 20 mg DAILY PO 02/06/17 09:00 02/09/17 08:48 Insulin Detemir (Levemir Inj) 15 units DAILY SQ 02/06/17 09:00 02/08/17 09:00 Levothyroxine Sodium (Synthroid) 25 mcg DAILY@0600 PO 02/06/17 06:00 02/09/17 05:36 Multi-Ingredient Mouthwash/Gargle (Magic Mouthwash Adult Liq) 10 ml QID SWISH-SWAL 02/06/17 09:00 02/09/17 08:51 Sodium Bicarbonate (Sodium Bicarbonate) 325 mg TIDPC PO 02/06/17 09:30 02/09/17 08:48 Tacrolimus (Prograf) 1 mg DAILY@18 PO 02/06/17 18:00 Future Hold 02/06/17 17:20 Timolol Maleate (Timoptic 0.5% Opth Soln) 1 drop BID EACH EYE 02/06/17 09:00 02/09/17 08:48 Ipratropium [place] (Atrovent Neb) 0.5 mg Q6HR NEB NEB 02/06/17 10:00 02/09/17 08:37 Cefepime HCl 1000 mg/Sodium Chloride 100 ml @ 200 mls/hr Q12H IV 02/06/17 09:00 02/09/17 08:47 Diltiazem HCl 125 mg/Sodium Chloride 125 ml @ 5 mls/hr TITRATE PRN IV Tachycardia 02/06/17 08:00 02/08/17 08:21 Azithromycin 500 mg/Sodium Chloride 250 ml @ 250 mls/hr Q24H IV 02/06/17 13:00 02/08/17 11:51 Magnesium Oxide (Mag-Ox) 400 mg DAILY@1200 PO 02/07/17 12:00 02/08/17 11:51 Ergocalciferol (Drisdol) 50,000 units Q7D PO 02/06/17 15:00 02/06/17 17:20 Prednisone (Deltasone) 10 mg DAILY PO 02/06/17 15:00 02/09/17 08:47 Acetaminophen (Tylenol) 1,000 mg Q12H PRN PO Arthritis/pain 02/06/17 15:00 02/08/17 22:00 Tacrolimus (Prograf) 2 mg BID@0800,2000 PO 02/07/17 20:00 02/09/17 08:51 Metoprolol Succinate (Toprol Xl) 50 mg BID PO 02/08/17 21:00 02/09/17 08:48 Guaifenesin (Mucinex Er) 600 mg BID PO 02/08/17 21:00 02/09/17 08:47 Furosemide (Lasix Inj) 40 mg BID IV PUSH 02/08/17 21:00 02/09/17 08:47 Vital Signs / I&O Vital Signs Date Time Temp Pulse Resp B/P (MAP) Pulse Ox O2 Delivery O2 Flow Rate FiO2 02/09/17 08:37 100 Nasal Cannula 3.00 02/09/17 04:00 98.0 68 16 144/62 (89) 100 02/09/17 04:00 68 02/09/17 00:00 72 02/09/17 00:00 98.3 72 17 134/62 (86) 100 02/08/17 23:00 18 02/08/17 21:47 100 Nasal Cannula 2.00 02/08/17 20:00 98.5 73 18 151/70 (97) 100 02/08/17 20:00 73 02/08/17 16:00 98.0 77 22 148/64 (92) 100 02/08/17 16:00 77 02/08/17 12:00 98.0 82 18 146/65 (92) 96 02/08/17 12:00 96 02/08/17 09:28 100 Nasal Cannula 2.00 I/O 02/08/17 02/08/17 02/08/17 02/09/17 02/09/17 02/09/17 07:00 15:00 23:00 07:00 15:00 23:00 Intake Total 120 ml 600 ml 240 ml Output Total 400 ml 1200 ml 750 ml Balance -280 ml -600 ml -510 ml Intake Oral 120 ml 600 ml 240 ml Output Urine Total 400 ml 1200 ml 750 ml # Bowel Movements 0 1 0 Physical Exam GENERAL: This is a well-nourished, well-developed patient, in no apparent distress. CARDIOVASCULAR: Regular rate and rhythm without murmurs, gallops, or rubs. RESPIRATORY: Clear to auscultation. Breath sounds equal bilaterally. No wheezes , rales, or rhonchi. GASTROINTESTINAL: Abdomen soft, non-tender, nondistended. Normal active bowel sounds MUSCULOSKELETAL: chronic lymphedema 2+ NEURO: Alert & Oriented x4 to person, place, time, situation. Moves all ext x4 Imaging Last Impressions Lung Scan-VQ Nuclear Medicine 02/08/17 0000 Signed Impressions: Service Date/Time: Wednesday, February 08, 2017 14:44 - CONCLUSION: Intermediate probability of pulmonary embolism. Michael Mustafa MD Chest X-Ray 02/07/17 0000 Signed Impressions: Service Date/Time: Tuesday, February 07, 2017 10:03 - CONCLUSION: Stable chest. Kyree Johnston MD Assessment and Plan Problem List: (1) Pulmonary embolism ICD Codes: I26.99 - Other pulmonary embolism without acute cor pulmonale Plan: Intermediate risk by VQ scan; pt says she cannot have CTA w/ contrast due to renal transplant; will have to treat presumptively which means increasing eliquis dose to 10mg bid for a week. Will get lower ext. dopplers (2) Chronic atrial fibrillation with RVR ICD Codes: I48.2 - Chronic atrial fibrillation Status: Acute (3) Congestive heart failure ICD Codes: I50.9 - Heart failure, unspecified (4) SOB (shortness of breath) ICD Codes: R06.02 - Shortness of breath Plan: improving (5) Pulmonary hypertension ICD Codes: I27.2 - Other secondary pulmonary hypertension Plan: still likely some chf component, but also possibility of PE Assessment and Plan Dr. dangelo will return tomorrow. Problem Qualifiers (1) Pulmonary embolism: Eddie Amaral MD Feb 09, 2017 09:04
--- NOTE | 2017-02-09 10:22 | HHI.PR ---
Subjective Remarks The patient reports that she woke up at 0215 and couldn't breath. Symptoms severe. She was given Lasix p.o. and didn't improve so the SNF physician instructed that she should be sent to the hospital. She was recently weaned off of supplemental oxygen. She complains of orthopnea. She is residing at [facility]. [facility] first couple of weeks of December [facility] end of December, beginning of January. Denies cough, fever, nausea, vomiting, coffee or red colored vomit, black or red stool. She reports taking Lasix 20 mg once daily. Recently dosage decreased on Tacrolimus and CellCept d/c'd recently The patient required bipap on ER arrival and is now somewhat tachypneic on 5 liters supplemental oxygen via nasal cannula - oxygen saturation is 100%. 02-07 PATIENT REMAINS ON CARDIZEM DRIP TO HAVE CT OF CHEST TODAY DW RN AND PT AND ID SEEMS TO BE BREATHING BETTER THAN YESTERDAY EVENING HAS BEEN LIVING AT A SNF PRIOR TO ADMISSION HX OF PULMONARY HYPERTENSION SEVERE BL LE LYMPHEDEMA 02-08 TRY TO WEAN OFF CARDIZEM WILL INCREASE METOPROLOL TO 50MG PO BID DW RN AND PT COMPLAINS OF SORE THROAT AND COUGH INCENTIVE SPIROMETRY 02-09 OFF CARDIZEM DRIP STILL V/Q SCAN POSITIVE FOR INTERMEDIATE FOR PE- ELIQUIS HAS BEEN INCREASED TO 10MG BID DW RN AND PATIENT Objective Vitals Vital Signs Date Time Temp Pulse Resp B/P (MAP) Pulse Ox O2 Delivery O2 Flow Rate FiO2 02/09/17 08:37 100 Nasal Cannula 3.00 02/09/17 08:00 97.7 71 29 137/102 (114) 100 02/09/17 08:00 71 02/09/17 04:00 98.0 68 16 144/62 (89) 100 02/09/17 04:00 68 02/09/17 00:00 72 02/09/17 00:00 98.3 72 17 134/62 (86) 100 02/08/17 23:00 18 02/08/17 21:47 100 Nasal Cannula 2.00 02/08/17 20:00 98.5 73 18 151/70 (97) 100 02/08/17 20:00 73 02/08/17 16:00 98.0 77 22 148/64 (92) 100 02/08/17 16:00 77 02/08/17 12:00 98.0 82 18 146/65 (92) 96 02/08/17 12:00 96 I/O 02/08/17 02/08/17 02/08/17 02/09/17 02/09/17 02/09/17 07:00 15:00 23:00 07:00 15:00 23:00 Intake Total 120 ml 600 ml 240 ml Output Total 400 ml 1200 ml 750 ml Balance -280 ml -600 ml -510 ml Intake Oral 120 ml 600 ml 240 ml Output Urine Total 400 ml 1200 ml 750 ml # Bowel Movements 0 1 0 Result Diagram: 02/08/17 0425 02/08/17 0425 Other Results Laboratory Tests Test 02/06/17 13:07 02/06/17 20:56 02/07/17 03:41 02/08/17 04:25 Total Creatine Kinase 18 U/L 18 U/L Troponin I LESS THAN 0.02 NG/ML LESS THAN 0.02 NG/ML White Blood Count 9.2 TH/MM3 9.5 TH/MM3 Red Blood Count 3.55 MIL/MM3 3.23 MIL/MM3 Hemoglobin 10.5 GM/DL 9.7 GM/DL Hematocrit 33.3 % 29.8 % Mean Corpuscular Volume 93.8 FL 92.0 FL Mean Corpuscular Hemoglobin 29.5 PG 29.9 PG Mean Corpuscular Hemoglobin Concent 31.4 % 32.5 % Red Cell Distribution Width 14.9 % 14.7 % Platelet Count 170 TH/MM3 155 TH/MM3 Mean Platelet Volume 7.9 FL 8.1 FL Neutrophils (%) (Auto) 86.0 % 81.6 % Lymphocytes (%) (Auto) 6.7 % 6.8 % Monocytes (%) (Auto) 5.9 % 7.4 % Eosinophils (%) (Auto) 1.1 % 4.1 % Basophils (%) (Auto) 0.3 % 0.1 % Neutrophils # (Auto) 7.9 TH/MM3 7.7 TH/MM3 Lymphocytes # (Auto) 0.6 TH/MM3 0.6 TH/MM3 Monocytes # (Auto) 0.5 TH/MM3 0.7 TH/MM3 Eosinophils # (Auto) 0.1 TH/MM3 0.4 TH/MM3 Basophils # (Auto) 0.0 TH/MM3 0.0 TH/MM3 CBC Comment DIFF FINAL DIFF FINAL Differential Comment Blood Urea Nitrogen 23 MG/DL 30 MG/DL Creatinine 1.12 MG/DL 1.07 MG/DL Random Glucose 168 MG/DL 113 MG/DL Calcium Level 8.6 MG/DL 8.5 MG/DL Phosphorus Level 3.8 MG/DL 3.2 MG/DL Magnesium Level 1.7 MG/DL 1.8 MG/DL Sodium Level 138 MEQ/L 138 MEQ/L Potassium Level 4.4 MEQ/L 4.0 MEQ/L Chloride Level 101 MEQ/L 101 MEQ/L Carbon Dioxide Level 30.5 MEQ/L 32.3 MEQ/L Anion Gap 7 MEQ/L 5 MEQ/L Estimat Glomerular Filtration Rate 49 ML/MIN 51 ML/MIN Tacrolimus (Prograf) Level 3.9 NG/ML 7.9 NG/ML Total Protein 5.4 GM/DL Albumin 2.4 GM/DL Alkaline Phosphatase 77 U/L Aspartate Amino Transf (AST/SGOT) 10 U/L Alanine Aminotransferase (ALT/SGPT) 14 U/L Total Bilirubin 0.4 MG/DL Free Thyroxine 1.27 NG/DL Thyroid Stimulating Hormone 3rd Gen 3.150 uIU/ML Imaging Last Impressions Lung Scan-VQ Nuclear Medicine 02/08/17 0000 Signed Impressions: Service Date/Time: Wednesday, February 08, 2017 14:44 - CONCLUSION: Intermediate probability of pulmonary embolism. Michael Mustafa MD Chest X-Ray 02/07/17 0000 Signed Impressions: Service Date/Time: Tuesday, February 07, 2017 10:03 - CONCLUSION: Stable chest. Kyree Johnston MD Objective Remarks GENERAL: This is an obese elderly female patient who is tachypneic. SKIN: No rashes, ecchymoses or lesions. Cool and dry. Bilateral lower extremities with CHRONIC skin changes c/w lymphedema HEAD: Atraumatic. Normocephalic. EYES: No scleral icterus. No injection or drainage. PERRLA EOMI ENT: Nose without bleeding, purulent drainage. Airway patent.TONGUE MIDLINE NECK: Trachea midline. No JVD. NECK SUPPLE CARDIOVASCULAR: IRRegular rate and rhythm without murmurs, gallops, or rubs. S1 , S2 NO S3 OR S4 NO HEAVE RESPIRATORY: Breath sounds diminished; equal bilaterally. No wheezes, rales, or rhonchi. Tachypneic and using accessory muscles to breath IMPROVING ON OXYGEN GASTROINTESTINAL: Abdomen soft, non-tender, nondistended. No guarding. OBESE MUSCULOSKELETAL: Extremities without clubbing, cyanosis. CHRONIC BL LE LYMPHEDEMA NEUROLOGICAL: Awake and alert. Motor and sensory grossly within normal limits. Normal speech. INSIGHT AND JUDGEMENT ARE GOOD MOOD AND BEHAVIOR ARE APPROPRIATE Medications and IVs Current Medications Furosemide (Lasix Inj) 60 mg DAILY IV PUSH ; Start 02/06/17 at 09:00; Stop 02/06 at 09:00; Status DC Sodium Chloride (NS Flush) 2 ml UNSCH PRN IVF FLUSH AFTER USING IV ACCESS; Start 02/06/17 at 04:00; Stop 02/06/17 at 05:16; Status DC Furosemide (Lasix Inj) 60 mg ONCE ONCE IV PUSH Last administered on 02/06/17 04:05; Start 02/06/17 at 04:00; Stop 02/06/17 at 04:01; Status DC Ondansetron HCl (Zofran Inj) 8 mg ONCE ONCE IV PUSH Last administered on 04:13; Start 02/06/17 at 04:15; Stop 02/06/17 at 04:16; Status DC Aztreonam 2000 mg/ Sodium Chloride 100 ml @ 200 mls/hr NOW ONCE IV Last administered on 02/06/17 05:43; Start 02/06/17 at 05:15; Stop 02/06/17 at 05:44 ; Status DC Levofloxacin (Levaquin) 750 mg ONCE ONCE PO Last administered on 02/06/17 05: 16; Start 02/06/17 at 05:15; Stop 02/06/17 at 05:16; Status DC Diltiazem HCl (Cardizem Inj) 26 mg BOLUS ONCE IV PUSH Last administered on 05:20; Start 02/06/17 at 05:15; Stop 02/06/17 at 05:16; Status DC Sodium Chloride (NS Flush) 2 ml UNSCH PRN IV FLUSH FLUSH AFTER USING IV ACCESS Last administered on 02/07/17 08:22; Start 02/06/17 at 05:15 Sodium Chloride (NS Flush) 2 ml BID IV FLUSH Last administered on 02/09/17 08: 48; Start 02/06/17 at 09:00 Naloxone HCl (Narcan Inj) 0.4 mg UNSCH PRN IV PUSH SEE LABEL COMMENTS; Start at 05:15 Furosemide (Lasix Inj) 40 mg BID@,18 IV PUSH Last administered on 02/07/17 08:22; Start 02/06/17 at 09:00; Stop 02/07/17 at 12:41; Status DC Dextrose (D50w (Vial) Inj) 50 ml UNSCH PRN IV PUSH HYPOGLYCEMIA-SEE COMMENTS; Start 02/06/17 at 06:00 Glucagon (Glucagon Inj) 1 mg UNSCH PRN OTHER HYPOGLYCEMIA-SEE COMMENTS; Start 02/06/17 at 06:00 Insulin Aspart (NovoLOG SUPPLEMENTAL SCALE) 1 ACHS SLIDING SCALE SQ Last administered on 02/08/17 20:45; Start 02/06/17 at 08:00 Apixaban (Eliquis) 5 mg BID PO Last administered on 02/09/17 08:47; Start at 09:00; Stop 02/09/17 at 09:06; Status DC Famotidine (Pepcid) 20 mg DAILY PO Last administered on 02/09/17 08:48; Start 02/06/17 at 09:00 Insulin Detemir (Levemir Inj) 15 units DAILY SQ Last administered on 02/08/17 09:00; Start 02/06/17 at 09:00 Levothyroxine Sodium (Synthroid) 25 mcg DAILY@0600 PO Last administered on 02/09 05:36; Start 02/06/17 at 06:00 Metoprolol Succinate (Toprol Xl) 25 mg BID PO Last administered on 02/08/17 08 :40; Start 02/06/17 at 09:00; Stop 02/08/17 at 10:16; Status DC Multi-Ingredient Mouthwash/Gargle (Magic Mouthwash Adult Liq) 10 ml QID SWISH- SWAL Last administered on 02/09/17 08:51; Start 02/06/17 at 09:00 Sodium Bicarbonate (Sodium Bicarbonate) 325 mg TIDPC PO Last administered on 08:48; Start 02/06/17 at 09:30 Tacrolimus (Prograf) 1 mg DAILY@18 PO Last administered on 02/06/17 17:20; Start 02/06/17 at 18:00; Status Future Hold Tacrolimus (Prograf) 2 mg DAILY PO Last administered on 02/07/17 08:23; Start 02/06/17 at 09:00; Stop 02/07/17 at 12:41; Status DC Timolol Maleate (Timoptic 0.5% Opt Soln) 1 drop BID EACH EYE Last administered on 02/09/17 08:48; Start 02/06/17 at 09:00 Ipratropium [place] (Atrovent Neb) 0.5 mg Q6HR NEB NEB Last administered on 08:37; Start 02/06/17 at 10:00 Ipratropium [place] (Atrovent Neb) 0.5 mg Q2HR NEB PRN NEB wheezing; Start at 06:00 Cefepime HCl 1000 mg/Sodium Chloride 100 ml @ 200 mls/hr Q12H IV Last administered on 02/09/17 08:47; Start 02/06/17 at 09:00 Diltiazem HCl (Cardizem Inj) 15 mg ONCE ONCE IV PUSH Last administered on 02/06 07:25; Start 02/06/17 at 07:15; Stop 02/06/17 at 07:16; Status DC Diltiazem HCl 125 mg/Sodium Chloride 125 ml @ 5 mls/hr TITRATE PRN IV Tachycardia Last administered on 02/08/17 08:21; Start 02/06/17 at 08:00 Azithromycin 500 mg/Sodium Chloride 250 ml @ 250 mls/hr Q24H IV Last administered on 02/08/17 11:51; Start 02/06/17 at 13:00 Magnesium Oxide (Mag-Ox) 400 mg DAILY@1200 PO Last administered on 02/08/17 11 :51; Start 02/07/17 at 12:00 Ergocalciferol (Drisdol) 50,000 units Q7D PO Last administered on 02/06/17 17: 20; Start 02/06/17 at 15:00 Prednisone (Deltasone) 10 mg DAILY PO Last administered on 02/09/17 08:47; Start 02/06/17 at 15:00 Acetaminophen (Tylenol) 1,000 mg Q12H PRN PO Arthritis/pain Last administered on 02/08/17 22:00; Start 02/06/17 at 15:00 Furosemide (Lasix Inj) 40 mg DAILY IV PUSH Last administered on 02/08/17 08:42 ; Start 02/08/17 at 09:00; Stop 02/08/17 at 11:32; Status DC Tacrolimus (Prograf) 2 mg BID@0800,2000 PO Last administered on 02/09/17 08:51 ; Start 02/07/17 at 20:00 Metoprolol Succinate (Toprol Xl) 50 mg BID PO Last administered on 02/09/17 08 :48; Start 02/08/17 at 21:00 Guaifenesin (Mucinex Er) 600 mg BID PO Last administered on 02/09/17 08:47; Start 02/08/17 at 21:00 Metoprolol Succinate (Toprol Xl) 25 mg ONCE ONCE PO Last administered on 10:56; Start 02/08/17 at 10:45; Stop 02/08/17 at 10:46; Status DC Furosemide (Lasix Inj) 40 mg BID IV PUSH Last administered on 02/09/17 08:47; Start 02/08/17 at 21:00 Apixaban (Eliquis) 10 mg BID PO ; Start 02/09/17 at 21:00; Stop 02/16/17 at 20: 59 Apixaban (Eliquis) 5 mg BID PO ; Start 02/17/17 at 09:00 Urinary Catheter: Yes Assessment to: Continue Montalvo insert reason: Measure Accurate Output Vascular Central Line Catheter: No A/P Problem List: (1) Congestive heart failure ICD Code: I50.9 - Heart failure, unspecified (2) Pneumonia ICD Code: J18.9 - Pneumonia, unspecified organism Status: Acute (3) Diabetes mellitus type 2, insulin dependent ICD Code: E11.9 - Type 2 diabetes mellitus without complications; Z79.4 - alf (current) use of insulin (4) Hyperlipidemia ICD Code: E78.5 - Hyperlipidemia, unspecified (5) HTN (hypertension) ICD Code: I10 - Essential (primary) hypertension (6) Chronic atrial fibrillation with RVR ICD Code: I48.2 - Chronic atrial fibrillation Status: Acute (7) Hx of kidney transplant ICD Code: Z94.0 - Kidney transplant status (8) A-fib ICD Code: I48.91 - Unspecified atrial fibrillation Status: Acute (9) Hypoxia ICD Code: R09.02 - Hypoxemia Status: Acute (10) SOB (shortness of breath) ICD Code: R06.02 - Shortness of breath Assessment and Plan 66-year-old female transferred from local [facility] facility for acute onset shortness of breath: Acute CHF exacerbation--DOUBT CHF EXACERBATION HAS SEVERE PULMONARY HYPERTENSION- HAD BEEN OFF OXYGEN AT THE SNF - BNP 138 - CXR shows cardiomegaly with bilateral pulmonary infiltrates and tiny left effusion - monitor serial EKGs and cardiac enzymes to r/o ACS - Strictly monitor intake and output - Heart healthy diet - Continuous cardiac telemetry to monitor for cardiac arrhythmias INCREASE METOPROLOL TO 50MG PO BID WEAN OFF CARDIZEM Pneumonia, bilateral - CXR shows cardiomegaly with bilateral pulmonary infiltrates and tiny left effusion - Cefepime 1 g IV every 12 hours - consult infectious disease - patient on immunosuppressants for kidney transplant - Atrovent nebulizers every 6 hours scheduled and every 2 hours as needed for wheezing Type 2 Diabetes Mellitus - Continue home dose of Lantus daily - Accu-Cheks before meals and at bedtime with low-dose NovoLog sliding scale coverage - Hypoglycemia protocol - Monitor trends and blood glucose readings and adjust treatments as indicated DVT prophylaxis - Resume Eliquis was 10 mg twice a day p.o.- V/Q INTERMEDIATE WILL INCREASE PULMONARY HYPERTENSION ECHO HX RENAL TRANSPLANT ON CHRONIC IMMUNOSUPPRESSION CARDIAC, RENAL AND ID CONSULTS START LACTINEX INCREASE ELIQUIS TO 10MG BID Problem Qualifiers (1) Pneumonia: Qualified Codes: J15.0 - Pneumonia due to Klebsiella pneumoniae Davin Vera DO Feb 09, 2017 10:22
[2017-02-09 11:28] LABS: HEMOGLOBIN A1a 0.7 %; HEMOGLOBIN A1b 2.2 %; HEMOGLOBIN Ao 81.9 %; HEMOGLOBIN LA1C 2.6 %; HEMOGLOBIN P3 6.8 %
--- NOTE | 2017-02-09 12:04 | HHI.IDPN ---
Subjective Subjective Remarks remains afebrile breathing stable VQ with intermediate probability no chest pain no expectoration no diarrhea Antibiotics azithro cefepime Allergies: Coded Allergies: Sulfa (Sulfonamide Antibiotics) (Unverified Allergy, Severe, 02/06/17) diatrizoate meglumine (Unverified Allergy, Severe, 02/06/17) gadobenic acid (Unverified Allergy, Severe, 02/06/17) gadodiamide (Unverified Allergy, Severe, 02/06/17) gadoteridol (Unverified Allergy, Severe, 02/06/17) iodixanol (Unverified Allergy, Severe, 02/06/17) iohexol (Unverified Allergy, Severe, PT NEEDS TO BE PREMEDICATED, 02/06/17) penicillin G (Unverified Allergy, Severe, 02/06/17) Objective . Vital Signs Date Time Temp Pulse Resp B/P (MAP) Pulse Ox O2 Delivery O2 Flow Rate FiO2 02/09/17 08:37 100 Nasal Cannula 3.00 02/09/17 08:00 97.7 71 29 137/102 (114) 100 02/09/17 08:00 71 02/09/17 04:00 98.0 68 16 144/62 (89) 100 02/09/17 04:00 68 02/09/17 00:00 72 02/09/17 00:00 98.3 72 17 134/62 (86) 100 02/08/17 23:00 18 02/08/17 21:47 100 Nasal Cannula 2.00 02/08/17 20:00 98.5 73 18 151/70 (97) 100 02/08/17 20:00 73 02/08/17 16:00 98.0 77 22 148/64 (92) 100 02/08/17 16:00 77 02/08/17 12:00 98.0 82 18 146/65 (92) 96 02/08/17 12:00 96 . Laboratory Tests Test 02/08/17 04:25 White Blood Count 9.5 TH/MM3 Red Blood Count 3.23 MIL/MM3 Hemoglobin 9.7 GM/DL Hematocrit 29.8 % Mean Corpuscular Volume 92.0 FL Mean Corpuscular Hemoglobin 29.9 PG Mean Corpuscular Hemoglobin Concent 32.5 % Red Cell Distribution Width 14.7 % Platelet Count 155 TH/MM3 Mean Platelet Volume 8.1 FL Neutrophils (%) (Auto) 81.6 % Lymphocytes (%) (Auto) 6.8 % Monocytes (%) (Auto) 7.4 % Eosinophils (%) (Auto) 4.1 % Basophils (%) (Auto) 0.1 % Neutrophils # (Auto) 7.7 TH/MM3 Lymphocytes # (Auto) 0.6 TH/MM3 Monocytes # (Auto) 0.7 TH/MM3 Eosinophils # (Auto) 0.4 TH/MM3 Basophils # (Auto) 0.0 TH/MM3 CBC Comment DIFF FINAL Differential Comment Laboratory Tests Test 02/08/17 04:25 Blood Urea Nitrogen 30 MG/DL Creatinine 1.07 MG/DL Random Glucose 113 MG/DL Total Protein 5.4 GM/DL Albumin 2.4 GM/DL Calcium Level 8.5 MG/DL Phosphorus Level 3.2 MG/DL Magnesium Level 1.8 MG/DL Alkaline Phosphatase 77 U/L Aspartate Amino Transf (AST/SGOT) 10 U/L Alanine Aminotransferase (ALT/SGPT) 14 U/L Total Bilirubin 0.4 MG/DL Sodium Level 138 MEQ/L Potassium Level 4.0 MEQ/L Chloride Level 101 MEQ/L Carbon Dioxide Level 32.3 MEQ/L Anion Gap 5 MEQ/L Estimat Glomerular Filtration Rate 51 ML/MIN Free Thyroxine 1.27 NG/DL Thyroid Stimulating Hormone 3rd Gen 3.150 uIU/ML Microbiology Date/Time Source Procedure Growth Status 02/08/17 06:00 Nasal Washing Influenza Types A,B Antigen (KATLYN) - Final NEGATIVE FOR FLU A AND B ANTIGEN.... Complete 02/07/17 22:45 Sputum Endotracheal Gram Stain - Final Resulted 02/07/17 22:45 Sputum Endotracheal Sputum Culture - Preliminary IMMATURE GROWTH - REINCUBATE Resulted Imaging Last Impressions Lung Scan-VQ Nuclear Medicine 02/08/17 0000 Signed Impressions: Service Date/Time: Wednesday, February 08, 2017 14:44 - CONCLUSION: Intermediate probability of pulmonary embolism. Michael Mustafa MD Chest X-Ray 02/07/17 0000 Signed Impressions: Service Date/Time: Tuesday, February 07, 2017 10:03 - CONCLUSION: Stable chest. Kyree Johnston MD Physical Exam CONSTITUTIONAL/GENERAL: This is an obese elederly patient, in no apparent distress. TUBES/LINES/DRAINS: SKIN: No jaundice, rashes, or lesions. CARDIOVASCULAR: Regular rate and rhythm without murmurs, gallops, or rubs. RESPIRATORY/CHEST: Symmetric, unlabored respirations. Clear to auscultation. Breath sounds equal bilaterally. N GASTROINTESTINAL: Abdomen soft, non-tender, markedly obese nondistended. No hepato-splenomegaly, or palpable masses. No guarding. Bowel sounds present. GENITOURINARY: Without palpable bladder distension. Montalvo catheter in place with clear light yellow urine MUSCULOSKELETAL: Extremities without clubbing, cyanosis, + pitting chronic appearing 2+edema. Some chronic appearing discoloraiton No joint tenderness or effusion noted. No calf tenderness. No mottling or clubbing. NEUROLOGICAL: Awake and alert. Motor and sensory grossly within normal limits. Follows commands. Clear speech. Moves all extremities. PSYCHIATRIC: No obvious anxiety/depression. no apparent hallucinations or other psychotic thought process. Assessment & Plan Remarks ESRD sp renal allograft,immunosuppressed Pulmonary infiltrates - pt evaluated by licensing registration examiner, no CHF ? atypoical PNA pneumococcal, leg, flu AG negative sputum is not purulent Probable PE Leukocytosis resolved Recent C.diff dc azithro, cefepime monitor off abx fu sputum clx monitor for diarrhea - chk crypto AG dw Gertrudis Hutchins MD Feb 09, 2017 12:04
[2017-02-09] MEDS: MAGNESIUM OXIDE 400 MG TAB PO SCH (12:27)
[2017-02-09 12:30] LABS: AUTOMATED NEUTROPHIL # 10.3 TH/MM3 (1.8-7.7); BASOPHIL % 0.3 % (0.0-2.0); EOSINOPHIL # 0.3 TH/MM3 (0-0.4); EOSINOPHIL % 2.6 % (0.0-4.0); HEMO FLAGS DIFF FINAL; LYMPH % 4.5 % (9.0-44.0); LYMPHOCYTE # 0.5 TH/MM3 (1.0-4.8); MEAN CELL VOLUME 90.9 FL (80.0-100.0); MEAN CORPUSCULAR HEMOGLOBIN 28.3 PG (27.0-34.0); MEAN CORPUSCULAR HGB CONC 31.2 % (32.0-36.0); MONO % 5.9 % (0.0-8.0); NEUT % 86.7 % (16.0-70.0); PLATELET COUNT 135 TH/MM3 (150-450); RED BLOOD COUNT 3.85 MIL/MM3 (4.00-5.30); RED CELL DISTRIBUTION WIDTH 14.7 % (11.6-17.2); WHITE BLOOD COUNT 11.9 TH/MM3 (4.0-11.0)
[2017-02-09 13:04] LABS: ALT (GPT) 16 U/L (10-53); ANION GAP 7 MEQ/L (5-15); AST (GOT) 16 U/L (15-37); BICARBONATE 29.6 MEQ/L (21.0-32.0); CHLORIDE 102 MEQ/L (98-107); GLOMERULAR FILTRATION RATE 57 ML/MIN (>89); MAGNESIUM 1.8 MG/DL (1.5-2.5); POTASSIUM 4.5 MEQ/L (3.5-5.1); SODIUM (NA) 139 MEQ/L (136-145)
[2017-02-09 13:06] LABS: ALKALINE PHOSPHATASE 91 U/L (45-117); TOTAL BILIRUBIN ADULT 0.7 MG/DL (0.2-1.0)
[2017-02-09 13:08] LABS: BLOOD UREA NITROGEN 27 MG/DL (7-18)
--- NOTE | 2017-02-09 13:46 | RADRPT ---
EXAM DATE/TIME: 02/09/2017 12:04 [place] COMPARISON: No previous studies available for comparison. INDICATIONS : Bilateral leg swelling. MEDICAL HISTORY : Hypothyroidism. Gastroesophageal reflux disease. Hypertension. Numbness. Emphysema. Renal failure. Ar thritis. Diabetes. SURGICAL HISTORY : Cholecystectomy. Bilateral nephrectomy. Endometrial biopsy. Multiple AV fistula surgeries. Left renal transplant. Bladder repair. Left ankle replacement. ENCOUNTER: Initial ACUITY: Several days. PAIN SCORE: 0/10 LOCATION: Bilateral legs. TECHNIQUE: Venous ultrasound of the left and right leg was performed from the inguinal ligament to the proximal calf. Real-time, color Doppler and spectral tracing, compression and augmentation techniques were us ed. FINDINGS: Suboptimal examination secondary to the patient's large body habitus and edema in the legs. RIGHT LEG: There is at least partial compressibility of the deep venous system from the inguinal region to the p roximal calf. No echogenic clot is seen in the lumen of the common femoral, femoral, popliteal, and popliteal veins. The posterior tibial vein could not be visualized. There is a normal response of the venous system to proximal and distal augmentation and respiration. LEFT LEG: There is at least partial compressibility of the deep venous system from the inguinal region to the p roximal calf. No echogenic clot is seen in the lumen of the common femoral, femoral, and popliteal v eins. The posterior tibial vein could not be visualized. There is a normal response of the venous sys tem to proximal and distal augmentation and respiration. CONCLUSION: 1. Suboptimal examination secondary patient's large body habitus and edema. 2. No evidence of deep venous thrombosis. 3. The posterior tibial veins could not be visualized or evaluated. Michael Mustafa MD on February 09, 2017 at 13:41 Board Certified Radiologist. This report was verified electronically.
--- NOTE | 2017-02-09 14:32 | HHI.NPPN ---
Subjective History of Present Illness 66 year old female with CHF, A fib, s/p kidney transplant 2004 , was admitted with increasing SOB. Additional Remarks Patient is alert, breathing is better, with nasal cannula. Review of Systems General Constitutional: Fatigue Respiratory Lungs: SOB, Cough Cardiovascular Cardiac: Edema, RIOS Objective Data Data 02/09/17 02/10/17 19:00 07:00 Intake Total 350 ml Balance 350 ml IV Total 350 ml Vital Signs Date Time Temp Pulse Resp B/P (MAP) Pulse Ox O2 Delivery O2 Flow Rate FiO2 02/09/17 12:00 98.0 88 30 139/86 (103) 91 02/09/17 12:00 88 02/09/17 08:37 100 Nasal Cannula 3.00 02/09/17 08:00 97.7 71 29 137/102 (114) 100 02/09/17 08:00 71 02/09/17 04:00 98.0 68 16 144/62 (89) 100 02/09/17 04:00 68 02/09/17 00:00 72 02/09/17 00:00 98.3 72 17 134/62 (86) 100 02/08/17 23:00 18 02/08/17 21:47 100 Nasal Cannula 2.00 02/08/17 20:00 98.5 73 18 151/70 (97) 100 02/08/17 20:00 73 02/08/17 16:00 98.0 77 22 148/64 (92) 100 02/08/17 16:00 77 -: 02/09/17 1219 02/09/17 1219 Physical Exam General Appearance: No Acute Distress, Comfortable Eyes Eye Exam: Pupils Equal Throat Throat Exam: Oral Mucosa [place] & Moist Pulmonary Resp Exam: Breath Sounds Equal, No Distress, Decreased Bases Cardiology CV Exam: Regular, Normal Sinus Rhythm Gastrointestinal/Abdomen GI Exam: Soft, Non-Tender, Bowel Sounds Present Extremeties Extremities Exam: Moderate Edema, Pitting Edema Neurologic Neuro Exam: Alert, Awake, Oriented Psychiatric Psych Exam: Appropriate Responses Assessment/Plan Problem List: (1) Hx of kidney transplant ICD Codes: Z94.0 - Kidney transplant status Plan: Patient creatinine is stable, 1.0-1.1 Has been on diuresis, she is on prednisone 10 mg and was on tacrolimus 2 in the morning and 1 in the evening Pulmonary Hypertension 91 mm Hg severe need a CT scan to follow on this ? Pulmonary Fibrosis tacrolimus level now 7.9. Creatinine is stable , now 0.98. Continue diuresis. (2) Congestive heart failure ICD Codes: I50.9 - Heart failure, unspecified Plan: Patient is given Lasix with good response he is on oxygen (3) Diabetes mellitus type 2, insulin dependent ICD Codes: E11.9 - Type 2 diabetes mellitus without complications; Z79.4 - [facility]itentiary (current) use of insulin Plan: Monitor blood glucose (4) A-fib ICD Codes: I48.91 - Unspecified atrial fibrillation Status: Acute Plan: She has chronic problem (5) Pneumonia ICD Codes: J18.9 - Pneumonia, unspecified organism Status: Acute Plan: Possible pneumonia and is being treated received Zithromax and Levaquin Problem Qualifiers (1) Pneumonia: Qualified Codes: J15.0 - Pneumonia due to Klebsiella pneumoniae Emma Jones MD Feb 09, 2017 14:32
--- NOTE | 2017-02-09 18:09 | MB ---
cc: Past[facility] DATE OF CONSULTATION 02/09/2017 HISTORY OF THE PRESENT ILLNESS Ms. Rahman is a 66-year-old white female admitted for shortness of breath with quite extensive prior history including end-stage renal disease for which she underwent a transplant in 2004. She also has a history of chronic atrial fibrillation but no coronary disease and no history of recurrent CHF. She has recently had urinary tract infection with septicemia as well as C difficile infection. She was hospitalized at [facility], transfer discharged to rehab center, redeveloped fever and was presenting back here on this occasion. She had an echocardiogram on presentation with pulmonary hypertension and I am asked to see her in this regard. She says she has known that she had hypertension in her lungs for least 10 years. Apparently she was followed at [facility] after her transplant and was told that she had a problem then. She has also had consistent cardiology followup over the last decade and no specific treatment has been given for this. She has been on chronic Eliquis therapy for the atrial fibrillation and has no prior history of thromboembolic disease. There is a history of sleep apnea but no specific treatment at the present time. PAST MEDICAL HISTORY Additional past history: 1. Hypertension. 2. Type 2 diabetes. 3. Polycystic kidney disease which resulted in bilateral nephrectomies and/or transplant. The patient presented with shortness of breath but no chest pain. No hemoptysis. She does have severe chronic swelling in her legs but apparently no history of thromboembolism and of course she has been on anticoagulation. A routine chest x-ray was unrevealing. CT scan without contrast revealed some posterior basilar atelectasis and an enlarged heart, nothing to suggest interstitial disease or pneumonia. She also had lower extremity ultrasounds which revealed no evidence of deep venous thrombosis although was a poor quality study due to her large size. She had a ventilation perfusion scan which is indeterminate, some patchy perfusion defects and matched defects as well. ADDITIONAL PAST HISTORY 1. Hypothyroidism. 2. She has had a cholecystectomy. 3. The renal transplant. 4. And some surgery on her foot with braxton insertion. ALLERGIES ARE MULTIPLE AND REVIEWED IN THE CHART. MEDICATIONS Reviewed and recorded in the EMR as well. PHYSICAL EXAMINATION GENERAL: Elderly white female in no distress at rest, on nasal oxygen 3 liters with a sat of 100%. VITAL SIGNS: She is afebrile. Her blood pressure is 140/86, respirations are 18-20 and pulse is 80. HEENT: Sclerae anicteric. NECK: Veins are flat. CHEST: Actually clear. No basilar rales. No wheezes, no congestion. Irregular heart rhythm. Soft systolic murmur. No audible S3. ABDOMEN: Obese. She has significant chronic venous stasis changes in her legs. Ms. Rahman presents with dyspnea, a previous cardiac history of chronic atrial fibrillation as well as a renal transplant 10 years ago. She also may have underlying sleep apnea, untreated at this point. There is a marked elevation in her systolic pulmonary artery pressure whether that is acute or chronic is not clear although she says she has a history dating back a decade. It would be interesting to see those notes. Potential comorbidities resulting in secondary pulmonary hypertension include chronic heart disease and underlying sleep apnea. She does not appear to have any thromboembolic process although the ventilation-perfusion scan is not that clear and no dye is being considered to be given in light of the transplant. She is very comfortable. O2 saturations are very reasonable. She should have an outpatient sleep study done at some point but I do not think anything other than continuing anticoagulation at present is warranted. If we can get some old echocardiograms for comparison that would be helpful. She should have a follow up echocardiogram when stable within the next several weeks to see if these pressures are still that elevated and we could pursue further outpatient diagnostic studies to see if we can clarify the underlying etiology if in fact they are that high when she is stable. Further diagnostic and/or therapeutic intervention will depend on these studies and her ongoing clinical course. RMD ROSS Lora/KK /5:10 PM /5:58 PM
--- NOTE | 2017-02-09 22:12 | HHI.PR ---
Addendum to Inpatient Note Addendum Reason: Additional Documentation Additional Information I will be off February [address] Cueto is covering for me Gertrudis Li MD Feb 09, 2017 22:12
[2017-02-10] VITALS (12 sets, daily range): BP systolic 153–169; BP diastolic 69–78; PULSE 71–92; RESP 22–26; TEMP 97.9–98.5; O2SAT 93–100
[2017-02-10] MEDS: ACETAMINOPHEN 500 MG CPLT PO PRN (05:05)
[2017-02-10] MEDS: LEVOTHYROXINE SODIUM 25 MCG TAB PO SCH (05:05)
[2017-02-10] MEDS: RESP: IPRATROPIUM 0.5 MG/2.5 ML NEB NEB SCH ×4 (05:35→19:41)
--- NOTE | 2017-02-10 07:51 | PD.CARD.PN ---
Subjective Subjective Remarks Breathing improved. No chest pain. V/Q scan intermediate probability for PE but no evidence of lower extremity thrombosis. BNP 136 Objective Vital Signs / I&O Vital Signs Date Time Temp Pulse Resp B/P (MAP) Pulse Ox O2 Delivery O2 Flow Rate FiO2 02/10/17 07:33 100 Nasal Cannula 2.00 02/10/17 06:05 17 02/10/17 04:00 98.0 72 22 169/72 (104) 100 02/10/17 04:00 72 02/10/17 00:00 73 02/10/17 00:00 98.0 73 24 153/69 (97) 100 02/09/17 20:00 96 02/09/17 20:00 97.9 96 26 153/66 (95) 100 02/09/17 16:00 92 02/09/17 16:00 97.5 92 30 176/79 (111) 100 02/09/17 12:00 98.0 88 30 139/86 (103) 91 02/09/17 12:00 88 02/09/17 08:37 100 Nasal Cannula 3.00 02/09/17 08:00 97.7 71 29 137/102 (114) 100 02/09/17 08:00 71 I/O 02/09/17 02/09/17 02/09/17 02/10/17 02/10/17 02/10/17 06:59 14:59 22:59 06:59 14:59 22:59 Intake Total 240 ml 350 ml 500 ml 300 ml Output Total 750 ml 2100 ml 1200 ml Balance -510 ml 350 ml -1600 ml -900 ml Intake Oral 240 ml 500 ml 300 ml IV Total 350 ml Output Urine Total 750 ml 2100 ml 1200 ml # Bowel Movements 0 0 0 Physical Exam Lungs clear RRR Laboratory Laboratory Tests Test 02/09/17 12:19 White Blood Count 11.9 TH/MM3 Red Blood Count 3.85 MIL/MM3 Hemoglobin 10.9 GM/DL Hematocrit 35.0 % Mean Corpuscular Volume 90.9 FL Mean Corpuscular Hemoglobin 28.3 PG Mean Corpuscular Hemoglobin Concent 31.2 % Red Cell Distribution Width 14.7 % Platelet Count 135 TH/MM3 Mean Platelet Volume 8.2 FL Neutrophils (%) (Auto) 86.7 % Lymphocytes (%) (Auto) 4.5 % Monocytes (%) (Auto) 5.9 % Eosinophils (%) (Auto) 2.6 % Basophils (%) (Auto) 0.3 % Neutrophils # (Auto) 10.3 TH/MM3 Lymphocytes # (Auto) 0.5 TH/MM3 Monocytes # (Auto) 0.7 TH/MM3 Eosinophils # (Auto) 0.3 TH/MM3 Basophils # (Auto) 0.0 TH/MM3 CBC Comment DIFF FINAL Differential Comment Blood Urea Nitrogen 27 MG/DL Creatinine 0.98 MG/DL Random Glucose 171 MG/DL Total Protein 5.6 GM/DL Albumin 2.6 GM/DL Calcium Level 8.4 MG/DL Phosphorus Level 3.1 MG/DL Magnesium Level 1.8 MG/DL Alkaline Phosphatase 91 U/L Aspartate Amino Transf (AST/SGOT) 16 U/L Alanine Aminotransferase (ALT/SGPT) 16 U/L Total Bilirubin 0.7 MG/DL Sodium Level 139 MEQ/L Potassium Level 4.5 MEQ/L Chloride Level 102 MEQ/L Carbon Dioxide Level 29.6 MEQ/L Anion Gap 7 MEQ/L Estimat Glomerular Filtration Rate 57 ML/MIN Assessment and Plan Problem List: (1) Pulmonary embolism ICD Codes: I26.99 - Other pulmonary embolism without acute cor pulmonale (2) Chronic atrial fibrillation with RVR ICD Codes: I48.2 - Chronic atrial fibrillation Status: Acute (3) Congestive heart failure ICD Codes: I50.9 - Heart failure, unspecified (4) SOB (shortness of breath) ICD Codes: R06.02 - Shortness of breath Plan: Doubt significant CHF with essentially normal BNP and no evidence on CXR. Eliquis increased. In the absence of DVT filter will be of no value. (5) Pulmonary hypertension ICD Codes: I27.2 - Other secondary pulmonary hypertension Assessment and Plan Stable Await V/Q scan Problem Qualifiers (1) Pulmonary embolism: Junior Monte MD Feb 10, 2017 07:51
[2017-02-10] MEDS: INSULIN ASPART SUPPLEMENTAL SCALE SQ SCH ×4 (08:00→20:39)
--- NOTE | 2017-02-10 08:38 | HHI.PR ---
Subjective Remarks The patient reports that she woke up at 0215 and couldn't breath. Symptoms severe. She was given Lasix p.o. and didn't improve so the SNF physician instructed that she should be sent to the hospital. She was recently weaned off of supplemental oxygen. She complains of orthopnea. She is residing at [facility] first couple of weeks of December [facility] end of December, beginning of January. Denies cough, fever, nausea, vomiting, coffee or red colored vomit, black or red stool. She reports taking Lasix 20 mg once daily. Recently dosage decreased on Tacrolimus and CellCept d/c'd recently The patient required bipap on ER arrival and is now somewhat tachypneic on 5 liters supplemental oxygen via nasal cannula - oxygen saturation is 100%. 02-07 PATIENT REMAINS ON CARDIZEM DRIP TO HAVE CT OF CHEST TODAY DW RN AND PT AND ID SEEMS TO BE BREATHING BETTER THAN YESTERDAY EVENING HAS BEEN LIVING AT A SNF PRIOR TO ADMISSION HX OF PULMONARY HYPERTENSION SEVERE BL LE LYMPHEDEMA 02-08 TRY TO WEAN OFF CARDIZEM WILL INCREASE METOPROLOL TO 50MG PO BID DW RN AND PT COMPLAINS OF SORE THROAT AND COUGH INCENTIVE SPIROMETRY 02-09 OFF CARDIZEM DRIP STILL V/Q SCAN POSITIVE FOR INTERMEDIATE FOR PE- ELIQUIS HAS BEEN INCREASED TO 10MG BID DW RN AND PATIENT 02-10 BREATHING BETTER SEEN BY PULMONARY AND CARDIO INCREASE ACTIVITY HOPEFULLY TO SNF IN NEXT 24-48 HOURS DW RN AND PATIENT Objective Vitals Vital Signs Date Time Temp Pulse Resp B/P (MAP) Pulse Ox O2 Delivery O2 Flow Rate FiO2 02/10/17 07:33 100 Nasal Cannula 2.00 02/10/17 06:05 17 02/10/17 04:00 98.0 72 22 169/72 (104) 100 02/10/17 04:00 72 02/10/17 00:00 73 02/10/17 00:00 98.0 73 24 153/69 (97) 100 02/09/17 20:00 96 02/09/17 20:00 97.9 96 26 153/66 (95) 100 02/09/17 16:00 92 02/09/17 16:00 97.5 92 30 176/79 (111) 100 02/09/17 12:00 98.0 88 30 139/86 (103) 91 02/09/17 12:00 88 02/09/17 08:37 100 Nasal Cannula 3.00 I/O 02/09/17 02/09/17 02/09/17 02/10/17 02/10/17 02/10/17 07:00 15:00 23:00 07:00 15:00 23:00 Intake Total 240 ml 350 ml 500 ml 300 ml Output Total 750 ml 2100 ml 1200 ml Balance -510 ml 350 ml -1600 ml -900 ml Intake Oral 240 ml 500 ml 300 ml IV Total 350 ml Output Urine Total 750 ml 2100 ml 1200 ml # Bowel Movements 0 0 0 Result Diagram: 02/09/17 1219 02/09/17 1219 Other Results Laboratory Tests Test 02/08/17 04:25 02/09/17 12:19 White Blood Count 9.5 TH/MM3 11.9 TH/MM3 Red Blood Count 3.23 MIL/MM3 3.85 MIL/MM3 Hemoglobin 9.7 GM/DL 10.9 GM/DL Hematocrit 29.8 % 35.0 % Mean Corpuscular Volume 92.0 FL 90.9 FL Mean Corpuscular Hemoglobin 29.9 PG 28.3 PG Mean Corpuscular Hemoglobin Concent 32.5 % 31.2 % Red Cell Distribution Width 14.7 % 14.7 % Platelet Count 155 TH/MM3 135 TH/MM3 Mean Platelet Volume 8.1 FL 8.2 FL Neutrophils (%) (Auto) 81.6 % 86.7 % Lymphocytes (%) (Auto) 6.8 % 4.5 % Monocytes (%) (Auto) 7.4 % 5.9 % Eosinophils (%) (Auto) 4.1 % 2.6 % Basophils (%) (Auto) 0.1 % 0.3 % Neutrophils # (Auto) 7.7 TH/MM3 10.3 TH/MM3 Lymphocytes # (Auto) 0.6 TH/MM3 0.5 TH/MM3 Monocytes # (Auto) 0.7 TH/MM3 0.7 TH/MM3 Eosinophils # (Auto) 0.4 TH/MM3 0.3 TH/MM3 Basophils # (Auto) 0.0 TH/MM3 0.0 TH/MM3 CBC Comment DIFF FINAL DIFF FINAL Differential Comment Blood Urea Nitrogen 30 MG/DL 27 MG/DL Creatinine 1.07 MG/DL 0.98 MG/DL Random Glucose 113 MG/DL 171 MG/DL Total Protein 5.4 GM/DL 5.6 GM/DL Albumin 2.4 GM/DL 2.6 GM/DL Calcium Level 8.5 MG/DL 8.4 MG/DL Phosphorus Level 3.2 MG/DL 3.1 MG/DL Magnesium Level 1.8 MG/DL 1.8 MG/DL Alkaline Phosphatase 77 U/L 91 U/L Aspartate Amino Transf (AST/SGOT) 10 U/L 16 U/L Alanine Aminotransferase (ALT/SGPT) 14 U/L 16 U/L Total Bilirubin 0.4 MG/DL 0.7 MG/DL Sodium Level 138 MEQ/L 139 MEQ/L Potassium Level 4.0 MEQ/L 4.5 MEQ/L Chloride Level 101 MEQ/L 102 MEQ/L Carbon Dioxide Level 32.3 MEQ/L 29.6 MEQ/L Anion Gap 5 MEQ/L 7 MEQ/L Estimat Glomerular Filtration Rate 51 ML/MIN 57 ML/MIN Hemoglobin A1c 6.3 % Free Thyroxine 1.27 NG/DL Thyroid Stimulating Hormone 3rd Gen 3.150 uIU/ML Tacrolimus (Prograf) Level 7.9 NG/ML Imaging Last Impressions Lower Extremity Ultrasound 02/09/17 0000 Signed Impressions: Service Date/Time: Thursday, February 09, 2017 12:04 - CONCLUSION: 1. Suboptimal examination secondary patient's large body habitus and edema. 2. No evidence of deep venous thrombosis. 3. The posterior tibial veins could not be visualized or evaluated. Michael Mustafa MD Lung Scan-V Nuclear Medicine 02/08/17 0000 Signed Impressions: Service Date/Time: Wednesday, February 08, 2017 14:44 - CONCLUSION: Intermediate probability of pulmonary embolism. Michael Mustafa MD Chest X-Ray 02/07/17 0000 Signed Impressions: Service Date/Time: Tuesday, February 07, 2017 10:03 - CONCLUSION: Stable chest. Kyree Johnston MD Objective Remarks GENERAL: This is an obese elderly female patient who is tachypneic. SKIN: No rashes, ecchymoses or lesions. Cool and dry. Bilateral lower extremities with CHRONIC skin changes c/w lymphedema HEAD: Atraumatic. Normocephalic. EYES: No scleral icterus. No injection or drainage. PERRLA EOMI ENT: Nose without bleeding, purulent drainage. Airway patent.TONGUE MIDLINE NECK: Trachea midline. No JVD. NECK SUPPLE CARDIOVASCULAR: IRRegular rate and rhythm without murmurs, gallops, or rubs. S1 , S2 NO S3 OR S4 NO HEAVE RESPIRATORY: Breath sounds diminished; equal bilaterally. No wheezes, rales, or rhonchi. Tachypneic and using accessory muscles to breath IMPROVING ON OXYGEN GASTROINTESTINAL: Abdomen soft, non-tender, nondistended. No guarding. OBESE MUSCULOSKELETAL: Extremities without clubbing, cyanosis. CHRONIC BL LE LYMPHEDEMA NEUROLOGICAL: Awake and alert. Motor and sensory grossly within normal limits. Normal speech. INSIGHT AND JUDGEMENT ARE GOOD MOOD AND BEHAVIOR ARE APPROPRIATE Medications and IVs Current Medications Furosemide (Lasix Inj) 60 mg DAILY IV PUSH ; Start 02/06/17 at 09:00; Stop 02/06 at 09:00; Status DC Sodium Chloride (NS Flush) 2 ml UNSCH PRN IVF FLUSH AFTER USING IV ACCESS; Start 02/06/17 at 04:00; Stop 02/06/17 at 05:16; Status DC Furosemide (Lasix Inj) 60 mg ONCE ONCE IV PUSH Last administered on 02/06/17 04:05; Start 02/06/17 at 04:00; Stop 02/06/17 at 04:01; Status DC Ondansetron HCl (Zofran Inj) 8 mg ONCE ONCE IV PUSH Last administered on 04:13; Start 02/06/17 at 04:15; Stop 02/06/17 at 04:16; Status DC Aztreonam 2000 mg/ Sodium Chloride 100 ml @ 200 mls/hr NOW ONCE IV Last administered on 02/06/17 05:43; Start 02/06/17 at 05:15; Stop 02/06/17 at 05:44 ; Status DC Levofloxacin (Levaquin) 750 mg ONCE ONCE PO Last administered on 02/06/17 05: 16; Start 02/06/17 at 05:15; Stop 02/06/17 at 05:16; Status DC Diltiazem HCl (Cardizem Inj) 26 mg BOLUS ONCE IV PUSH Last administered on 05:20; Start 02/06/17 at 05:15; Stop 02/06/17 at 05:16; Status DC Sodium Chloride (NS Flush) 2 ml UNSCH PRN IV FLUSH FLUSH AFTER USING IV ACCESS Last administered on 02/07/17 08:22; Start 02/06/17 at 05:15 Sodium Chloride (NS Flush) 2 ml BID IV FLUSH Last administered on 02/09/17 20: 33; Start 02/06/17 at 09:00 Naloxone HCl (Narcan Inj) 0.4 mg UNSCH PRN IV PUSH SEE LABEL COMMENTS; Start at 05:15 Furosemide (Lasix Inj) 40 mg BID@09,18 IV PUSH Last administered on 02/07/17 08:22; Start 02/06/17 at 09:00; Stop 02/07/17 at 12:41; Status DC Dextrose (D50w (Vial) Inj) 50 ml UNSCH PRN IV PUSH HYPOGLYCEMIA-SEE COMMENTS; Start 02/06/17 at 06:00 Glucagon (Glucagon Inj) 1 mg UNSCH PRN OTHER HYPOGLYCEMIA-SEE COMMENTS; Start 02/06/17 at 06:00 Insulin Aspart (NovoLOG SUPPLEMENTAL SCALE) 1 ACHS SLIDING SCALE SQ Last administered on 02/09/17 20:37; Start 02/06/17 at 08:00 Apixaban (Eliquis) 5 mg BID PO Last administered on 02/09/17 08:47; Start at 09:00; Stop 02/09/17 at 09:06; Status DC Famotidine (Pepcid) 20 mg DAILY PO Last administered on 02/09/17 08:48; Start 02/06/17 at 09:00 Insulin Detemir (Levemir Inj) 15 units DAILY SQ Last administered on 02/08/17 09:00; Start 02/06/17 at 09:00 Levothyroxine Sodium (Synthroid) 25 mcg DAILY@0600 PO Last administered on 02/10 05:05; Start 02/06/17 at 06:00 Metoprolol Succinate (Toprol Xl) 25 mg BID PO Last administered on 02/08/17 08 :40; Start 02/06/17 at 09:00; Stop 02/08/17 at 10:16; Status DC Multi-Ingredient Mouthwash/Gargle (Magic Mouthwash Adult Liq) 10 ml QID SWISH- SWAL Last administered on 02/09/17 20:33; Start 02/06/17 at 09:00 Sodium Bicarbonate (Sodium Bicarbonate) 325 mg TIDPC PO Last administered on 17:37; Start 02/06/17 at 09:30 Tacrolimus (Prograf) 1 mg DAILY@18 PO Last administered on 02/06/17 17:20; Start 02/06/17 at 18:00; Status Future Hold Tacrolimus (Prograf) 2 mg DAILY PO Last administered on 02/07/17 08:23; Start 02/06/17 at 09:00; Stop 02/07/17 at 12:41; Status DC Timolol Maleate (Timoptic 0.5% Opt Soln) 1 drop BID EACH EYE Last administered on 02/09/17 20:33; Start 02/06/17 at 09:00 Ipratropium [place] (Atrovent Neb) 0.5 mg Q6HR NEB NEB Last administered on 07:33; Start 02/06/17 at 10:00 Ipratropium [place] (Atrovent Neb) 0.5 mg Q2HR NEB PRN NEB wheezing; Start at 06:00 Cefepime HCl 1000 mg/Sodium Chloride 100 ml @ 200 mls/hr Q12H IV Last administered on 02/09/17 08:47; Start 02/06/17 at 09:00; Stop 02/09/17 at 12:05 ; Status DC Diltiazem HCl (Cardizem Inj) 15 mg ONCE ONCE IV PUSH Last administered on 02/06 07:25; Start 02/06/17 at 07:15; Stop 02/06/17 at 07:16; Status DC Diltiazem HCl 125 mg/Sodium Chloride 125 ml @ 5 mls/hr TITRATE PRN IV Tachycardia Last administered on 02/08/17 08:21; Start 02/06/17 at 08:00 Azithromycin 500 mg/Sodium Chloride 250 ml @ 250 mls/hr Q24H IV Last administered on 02/08/17 11:51; Start 02/06/17 at 13:00; Stop 02/09/17 at 12:05 ; Status DC Magnesium Oxide (Mag-Ox) 400 mg DAILY@1200 PO Last administered on 02/09/17 12 :27; Start 02/07/17 at 12:00 Ergocalciferol (Drisdol) 50,000 units Q7D PO Last administered on 02/06/17 17: 20; Start 02/06/17 at 15:00 Prednisone (Deltasone) 10 mg DAILY PO Last administered on 02/09/17 08:47; Start 02/06/17 at 15:00 Acetaminophen (Tylenol) 1,000 mg Q12H PRN PO Arthritis/pain Last administered on 02/10/17 05:05; Start 02/06/17 at 15:00 Furosemide (Lasix Inj) 40 mg DAILY IV PUSH Last administered on 02/08/17 08:42 ; Start 02/08/17 at 09:00; Stop 02/08/17 at 11:32; Status DC Tacrolimus (Prograf) 2 mg BID@0800,1999 PO Last administered on 02/09/17 20:37 ; Start 02/07/17 at 20:00 Metoprolol Succinate (Toprol Xl) 50 mg BID PO Last administered on 02/09/17 20 :31; Start 02/08/17 at 21:00 Guaifenesin (Mucinex Er) 600 mg BID PO Last administered on 02/09/17 20:31; Start 02/08/17 at 21:00 Metoprolol Succinate (Toprol Xl) 25 mg ONCE ONCE PO Last administered on 10:56; Start 02/08/17 at 10:45; Stop 02/08/17 at 10:46; Status DC Furosemide (Lasix Inj) 40 mg BID IV PUSH Last administered on 02/09/17 20:32; Start 02/08/17 at 21:00 Apixaban (Eliquis) 10 mg BID PO Last administered on 02/09/17 20:32; Start at 21:00; Stop 02/16/17 at 20:59 Apixaban (Eliquis) 5 mg BID PO ; Start 02/17/17 at 09:00 Vascular Central Line Catheter: No A/P Problem List: (1) Congestive heart failure ICD Code: I50.9 - Heart failure, unspecified (2) Pneumonia ICD Code: J18.9 - Pneumonia, unspecified organism Status: Acute (3) Diabetes mellitus type 2, insulin dependent ICD Code: E11.9 - Type 2 diabetes mellitus without complications; Z79.4 - intermediate manager (current) use of insulin (4) Hyperlipidemia ICD Code: E78.5 - Hyperlipidemia, unspecified (5) HTN (hypertension) ICD Code: I10 - Essential (primary) hypertension (6) Chronic atrial fibrillation with RVR ICD Code: I48.2 - Chronic atrial fibrillation Status: Acute (7) Hx of kidney transplant ICD Code: Z94.0 - Kidney transplant status (8) A-fib ICD Code: I48.91 - Unspecified atrial fibrillation Status: Acute (9) Hypoxia ICD Code: R09.02 - Hypoxemia Status: Acute (10) SOB (shortness of breath) ICD Code: R06.02 - Shortness of breath Assessment and Plan 66-year-old female transferred from local [facility] facility for acute onset shortness of breath: Acute CHF exacerbation--DOUBT CHF EXACERBATION HAS SEVERE PULMONARY HYPERTENSION- HAD BEEN OFF OXYGEN AT THE SNF - BNP 138 - CXR shows cardiomegaly with bilateral pulmonary infiltrates and tiny left effusion - monitor serial EKGs and cardiac enzymes to r/o ACS - Strictly monitor intake and output - Heart healthy diet - Continuous cardiac telemetry to monitor for cardiac arrhythmias INCREASE METOPROLOL TO 50MG PO BID WEANED OFF CARDIZEM HAS PULMONARY HYPERTENSION Pneumonia, bilateral - CXR shows cardiomegaly with bilateral pulmonary infiltrates and tiny left effusion -OFF ALL ANTIBIOTICS NOW - consult infectious disease - patient on immunosuppressants for kidney transplant - Atrovent nebulizers every 6 hours scheduled and every 2 hours as needed for wheezing Type 2 Diabetes Mellitus - Continue home dose of Lantus daily - Accu-Cheks before meals and at bedtime with low-dose NovoLog sliding scale coverage - Hypoglycemia protocol - Monitor trends and blood glucose readings and adjust treatments as indicated DVT prophylaxis - Resume Eliquis was 10 mg twice a day p.o.- V/Q INTERMEDIATE WILL INCREASE PULMONARY HYPERTENSION ECHO HX RENAL TRANSPLANT ON CHRONIC IMMUNOSUPPRESSION CARDIAC, RENAL AND ID CONSULTS START LACTINEX INCREASE ELIQUIS TO 10MG BID PT AND OT AM LABS HOPEFULLY TO SNF NEXT 24-48 HOURS Problem Qualifiers (1) Pneumonia: Qualified Codes: J15.0 - Pneumonia due to Klebsiella pneumoniae Davin Vera DO Feb 10, 2017 08:38
[2017-02-10] MEDS: predniSONE 10 MG TAB PO SCH (08:42)
[2017-02-10] MEDS: METOPROLOL SUCCINATE 50 MG EXTENDED RELEASE TAB PO SCH ×2 (08:42→20:22)
[2017-02-10] MEDS: TIMOLOL MALEATE 0.5% OPHT SOLN 5 ML BTL EACH EYE SCH ×2 (08:42→20:20)
[2017-02-10] MEDS: FAMOTIDINE 20 MG TAB PO SCH (08:42)
[2017-02-10] MEDS: APIXABAN 5 MG TABLET PO SCH ×2 (08:42→20:21)
[2017-02-10] MEDS: SODIUM CHLORIDE 0.9% FLUSH 10 ML FLUSH IV FLUSH SCH ×2 (08:42→20:20)
[2017-02-10] MEDS: FUROSEMIDE 40 MG/4 ML VIAL IV PUSH SCH ×2 (08:43→20:21)
[2017-02-10] MEDS: INSULIN DETEMIR 100 UNITS/ML VIAL SQ SCH (08:43)
[2017-02-10] MEDS: SODIUM BICARBONATE 325 MG TAB PO SCH ×3 (08:43→16:57)
[2017-02-10] MEDS: guaiFENesin E.R. 600 MG TAB PO SCH ×2 (08:43→20:21)
[2017-02-10] MEDS: NYSTAT/DIPHENHY/LIDO MOUTHWASH (Adult) 120ML SWISH-SWAL SCH ×4 (09:00→20:22)
[2017-02-10 09:08] LABS: BASOPHIL % 0.4 % (0.0-2.0); EOSINOPHIL # 0.4 TH/MM3 (0-0.4); EOSINOPHIL % 4.6 % (0.0-4.0); HEMO FLAGS DIFF FINAL; LYMPH % 9.1 % (9.0-44.0); LYMPHOCYTE # 0.8 TH/MM3 (1.0-4.8); MEAN CELL VOLUME 91.2 FL (80.0-100.0); MEAN CORPUSCULAR HEMOGLOBIN 29.4 PG (27.0-34.0); MEAN CORPUSCULAR HGB CONC 32.2 % (32.0-36.0); MONO % 6.7 % (0.0-8.0); NEUT % 79.2 % (16.0-70.0); PLATELET COUNT 173 TH/MM3 (150-450); RED BLOOD COUNT 3.51 MIL/MM3 (4.00-5.30); RED CELL DISTRIBUTION WIDTH 14.6 % (11.6-17.2); WHITE BLOOD COUNT 8.8 TH/MM3 (4.0-11.0)
[2017-02-10] MEDS: TACROLIMUS 1 MG CAP PO SCH ×2 (09:34→20:20)
--- NOTE | 2017-02-10 10:01 | HHI.IDPN ---
Note Infectious Disease Note Vital Signs Date Time Temp Pulse Resp B/P (MAP) Pulse Ox O2 Delivery O2 Flow Rate FiO2 02/10/17 07:33 100 Nasal Cannula 2.00 02/10/17 06:05 17 02/10/17 04:00 98.0 72 22 169/72 (104) 100 02/10/17 04:00 72 02/10/17 00:00 73 02/10/17 00:00 98.0 73 24 153/69 (97) 100 02/09/17 20:00 96 02/09/17 20:00 97.9 96 26 153/66 (95) 100 02/09/17 16:00 92 02/09/17 16:00 97.5 92 30 176/79 (111) 100 02/09/17 12:00 98.0 88 30 139/86 (103) 91 02/09/17 12:00 88 Laboratory Tests Test 02/09/17 12:19 02/10/17 08:31 White Blood Count 11.9 TH/MM3 8.8 TH/MM3 Red Blood Count 3.85 MIL/MM3 3.51 MIL/MM3 Hemoglobin 10.9 GM/DL 10.3 GM/DL Hematocrit 35.0 % 32.0 % Mean Corpuscular Volume 90.9 FL 91.2 FL Mean Corpuscular Hemoglobin 28.3 PG 29.4 PG Mean Corpuscular Hemoglobin Concent 31.2 % 32.2 % Red Cell Distribution Width 14.7 % 14.6 % Platelet Count 135 TH/MM3 173 TH/MM3 Mean Platelet Volume 8.2 FL 8.5 FL Neutrophils (%) (Auto) 86.7 % 79.2 % Lymphocytes (%) (Auto) 4.5 % 9.1 % Monocytes (%) (Auto) 5.9 % 6.7 % Eosinophils (%) (Auto) 2.6 % 4.6 % Basophils (%) (Auto) 0.3 % 0.4 % Neutrophils # (Auto) 10.3 TH/MM3 7.0 TH/MM3 Lymphocytes # (Auto) 0.5 TH/MM3 0.8 TH/MM3 Monocytes # (Auto) 0.7 TH/MM3 0.6 TH/MM3 Eosinophils # (Auto) 0.3 TH/MM3 0.4 TH/MM3 Basophils # (Auto) 0.0 TH/MM3 0.0 TH/MM3 CBC Comment DIFF FINAL DIFF FINAL Differential Comment Blood Urea Nitrogen 27 MG/DL Creatinine 0.98 MG/DL Random Glucose 171 MG/DL Total Protein 5.6 GM/DL Albumin 2.6 GM/DL Calcium Level 8.4 MG/DL Phosphorus Level 3.1 MG/DL Magnesium Level 1.8 MG/DL Alkaline Phosphatase 91 U/L Aspartate Amino Transf (AST/SGOT) 16 U/L Alanine Aminotransferase (ALT/SGPT) 16 U/L Total Bilirubin 0.7 MG/DL Sodium Level 139 MEQ/L Potassium Level 4.5 MEQ/L Chloride Level 102 MEQ/L Carbon Dioxide Level 29.6 MEQ/L Anion Gap 7 MEQ/L Estimat Glomerular Filtration Rate 57 ML/MIN Laboratory Tests Test 02/09/17 12:19 02/10/17 08:31 White Blood Count 11.9 TH/MM3 8.8 TH/MM3 Red Blood Count 3.85 MIL/MM3 3.51 MIL/MM3 Hemoglobin 10.9 GM/DL 10.3 GM/DL Hematocrit 35.0 % 32.0 % Mean Corpuscular Volume 90.9 FL 91.2 FL Mean Corpuscular Hemoglobin 28.3 PG 29.4 PG Mean Corpuscular Hemoglobin Concent 31.2 % 32.2 % Red Cell Distribution Width 14.7 % 14.6 % Platelet Count 135 TH/MM3 173 TH/MM3 Mean Platelet Volume 8.2 FL 8.5 FL Neutrophils (%) (Auto) 86.7 % 79.2 % Lymphocytes (%) (Auto) 4.5 % 9.1 % Monocytes (%) (Auto) 5.9 % 6.7 % Eosinophils (%) (Auto) 2.6 % 4.6 % Basophils (%) (Auto) 0.3 % 0.4 % Neutrophils # (Auto) 10.3 TH/MM3 7.0 TH/MM3 Lymphocytes # (Auto) 0.5 TH/MM3 0.8 TH/MM3 Monocytes # (Auto) 0.7 TH/MM3 0.6 TH/MM3 Eosinophils # (Auto) 0.3 TH/MM3 0.4 TH/MM3 Basophils # (Auto) 0.0 TH/MM3 0.0 TH/MM3 CBC Comment DIFF FINAL DIFF FINAL Differential Comment Laboratory Tests Test 02/09/17 12:19 02/10/17 08:31 Blood Urea Nitrogen 27 MG/DL Creatinine 0.98 MG/DL Random Glucose 171 MG/DL Total Protein 5.6 GM/DL Albumin 2.6 GM/DL Calcium Level 8.4 MG/DL Phosphorus Level 3.1 MG/DL Magnesium Level 1.8 MG/DL Alkaline Phosphatase 91 U/L Aspartate Amino Transf (AST/SGOT) 16 U/L Alanine Aminotransferase (ALT/SGPT) 16 U/L Total Bilirubin 0.7 MG/DL Sodium Level 139 MEQ/L Potassium Level 4.5 MEQ/L Chloride Level 102 MEQ/L Carbon Dioxide Level 29.6 MEQ/L Anion Gap 7 MEQ/L Estimat Glomerular Filtration Rate 57 ML/MIN Microbiology Date/Time Source Procedure Growth Status 02/08/17 06:00 Nasal Washing Influenza Types A,B Antigen (KATLYN) - Final NEGATIVE FOR FLU A AND B ANTIGEN.... Complete 02/07/17 22:45 Sputum Endotracheal Gram Stain - Final Complete 02/07/17 22:45 Sputum Endotracheal Sputum Culture - Final HEAVY GROWTH NORMAL RESPIRATORY GÉNESIS Complete SUBJECTIVE: No new complaints Patient is off antibiotic Patient is afebrile PHYSICAL exam : VITAL SIGNS ARE STABLE GENERAL: No appreciable distress SKIN: Warm and dry. HEAD: Normocephalic. EYES: No scleral icterus. No injection or drainage. NECK: Supple, trachea midline. No JVD or lymphadenopathy. CARDIOVASCULAR: Regular rate and rhythm without murmurs, gallops, or rubs. RESPIRATORY: Breath sounds equal bilaterally. No accessory muscle use. GASTROINTESTINAL: Abdomen soft, non-tender, nondistended. MUSCULOSKELETAL: No cyanosis, or edema. BACK: Nontender without obvious deformity. No CVA tenderness. CLINICAL IMPRESSION ESRD Renal Allograft / Post renal Transplant status Pulmonary infiltrates Resolved Possible Atypical Pneumonia - s/p antibiotic therapy Recent c.diff colitis Chronic respiratory insufficiency Leukocytosis - resolved REC: Continue to observe off antibiotics Continue supportive measures Rachel Ortiz MD Feb 10, 2017 10:01
[2017-02-10 10:28] LABS: ANION GAP 8 MEQ/L (5-15); AST (GOT) 12 U/L (15-37); BICARBONATE 30.7 MEQ/L (21.0-32.0); BLOOD UREA NITROGEN 28 MG/DL (7-18); CHLORIDE 99 MEQ/L (98-107); GLOMERULAR FILTRATION RATE 56 ML/MIN (>89); MAGNESIUM 1.9 MG/DL (1.5-2.5); POTASSIUM 4.4 MEQ/L (3.5-5.1); SODIUM (NA) 138 MEQ/L (136-145)
[2017-02-10 10:31] LABS: ALKALINE PHOSPHATASE 84 U/L (45-117); ALT (GPT) 14 U/L (10-53); TOTAL BILIRUBIN ADULT 0.6 MG/DL (0.2-1.0)
--- NOTE | 2017-02-10 10:37 | HHI.NPPN ---
Subjective History of Present Illness 66 year old female with CHF, A fib, s/p kidney transplant 2004 , was admitted with increasing SOB. Additional Remarks Patient is alert, breathing is better, with nasal cannula. Review of Systems General Constitutional: Fatigue Respiratory Lungs: SOB, Cough Cardiovascular Cardiac: Edema, RIOS Objective Data Data Vital Signs Date Time Temp Pulse Resp B/P (MAP) Pulse Ox O2 Delivery O2 Flow Rate FiO2 02/10/17 10:00 92 02/10/17 08:00 97.9 86 26 158/76 (103) 93 02/10/17 08:00 86 02/10/17 07:33 100 Nasal Cannula 2.00 02/10/17 06:05 17 02/10/17 04:00 98.0 72 22 169/72 (104) 100 02/10/17 04:00 72 02/10/17 00:00 73 02/10/17 00:00 98.0 73 24 153/69 (97) 100 02/09/17 20:00 96 02/09/17 20:00 97.9 96 26 153/66 (95) 100 02/09/17 16:00 92 02/09/17 16:00 97.5 92 30 176/79 (111) 100 02/09/17 12:00 98.0 88 30 139/86 (103) 91 02/09/17 12:00 88 -: 02/10/17 0831 02/10/17 0831 Physical Exam General Appearance: No Acute Distress, Comfortable Eyes Eye Exam: Pupils Equal Throat Throat Exam: Oral Mucosa [place] & Moist Pulmonary Resp Exam: Breath Sounds Equal, No Distress, Decreased Bases Cardiology CV Exam: Regular, Normal Sinus Rhythm Gastrointestinal/Abdomen GI Exam: Soft, Non-Tender, Bowel Sounds Present Extremeties Extremities Exam: Moderate Edema, Pitting Edema Neurologic Neuro Exam: Alert, Awake, Oriented Psychiatric Psych Exam: Appropriate Responses Assessment/Plan Problem List: (1) Hx of kidney transplant ICD Codes: Z94.0 - Kidney transplant status Plan: Patient creatinine is stable, 0.9-1.0-1.1 Has been on diuresis, she is on prednisone 10 mg and was on tacrolimus 2 in the morning and 1 in the evening Pulmonary Hypertension [address] scan Pneumonia/edema V/Q Intermediate probability tacrolimus level now 7.9. Creatinine is stable , now 0.98. Continue diuresis. (2) Congestive heart failure ICD Codes: I50.9 - Heart failure, unspecified Plan: Patient is given Lasix with good response he is on oxygen (3) Diabetes mellitus type 2, insulin dependent ICD Codes: E11.9 - Type 2 diabetes mellitus without complications; Z79.4 - [facility] (current) use of insulin Plan: Monitor blood glucose (4) A-fib ICD Codes: I48.91 - Unspecified atrial fibrillation Status: Acute Plan: She has chronic problem (5) Pneumonia ICD Codes: J18.9 - Pneumonia, unspecified organism Status: Acute Plan: Possible pneumonia and is being treated received Zithromax and Levaquin Problem Qualifiers (1) Pneumonia: Qualified Codes: J15.0 - Pneumonia due to Klebsiella pneumoniae Bill Sandoval MD Feb 10, 2017 10:37
[2017-02-10] MEDS: MAGNESIUM OXIDE 400 MG TAB PO SCH (12:22)
[2017-02-11] VITALS (7 sets, daily range): BP systolic 143–172; BP diastolic 66–74; PULSE 63–74; RESP 22–24; TEMP 97.4–98.2; O2SAT 97–100
[2017-02-11] MEDS: RESP: IPRATROPIUM 0.5 MG/2.5 ML NEB NEB SCH ×2 (03:25→08:06)
[2017-02-11] MEDS: LEVOTHYROXINE SODIUM 25 MCG TAB PO SCH (04:57)
[2017-02-11] MEDS: ACETAMINOPHEN 500 MG CPLT PO PRN (05:02)
--- NOTE | 2017-02-11 07:57 | PD.CARD.PN ---
Subjective Subjective Remarks denies any CV complaints Objective Vital Signs / I&O Vital Signs Date Time Temp Pulse Resp B/P (MAP) Pulse Ox O2 Delivery O2 Flow Rate FiO2 02/11/17 06:00 63 02/11/17 04:00 71 02/11/17 04:00 98.0 71 23 143/66 (91) 100 02/11/17 02:00 74 02/11/17 00:00 73 02/11/17 00:00 97.4 73 24 172/74 (106) 100 02/10/17 22:00 87 02/10/17 20:00 79 02/10/17 20:00 98.5 79 26 166/78 (107) 100 02/10/17 19:43 94 Nasal Cannula 3.00 02/10/17 18:00 71 02/10/17 16:00 72 02/10/17 16:00 98.4 72 23 157/76 (103) 100 02/10/17 14:00 74 02/10/17 12:00 75 02/10/17 12:00 98.1 75 22 155/71 (99) 100 02/10/17 10:00 92 02/10/17 08:00 97.9 86 26 158/76 (103) 93 02/10/17 08:00 86 I/O 02/10/17 02/10/17 02/10/17 02/11/17 02/11/17 02/11/17 07:00 15:00 23:00 07:00 15:00 23:00 Intake Total 300 ml 600 ml 500 ml Output Total 1200 ml 875 ml 700 ml Balance -900 ml -275 ml -200 ml Intake Oral 300 ml 600 ml 500 ml Output Urine Total 1200 ml 875 ml 700 ml # Bowel Movements 0 1 1 Physical Exam GENERAL: Well-nourished, well-developed patient in no apparent distress. NECK: No JVD. No carotid bruit. CARDIOVASCULAR: IR IR . S1/S2 no murmur, rub, or gallop. RESPIRATORY: No accessory muscle use. Clear to auscultation. Breath sounds equal bilaterally. GASTROINTESTINAL: Abdomen soft, non-tender, nondistended. MUSCULOSKELETAL: Extremities without clubbing, cyanosis, or edema. Laboratory Laboratory Tests Test 02/10/17 08:31 White Blood Count 8.8 TH/MM3 Red Blood Count 3.51 MIL/MM3 Hemoglobin 10.3 GM/DL Hematocrit 32.0 % Mean Corpuscular Volume 91.2 FL Mean Corpuscular Hemoglobin 29.4 PG Mean Corpuscular Hemoglobin Concent 32.2 % Red Cell Distribution Width 14.6 % Platelet Count 173 TH/MM3 Mean Platelet Volume 8.5 FL Neutrophils (%) (Auto) 79.2 % Lymphocytes (%) (Auto) 9.1 % Monocytes (%) (Auto) 6.7 % Eosinophils (%) (Auto) 4.6 % Basophils (%) (Auto) 0.4 % Neutrophils # (Auto) 7.0 TH/MM3 Lymphocytes # (Auto) 0.8 TH/MM3 Monocytes # (Auto) 0.6 TH/MM3 Eosinophils # (Auto) 0.4 TH/MM3 Basophils # (Auto) 0.0 TH/MM3 CBC Comment DIFF FINAL Differential Comment Blood Urea Nitrogen 28 MG/DL Creatinine 0.99 MG/DL Random Glucose 175 MG/DL Total Protein 5.9 GM/DL Albumin 2.5 GM/DL Calcium Level 8.9 MG/DL Phosphorus Level 2.7 MG/DL Magnesium Level 1.9 MG/DL Alkaline Phosphatase 84 U/L Aspartate Amino Transf (AST/SGOT) 12 U/L Alanine Aminotransferase (ALT/SGPT) 14 U/L Total Bilirubin 0.6 MG/DL Sodium Level 138 MEQ/L Potassium Level 4.4 MEQ/L Chloride Level 99 MEQ/L Carbon Dioxide Level 30.7 MEQ/L Anion Gap 8 MEQ/L Estimat Glomerular Filtration Rate 56 ML/MIN Assessment and Plan Problem List: (1) Pulmonary embolism ICD Codes: I26.99 - Other pulmonary embolism without acute cor pulmonale (2) Chronic atrial fibrillation with RVR ICD Codes: I48.2 - Chronic atrial fibrillation Status: Acute (3) Congestive heart failure ICD Codes: I50.9 - Heart failure, unspecified (4) SOB (shortness of breath) ICD Codes: R06.02 - Shortness of breath (5) Pulmonary hypertension ICD Codes: I27.2 - Other secondary pulmonary hypertension Assessment and Plan Breathing improved, No CHF Continue present medical regimen, sign off. Problem Qualifiers (1) Pulmonary embolism: Jaron Gaxiola Feb 11, 2017 07:57
[2017-02-11] MEDS: INSULIN ASPART SUPPLEMENTAL SCALE SQ SCH ×2 (07:58→11:39)
[2017-02-11] MEDS: APIXABAN 5 MG TABLET PO SCH (08:16)
[2017-02-11] MEDS: SODIUM BICARBONATE 325 MG TAB PO SCH (08:16)
[2017-02-11] MEDS: predniSONE 10 MG TAB PO SCH (08:16)
[2017-02-11] MEDS: guaiFENesin E.R. 600 MG TAB PO SCH (08:16)
[2017-02-11] MEDS: METOPROLOL SUCCINATE 50 MG EXTENDED RELEASE TAB PO SCH (08:16)
[2017-02-11] MEDS: TACROLIMUS 1 MG CAP PO SCH (08:17)
[2017-02-11] MEDS: NYSTAT/DIPHENHY/LIDO MOUTHWASH (Adult) 120ML SWISH-SWAL SCH (08:17)
[2017-02-11] MEDS: FUROSEMIDE 40 MG/4 ML VIAL IV PUSH SCH (08:17)
[2017-02-11] MEDS: FAMOTIDINE 20 MG TAB PO SCH (08:17)
[2017-02-11] MEDS: SODIUM CHLORIDE 0.9% FLUSH 10 ML FLUSH IV FLUSH SCH (08:17)
[2017-02-11] MEDS: TIMOLOL MALEATE 0.5% OPHT SOLN 5 ML BTL EACH EYE SCH (08:18)
[2017-02-11] MEDS: INSULIN DETEMIR 100 UNITS/ML VIAL SQ SCH (08:18)
--- NOTE | 2017-02-11 08:48 | HHI.PR ---
Subjective Remarks The patient reports that she woke up at 0215 and couldn't breath. Symptoms severe. She was given Lasix p.o. and didn't improve so the SNF physician instructed that she should be sent to the hospital. She was recently weaned off of supplemental oxygen. She complains of orthopnea. She is residing at [facility]. [facility] first couple of weeks of December [facility] [place] end of December, beginning of January. Denies cough, fever, nausea, vomiting, coffee or red colored vomit, black or red stool. She reports taking Lasix 20 mg once daily. Recently dosage decreased on Tacrolimus and CellCept d/c'd recently The patient required bipap on ER arrival and is now somewhat tachypneic on 5 liters supplemental oxygen via nasal cannula - oxygen saturation is 100%. 02-07 PATIENT REMAINS ON CARDIZEM DRIP TO HAVE CT OF CHEST TODAY DW RN AND PT AND ID SEEMS TO BE BREATHING BETTER THAN YESTERDAY EVENING HAS BEEN LIVING AT A SNF PRIOR TO ADMISSION HX OF PULMONARY HYPERTENSION SEVERE BL LE LYMPHEDEMA 02-08 TRY TO WEAN OFF CARDIZEM WILL INCREASE METOPROLOL TO 50MG PO BID DW RN AND PT COMPLAINS OF SORE THROAT AND COUGH INCENTIVE SPIROMETRY 02-09 OFF CARDIZEM DRIP STILL V/Q SCAN POSITIVE FOR INTERMEDIATE FOR PE- ELIQUIS HAS BEEN INCREASED TO 10MG BID DW RN AND PATIENT 9-25 BREATHING BETTER SEEN BY PULMONARY AND CARDIO INCREASE ACTIVITY HOPEFULLY TO SNF IN NEXT 24-48 HOURS DW RN AND PATIENT 9-26 BREATHING BETTER WILL DC TO SNF TODAY SEE ORDER SEE 3008 Objective Vitals Vital Signs Date Time Temp Pulse Resp B/P (MAP) Pulse Ox O2 Delivery O2 Flow Rate FiO2 02/11/17 08:08 97 Nasal Cannula 3.00 02/11/17 06:00 63 02/11/17 04:00 71 02/11/17 04:00 98.0 71 23 143/66 (91) 100 02/11/17 02:00 74 02/11/17 00:00 73 02/11/17 00:00 97.4 73 24 172/74 (106) 100 02/10/17 22:00 87 02/10/17 20:00 79 02/10/17 20:00 98.5 79 26 166/78 (107) 100 02/10/17 19:43 94 Nasal Cannula 3.00 02/10/17 18:00 71 02/10/17 16:00 72 02/10/17 16:00 98.4 72 23 157/76 (103) 100 02/10/17 14:00 74 02/10/17 12:00 75 02/10/17 12:00 98.1 75 22 155/71 (99) 100 02/10/17 10:00 92 I/O 02/10/17 02/10/17 02/10/17 02/11/17 02/11/17 02/11/17 07:00 15:00 23:00 07:00 15:00 23:00 Intake Total 300 ml 600 ml 500 ml Output Total 1200 ml 875 ml 700 ml Balance -900 ml -275 ml -200 ml Intake Oral 300 ml 600 ml 500 ml Output Urine Total 1200 ml 875 ml 700 ml # Bowel Movements 0 1 1 Result Diagram: 02/10/17 0831 02/10/17 0831 Other Results Laboratory Tests Test 02/09/17 12:19 02/10/17 08:31 White Blood Count 11.9 TH/MM3 8.8 TH/MM3 Red Blood Count 3.85 MIL/MM3 3.51 MIL/MM3 Hemoglobin 10.9 GM/DL 10.3 GM/DL Hematocrit 35.0 % 32.0 % Mean Corpuscular Volume 90.9 FL 91.2 FL Mean Corpuscular Hemoglobin 28.3 PG 29.4 PG Mean Corpuscular Hemoglobin Concent 31.2 % 32.2 % Red Cell Distribution Width 14.7 % 14.6 % Platelet Count 135 TH/MM3 173 TH/MM3 Mean Platelet Volume 8.2 FL 8.5 FL Neutrophils (%) (Auto) 86.7 % 79.2 % Lymphocytes (%) (Auto) 4.5 % 9.1 % Monocytes (%) (Auto) 5.9 % 6.7 % Eosinophils (%) (Auto) 2.6 % 4.6 % Basophils (%) (Auto) 0.3 % 0.4 % Neutrophils # (Auto) 10.3 TH/MM3 7.0 TH/MM3 Lymphocytes # (Auto) 0.5 TH/MM3 0.8 TH/MM3 Monocytes # (Auto) 0.7 TH/MM3 0.6 TH/MM3 Eosinophils # (Auto) 0.3 TH/MM3 0.4 TH/MM3 Basophils # (Auto) 0.0 TH/MM3 0.0 TH/MM3 CBC Comment DIFF FINAL DIFF FINAL Differential Comment Blood Urea Nitrogen 27 MG/DL 28 MG/DL Creatinine 0.98 MG/DL 0.99 MG/DL Random Glucose 171 MG/DL 175 MG/DL Total Protein 5.6 GM/DL 5.9 GM/DL Albumin 2.6 GM/DL 2.5 GM/DL Calcium Level 8.4 MG/DL 8.9 MG/DL Phosphorus Level 3.1 MG/DL 2.7 MG/DL Magnesium Level 1.8 MG/DL 1.9 MG/DL Alkaline Phosphatase 91 U/L 84 U/L Aspartate Amino Transf (AST/SGOT) 16 U/L 12 U/L Alanine Aminotransferase (ALT/SGPT) 16 U/L 14 U/L Total Bilirubin 0.7 MG/DL 0.6 MG/DL Sodium Level 139 MEQ/L 138 MEQ/L Potassium Level 4.5 MEQ/L 4.4 MEQ/L Chloride Level 102 MEQ/L 99 MEQ/L Carbon Dioxide Level 29.6 MEQ/L 30.7 MEQ/L Anion Gap 7 MEQ/L 8 MEQ/L Estimat Glomerular Filtration Rate 57 ML/MIN 56 ML/MIN Imaging Last Impressions Lower Extremity Ultrasound 02/09/17 0000 Signed Impressions: Service Date/Time: Thursday, February 09, 2017 12:04 - CONCLUSION: 1. Suboptimal examination secondary patient's large body habitus and edema. 2. No evidence of deep venous thrombosis. 3. The posterior tibial veins could not be visualized or evaluated. Michael Mustafa MD Lung Scan-V Nuclear Medicine 02/08/17 0000 Signed Impressions: Service Date/Time: Wednesday, February 08, 2017 14:44 - CONCLUSION: Intermediate probability of pulmonary embolism. Michael Mustafa MD Chest X-Ray 02/07/17 0000 Signed Impressions: Service Date/Time: Tuesday, February 07, 2017 10:03 - CONCLUSION: Stable chest. Kyree Johnston MD Objective Remarks GENERAL: This is an obese elderly female patient who is tachypneic. SKIN: No rashes, ecchymoses or lesions. Cool and dry. Bilateral lower extremities with CHRONIC skin changes c/w lymphedema HEAD: Atraumatic. Normocephalic. EYES: No scleral icterus. No injection or drainage. PERRLA EOMI ENT: Nose without bleeding, purulent drainage. Airway patent.TONGUE MIDLINE NECK: Trachea midline. No JVD. NECK SUPPLE CARDIOVASCULAR: IRRegular rate and rhythm without murmurs, gallops, or rubs. S1 , S2 NO S3 OR S4 NO HEAVE RESPIRATORY: Breath sounds diminished; equal bilaterally. No wheezes, rales, or rhonchi. Tachypneic and using accessory muscles to breath IMPROVING ON OXYGEN GASTROINTESTINAL: Abdomen soft, non-tender, nondistended. No guarding. OBESE MUSCULOSKELETAL: Extremities without clubbing, cyanosis. CHRONIC BL LE LYMPHEDEMA NEUROLOGICAL: Awake and alert. Motor and sensory grossly within normal limits. Normal speech. INSIGHT AND JUDGEMENT ARE GOOD MOOD AND BEHAVIOR ARE APPROPRIATE Medications and IVs Current Medications Furosemide (Lasix Inj) 60 mg DAILY IV PUSH ; Start 02/06/17 at 09:00; Stop 02/06 at 09:00; Status DC Sodium Chloride (NS Flush) 2 ml UNSCH PRN IVF FLUSH AFTER USING IV ACCESS; Start 02/06/17 at 04:00; Stop 02/06/17 at 05:16; Status DC Furosemide (Lasix Inj) 60 mg ONCE ONCE IV PUSH Last administered on 02/06/17 04:05; Start 02/06/17 at 04:00; Stop 02/06/17 at 04:01; Status DC Ondansetron HCl (Zofran Inj) 8 mg ONCE ONCE IV PUSH Last administered on 04:13; Start 02/06/17 at 04:15; Stop 02/06/17 at 04:16; Status DC Aztreonam 2000 mg/ Sodium Chloride 100 ml @ 200 mls/hr NOW ONCE IV Last administered on 02/06/17 05:43; Start 02/06/17 at 05:15; Stop 02/06/17 at 05:44 ; Status DC Levofloxacin (Levaquin) 750 mg ONCE ONCE PO Last administered on 02/06/17 05: 16; Start 02/06/17 at 05:15; Stop 02/06/17 at 05:16; Status DC Diltiazem HCl (Cardizem Inj) 26 mg BOLUS ONCE IV PUSH Last administered on 05:20; Start 02/06/17 at 05:15; Stop 02/06/17 at 05:16; Status DC Sodium Chloride (NS Flush) 2 ml UNSCH PRN IV FLUSH FLUSH AFTER USING IV ACCESS Last administered on 02/07/17 08:22; Start 02/06/17 at 05:15 Sodium Chloride (NS Flush) 2 ml BID IV FLUSH Last administered on 02/11/17 08: 17; Start 02/06/17 at 09:00 Naloxone HCl (Narcan Inj) 0.4 mg UNSCH PRN IV PUSH SEE LABEL COMMENTS; Start at 05:15 Furosemide (Lasix Inj) 40 mg BID@09,18 IV PUSH Last administered on 02/07/17 08:22; Start 02/06/17 at 09:00; Stop 02/07/17 at 12:41; Status DC Dextrose (D50w (Vial) Inj) 50 ml UNSCH PRN IV PUSH HYPOGLYCEMIA-SEE COMMENTS; Start 02/06/17 at 06:00 Glucagon (Glucagon Inj) 1 mg UNSCH PRN OTHER HYPOGLYCEMIA-SEE COMMENTS; Start 02/06/17 at 06:00 Insulin Aspart (NovoLOG SUPPLEMENTAL SCALE) 1 ACHS SLIDING SCALE SQ Last administered on 02/10/17 20:39; Start 02/06/17 at 08:00 Apixaban (Eliquis) 5 mg BID PO Last administered on 02/09/17 08:47; Start at 09:00; Stop 02/09/17 at 09:06; Status DC Famotidine (Pepcid) 20 mg DAILY PO Last administered on 02/11/17 08:17; Start 02/06/17 at 09:00 Insulin Detemir (Levemir Inj) 15 units DAILY SQ Last administered on 02/11/17 08:18; Start 02/06/17 at 09:00 Levothyroxine Sodium (Synthroid) 25 mcg DAILY@0600 PO Last administered on 02/11 04:57; Start 02/06/17 at 06:00 Metoprolol Succinate (Toprol Xl) 25 mg BID PO Last administered on 02/08/17 08 :40; Start 02/06/17 at 09:00; Stop 02/08/17 at 10:16; Status DC Multi-Ingredient Mouthwash/Gargle (Magic Mouthwash Adult Liq) 10 ml QID SWISH- SWAL Last administered on 02/11/17 08:17; Start 02/06/17 at 09:00 Sodium Bicarbonate (Sodium Bicarbonate) 325 mg TIDPC PO Last administered on 08:16; Start 02/06/17 at 09:30 Tacrolimus (Prograf) 1 mg DAILY@18 PO Last administered on 02/06/17 17:20; Start 02/06/17 at 18:00; Status Future Hold Tacrolimus (Prograf) 2 mg DAILY PO Last administered on 02/07/17 08:23; Start 02/06/17 at 09:00; Stop 02/07/17 at 12:41; Status DC Timolol Maleate (Timoptic 0.5% Opt Sol) 1 drop BID EACH EYE Last administered on 02/11/17 08:18; Start 02/06/17 at 09:00 Ipratropium [place] (Atrovent Neb) 0.5 mg Q6HR NEB NEB Last administered on 08:06; Start 02/06/17 at 10:00 Ipratropium [place] (Atrovent Neb) 0.5 mg Q2HR NEB PRN NEB wheezing; Start at 06:00 Cefepime HCl 1000 mg/Sodium Chloride 100 ml @ 200 mls/hr Q12H IV Last administered on 02/09/17 08:47; Start 02/06/17 at 09:00; Stop 02/09/17 at 12:05 ; Status DC Diltiazem HCl (Cardizem Inj) 15 mg ONCE ONCE IV PUSH Last administered on 02/06 07:25; Start 02/06/17 at 07:15; Stop 02/06/17 at 07:16; Status DC Diltiazem HCl 125 mg/Sodium Chloride 125 ml @ 5 mls/hr TITRATE PRN IV Tachycardia Last administered on 02/08/17 08:21; Start 02/06/17 at 08:00 Azithromycin 500 mg/Sodium Chloride 250 ml @ 250 mls/hr Q24H IV Last administered on 02/08/17 11:51; Start 02/06/17 at 13:00; Stop 02/09/17 at 12:05 ; Status DC Magnesium Oxide (Mag-Ox) 400 mg DAILY@1200 PO Last administered on 02/10/17 12 :22; Start 02/07/17 at 12:00 Ergocalciferol (Drisdol) 50,000 units Q7D PO Last administered on 02/06/17 17: 20; Start 02/06/17 at 15:00 Prednisone (Deltasone) 10 mg DAILY PO Last administered on 02/11/17 08:16; Start 02/06/17 at 15:00 Acetaminophen (Tylenol) 1,000 mg Q12H PRN PO Arthritis/pain Last administered on 02/11/17 05:02; Start 02/06/17 at 15:00 Furosemide (Lasix Inj) 40 mg DAILY IV PUSH Last administered on 02/08/17 08:42 ; Start 02/08/17 at 09:00; Stop 02/08/17 at 11:32; Status DC Tacrolimus (Prograf) 2 mg BID@0800,2000 PO Last administered on 02/11/17 08:17 ; Start 02/07/17 at 20:00 Metoprolol Succinate (Toprol Xl) 50 mg BID PO Last administered on 02/11/17 08 :16; Start 02/08/17 at 21:00 Guaifenesin (Mucinex Er) 600 mg BID PO Last administered on 02/11/17 08:16; Start 02/08/17 at 21:00 Metoprolol Succinate (Toprol Xl) 25 mg ONCE ONCE PO Last administered on 10:56; Start 02/08/17 at 10:45; Stop 02/08/17 at 10:46; Status DC Furosemide (Lasix Inj) 40 mg BID IV PUSH Last administered on 02/11/17 08:17; Start 02/08/17 at 21:00 Apixaban (Eliquis) 10 mg BID PO Last administered on 02/11/17 08:16; Start at 21:00; Stop 02/16/17 at 20:59 Apixaban (Eliquis) 5 mg BID PO ; Start 02/17/17 at 09:00 Urinary Catheter: No Vascular Central Line Catheter: No A/P Problem List: (1) Congestive heart failure ICD Code: I50.9 - Heart failure, unspecified (2) Pneumonia ICD Code: J18.9 - Pneumonia, unspecified organism Status: Acute (3) Diabetes mellitus type 2, insulin dependent ICD Code: E11.9 - Type 2 diabetes mellitus without complications; 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 (4) Hyperlipidemia ICD Code: E78.5 - Hyperlipidemia, unspecified (5) HTN (hypertension) ICD Code: I10 - Essential (primary) hypertension (6) Chronic atrial fibrillation with RVR ICD Code: I48.2 - Chronic atrial fibrillation Status: Acute (7) Hx of kidney transplant ICD Code: Z94.0 - Kidney transplant status (8) A-fib ICD Code: I48.91 - Unspecified atrial fibrillation Status: Acute (9) Hypoxia ICD Code: R09.02 - Hypoxemia Status: Acute (10) SOB (shortness of breath) ICD Code: R06.02 - Shortness of breath Assessment and Plan 66-year-old female transferred from local shelter facility for acute onset shortness of breath: Acute CHF exacerbation--DOUBT CHF EXACERBATION HAS SEVERE PULMONARY HYPERTENSION- HAD BEEN OFF OXYGEN AT THE SNF - BNP 138 - CXR shows cardiomegaly with bilateral pulmonary infiltrates and tiny left effusion - monitor serial EKGs and cardiac enzymes to r/o ACS - Strictly monitor intake and output - Heart healthy diet - Continuous cardiac telemetry to monitor for cardiac arrhythmias INCREASE METOPROLOL TO 50MG PO BID WEANED OFF CARDIZEM HAS PULMONARY HYPERTENSION Pneumonia, bilateral - CXR shows cardiomegaly with bilateral pulmonary infiltrates and tiny left effusion -OFF ALL ANTIBIOTICS NOW - consult infectious disease - patient on immunosuppressants for kidney transplant - Atrovent nebulizers every 6 hours scheduled and every 2 hours as needed for wheezing Type 2 Diabetes Mellitus - Continue home dose of Lantus daily - Accu-Cheks before meals and at bedtime with low-dose NovoLog sliding scale coverage - Hypoglycemia protocol - Monitor trends and blood glucose readings and adjust treatments as indicated DVT prophylaxis - Resume Eliquis was 10 mg twice a day p.o.- V/Q INTERMEDIATE WILL INCREASE PULMONARY HYPERTENSION ECHO HX RENAL TRANSPLANT ON CHRONIC IMMUNOSUPPRESSION CARDIAC, RENAL AND ID CONSULTS START LACTINEX INCREASE ELIQUIS TO 10MG BID PT AND OT AM LABS HOPEFULLY TO SNF NEXT 24-48 HOURS DC TO SNF TODAY DW RN AND PT Problem Qualifiers (1) Pneumonia: Qualified Codes: J15.0 - Pneumonia due to Klebsiella pneumoniae Davin Vera DO Feb 11, 2017 08:48
[2017-02-11] MEDS ORDERED: ERGO1CAP30 PO (08:55)
[2017-02-11] MEDS ORDERED: APIX5TAB PO (08:55)
[2017-02-11] MEDS ORDERED: FURO20TA PO (08:55)
[2017-02-11] MEDS ORDERED: guaiFENesin ER PO (08:55)
[2017-02-11] MEDS ORDERED: TACR1 PO (08:55)
[2017-02-11] MEDS ORDERED: MAGN400T3 PO (08:55)
[2017-02-11] MEDS ORDERED: METO50TA11 PO (08:55)
--- NOTE | 2017-02-11 09:00 | HHI.DS ---
Discharge Summary Admission Date Feb 06, 2017 at 05:30 Discharge Date: Feb 11, 2017 Admitting Diagnosis Pneumonia and CHF . (1) Congestive heart failure ICD Code: I50.9 - Heart failure, unspecified Diagnosis: Principal (2) Pneumonia ICD Code: J18.9 - Pneumonia, unspecified organism Diagnosis: Secondary Status: Acute (3) Diabetes mellitus type 2, insulin dependent ICD Code: E11.9 - Type 2 diabetes mellitus without complications; Z79.4 - manager terminal (current) use of insulin Diagnosis: Secondary (4) Hyperlipidemia ICD Code: E78.5 - Hyperlipidemia, unspecified Diagnosis: Secondary (5) HTN (hypertension) ICD Code: I10 - Essential (primary) hypertension Diagnosis: Secondary (6) Chronic atrial fibrillation with RVR ICD Code: I48.2 - Chronic atrial fibrillation Diagnosis: Principal Status: Acute (7) Hx of kidney transplant ICD Code: Z94.0 - Kidney transplant status (8) A-fib ICD Code: I48.91 - Unspecified atrial fibrillation Diagnosis: Secondary Status: Acute (9) Hypoxia ICD Code: R09.02 - Hypoxemia Diagnosis: Principal Status: Acute (10) SOB (shortness of breath) ICD Code: R06.02 - Shortness of breath Diagnosis: Principal Procedures NONE Brief History - From Admission The patient reports that she woke up at 0215 and couldn't breath. Symptoms severe. She was given Lasix p.o. and didn't improve so the [facility] physician instructed that she should be sent to the hospital. She was recently weaned off of supplemental oxygen. She complains of orthopnea. She is residing at [facility] first couple of weeks of December [facility] end of December, beginning of January. Denies cough, fever, nausea, vomiting, coffee or red colored vomit, black or red stool. She reports taking Lasix 20 mg once daily. Recently dosage decreased on Tacrolimus and CellCept d/c'd recently The patient required bipap on ER arrival and is now somewhat tachypneic on 5 liters supplemental oxygen via nasal cannula - oxygen saturation is 100%. The patient reports that she woke up at 0215 and couldn't breath. Symptoms severe. She was given Lasix p.o. and didn't improve so the SNF physician instructed that she should be sent to the hospital. She was recently weaned off of supplemental oxygen. She complains of orthopnea. She is residing at [facility]. [facility] first couple of weeks of December [facility] end of December, beginning of January. Denies cough, fever, nausea, vomiting, coffee or red colored vomit, black or red stool. She reports taking Lasix 20 mg once daily. Recently dosage decreased on Tacrolimus and CellCept d/c'd recently The patient required bipap on ER arrival and is now somewhat tachypneic on 5 liters supplemental oxygen via nasal cannula - oxygen saturation is 100%. 9 PATIENT REMAINS ON CARDIZEM DRIP TO HAVE CT OF CHEST TODAY DW RN AND PT AND ID SEEMS TO BE BREATHING BETTER THAN YESTERDAY EVENING HAS BEEN LIVING AT A SNF PRIOR TO ADMISSION HX OF PULMONARY HYPERTENSION SEVERE BL LE LYMPHEDEMA 02-08 TRY TO WEAN OFF CARDIZEM WILL INCREASE METOPROLOL TO 50MG PO BID DW RN AND PT COMPLAINS OF SORE THROAT AND COUGH INCENTIVE SPIROMETRY 02-09 OFF CARDIZEM DRIP STILL V/Q SCAN POSITIVE FOR INTERMEDIATE FOR PE- ELIQUIS HAS BEEN INCREASED TO 10MG BID DW RN AND PATIENT 9- BREATHING BETTER SEEN BY PULMONARY AND CARDIO INCREASE ACTIVITY HOPEFULLY TO SNF IN NEXT 24-48 HOURS DW RN AND PATIENT 9- DC TO SNF CBC/BMP: 02/10/17 0831 02/10/17 0831 Significant Findings Laboratory Tests Test 02/09/17 12:19 02/10/17 08:31 White Blood Count 11.9 TH/MM3 (4.0-11.0) Red Blood Count 3.85 MIL/MM3 (4.00-5.30) 3.51 MIL/MM3 (4.00-5.30) Hemoglobin 10.9 GM/DL (11.6-15.3) 10.3 GM/DL (11.6-15.3) Mean Corpuscular Hemoglobin Concent 31.2 % (32.0-36.0) Platelet Count 135 TH/MM3 (150-450) Neutrophils (%) (Auto) 86.7 % (16.0-70.0) 79.2 % (16.0-70.0) Lymphocytes (%) (Auto) 4.5 % (9.0-44.0) Neutrophils # (Auto) 10.3 TH/MM3 (1.8-7.7) Lymphocytes # (Auto) 0.5 TH/MM3 (1.0-4.8) 0.8 TH/MM3 (1.0-4.8) Blood Urea Nitrogen 27 MG/DL (7-18) 28 MG/DL (7-18) Random Glucose 171 MG/DL (74-106) 175 MG/DL (74-106) Total Protein 5.6 GM/DL (6.4-8.2) 5.9 GM/DL (6.4-8.2) Albumin 2.6 GM/DL (3.4-5.0) 2.5 GM/DL (3.4-5.0) Calcium Level 8.4 MG/DL (8.5-10.1) Estimat Glomerular Filtration Rate 57 ML/MIN (>89) 56 ML/MIN (>89) Hematocrit 32.0 % (35.0-46.0) Eosinophils (%) (Auto) 4.6 % (0.0-4.0) Aspartate Amino Transf (AST/SGOT) 12 U/L (15-37) Imaging Last Impressions Lower Extremity Ultrasound 02/09/17 0000 Signed Impressions: Service Date/Time: Thursday, February 09, 2017 12:04 - CONCLUSION: 1. Suboptimal examination secondary patient's large body habitus and edema. 2. No evidence of deep venous thrombosis. 3. The posterior tibial veins could not be visualized or evaluated. Michael Mustafa MD Lung Scan-V Nuclear Medicine 02/08/17 0000 Signed Impressions: Service Date/Time: Wednesday, February 08, 2017 14:44 - CONCLUSION: Intermediate probability of pulmonary embolism. Michael Mustafa MD Chest X-Ray 02/07/17 0000 Signed Impressions: Service Date/Time: Tuesday, February 07, 2017 10:03 - CONCLUSION: Stable chest. Kyree Johnston MD PE at Discharge GENERAL: This is an obese elderly female patient who is tachypneic. SKIN: No rashes, ecchymoses or lesions. Cool and dry. Bilateral lower extremities with CHRONIC skin changes c/w lymphedema HEAD: Atraumatic. Normocephalic. EYES: No scleral icterus. No injection or drainage. PERRLA EOMI ENT: Nose without bleeding, purulent drainage. Airway patent.TONGUE MIDLINE NECK: Trachea midline. No JVD. NECK SUPPLE CARDIOVASCULAR: IRRegular rate and rhythm without murmurs, gallops, or rubs. S1 , S2 NO S3 OR S4 NO HEAVE RESPIRATORY: Breath sounds diminished; equal bilaterally. No wheezes, rales, or rhonchi. Tachypneic and using accessory muscles to breath IMPROVING ON OXYGEN GASTROINTESTINAL: Abdomen soft, non-tender, nondistended. No guarding. OBESE MUSCULOSKELETAL: Extremities without clubbing, cyanosis. CHRONIC BL LE LYMPHEDEMA NEUROLOGICAL: Awake and alert. Motor and sensory grossly within normal limits. Normal speech. INSIGHT AND JUDGEMENT ARE GOOD MOOD AND BEHAVIOR ARE APPROPRIATE Hospital Course The patient reports that she woke up at 0215 and couldn't breath. Symptoms severe. She was given Lasix p.o. and didn't improve so the [facility] physician instructed that she should be sent to the hospital. She was recently weaned off of supplemental oxygen. She complains of orthopnea. She is residing at [facility] first couple of december [facility] end of December, beginning january. Denies cough, fever, nausea, vomiting, coffee or red colored vomit, black or red stool. She reports taking Lasix 20 mg once daily. Recently dosage decreased on Tacrolimus and CellCept d/c'd recently The patient required bipap on ER arrival and is now somewhat tachypneic on 5 liters supplemental oxygen via nasal cannula - oxygen saturation is 100%. The patient reports that she woke up at 0215 and couldn't breath. Symptoms severe. She was given Lasix p.o. and didn't improve so the SNF physician instructed that she should be sent to the hospital. She was recently weaned off of supplemental oxygen. She complains of orthopnea. She is residing at [facility] first couple of weeks of December [facility] end december, beginning january. Denies cough, fever, nausea, vomiting, coffee or red colored vomit, black or red stool. She reports taking Lasix 20 mg once daily. Recently dosage decreased on Tacrolimus and CellCept d/c'd recently The patient required bipap on ER arrival and is now somewhat tachypneic on 5 liters supplemental oxygen via nasal cannula - oxygen saturation is 100%. 9-22 PATIENT REMAINS ON CARDIZEM DRIP TO HAVE CT OF CHEST TODAY DW RN AND PT AND ID SEEMS TO BE BREATHING BETTER THAN YESTERDAY EVENING HAS BEEN LIVING AT A SNF PRIOR TO ADMISSION HX OF PULMONARY HYPERTENSION SEVERE BL LE LYMPHEDEMA 02-08 TRY TO WEAN OFF CARDIZEM WILL INCREASE METOPROLOL TO 50MG PO BID DW RN AND PT COMPLAINS OF SORE THROAT AND COUGH INCENTIVE SPIROMETRY 02-09 OFF CARDIZEM DRIP STILL V/Q SCAN POSITIVE FOR INTERMEDIATE FOR PE- ELIQUIS HAS BEEN INCREASED TO 10MG BID DW RN AND PATIENT 9- BREATHING BETTER SEEN BY PULMONARY AND CARDIO INCREASE ACTIVITY HOPEFULLY TO SNF IN NEXT 24-48 HOURS DW RN AND PATIENT 9- DC TO SNF Pt Condition on Discharge: Good Discharge Disposition: Discharge to SNF Discharge Time: > 30 minutes Discharge Instructions DIET: Follow Instructions for: Heart Healthy Diet, Diabetic Diet Speech Therapy-Diet Recommends: Regular Activities you can perform: Weight Bearing as Kuldip Follow up Referrals: Cardiology - 2 Weeks with Junior Monte MD Nephrology - 2 Weeks with Bill Sandoval MD PCP Follow-up - 1 Week Pulmonology - 2 Weeks with Pastora Tse MD New Medications: Apixaban (Eliquis) 5 Mg Tab 10 MG PO BID for Blood Clot Prevention, #60 TAB COMPLETE 7 DAYS OF 10MG PO BID THEN SWITCH TO 5MG PO BID FROM THEN ON Ergocalciferol (Ergocalciferol) 50,000 Unit Cap 49294 UNITS PO Q7D for Electrolyte Replacement, #5 CAP Magnesium Oxide (Magnesium Oxide) 400 Mg Tab 400 MG PO DAILY@1200 for Electrolyte Replacement, #30 TAB Metoprolol Succinate ER 24 HR (Metoprolol Succinate ER 24 HR) 50 Mg Tab 50 MG PO BID for Regulate Heart Beat, #60 TAB Tacrolimus (Prograf) 1 Mg Cap 2 MG PO BID@0800,2000 for Immunosuppression, #60 CAP [guaiFENesin ER] () 600 MG TABCR 600 MG PO BID for Cough, #60 TAB Changed Medications: Furosemide (Furosemide) 20 Mg Tab 20 MG PO BID for edema, #60 TAB (Changed from: DAILY; 31) Continued Medications: Acetaminophen (Tylenol) 325 Mg Tab 325 MG PO BID, #1 TAB 0 Refills Ciprofloxacin (Cipro) 500 Mg Tab 500 MG PO Q12H for urosepsis, #38 TAB End date is 02/12/17 Famotidine (Famotidine) 20 Mg Tab 20 MG PO DAILY, #60 TAB 0 Refills Insulin Glargine Inj (Lantus Inj) 1,000 Unit/10 Ml Vial 15 UNITS SQ DAILY for Blood Sugar Management, VIAL 0 Refills Insulin Lispro (Human) Inj (Humalog Inj) 1,000 Unit/10 Ml Vial 2-12 UNITS SQ ACHS for Blood Sugar Management, #1 VIAL 0 Refills Max dose at bedtime:( )units; sugars < 70,(0)units; sugars 150-199,(2)units; sugars 200-249,(4)units; sugars 250-299,(7)units; sugars 300-349,(10)units; sugars more than 349,(12)units. Ipratropium-Albuterol Neb (Duoneb) 0.5-2.5 Mg/3 Ml Neb 1 NEBULE INH Q8HR NEB PRN for SOB/WHEEZING, #90 NEBULE 0 Refills Lactobacillus Acidophilus (Acidophilus/l-Sporogenes) 35 Million Cell-25 Million Cell Tab 1 TAB PO TID for gut nelsy, #90 TAB Levothyroxine (Levothyroxine) 25 Mcg Tab 25 MCG PO DAILY for Thyroid, #30 TAB 0 Refills Loratadine (Claritin) 10 Mg Tablet 10 MG PO DAILY for Allergies, #14 TAB Naphazoline HCl (Clear Eyes Redness Relief Drop) 0.012 %-0.25 % Drops 1 DROP LEFT EYE Q2HR PRN for EYE REDNESS for 30 Days, ML Axaiczcm-Chrjitkxzstqsng-Nfndqczvb Liq (Magic Mouthwash Adult Liq) 120 Ml Susp 10 ML SWISH-SWAL QID for oral ulcer for 14 Days, ML Prednisone (Prednisone) 10 Mg Tab 10 MG PO DAILY, TAB 0 Refills Sodium Bicarbonate (Sodium Bicarbonate) 325 Mg Tab 325 MG PO TIDPC, #90 TAB 0 Refills Timolol Opth Drops (Timolol Opth Drops) 0.5 % Soln 1 DROP EACH EYE BID for Glaucoma, #1 BOTTLE 0 Refills Discontinued Medications: Apixaban (Eliquis) 5 Mg Tab 5 MG PO BID for Blood Clot Prevention, #60 TAB 0 Refills Metoprolol Succinate ER 24 HR (Metoprolol Succinate ER 24 HR) 25 Mg Tab 25 MG PO BID, #30 TAB 0 Refills Tacrolimus (Prograf) 1 Mg Cap 2 MG PO DAILY for organ rejection prevention, #31 CAP Tacrolimus (Prograf) 1 Mg Cap 1 MG PO DAILY@18 for organ rejection prevention, #31 CAP Davin Vera DO Feb 11, 2017 09:00
[2017-02-11] MEDS: MAGNESIUM OXIDE 400 MG TAB PO SCH (11:38)
[2017-02-11 13:51] LABS: CRYPTOCOCCUS ANTIGEN Negative (Negative)
[2017-02-17] MEDS ORDERED: APIXABAN 5 MG TABLET PO SCH (09:00)
== END 2017-02-11 12:05 | disposition home or self-care (01) | DRG 314 ==
LOC: NEPE 03:42 → NEDA 05:30 → HIMN 08:55
PROVIDERS: ADMIT Hospitalist; ATTEND Hospitalist
PROC: 5A09457 Assistance with Respiratory Ventilation, 24-96 Consecutive Hours, Continuous Positive Airway Pressure (ICD-10-PCS; principal; 2017-02-06)
DX: I27.2 Other secondary pulmonary hypertension (principal); J18.9 Pneumonia, unspecified organism; E11.22 Type 2 diabetes mellitus with diabetic chronic kidney disease; I13.0 Hypertensive heart and chronic kidney disease with heart failure and stage 1 through stage 4 chronic kidney disease, or unspecified chronic kidney disease; I48.2 Chronic atrial fibrillation; Z94.0 Kidney transplant status; E03.9 Hypothyroidism, unspecified; E78.5 Hyperlipidemia, unspecified; Z66 Do not resuscitate; K21.9 Gastro-esophageal reflux disease without esophagitis; Z79.4 Long term (current) use of insulin; N18.9 Chronic kidney disease, unspecified; M06.9 Rheumatoid arthritis, unspecified; Z79.01 Long term (current) use of anticoagulants
CPT/HCPCS: 36600; 51702; 71010; 71250; 76937; 78582; 80048; 80053; 80197; 81001; 82550; 82805; 82948; 83036; 83605; 83735; 83880; 84100; 84439; 84443; 84484; 85025; 85610; 85730; 87040; 87070; 87205; 87449; 87641; 87804; 87899; 93005; 93306; 93970; 94002; 94003; 94640; 94664; 96374; 96375; A9540; A9567; J0456; J0692; J1815; J1940; J2405; J7050; J7507; J7512; J7644